=== PATIENT | female | born 1940 | race Two or more races ===

== ENCOUNTER → 2016-06-25 | Outpatient (CLI) | payer MEDICARE ==
[2016-06-25 15:09] LABS: Blood Urea Nitrogen 36 mg/dL (7-17); Non-African American GFR(MDRD) 56 (>60 ml/min/1.73 sqM)
--- NOTE | 2016-06-25 16:50 | CT ---
EXAMINATION TYPE: CT ChestAbdPelvis w con DATE OF EXAM: 06/25/2016 4:29 PM COMPARISON: CT abdomen pelvis 08 December 2015 HISTORY: follow up biliary cancer CT DLP: 510.3 mGycm Automated exposure control for dose reduction was used. CONTRAST: CT scan of the chest, abdomen and pelvis is performed with Oral Contrast and with IV Contrast, patien t injected with 70 mL of Visipaque 320. FINDINGS: LUNGS: The lungs are grossly clear, there is no concerning parenchymal mass or nodule identified. T here is no pleural effusion or pneumothorax seen. The tracheobronchial tree is patent. MEDIASTINUM: Large intrathoracic stomach and hiatal hernia again noted. No mediastinal, axillary, or hilar adenopathy. Patient is kyphotic. AORTA: No significant abnormality is seen. OTHER: No additional significant abnormality is seen. LIVER/GB: There is pneumobilia present. Biliary stent is present coursing into the small bowel and pr oper hepatic duct. Gallstones are present, gallbladder wall thickening is again seen. PANCREAS: Atrophic. SPLEEN: No significant abnormality is seen. ADRENALS: No significant abnormality is seen. KIDNEYS: Similar findings, there areas of bilateral cortical thinning, likely there is scarring prese nt, the hydronephrosis has resolved. REPRODUCTIVE ORGANS: No gross abnormality seen. BOWEL: Diverticular changes associated with the colon. FREE AIR: No Free Air visible. ASCITES: None seen. RETROPERITONEAL ADENOPATHY: No retroperitoneal adenopathy is seen. LYMPH NODES: No greater than 1 cm abdominal or pelvic lymph nodes are appreciated. URINARY BLADDER: Bladder wall thickening is again noted. Cystocele, rectocele changes are present. PELVIC ADENOPATHY: None visualized. OSSEOUS STRUCTURES: Scoliosis, degenerative disc changes are again seen. There is multilevel degener ative disc disease with facet arthropathy. IMPRESSION: Similar findings, interval change is of biliary stent, improvement in hydronephrosis, the re is cholelithiasis, correlate for cholecystitis, pneumobilia is likely postprocedural. Partial intr athoracic stomach. Diverticulosis and additional findings above.
== END | disposition home or self-care (01) ==
LOC: RADCTMAIN 14:16
PROVIDERS: ATTEND Internal Medicine Hematology & Oncology
DX: C24.9 Malignant neoplasm of biliary tract, unspecified (principal); N13.30 Unspecified hydronephrosis; K80.20 Calculus of gallbladder without cholecystitis without obstruction; K57.90 Diverticulosis of intestine, part unspecified, without perforation or abscess without bleeding
CPT/HCPCS: 82565; 84520; 71260; 74177; 36415; Q9967

== ENCOUNTER 2016-09-26 08:15 | Inpatient (IN) | payer MEDICARE ==
--- NOTE | 2016-09-26 08:31 | ED ---
General Adult HPI - General Chief complaint: Fall Stated complaint: fall Time Seen by Provider: 09/26/16 08:18 Source: EMS, RN notes reviewed, old records reviewed Mode of arrival: EMS Limitations: no limitations - History of Present Illness Initial comments: This is a 76-year-old female here for evaluation because patient today is presenting for evaluation of weakness. Patient has severe Parkinson's, does suffer from weakness, has had recent falls lately. History is obtained from patient's , patient's prior charts, patient is unable to give accurate history - Related Data Home Medications Medication Instructions Recorded Confirmed Aspirin EC [Ecotrin] 325 mg PO DAILY 12/07/15 09/26/16 Carbidopa/Levodopa 1 tab PO QID 12/07/15 09/26/16 [Carbidopa-Levodopa 25-100 Tab] Donepezil HCl [Donepezil HCl] 5 mg PO HS 12/07/15 09/26/16 Famotidine [Pepcid] 20 mg PO DAILY 12/07/15 09/26/16 Ferrous Sulfate [Feosol] 325 mg PO DAILY@1200 12/07/15 09/26/16 Ibuprofen [Motrin] 200 mg PO BID@1200,1700 09/26/16 09/26/16 Ibuprofen [Motrin] 400 mg PO HS 09/26/16 09/26/16 Mirtazapine [Remeron] 30 mg PO HS 09/26/16 09/26/16 Multivitamins, Thera [Multivitamin 1 tab PO DAILY@1200 09/26/16 09/26/16 (formulary)] Allergies Allergy/AdvReac Type Severity Reaction Status Date / Time latex Allergy Unknown Verified 09/26/16 08:49 ELASTIC Allergy Itching Uncoded 09/26/16 08:24 Review of Systems ROS Statement: Those systems with pertinent positive or pertinent negative responses have been documented in the HPI. ROS Other: All systems not noted in ROS Statement are negative. Past Medical History Past Medical History: Hypertension Additional Past Medical History / Comment(s): parkinson's, vitamin D deficiency History of Any Multi-Drug Resistant Organisms: C-DIFF Past Surgical History: No Surgical Hx Reported Past Anesthesia/Blood Transfusion Reactions: No Reported Reaction Past Psychological History: Unable to Obtain Smoking Status: Never smoker Past Alcohol Use History: None Reported Additional Past Alcohol Use History / Comment(s): Patient is a lifelong nonsmoker, no marijuana or drug use. No alcohol use. Patient lives at home with her . She is a walker for ambulation. She does not require oxygen or nebulizer. Past Drug Use History: None Reported - Past Family History Father Additional Family Medical History / Comment(s): Father at age 90 from old age and diabetes Mother Additional Family Medical History / Comment(s): Mother at age 90 from old age. Brother(s) Additional Family Medical History / Comment(s): Patient has one brother and one sister unknown medical history. Patient does not have any daughters. Patient has one son that is healthy. General Exam Limitations: no limitations General appearance: alert, in no apparent distress Head exam: Present: atraumatic, normocephalic, normal inspection Eye exam: Present: normal appearance, PERRL, EOMI. Absent: scleral icterus, conjunctival injection, periorbital swelling ENT exam: Present: normal exam, mucous membranes moist Neck exam: Present: normal inspection. Absent: tenderness, meningismus, lymphadenopathy Respiratory exam: Present: normal lung sounds bilaterally. Absent: respiratory distress, wheezes, rales, rhonchi, stridor Cardiovascular Exam: Present: regular rate, normal rhythm, normal heart sounds. Absent: systolic murmur, diastolic murmur, rubs, gallop, clicks GI/Abdominal exam: Present: soft, normal bowel sounds. Absent: distended, tenderness, guarding, rebound, rigid Extremities exam: Present: normal inspection, full ROM, normal capillary refill. Absent: tenderness, pedal edema, joint swelling, calf tenderness Back exam: Present: normal inspection Neurological exam: Present: alert, oriented X3, CN II-XII intact Psychiatric exam: Present: normal affect, normal mood Skin exam: Present: warm, dry, intact, normal color. Absent: rash Course Vital Signs 09/26/16 09/26/16 09/26/16 08:16 09:00 10:33 Temperature 97.0 F L 97.4 F L Pulse Rate 90 83 71 Respiratory 18 18 18 Rate Blood Pressure 146/91 129/79 141/71 O2 Sat by Pulse 100 100 100 Oximetry - Reevaluation(s) Reevaluation #1: 09/26/16 11:49 Patient still feeling weak EKG Findings - EKG Comments: EKG Findings:: EKG shows normal sinus rate of 91, SC 120, QRS 84, QTc 469 Medical Decision Making - Medical Decision Making 76 field year for evaluation of recent falls and increasing weakness decreased appetite. Patient coming in to hydrate on exam Hedger as well as acute renal failure, patient does also noted urinary tract infection, will benefit from IV antibiotics and resuscitation - Lab Data Result diagrams: 09/26/16 08:20 09/26/16 08:20 Lab Results 09/26/16 09/26/16 09/26/16 Range/Units 08:20 08:20 08:20 WBC 6.5 (3.8-10.6) k/uL RBC 3.54 L (3.80-5.40) m/uL Hgb 10.9 L (11.4-16.0) gm/dL Hct 33.5 L (34.0-46.0) % MCV 94.6 (80.0-100.0) fL MCH 30.7 (25.0-35.0) pg MCHC 32.5 (31.0-37.0) g/dL RDW 16.2 H (11.5-15.5) % Plt Count 237 (150-450) k/uL Neutrophils % 56 % Lymphocytes % 29 % Monocytes % 6 % Eosinophils % 5 % Basophils % 1 % Neutrophils # 3.7 (1.3-7.7) k/uL Lymphocytes # 1.9 (1.0-4.8) k/uL Monocytes # 0.4 (0-1.0) k/uL Eosinophils # 0.3 (0-0.7) k/uL Basophils # 0.0 (0-0.2) k/uL Hypochromasia Slight Anisocytosis Slight PT (9.0-12.0) sec INR (<1.1) APTT (22.0-30.0) sec Sodium 148 H (137-145) mmol/L Potassium 4.1 (3.5-5.1) mmol/L Chloride 121 H* (98-107) mmol/L Carbon Dioxide 16 L (22-30) mmol/L Anion Gap 11 mmol/L BUN 36 H (7-17) mg/dL Creatinine 1.51 H (0.52-1.04) mg/dL Est GFR (MDRD) Af Amer 40 (>60 ml/min/1.73 sqM) Est GFR (MDRD) Non-Af 33 (>60 ml/min/1.73 sqM) Glucose 94 (74-99) mg/dL Calcium 9.3 (8.4-10.2) mg/dL Phosphorus 3.3 (2.5-4.5) mg/dL Magnesium 2.2 (1.6-2.3) mg/dL Total Bilirubin 1.5 H (0.2-1.3) mg/dL AST 79 H (14-36) U/L ALT 35 (9-52) U/L Alkaline Phosphatase 1474 H (38-126) U/L Total Creatine Kinase 29 L (30-135) U/L CK-MB (CK-2) 1.3 (0.0-2.4) ng/mL CK-MB (CK-2) Rel Index 4.5 Troponin I <0.012 (0.000-0.034) ng/mL Total Protein 7.6 (6.3-8.2) g/dL Albumin 3.3 L (3.5-5.0) g/dL Urine Color Urine Appearance (Clear) Urine pH (5.0-8.0) Ur Specific Hayden (1.001-1.035) Urine Protein (Negative) Urine Glucose (UA) (Negative) Urine Ketones (Negative) Urine Blood (Negative) Urine Nitrite (Negative) Urine Bilirubin (Negative) Urine Urobilinogen (<2.0) mg/dL Ur Leukocyte Esterase (Negative) Urine WBC (0-5) /hpf Ur Squamous Epith Cells (0-4) /hpf Urine Bacteria (None) /hpf Urine Mucus (None) /hpf 09/26/16 09/26/16 Range/Units 08:20 10:30 WBC (3.8-10.6) k/uL RBC (3.80-5.40) m/uL Hgb (11.4-16.0) gm/dL Hct (34.0-46.0) % MCV (80.0-100.0) fL MCH (25.0-35.0) pg MCHC (31.0-37.0) g/dL RDW (11.5-15.5) % Plt Count (150-450) k/uL Neutrophils % % Lymphocytes % % Monocytes % % Eosinophils % % Basophils % % Neutrophils # (1.3-7.7) k/uL Lymphocytes # (1.0-4.8) k/uL Monocytes # (0-1.0) k/uL Eosinophils # (0-0.7) k/uL Basophils # (0-0.2) k/uL Hypochromasia Anisocytosis PT 11.7 (9.0-12.0) sec INR 1.2 (<1.1) APTT 23.2 (22.0-30.0) sec Sodium (137-145) mmol/L Potassium (3.5-5.1) mmol/L Chloride (98-107) mmol/L Carbon Dioxide (22-30) mmol/L Anion Gap mmol/L BUN (7-17) mg/dL Creatinine (0.52-1.04) mg/dL Est GFR (MDRD) Af Amer (>60 ml/min/1.73 sqM) Est GFR (MDRD) Non-Af (>60 ml/min/1.73 sqM) Glucose (74-99) mg/dL Calcium (8.4-10.2) mg/dL Phosphorus (2.5-4.5) mg/dL Magnesium (1.6-2.3) mg/dL Total Bilirubin (0.2-1.3) mg/dL AST (14-36) U/L ALT (9-52) U/L Alkaline Phosphatase (38-126) U/L Total Creatine Kinase (30-135) U/L CK-MB (CK-2) (0.0-2.4) ng/mL CK-MB (CK-2) Rel Index Troponin I (0.000-0.034) ng/mL Total Protein (6.3-8.2) g/dL Albumin (3.5-5.0) g/dL Urine Color Yellow Urine Appearance Turbid H (Clear) Urine pH 6.0 (5.0-8.0) Ur Specific Hayden 1.014 (1.001-1.035) Urine Protein 1+ H (Negative) Urine Glucose (UA) Negative (Negative) Urine Ketones Negative (Negative) Urine Blood Moderate H (Negative) Urine Nitrite Negative (Negative) Urine Bilirubin Negative (Negative) Urine Urobilinogen <2.0 (<2.0) mg/dL Ur Leukocyte Esterase Large H (Negative) Urine WBC >182 H (0-5) /hpf Ur Squamous Epith Cells 5 H (0-4) /hpf Urine Bacteria Many H (None) /hpf Urine Mucus Occasional H (None) /hpf - Radiology Data Radiology results: report reviewed, image reviewed Disposition Clinical Impression: Fall, Weakness, UTI (urinary tract infection), ARF (acute renal failure), Dehydration Disposition: ADMITTED IP TO THIS [facility] Condition: Good Referrals: Lia Ferreira MD [Primary Care Provider] - 1-2 days
[2016-09-26] MEDS ORDERED: SODIUM CHLORIDE 0.9% 1,000 ML IV STA ×2 (08:40→10:43)
[2016-09-26 09:04] LABS: Anisocytosis Slight; Basophils % (A) 1 %; CH 30.2; CHCM 32.3; Eosinophils # (A) 0.3 k/uL (0-0.7); Eosinophils % (A) 5 %; HCT 33.5 % (34.0-46.0); HDW 3.08; HGB 10.9 gm/dL (11.4-16.0); Hypochromasia Slight; Luc # (Auto) 0.19; Luc % (Auto) 3; Lymphocytes # (A) 1.9 k/uL (1.0-4.8); Lymphocytes % (A) 29 %; MCH 30.7 pg (25.0-35.0); MCHC 32.5 g/dL (31.0-37.0); MCV 94.6 fL (80.0-100.0); Mean Platelet Volume 8.3; Monocytes # (A) 0.4 k/uL (0-1.0); Monocytes % (A) 6 %; Neutrophils # (A) 3.7 k/uL (1.3-7.7); Neutrophils % (A) 56 %; RBC 3.54 m/uL (3.80-5.40); RDW 16.2 % (11.5-15.5); WBC 6.5 k/uL (3.8-10.6); WBC (Perox) 6.72
[2016-09-26 09:13] LABS: INR 1.2 (<1.1); Partial Thromboplastin Time 23.2 sec (22.0-30.0); Prothrombin Time 11.7 sec (9.0-12.0)
[2016-09-26 09:17] LABS: Calcium 9.3 mg/dL (8.4-10.2); Magnesium 2.2 mg/dL (1.6-2.3); Phosphorous 3.3 mg/dL (2.5-4.5); Potassium 4.1 mmol/L (3.5-5.1); Total Bilirubin 1.5 mg/dL (0.2-1.3); Total Protein 7.6 g/dL (6.3-8.2)
[2016-09-26 09:42] LABS: Creatine Kinase 29 U/L (30-135)
--- NOTE | 2016-09-26 09:42 | XR ---
EXAMINATION TYPE: XR chest 1V DATE OF EXAM: 09/26/2016 9:34 AM COMPARISON: Correlation CT 06/25/2016 HISTORY: 76-year-old female with pain after fall TECHNIQUE: Single frontal view of the chest is obtained. FINDINGS: Rightward patient rotation ultrasound normal cardiomediastinal contours. The patient's chin is also d own obscuring the thoracic inlet and upper most mid chest. Heart appears upper limits of normal in size. Pulmonary vasculature within normal limits. Mild inters titial prominence as a chronic appearance. No loly consolidation, appreciable pneumothorax, or signi ficant pleural effusion. There is a large hiatal hernia. IMPRESSION: Suboptimal patient positioning. No definite acute process. Large hiatal hernia.
[2016-09-26 09:53] LABS: Troponin I <0.012 ng/mL (0.000-0.034)
--- NOTE | 2016-09-26 09:56 | XR ---
EXAMINATION TYPE: XR pelvis AP view DATE OF EXAM: 09/26/2016 9:34 AM COMPARISON: NONE HISTORY: 76-year-old female with pain after fall FINDINGS: Degenerative changes lower lumbar spine. SI joints appear symmetric and intact as does the pubic symp hysis. There is osteopenia without displaced fracture. Mild axial joint space narrowing at both hips. A metallic biliary stent is partially visualized. IMPRESSION: Osteopenia without displaced fracture. If there is concern for an occult osseous injury or the patien t is nonweightbearing, MRI can provide more sensitive evaluation.
[2016-09-26 10:18] LABS: Creatine Kinase MB 1.3 ng/mL (0.0-2.4)
[2016-09-26 11:01] LABS: Appearance,Urine Turbid (Clear); Bacteria,Urine Many /hpf; Bilirubin,Urine Negative (Negative); Glucose,Urine (UA) Negative (Negative); Ketones,Urine Negative (Negative); Leukocyte Esterase,Urine Large (Negative); Mucus,Urine Occasional /hpf; Nitrite,Urine Negative (Negative); Particle Count 114896; Protein,Urine 1+ (Negative); Specific Gravity,Urine 1.014 (1.001-1.035); Squamous Epithelial Cell,Urine 5 /hpf (0-4); UA Billing (MACRO vs. MICRO) MICRO; Urobilinogen,Urine <2.0 mg/dL (<2.0); WBC,Urine >182 /hpf (0-5)
[2016-09-26] MEDS ORDERED: DEXTROSE 5%-0.45% NACL 1,000 ML IV ONE (11:41)
[2016-09-26] MEDS ORDERED: SODIUM CHLORIDE 0.9% 1,000 ML IV ONE (11:44)
[2016-09-26] MEDS: ASPIRIN 325 MG TAB PO SCH (13:09)
[2016-09-26] MEDS: CARBIDOPA-LEVODOPA 25-100 MG 1 EACH TAB PO SCH ×2 (13:09→17:47)
[2016-09-26] MEDS: FAMOTIDINE 20 MG TAB PO SCH (13:09)
--- NOTE | 2016-09-26 13:49 | P.HPIM ---
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 Shakira Waterman from hematology oncology, also history of Parkinson disease and osteoarthritis, patient has been doing fine at home with her and her son coming to check on them on a regular basis, patient was ambulating in the morning using a walker and all of a sudden her legs could not hold her body and she went down l without any injury patient ended up calling EMS and patient was brought into the emergency department at [facility] where she was found to have urinary tract infection as well as non-anion gap metabolic acidosis with hyperchloremia, patient was started on D5 half-normal saline at 100 mL an hour and she was admitted to the hospital because of urinary tract infection she was started on Rocephin 1 g IV piggyback every 24 hours, and urine and blood cultures were obtained. Review of Systems Constitutional: Reports anorexia, Reports chills, Reports fatigue, Reports fever , Reports malaise, Reports sweats, Reports weakness Eyes: bilateral blurred vision, bilateral bulging eye, denies decreased vision Ears: bilateral: decreased hearing Ears, nose, mouth and throat: Denies dysphagia, Denies neck lump, Denies sore throat, Denies vertigo Cardiovascular: Reports high blood pressure, Denies chest pain, Denies dyspnea on exertion, Denies edema, Denies irregular heart beat, Denies phlebitis, Denies rapid heart beat, Denies shortness of breath, Denies syncope Respiratory: Denies congestion, Denies cough, Denies cough with sputum, Denies home oxygen, Denies sleep apnea, Denies snoring, Denies wheezing Gastrointestinal: Denies abdominal pain, Denies bloating, Denies BRBPR, Denies constipation, Denies dyspepsia, Denies heartburn, Denies hematemesis, Denies melena, Denies nausea, Denies vomiting Genitourinary: Reports dysuria, Reports urge incontinence Musculoskeletal: Reports frequent falls, Reports gait dysfunction, Denies myalgias Musculoskeletal: absent: ankle pain, ankle stiffness, ankle swelling, elbow pain , elbow stiffness, elbow swelling, foot pain, foot stiffness, foot swelling, hand pain, hand stiffness, hand swelling, hip pain, hip stiffness, hip swelling , knee pain, knee stiffness, knee swelling, shoulder pain, shoulder stiffness, shoulder swelling, wrist pain, wrist stiffness, wrist swelling Integumentary: Denies pruritus, Denies rash Neurological: Reports gait dysfunction, Reports spasticity, Reports tremors, Denies head injury, Denies numbness, Denies syncope, Denies weakness Psychiatric: Reports anxiety Past Medical History Past Medical History: Cancer (Biliary tract cancer post common bile duct stent placement), Dementia (Vascular dementia.), GERD/Reflux, Hyperlipidemia, Hypertension, Neurologic Disorder, Osteoarthritis (OA) Additional Past Medical History / Comment(s): parkinson's, vitamin D deficiency , hypertension, hypokalemia, biliary tract cancer status post common bile duct stent placement, gait dysfunction, falls, vascular dementia. History of Any Multi-Drug Resistant Organisms: C-DIFF Past Surgical History: No Surgical Hx Reported Past Anesthesia/Blood Transfusion Reactions: No Reported Reaction Past Psychological History: Unable to Obtain Smoking Status: Never smoker Past Alcohol Use History: None Reported Additional Past Alcohol Use History / Comment(s): Patient is a lifelong nonsmoker, no marijuana or drug use. No alcohol use. Patient lives at home with her . She is a walker for ambulation. She does not require oxygen or nebulizer. Past Drug Use History: None Reported - Past Family History Father Additional Family Medical History / Comment(s): Father at age 90 from old age and diabetes Mother Additional Family Medical History / Comment(s): Mother at age 90 from old age. Brother(s) Additional Family Medical History / Comment(s): Patient has one brother and one sister unknown medical history. Patient does not have any daughters. Patient has one son that is healthy. Medications and Allergies Home Medications Medication Instructions Recorded Confirmed Type Aspirin EC [Ecotrin] 325 mg PO DAILY 12/07/15 09/26/16 History Carbidopa/Levodopa 1 tab PO QID 12/07/15 09/26/16 History [Carbidopa-Levodopa 25-100 Tab] Donepezil HCl [Donepezil HCl] 5 mg PO HS 12/07/15 09/26/16 History Famotidine [Pepcid] 20 mg PO DAILY 12/07/15 09/26/16 History Ferrous Sulfate [Feosol] 325 mg PO DAILY@1200 07/08/16 04/28/17 History Ibuprofen [Motrin] 200 mg PO BID@1200,1700 09/26/16 09/26/16 History Ibuprofen [Motrin] 400 mg PO HS 09/26/16 09/26/16 History Mirtazapine [Remeron] 30 mg PO HS 09/26/16 09/26/16 History Multivitamins, Thera [Multivitamin 1 tab PO DAILY@1200 09/26/16 09/26/16 History (formulary)] Allergies Allergy/AdvReac Type Severity Reaction Status Date / Time latex Allergy Unknown Verified 09/26/16 08:49 ELASTIC Allergy Itching Uncoded 09/26/16 08:24 Physical Exam - Constitutional General appearance: mild distress - EENT Eyes: anicteric sclerae, EOMI, PERRLA, no ptosis, no scleral icterus, normal appearance ENT: NA/AT, normal oropharynx, no thrush Ears: bilateral: normal - Neck Neck: no lymphadenopathy, normal ROM, no rigidity, no stridor, no thyromegaly Carotids: bilateral: upstroke delayed Thyroid: bilateral: normal size - Respiratory Respiratory: bilateral: diminished, negative: dullness, rales, rhonchi, wheezing , prolonged expiration - Cardiovascular Rhythm: regular Heart sounds: normal: S1, S2 Abnormal Heart Sounds: systolic murmur, no rub, no S3 Gallop, no S4 Gallop, no click - Gastrointestinal General gastrointestinal: normal bowel sounds, soft, no splenomegaly, no tenderness, no umbilical hernia, no ventral hernia - Integumentary Integumentary: normal, normal turgor - Neurologic Neurologic: CNII-XII intact - Musculoskeletal Musculoskeletal: generalized weakness - Psychiatric Psychiatric: A&O x's 3, appropriate affect, intact judgment & insight Results CBC & Chem 7: 09/26/16 08:20 09/26/16 08:20 Thrombosis Risk Factor Assmnt - DVT/VTE Prophylaxis DVT/VTE Prophylaxis: Pharmacologic Prophylaxis ordered, Mechanical Prophylaxis ordered Assessment and Plan Plan: Assessment and plan: 1. Acute kidney injury with hyperchloremic non-anion gap metabolic acidosis. Start D5 half-normal saline at 75 mL an hour, increase oral intake of fluid, monitor the patient CMP, magnesium, phosphorus, than x-ray 4 hours. 2. Urinary tract infection with sepsis. Urine culture, blood culture, start Rocephin 1 g IV piggyback every 24 hours. 3. Hypertension. Continue Motrin, start the patient on small dose of amlodipine 5 mg orally once every day, discontinue lisinopril. 4. Osteoarthritis. Continue current pain management. 5. 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 Patient did have a computed tomography scan of the abdomen and pelvis degenerative thousand 17 and that showed cholelithiasis with stable condition so far. She is to follow-up with hematology oncology as an outpatient. 6. Vascular dementia. Continue Aricept 5 mg orally once every day. 7. Parkinson disease. Continue patient on Sinemet 25/100 one tablet orally 3 times every day. 8. Medical debility. Physical therapy evaluation. 9. DVT prophylaxis. Continue Lovenox 40 mg subcutaneously every 24 hours . 10. GI prophylaxis. Continue patient on Pepcid 20 mg orally once every day. 11. Admitted to inpatient. Estimate a length of stay 2 midnights.
[2016-09-26 14:45] VITALS: BMI 17.2
[2016-09-26] MEDS: DONEPEZIL 5 MG TAB PO SCH (22:40)
[2016-09-26] MEDS: MIRTAZAPINE 15 MG TAB PO SCH (22:40)
[2016-09-27] MEDS: CARBIDOPA-LEVODOPA 25-100 MG 1 EACH TAB PO SCH ×5 (00:24→20:23)
[2016-09-27] MEDS ORDERED: FAMOTIDINE 20 MG TAB PO SCH (09:00)
[2016-09-27] MEDS ORDERED: ENOXAPARIN 40 MG/0.4 ML SYRINGE SQ SCH (09:00)
[2016-09-27 09:08] LABS: CH 29.9; CHCM 31.9; Calcium 8.7 mg/dL (8.4-10.2); HCT 28.4 % (34.0-46.0); Hypochromasia Slight; MCH 31.1 pg (25.0-35.0); MCHC 32.8 g/dL (31.0-37.0); MCV 94.9 fL (80.0-100.0); Mean Platelet Volume 7.8; Potassium 3.7 mmol/L (3.5-5.1); RBC 2.99 m/uL (3.80-5.40); RDW 15.8 % (11.5-15.5); Total Bilirubin 1.7 mg/dL (0.2-1.3); Total Protein 6.3 g/dL (6.3-8.2); WBC 6.9 k/uL (3.8-10.6)
[2016-09-27 09:14] LABS: HGB 9.3 gm/dL (11.4-16.0)
[2016-09-27] MEDS: ASPIRIN 325 MG TAB PO SCH (09:26)
[2016-09-27] MEDS: ENOXAPARIN 30 MG/0.3 ML SYRINGE SQ SCH (09:26)
[2016-09-27] MEDS: FAMOTIDINE 20 MG TAB PO SCH (09:26)
[2016-09-27] MEDS: FERROUS SULFATE 325 MG TAB PO SCH (12:06)
[2016-09-27] MEDS: MULTIVITAMINS, THERA 1 EACH TAB PO SCH (12:06)
--- NOTE | 2016-09-27 15:33 | P.PN ---
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 Shakira Waterman from hematology oncology, also history of Parkinson disease and osteoarthritis, patient has been doing fine at home with her and her son coming to check on them on a regular basis, patient was ambulating in the morning using a walker and all of a sudden her legs could not hold her body and she went down l without any injury patient ended up calling EMS and patient was brought into the emergency department at [facility] where she was found to have urinary tract infection as well as non-anion gap metabolic acidosis with hyperchloremia, patient was started on D5 half-normal saline at 100 mL an hour and she was admitted to the hospital because of urinary tract infection she was started on Rocephin 1 g IV piggyback every 24 hours, and urine and blood cultures were obtained. 09/27: Patient's doing well son is at bedside patient's been clean noted to have decreased hearing and son was wondering whether disimpacted or not, did not be some rectal prolapse which was reduced today by myself. Patient does not have any aspirate events no significant abdominal pain urine cultures are currently pending Objective - Vital Signs Vital signs: Vital Signs Temp 97.8 F 09/27/16 07:00 Pulse 80 09/27/16 09:00 Resp 22 09/27/16 09:00 BP 125/67 09/27/16 07:00 Pulse Ox 100 09/27/16 07:00 Intake & Output 09/26/16 09/27/16 09/27/16 18:59 06:59 18:59 Weight 45.359 kg Other: Voiding Method Diaper Diaper Diaper Incontinent Incontinent Incontinent # Voids 2 1 1 # Bowel Movements 1 1 - Constitutional General appearance: Present: cooperative, no acute distress - EENT Eyes: Present: anicteric sclerae, EOMI, PERRLA, dentition normal ENT: Present: hard of hearing, NA/AT - Neck Neck: Present: normal ROM Thyroid: bilateral: normal size - Respiratory Respiratory: bilateral: CTA, negative: diminished, dullness, rales - Cardiovascular Rhythm: regular Heart sounds: normal: S1, S2 - Gastrointestinal General gastrointestinal: Present: normal bowel sounds, soft - Genitourinary Female genitourinary: prolapse - Integumentary Integumentary: Present: normal - Psychiatric Psychiatric: Present: A&O x's 3, appropriate affect - Labs CBC & Chem 7: 09/27/16 08:22 09/27/16 08:22 Labs: Abnormal Lab Results - Last 24 Hours (Table) 09/27/16 09/27/16 Range/Units 08:22 08:22 RBC 2.99 L (3.80-5.40) m/uL Hgb 9.3 L D (11.4-16.0) gm/dL Hct 28.4 L (34.0-46.0) % RDW 15.8 H (11.5-15.5) % Sodium 146 H (137-145) mmol/L Chloride 123 H* (98-107) mmol/L Carbon Dioxide 16 L (22-30) mmol/L BUN 26 H (7-17) mg/dL Creatinine 1.18 H (0.52-1.04) mg/dL Glucose 100 H (74-99) mg/dL Total Bilirubin 1.7 H (0.2-1.3) mg/dL AST 98 H (14-36) U/L Alkaline Phosphatase 1426 H (38-126) U/L Albumin 2.6 L (3.5-5.0) g/dL Microbiology - Last 24 Hours (Table) 09/26/16 12:15 Blood Culture - Preliminary Blood No Growth after 24 hours Assessment and Plan Plan: 1. Acute kidney injury with hyperchloremic non-anion gap metabolic acidosis. Start D5 half-normal saline at 75 mL an hour, increase oral intake of fluid, monitor the patient CMP, magnesium, phosphorus, than x-ray 4 hours. 2. Urinary tract infection with sepsis. Urine culture, blood culture, start Rocephin 1 g IV piggyback every 24 hours. 3. Hypertension. Continue Motrin, start the patient on small dose of amlodipine 5 mg orally once every day, discontinue lisinopril. 4. Osteoarthritis. Continue current pain management. 5. 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 Patient did have a computed tomography scan of the abdomen and pelvis degenerative and that showed cholelithiasis with stable condition so far. She is to follow-up with hematology oncology as an outpatient. 6. Vascular dementia. Continue Aricept 5 mg orally once every day. 7. Parkinson disease. Continue patient on Sinemet 25/100 one tablet orally 3 times every day. 8. Medical debility. Physical therapy evaluation. 9. DVT prophylaxis. Continue Lovenox 40 mg subcutaneously every 24 hours . 10. GI prophylaxis. Continue patient on Pepcid 20 mg orally once every day. 11. Admitted to inpatient. Estimate a length of stay 2 midnights. 12. 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 Decreased hearing secondary to cerumen impaction, ear wash right side to be done to 09/27
[2016-09-27] MEDS: DEXTROSE 5%-0.45% NACL 1,000 ML IV SCH (17:15)
[2016-09-27] MEDS: DONEPEZIL 5 MG TAB PO SCH (20:23)
[2016-09-27] MEDS: MIRTAZAPINE 15 MG TAB PO SCH (20:23)
[2016-09-28] MEDS: CARBIDOPA-LEVODOPA 25-100 MG 1 EACH TAB PO SCH ×4 (08:25→22:03)
[2016-09-28] MEDS: ASPIRIN 325 MG TAB PO SCH (08:26)
[2016-09-28] MEDS: ENOXAPARIN 30 MG/0.3 ML SYRINGE SQ SCH (08:26)
[2016-09-28] MEDS: FAMOTIDINE 20 MG TAB PO SCH (08:26)
[2016-09-28 09:43] LABS: CH 30.2; CHCM 32.1; HCT 31.2 % (34.0-46.0); HGB 10.2 gm/dL (11.4-16.0); Hypochromasia Slight; MCH 30.9 pg (25.0-35.0); MCHC 32.6 g/dL (31.0-37.0); MCV 94.9 fL (80.0-100.0); Mean Platelet Volume 8.3; RBC 3.28 m/uL (3.80-5.40); RDW 15.9 % (11.5-15.5); WBC 6.2 k/uL (3.8-10.6)
[2016-09-28 10:19] LABS: Calcium 8.7 mg/dL (8.4-10.2); Potassium 3.7 mmol/L (3.5-5.1); Total Bilirubin 2.7 mg/dL (0.2-1.3); Total Protein 6.9 g/dL (6.3-8.2)
[2016-09-28] MEDS: MULTIVITAMINS, THERA 1 EACH TAB PO SCH (11:42)
[2016-09-28] MEDS: FERROUS SULFATE 325 MG TAB PO SCH (11:42)
[2016-09-28] MEDS: DEXTROSE 5%-0.45% NACL 1,000 ML IV SCH (11:49)
[2016-09-28] MEDS: MEROPENEM 1 GM in SODIUM CHLORIDE 0.9% 100 ML IVPB SCH ×2 (14:22→23:24)
--- NOTE | 2016-09-28 19:05 | P.PN ---
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 Shakira Waterman from hematology oncology, also history of Parkinson disease and osteoarthritis, patient has been doing fine at home with her and her son coming to check on them on a regular basis, patient was ambulating in the morning using a walker and all of a sudden her legs could not hold her body and she went down l without any injury patient ended up calling EMS and patient was brought into the emergency department at [facility] where she was found to have urinary tract infection as well as non-anion gap metabolic acidosis with hyperchloremia, patient was started on D5 half-normal saline at 100 mL an hour and she was admitted to the hospital because of urinary tract infection she was started on Rocephin 1 g IV piggyback every 24 hours, and urine and blood cultures were obtained. 09/27: Patient's doing well son is at bedside patient's been clean noted to have decreased hearing and son was wondering whether disimpacted or not, did not be some rectal prolapse which was reduced today by myself. Patient does not have any aspirate events no significant abdominal pain urine cultures are currently pending 09/28: ESBL noted on urine culture, physical therapy has recommended subacute rehabilitation, patient's reluctant on going to subacute rehab, he has an elderly gentleman and most likely would not be able to care for her either. Ears have been successfully irrigated. No new troubles this visit Objective - Vital Signs Vital signs: Vital Signs Temp 97.8 F 09/28/16 14:54 Pulse 76 09/28/16 16:51 Resp 20 09/28/16 16:51 BP 116/64 09/28/16 14:54 Pulse Ox 97 09/28/16 14:54 Intake & Output 09/28/16 09/28/16 09/29/16 06:59 18:59 06:59 Intake Total 120 320 Output Total 4 Balance 120 316 Weight 45.359 kg Intake: Oral 120 320 Output: Stool 4 Other: Voiding Method Diaper Diaper Incontinent Incontinent # Voids 1 2 # Bowel Movements 1 1 - Constitutional General appearance: Present: cooperative, no acute distress, thin - EENT Eyes: Present: anicteric sclerae, EOMI, PERRLA, dentition normal, normal appearance - Respiratory Respiratory: bilateral: CTA, negative: diminished - Cardiovascular Rhythm: regular Heart sounds: normal: S1, S2 Abnormal Heart Sounds: Present: diastolic murmur. Absent: systolic murmur, rub , S3 Gallop, S4 Gallop, click, other - Gastrointestinal General gastrointestinal: Present: normal bowel sounds, soft - Integumentary Integumentary: Present: decreased turgor, normal - Musculoskeletal Musculoskeletal: Present: generalized weakness, strength equal bilaterally - Psychiatric Psychiatric: Present: A&O x's 3, appropriate affect, intact judgment & insight - Labs CBC & Chem 7: 09/28/16 08:58 09/28/16 08:58 Labs: Abnormal Lab Results - Last 24 Hours (Table) 09/28/16 09/28/16 Range/Units 08:58 08:58 RBC 3.28 L (3.80-5.40) m/uL Hgb 10.2 L (11.4-16.0) gm/dL Hct 31.2 L (34.0-46.0) % RDW 15.9 H (11.5-15.5) % Chloride 120 H* (98-107) mmol/L Carbon Dioxide 13 L (22-30) mmol/L BUN 23 H (7-17) mg/dL Creatinine 1.16 H (0.52-1.04) mg/dL Glucose 169 H (74-99) mg/dL Total Bilirubin 2.7 H (0.2-1.3) mg/dL AST 158 H (14-36) U/L Alkaline Phosphatase 1747 H (38-126) U/L Albumin 2.8 L (3.5-5.0) g/dL Microbiology - Last 24 Hours (Table) 09/26/16 12:15 Blood Culture - Preliminary Blood No Growth after 48 hours Assessment and Plan Plan: 1. Acute kidney injury with hyperchloremic non-anion gap metabolic acidosis. Start D5 half-normal saline at 75 mL an hour, increase oral intake of fluid, monitor the patient CMP, magnesium, phosphorus, than x-ray 4 hours. 2. ESBL E. coli Urinary tract infection with sepsis. Urine culture, blood culture, start Rocephin 1 g IV piggyback every 24 hours. Change to Meropenem IV 3. Hypertension. Continue Motrin, start the patient on small dose of amlodipine 5 mg orally once every day, discontinue lisinopril. 4. Osteoarthritis. Continue current pain management. 5. 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 Patient did have a computed tomography scan of the abdomen and pelvis degenerative thousand 17 and that showed cholelithiasis with stable condition so far. She is to follow-up with hematology oncology as an outpatient. 6. Vascular dementia. Continue Aricept 5 mg orally once every day. 7. Parkinson disease. Continue patient on Sinemet 25/100 one tablet orally 3 times every day. 8. Medical debility. Physical therapy evaluation. 9. DVT prophylaxis. Continue Lovenox 40 mg subcutaneously every 24 hours . 10. GI prophylaxis. Continue patient on Pepcid 20 mg orally once every day. 11. Admitted to inpatient. Estimate a length of stay 2 midnights. 12. 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 Decreased hearing secondary to cerumen impaction, ear wash right side to be done to 09/27 14 debility with Discharge planning subacute rehabilitation is anticipated patient is not in agreement however
[2016-09-28] MEDS: MIRTAZAPINE 15 MG TAB PO SCH (22:03)
[2016-09-28] MEDS: DONEPEZIL 5 MG TAB PO SCH (22:03)
[2016-09-29] MEDS: DEXTROSE 5%-0.45% NACL 1,000 ML IV SCH ×2 (04:22→23:04)
[2016-09-29] MEDS: ASPIRIN 325 MG TAB PO SCH (09:28)
[2016-09-29] MEDS: CARBIDOPA-LEVODOPA 25-100 MG 1 EACH TAB PO SCH ×4 (09:28→21:36)
[2016-09-29] MEDS: ENOXAPARIN 30 MG/0.3 ML SYRINGE SQ SCH (09:29)
[2016-09-29] MEDS: FAMOTIDINE 20 MG TAB PO SCH (09:29)
[2016-09-29 11:22] LABS: CH 29.8; CHCM 30.9; HCT 29.2 % (34.0-46.0); HDW 2.88; Hypochromasia Moderate; MCH 30.1 pg (25.0-35.0); MCHC 30.9 g/dL (31.0-37.0); MCV 97.3 fL (80.0-100.0); Mean Platelet Volume 8.5; RDW 15.8 % (11.5-15.5); WBC 6.4 k/uL (3.8-10.6)
[2016-09-29] MEDS: FERROUS SULFATE 325 MG TAB PO SCH (11:46)
[2016-09-29] MEDS: MULTIVITAMINS, THERA 1 EACH TAB PO SCH (11:46)
[2016-09-29] MEDS: MEROPENEM 1 GM in SODIUM CHLORIDE 0.9% 100 ML IVPB SCH ×2 (11:46→23:03)
[2016-09-29 12:08] LABS: Potassium 3.6 mmol/L (3.5-5.1)
[2016-09-29 12:09] LABS: Calcium 8.2 mg/dL (8.4-10.2); Total Bilirubin 1.3 mg/dL (0.2-1.3)
--- NOTE | 2016-09-29 15:10 | P.PN ---
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 Shakira Waterman from hematology oncology, also history of Parkinson disease and osteoarthritis, patient has been doing fine at home with her and her son coming to check on them on a regular basis, patient was ambulating in the morning using a walker and all of a sudden her legs could not hold her body and she went down l without any injury patient ended up calling EMS and patient was brought into the emergency department at [facility] where she was found to have urinary tract infection as well as non-anion gap metabolic acidosis with hyperchloremia, patient was started on D5 half-normal saline at 100 mL an hour and she was admitted to the hospital because of urinary tract infection she was started on Rocephin 1 g IV piggyback every 24 hours, and urine and blood cultures were obtained. 09/27: Patient's doing well son is at bedside patient's been clean noted to have decreased hearing and son was wondering whether disimpacted or not, did not be some rectal prolapse which was reduced today by myself. Patient does not have any aspirate events no significant abdominal pain urine cultures are currently pending 09/28: ESBL noted on urine culture, physical therapy has recommended subacute rehabilitation, patient's reluctant on going to subacute rehab, he has an elderly gentleman and most likely would not be able to care for her either. Ears have been successfully irrigated. No new troubles this visit 09/29: Urine culture returned Klebsiella pneumoniae ESBL. Patient is currently on meropenem. Alkaline phosphatase is elevated due to biliary cancer. She denies any abdominal pain. She denies any pain after meals. Objective - Vital Signs Vital signs: Vital Signs Temp 99.5 F 09/29/16 07:00 Pulse 82 09/29/16 07:00 Resp 16 09/29/16 07:00 BP 117/67 09/29/16 07:00 Pulse Ox 98 09/29/16 07:00 Intake & Output 09/28/16 09/29/16 09/29/16 18:59 06:59 18:59 Intake Total 320 240 Output Total 4 Balance 316 240 Weight 45.359 kg Intake: Oral 320 240 Output: Stool 4 Other: Voiding Method Diaper Diaper Diaper Incontinent Incontinent Incontinent # Voids 2 2 1 # Bowel Movements 1 1 - Exam General appearance: Present: cooperative, no acute distress, thin - EENT Eyes: Present: anicteric sclerae, EOMI, PERRLA, dentition normal, normal appearance - Respiratory Respiratory: bilateral: CTA, negative: diminished - Cardiovascular Rhythm: regular Heart sounds: normal: S1, S2 Abnormal Heart Sounds: Present: diastolic murmur. Absent: systolic murmur, rub , S3 Gallop, S4 Gallop, click, other - Gastrointestinal General gastrointestinal: Present: normal bowel sounds, soft - Integumentary Integumentary: Present: decreased turgor, normal - Musculoskeletal Musculoskeletal: Present: generalized weakness, strength equal bilaterally - Psychiatric Psychiatric: Present: A&O x's 3, appropriate affect, intact judgment & insight - Labs CBC & Chem 7: 09/29/16 11:08 09/29/16 11:08 Labs: Abnormal Lab Results - Last 24 Hours (Table) 09/29/16 09/29/16 Range/Units 11:08 11:08 RBC 3.00 L (3.80-5.40) m/uL Hgb 9.0 L (11.4-16.0) gm/dL Hct 29.2 L (34.0-46.0) % MCHC 30.9 L (31.0-37.0) g/dL RDW 15.8 H (11.5-15.5) % Chloride 115 H (98-107) mmol/L Carbon Dioxide 18 L (22-30) mmol/L BUN 21 H (7-17) mg/dL Creatinine 1.17 H (0.52-1.04) mg/dL Glucose 191 H (74-99) mg/dL Calcium 8.2 L (8.4-10.2) mg/dL AST 77 H (14-36) U/L Alkaline Phosphatase 1328 H (38-126) U/L Total Protein 6.0 L (6.3-8.2) g/dL Albumin 2.4 L (3.5-5.0) g/dL Microbiology - Last 24 Hours (Table) 09/26/16 12:15 Blood Culture - Preliminary Blood No Growth after 72 hours Assessment and Plan Plan: 1. Acute kidney injury with hyperchloremic non-anion gap metabolic acidosis. Start D5 half-normal saline at 75 mL an hour, increase oral intake of fluid, monitor the patient CMP, magnesium, phosphorus, than x-ray 4 hours. 2. ESBL E. coli Urinary tract infection with sepsis. Urine culture, blood culture, start Rocephin 1 g IV piggyback every 24 hours. Change to Meropenem IV 3. Hypertension. Continue Motrin, start the patient on small dose of amlodipine 5 mg orally once every day, discontinue lisinopril. 4. Osteoarthritis. Continue current pain management. 5. 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 Patient did have a computed tomography scan of the abdomen and pelvis degenerative thousand 17 and that showed cholelithiasis with stable condition so far. She is to follow-up with hematology oncology as an outpatient. 6. Vascular dementia. Continue Aricept 5 mg orally once every day. 7. Parkinson disease. Continue patient on Sinemet 25/100 one tablet orally 3 times every day. 8. Medical debility. Physical therapy evaluation. 9. DVT prophylaxis. Continue Lovenox 40 mg subcutaneously every 24 hours . 10. GI prophylaxis. Continue patient on Pepcid 20 mg orally once every day. 11. Admitted to inpatient. Estimate a length of stay 2 midnights. 12. 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 Decreased hearing secondary to cerumen impaction, ear wash right side to be done to 09/27 Discharge plan: Skip on Thursday Impression and plan of care have been directed as dictated by the signing physician. Noelle Judge nurse practitioner acting as scribe for signing physician. Time with Patient: Greater than 30
[2016-09-29] MEDS: DONEPEZIL 5 MG TAB PO SCH (21:36)
[2016-09-29] MEDS: MIRTAZAPINE 15 MG TAB PO SCH (21:36)
[2016-09-30 01:05] VITALS: RESP 20
[2016-09-30 09:31] LABS: CH 29.9; CHCM 31.2; HCT 26.7 % (34.0-46.0); HDW 2.94; HGB 8.9 gm/dL (11.4-16.0); Hypochromasia Moderate; MCH 32.3 pg (25.0-35.0); MCHC 33.4 g/dL (31.0-37.0); MCV 96.8 fL (80.0-100.0); Mean Platelet Volume 8.4; RBC 2.75 m/uL (3.80-5.40); RDW 15.8 % (11.5-15.5); WBC 4.8 k/uL (3.8-10.6)
[2016-09-30 09:32] LABS: ALT 50 U/L (9-52); AST 57 U/L (14-36); Alkaline Phosphatase 1336 U/L (38-126); Anion Gap 10 mmol/L; Blood Urea Nitrogen 19 mg/dL (7-17); Calcium 8.3 mg/dL (8.4-10.2); Carbon Dioxide 15 mmol/L (22-30); Chloride 115 mmol/L (98-107); Glucose 153 mg/dL (74-99); Non-African American GFR(MDRD) 50 (>60 ml/min/1.73 sqM); Sodium 140 mmol/L (137-145); Total Bilirubin 1.1 mg/dL (0.2-1.3); Total Protein 6.6 g/dL (6.3-8.2)
[2016-09-30] MEDS: ASPIRIN 325 MG TAB PO SCH (09:57)
[2016-09-30] MEDS: ENOXAPARIN 30 MG/0.3 ML SYRINGE SQ SCH (09:57)
[2016-09-30] MEDS: CARBIDOPA-LEVODOPA 25-100 MG 1 EACH TAB PO SCH ×2 (09:57→12:47)
[2016-09-30] MEDS: FAMOTIDINE 20 MG TAB PO SCH (09:58)
[2016-09-30] MEDS: FERROUS SULFATE 325 MG TAB PO SCH (12:45)
[2016-09-30] MEDS: MEROPENEM 1 GM in SODIUM CHLORIDE 0.9% 100 ML IVPB SCH (12:46)
[2016-09-30] MEDS: MULTIVITAMINS, THERA 1 EACH TAB PO SCH (12:47)
--- NOTE | 2016-09-30 13:25 | P.DS ---
Providers Date of admission: 09/26/16 11:47 Expected date of discharge: 09/30/16 Attending physician: Lia Ferreira Primary care physician: Lia Ferreira [facility] Course: This is a 76-year-old female patient of Dr. 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 Shakira Waterman from hematology oncology, also history of Parkinson disease and osteoarthritis, patient has been doing fine at home with her and her son coming to check on them on a regular basis, patient was ambulating in the morning using a walker and all of a sudden her legs could not hold her body and she went down l without any injury patient ended up calling EMS and patient was brought into the emergency department at [facility] where she was found to have urinary tract infection as well as non-anion gap metabolic acidosis with hyperchloremia, patient was started on D5 half-normal saline at 100 mL an hour and she was admitted to the hospital because of urinary tract infection she was started on Rocephin 1 g IV piggyback every 24 hours, and urine and blood cultures were obtained. 09/27: Patient's doing well son is at bedside patient's been clean noted to have decreased hearing and son was wondering whether disimpacted or not, did not be some rectal prolapse which was reduced today by myself. Patient does not have any aspirate events no significant abdominal pain urine cultures are currently pending 09/28: ESBL noted on urine culture, physical therapy has recommended subacute rehabilitation, patient's reluctant on going to subacute rehab, he has an elderly gentleman and most likely would not be able to care for her either. Ears have been successfully irrigated. No new troubles this visit 09/29: Urine culture returned Klebsiella pneumoniae ESBL. Patient is currently on meropenem. Alkaline phosphatase is elevated due to biliary cancer. She denies any abdominal pain. She denies any pain after meals. 09/30: At the time of discharge her sodium is 142, chloride 1:15, CO2 18, BUN 21 and creatinine 1.17. Hemoglobin is 9. Alkaline phosphatase 1328 and AST 77. Patient will be discharged to [facility] today in stable condition. Discharge diagnoses: 1. Acute kidney injury with hyperchloremic non-anion gap metabolic acidosis. 2. ESBL E. coli Urinary tract infection with sepsis. 3. Hypertension. 4. Osteoarthritis. 5. 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 6. Vascular dementia. 7. Parkinson disease. 8. Medical debility. 9. 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 Decreased hearing secondary to cerumen impaction, ear wash right side done 09/27 Discharge plan: [facility] on Thursday under the care of Dr. Ferreira Impression and plan of care have been directed as dictated by the signing physician. Noelle Judge nurse practitioner acting as scribe for signing physician. Patient Condition at Discharge: Good Plan - Discharge Summary New Discharge Prescriptions: Doxycycline Hyclate 100 mg PO BID #18 tab Discharge Medication List Aspirin EC [Ecotrin] 325 mg PO DAILY 12/07/15 [History] Carbidopa/Levodopa [Carbidopa-Levodopa 25-100 Tab] 1 tab PO QID 12/07/15 [ History] Donepezil HCl 5 mg PO HS 12/07/15 [History] Famotidine [Pepcid] 20 mg PO DAILY 12/07/15 [History] Ferrous Sulfate [Feosol] 325 mg PO DAILY@1200 12/07/15 [History] Ibuprofen [Motrin] 200 mg PO BID@1200,1700 09/26/16 [History] Ibuprofen [Motrin] 400 mg PO HS 09/26/16 [History] Mirtazapine [Remeron] 30 mg PO HS 09/26/16 [History] Multivitamins, Thera [Multivitamin (formulary)] 1 tab PO DAILY@1200 09/26/16 [ History] Doxycycline Hyclate 100 mg PO BID #18 tab 09/30/16 [Rx] Follow up Appointment(s)/Referral(s): Lia Ferreira MD [Primary Care Provider] - 1 Week Discharge Disposition: TRANSFER TO SNF/F
[2016-09-30 16:01] VITALS: BP 87/58; PULSE 87; TEMP 97.1
[2016-10-01] MEDS ORDERED: ENOXAPARIN 40 MG/0.4 ML SYRINGE SQ SCH (09:00)
== END 2016-09-30 17:00 | DRG 872 ==
LOC: EC 08:15 → 4MS4W 11:47
PROVIDERS: ADMIT Internal Medicine; ATTEND Internal Medicine
DX: A41.9 Sepsis, unspecified organism (principal); N17.9 Acute kidney failure, unspecified; C24.9 Malignant neoplasm of biliary tract, unspecified; N39.0 Urinary tract infection, site not specified; E87.2 Acidosis; E87.8 Other disorders of electrolyte and fluid balance, not elsewhere classified; G20 Parkinson's disease; I11.9 Hypertensive heart disease without heart failure; B96.20 Unspecified Escherichia coli [E. coli] as the cause of diseases classified elsewhere; E86.0 Dehydration; K21.9 Gastro-esophageal reflux disease without esophagitis; E78.5 Hyperlipidemia, unspecified; F01.50 Vascular dementia, unspecified severity, without behavioral disturbance, psychotic disturbance, mood disturbance, and anxiety; H61.21 Impacted cerumen, right ear; K62.3 Rectal prolapse; K80.20 Calculus of gallbladder without cholecystitis without obstruction; M19.90 Unspecified osteoarthritis, unspecified site; N81.4 Uterovaginal prolapse, unspecified; E55.9 Vitamin D deficiency, unspecified; R26.9 Unspecified abnormalities of gait and mobility; R32 Unspecified urinary incontinence; Z91.81 History of falling; Z16.12 Extended spectrum beta lactamase (ESBL) resistance; Z79.899 Other long term (current) drug therapy; Z91.040 Latex allergy status; W19.XXXA Unspecified fall, initial encounter; Y92.9 Unspecified place or not applicable
CPT/HCPCS: 36415; 71010; 72170; 80053; 81001; 82550; 82553; 83735; 84100; 84484; 85025; 85027; 85610; 85730; 87040; 87077; 87086; 87186; 93005; 94760; 96360; 96361; 99285

== ENCOUNTER 2016-10-06 20:06 | Inpatient (IN) | payer MEDICARE ==
[2016-10-06] MEDS ORDERED: PANTOPRAZOLE 40 MG/10 ML VIAL IVP STA (20:20)
--- NOTE | 2016-10-06 20:24 | ED ---
GI Bleed HPI - General Chief complaint: GI Bleed Stated complaint: GI Bleed Time Seen by Provider: 10/06/16 20:14 Source: patient, EMS, RN notes reviewed, old records reviewed Mode of arrival: EMS Limitations: no limitations - History of Present Illness Initial comments: Is a 76-year-old female who is brought in from custodial with reports of bright red blood per rectum. Patient was recently hospitalized. The patient was as she found have a blood pressure of 102/52 later the patient after arrival and evaluation by EMS was noted have a blood pressure of 70/403 occasions. She started out with a small amount of blood in her brief this morning he had a large amount of blood this prior to admission. Patient denies any chest pain or abdominal pain patient was given a fluid challenge by EMS and the blood pressure did improve. No reports of fevers chills sweats or other symptoms. MD complaint: gross hematochezia - Related Data Home Medications Medication Instructions Recorded Confirmed Carbidopa/Levodopa 1 tab PO Q6H 12/07/15 10/06/16 [Carbidopa-Levodopa 25-100 Tab] Donepezil HCl 5 mg PO HS 12/07/15 10/06/16 Famotidine [Pepcid] 20 mg PO DAILY 12/07/15 10/06/16 Ferrous Sulfate [Feosol] 325 mg PO DAILY@1200 12/07/15 10/06/16 Multivitamins, Thera [Multivitamin 1 tab PO DAILY@1200 09/26/16 10/06/16 (formulary)] Mirtazapine [Remeron] 30 mg PO HS 10/06/16 10/06/16 Previous Rx's Medication Instructions Recorded Doxycycline Hyclate 100 mg PO BID #18 tab 09/30/16 Allergies Allergy/AdvReac Type Severity Reaction Status Date / Time latex Allergy Unknown Verified 10/06/16 20:33 ELASTIC Allergy Itching Uncoded 10/06/16 20:33 RUBBER AdvReac Unknown Uncoded 10/06/16 20:33 Review of Systems ROS Statement: Those systems with pertinent positive or pertinent negative responses have been documented in the HPI. ROS Other: All systems not noted in ROS Statement are negative. 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 History of Any Multi-Drug Resistant Organisms: ESBL Date of last positivie culture/infection: 09/26/2016 ESBL- Klebsiella MDRO Source:: Urine Past Surgical History: No Surgical Hx Reported Additional Past Surgical History / Comment(s): 11/2015 ERCP/MRCP unsuccessful- sent to [facility] where she was diagnosed with bile duct cancer and had stent placed. Past Anesthesia/Blood Transfusion Reactions: No Reported Reaction Past Psychological History: Unable to Obtain Additional Psychological History / Comment(s): Pt resides with her spouse. She uses a [employer]te[employer] walker. 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 They are only alone at night. Smoking Status: Never smoker Past Alcohol Use History: None Reported Additional Past Alcohol Use History / Comment(s): Patient is a lifelong nonsmoker, no marijuana or drug use. No alcohol use. Patient lives at home with her . She is a walker for ambulation. She does not require oxygen or nebulizer. Past Drug Use History: None Reported - Past Family History Father Family Medical History: No Reported History Additional Family Medical History / Comment(s): Father at age 90 from old age and diabetes Mother Family Medical History: No Reported History Additional Family Medical History / Comment(s): Mother at age 90 from old age. Brother(s) History Unknown: Yes Additional Family Medical History / Comment(s): Patient has one brother and one sister unknown medical history. Patient does not have any daughters. Patient has one son that is healthy. General Exam - General Exam Comments Initial Comments: This is a well-developed well-nourished awake alert oriented 3 female she does appear to be pale. Limitations: no limitations General appearance: alert, anxious Head exam: Present: atraumatic, normocephalic, normal inspection Eye exam: Present: normal appearance, PERRL, EOMI. Absent: scleral icterus, conjunctival injection, periorbital swelling ENT exam: Present: normal exam, mucous membranes moist Neck exam: Present: normal inspection. Absent: tenderness, meningismus, lymphadenopathy Respiratory exam: Present: normal lung sounds bilaterally, other (Patient does demonstrate some kyphosis.). Absent: respiratory distress, wheezes, rales, rhonchi, stridor Cardiovascular Exam: Present: regular rate, normal rhythm, normal heart sounds. Absent: systolic murmur, diastolic murmur, rubs, gallop, clicks GI/Abdominal exam: Present: soft, normal bowel sounds. Absent: distended, tenderness, guarding, rebound, rigid, bruit, pulsatile mass Rectal exam: Present: heme (+) stool, other (30 color stool) By manual exam: Present: other (Uterine prolapse is noted) Extremities exam: Present: normal inspection, full ROM, normal capillary refill. Absent: tenderness, pedal edema, joint swelling, calf tenderness Back exam: Present: normal inspection Neurological exam: Present: alert, oriented X3, CN II-XII intact Psychiatric exam: Present: normal affect, normal mood Skin exam: Present: warm, dry, intact, pallor. Absent: rash Course Vital Signs 10/06/16 10/06/16 10/06/16 20:06 20:16 20:31 Temperature 96.7 F L Pulse Rate 97 96 89 Respiratory 24 22 22 Rate Blood Pressure 100/57 96/55 86/52 O2 Sat by Pulse 90 L 100 100 Oximetry 10/06/16 10/06/16 10/06/16 20:35 20:46 21:00 Temperature Pulse Rate 89 102 H 92 Respiratory 24 18 18 Rate Blood Pressure 93/54 97/62 101/58 O2 Sat by Pulse 100 98 100 Oximetry 10/06/16 10/06/16 10/06/16 21:30 22:00 22:30 Temperature Pulse Rate 87 63 81 Respiratory 18 18 18 Rate Blood Pressure 93/51 87/51 86/55 O2 Sat by Pulse 100 100 99 Oximetry - Reevaluation(s) Reevaluation #1: 10/06/16 22:23 Reevaluation patient reveals that she is awake alert Reevaluation #2: 10/06/16 23:10 I did a long discussion the patient family regarding the findings patient will be admitted to the intensive care unit. I did discuss case with Dr. Hernandez also with Dr. Lockhart and Dr. Fernandez Reevaluation #3: 10/06/16 23:12 Patient had a hemoglobin level of approximately 8.3 at 12 noon today. Repeat in her lab was 6.2. Medical Decision Making - Lab Data Result diagrams: 10/06/16 20:07 10/06/16 20:07 Lab Results 10/06/16 10/06/16 10/06/16 Range/Units 20:07 20:07 20:07 WBC 8.0 (3.8-10.6) k/uL RBC 2.03 L (3.80-5.40) m/uL Hgb 6.2 L* D (11.4-16.0) gm/dL Hct 19.7 L* (34.0-46.0) % MCV 97.0 (80.0-100.0) fL MCH 30.2 (25.0-35.0) pg MCHC 31.2 (31.0-37.0) g/dL RDW 15.8 H (11.5-15.5) % Plt Count 276 (150-450) k/uL Neutrophils % 70 % Lymphocytes % 22 % Monocytes % 5 % Eosinophils % 0 % Basophils % 0 % Neutrophils # 5.7 (1.3-7.7) k/uL Lymphocytes # 1.8 (1.0-4.8) k/uL Monocytes # 0.4 (0-1.0) k/uL Eosinophils # 0.0 (0-0.7) k/uL Basophils # 0.0 (0-0.2) k/uL Hypochromasia Slight PT (9.0-12.0) sec INR (<1.1) APTT (22.0-30.0) sec Sodium 138 (137-145) mmol/L Potassium 5.2 H (3.5-5.1) mmol/L Chloride 114 H (98-107) mmol/L Carbon Dioxide 19 L (22-30) mmol/L Anion Gap 5 mmol/L BUN 28 H (7-17) mg/dL Creatinine 1.55 H (0.52-1.04) mg/dL Est GFR (MDRD) Af Amer 39 (>60 ml/min/1.73 sqM) Est GFR (MDRD) Non-Af 32 (>60 ml/min/1.73 sqM) Glucose 131 H (74-99) mg/dL POC Glucose (mg/dL) (75-99) mg/dL POC Glu [employer] ID Calcium 7.7 L (8.4-10.2) mg/dL Magnesium 1.7 (1.6-2.3) mg/dL Total Bilirubin 0.7 (0.2-1.3) mg/dL AST 54 H (14-36) U/L ALT 21 (9-52) U/L Alkaline Phosphatase 1004 H (38-126) U/L Total Creatine Kinase <20 L (30-135) U/L CK-MB (CK-2) 0.5 (0.0-2.4) ng/mL CK-MB (CK-2) Rel Index 0.0 Troponin I <0.012 (0.000-0.034) ng/mL Total Protein 5.2 L (6.3-8.2) g/dL Albumin 2.0 L (3.5-5.0) g/dL Stool Occult Blood (Negative) Blood Type Blood Type Confirm Blood Type Recheck Antibody Screen Crossmatch Spec Expiration Date 10/06/16 10/06/16 10/06/16 Range/Units 20:07 20:07 20:16 WBC (3.8-10.6) k/uL RBC (3.80-5.40) m/uL Hgb (11.4-16.0) gm/dL Hct (34.0-46.0) % MCV (80.0-100.0) fL MCH (25.0-35.0) pg MCHC (31.0-37.0) g/dL RDW (11.5-15.5) % Plt Count (150-450) k/uL Neutrophils % % Lymphocytes % % Monocytes % % Eosinophils % % Basophils % % Neutrophils # (1.3-7.7) k/uL Lymphocytes # (1.0-4.8) k/uL Monocytes # (0-1.0) k/uL Eosinophils # (0-0.7) k/uL Basophils # (0-0.2) k/uL Hypochromasia PT 13.4 H (9.0-12.0) sec INR 1.4 (<1.1) APTT 25.4 (22.0-30.0) sec Sodium (137-145) mmol/L Potassium (3.5-5.1) mmol/L Chloride (98-107) mmol/L Carbon Dioxide (22-30) mmol/L Anion Gap mmol/L BUN (7-17) mg/dL Creatinine (0.52-1.04) mg/dL Est GFR (MDRD) Af Amer (>60 ml/min/1.73 sqM) Est GFR (MDRD) Non-Af (>60 ml/min/1.73 sqM) Glucose (74-99) mg/dL POC Glucose (mg/dL) (75-99) mg/dL POC Glu [employer] ID Calcium (8.4-10.2) mg/dL Magnesium (1.6-2.3) mg/dL Total Bilirubin (0.2-1.3) mg/dL AST (14-36) U/L ALT (9-52) U/L Alkaline Phosphatase (38-126) U/L Total Creatine Kinase (30-135) U/L CK-MB (CK-2) (0.0-2.4) ng/mL CK-MB (CK-2) Rel Index Troponin I (0.000-0.034) ng/mL Total Protein (6.3-8.2) g/dL Albumin (3.5-5.0) g/dL Stool Occult Blood Positive H (Negative) Blood Type A Positive Blood Type Confirm Blood Type Recheck CABO Indicated Antibody Screen NEGATIVE Crossmatch See Detail Spec Expiration Date 10/09/2016230610/06/16 10/06/16 Range/Units 20:29 22:17 WBC (3.8-10.6) k/uL RBC (3.80-5.40) m/uL Hgb (11.4-16.0) gm/dL Hct (34.0-46.0) % MCV (80.0-100.0) fL MCH (25.0-35.0) pg MCHC (31.0-37.0) g/dL RDW (11.5-15.5) % Plt Count (150-450) k/uL Neutrophils % % Lymphocytes % % Monocytes % % Eosinophils % % Basophils % % Neutrophils # (1.3-7.7) k/uL Lymphocytes # (1.0-4.8) k/uL Monocytes # (0-1.0) k/uL Eosinophils # (0-0.7) k/uL Basophils # (0-0.2) k/uL Hypochromasia PT (9.0-12.0) sec INR (<1.1) APTT (22.0-30.0) sec Sodium (137-145) mmol/L Potassium (3.5-5.1) mmol/L Chloride (98-107) mmol/L Carbon Dioxide (22-30) mmol/L Anion Gap mmol/L BUN (7-17) mg/dL Creatinine (0.52-1.04) mg/dL Est GFR (MDRD) Af Amer (>60 ml/min/1.73 sqM) Est GFR (MDRD) Non-Af (>60 ml/min/1.73 sqM) Glucose (74-99) mg/dL POC Glucose (mg/dL) 135 H (75-99) mg/dL POC Glu [employer] ID Esther Rodriguez Calcium (8.4-10.2) mg/dL Magnesium (1.6-2.3) mg/dL Total Bilirubin (0.2-1.3) mg/dL AST (14-36) U/L ALT (9-52) U/L Alkaline Phosphatase (38-126) U/L Total Creatine Kinase (30-135) U/L CK-MB (CK-2) (0.0-2.4) ng/mL CK-MB (CK-2) Rel Index Troponin I (0.000-0.034) ng/mL Total Protein (6.3-8.2) g/dL Albumin (3.5-5.0) g/dL Stool Occult Blood (Negative) Blood Type Blood Type Confirm A Positive Blood Type Recheck Antibody Screen Crossmatch Spec Expiration Date - EKG Data -: EKG Interpreted by Ne EKG shows normal: sinus rhythm (EKG showed a sinus rhythm of 95 VT interval 180 QRS duration 68 QT/QTC of 3:30/424 left axis deviation low-voltage nonspecific ST-T wave configuration some artifact is present.) Critical Care Time Critical Care Time: Yes Critical Care Time: 39 minutes of critical care time which includes initial presentation monitoring the EMS run as well as discussed with paramedics history physical lab and x- rays. Reevaluation the patient on several occasions. Discussion with the patient family and several occasions regarding the findings. Discussion with multiple physicians admission orders and documentation the above. Disposition Clinical Impression: Hematochezia, GI bleed, Anemia, Hypotension Disposition: ADMITTED IP TO THIS HOSP Condition: Serious
[2016-10-06] MEDS ORDERED: SODIUM CHLORIDE 0.9% 500 ML IV ONE (20:33)
[2016-10-06 20:41] LABS: Glucose,Whole Blood 135 mg/dL (75-99)
[2016-10-06 20:47] LABS: Basophils % (A) 0 %; CHCM 31.2; Eosinophils % (A) 0 %; HDW 2.72; Hypochromasia Slight; Luc # (Auto) 0.19; Luc % (Auto) 2; Lymphocytes # (A) 1.8 k/uL (1.0-4.8); Lymphocytes % (A) 22 %; MCH 30.2 pg (25.0-35.0); MCHC 31.2 g/dL (31.0-37.0); Mean Platelet Volume 8.7; Monocytes # (A) 0.4 k/uL (0-1.0); Monocytes % (A) 5 %; Neutrophils # (A) 5.7 k/uL (1.3-7.7); Neutrophils % (A) 70 %; RBC 2.03 m/uL (3.80-5.40); RDW 15.8 % (11.5-15.5); WBC (Perox) 8.04
[2016-10-06 20:57] LABS: INR 1.4 (<1.1); Partial Thromboplastin Time 25.4 sec (22.0-30.0); Prothrombin Time 13.4 sec (9.0-12.0)
[2016-10-06 20:58] LABS: HCT 19.7 % (34.0-46.0)
[2016-10-06 20:59] LABS: HGB 6.2 gm/dL (11.4-16.0)
[2016-10-06 21:00] LABS: Calcium 7.7 mg/dL (8.4-10.2); Magnesium 1.7 mg/dL (1.6-2.3); Potassium 5.2 mmol/L (3.5-5.1); Total Bilirubin 0.7 mg/dL (0.2-1.3); Total Protein 5.2 g/dL (6.3-8.2)
--- NOTE | 2016-10-06 21:09 | XR ---
EXAMINATION TYPE: XR chest 1V portable DATE OF EXAM: 10/06/2016 8:51 PM COMPARISON: 09/18/2016 HISTORY: Hypotension TECHNIQUE: Single frontal view of the chest is obtained. FINDINGS: There is no heart failure nor confluent pneumonic infiltrate. There is a large hiatal patrice ia. Thoracic aorta appears normal. There are chest leads. There is no sign of pleural effusion. IMPRESSION: Large hiatal hernia. No acute lung disease. No change.
--- NOTE | 2016-10-06 21:11 | XR ---
EXAMINATION TYPE: XR abdomen 1V DATE OF EXAM: 10/06/2016 8:51 PM COMPARISON: 12/07/2015 HISTORY: Hypotension. Abdominal pain. TECHNIQUE: 2 views FINDINGS: There is no sign of intestinal obstruction or pneumoperitoneum. There is a biliary stent noted. There is a large hiatal hernia. Fecal pattern is normal. There is a lumbar levoscoliosis. There is slight blunting of left costophrenic angle. Conclusion Nonacute abdomen. Biliary stent is noted. No free air. There is probably a new small left pleural eff usion compared to old exam.
[2016-10-06 21:35] LABS: Creatine Kinase <20 U/L (30-135)
[2016-10-06 21:46] LABS: Creatine Kinase MB 0.5 ng/mL (0.0-2.4); Troponin I <0.012 ng/mL (0.000-0.034)
[2016-10-06] MEDS: SODIUM CHLORIDE 0.9% 1,000 ML IV SCH (23:00)
[2016-10-06] MEDS ORDERED: NALOXONE 0.4 MG/ML 1 ML VIAL IV PRN (23:13)
[2016-10-07 00:41] LABS: Glucose,Whole Blood 156 mg/dL (75-99)
[2016-10-07 06:11] LABS: Magnesium 1.6 mg/dL (1.6-2.3); Phosphorous 3.4 mg/dL (2.5-4.5); Potassium 4.8 mmol/L (3.5-5.1)
[2016-10-07 06:12] LABS: INR 1.4 (<1.1); Partial Thromboplastin Time 24.9 sec (22.0-30.0); Prothrombin Time 13.8 sec (9.0-12.0)
[2016-10-07] MEDS ORDERED: Magnesium Replacement Protocol 1 EACH MISC MISCELLANE PRN (06:23)
[2016-10-07 06:26] LABS: Basophils % (A) 1 %; CHCM 32.1; Eosinophils # (A) 0.1 k/uL (0-0.7); Eosinophils % (A) 1 %; HCT 27.2 % (34.0-46.0); HDW 3.45; Hypochromasia Slight; Luc # (Auto) 0.15; Luc % (Auto) 2; Lymphocytes # (A) 1.6 k/uL (1.0-4.8); Lymphocytes % (A) 25 %; MCH 31.5 pg (25.0-35.0); MCHC 32.3 g/dL (31.0-37.0); MCV 97.5 fL (80.0-100.0); Macrocytosis Slight; Mean Platelet Volume 8.4; Monocytes # (A) 0.5 k/uL (0-1.0); Monocytes % (A) 8 %; Neutrophils # (A) 4.1 k/uL (1.3-7.7); Neutrophils % (A) 63 %; Poikilocytosis Slight; RBC 2.79 m/uL (3.80-5.40); RDW 15.4 % (11.5-15.5); WBC 6.5 k/uL (3.8-10.6); WBC (Perox) 7.06
[2016-10-07 06:33] LABS: Appearance,Urine Turbid (Clear); Bacteria,Urine Few /hpf; Bilirubin,Urine Negative (Negative); Glucose,Urine (UA) Negative (Negative); Ketones,Urine Negative (Negative); Leukocyte Esterase,Urine Large (Negative); Mucus,Urine Rare /hpf; Nitrite,Urine Negative (Negative); Particle Count 133810; Protein,Urine 1+ (Negative); RBC,Urine 40 /hpf (0-5); Specific Gravity,Urine 1.014 (1.001-1.035); Squamous Epithelial Cell,Urine 2 /hpf (0-4); UA Billing (MACRO vs. MICRO) MICRO; Urobilinogen,Urine <2.0 mg/dL (<2.0); WBC,Urine >182 /hpf (0-5)
[2016-10-07 06:36] LABS: HGB 8.8 gm/dL (11.4-16.0)
[2016-10-07] MEDS: MAGNESIUM SULFATE-D5W PMX 1 GM in DEXTROSE/WATER 1 100ML.BAG IVPB SCH ×2 (06:56→08:44)
[2016-10-07] MEDS: SODIUM CHLORIDE 0.9% 1,000 ML IV SCH ×2 (06:57→17:39)
--- NOTE | 2016-10-07 08:01 | XR ---
EXAMINATION TYPE: XR chest 1V DATE OF EXAM: 10/07/2016 7:06 AM COMPARISON: 10/06/2016 HISTORY: 76-year-old female follow-up exam TECHNIQUE: Single frontal view of the chest is obtained. FINDINGS: The heart remains mildly enlarged. Mild interstitial prominence is similar. Large hiatal hernia redem onstrated. No clear consolidation or pleural effusion. IMPRESSION: Large hiatal hernia, mild cardiomegaly, and chronic parenchymal changes. No acute process seen.
[2016-10-07] MEDS: PANTOPRAZOLE 40 MG/10 ML VIAL IV SCH ×2 (08:44→22:12)
[2016-10-07] MEDS: DOXYCYCLINE 50 MG CAP PO SCH ×2 (10:02→21:18)
[2016-10-07] MEDS: CARBIDOPA-LEVODOPA 25-100 MG 1 EACH TAB PO SCH ×3 (10:02→21:18)
[2016-10-07] MEDS: FERROUS SULFATE 325 MG TAB PO SCH (10:02)
[2016-10-07] MEDS: MULTIVITAMINS, THERA 1 EACH TAB PO SCH (10:03)
--- NOTE | 2016-10-07 10:41 | P.CNPUL ---
History of Present Illness Consult date: 10/07/16 Requesting physician: Humberto Hernandez Reason for consult: other (Critical care management) Chief complaint: Gastrointestinal bleeding History of present illness: This is a very pleasant 76-year-old female patient with a known history of hypertension, osteoarthritis, biliary tract cancer post common bile duct stent placement, vascular dementia, Parkinson disease, rectal prolapse, chronic vaginal uterine prolapse. She also has a history of acute kidney injury with non-anion gap metabolic acidosis and a recent admission for sepsis secondary to ESBL E. coli urinary tract infection. She was just discharged on 09/30/2016. He presented here yesterday from an extended care facility following bright red blood per rectum. He did have a hemoglobin of 6.2 and was admitted here to the intensive care unit for the same. He is seen today in consultation. She is awake and alert in no acute distress. She did receive 2 units of packed red blood cell transfusion and her current hemoglobin is 8.8. Stool for occult blood was positive. Did have a bloody stool early this morning. She denies any shortness of breath, cough or congestion. She denies any abdominal discomfort. No chest pain or palpitations. No lightheadedness or dizziness. He has been hemodynamically stable. Not requiring any pressors at this time. 2.9 normal saline at 125 mL per hour. Urinalysis reveals probable infection. Culture is pending. Review of Systems Heart team point review of system was conducted. All negative other than as mentioned in HPI. 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 History of Any Multi-Drug Resistant Organisms: ESBL Date of last positivie culture/infection: 09/26/2016 ESBL- Klebsiella MDRO Source:: Urine Past Surgical History: Bladder Surgery Additional Past Surgical History / Comment(s): 11/2015 ERCP/MRCP unsuccessful- sent to [facility] where she was diagnosed with bile duct cancer and had stent placed. Past Anesthesia/Blood Transfusion Reactions: No Reported Reaction Past Psychological History: No Psychological Hx Reported Additional Psychological History / Comment(s): Pt resides with her spouse. She uses a [employer]te[employer] walker. 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 They are only alone at night. Smoking Status: Never smoker Past Alcohol Use History: None Reported Additional Past Alcohol Use History / Comment(s): Patient is a lifelong nonsmoker, no marijuana or drug use. No alcohol use. Patient lives at home with her . She is a walker for ambulation. She does not require oxygen or nebulizer. Past Drug Use History: None Reported - Past Family History Father Family Medical History: No Reported History Additional Family Medical History / Comment(s): Father at age 90 from old age and diabetes Mother Family Medical History: No Reported History Additional Family Medical History / Comment(s): Mother at age 90 from old age. Brother(s) History Unknown: Yes Additional Family Medical History / Comment(s): Patient has one brother and one sister unknown medical history. Patient does not have any daughters. Patient has one son that is healthy. Medications and Allergies Home Medications Medication Instructions Recorded Confirmed Type Carbidopa/Levodopa 1 tab PO Q6H 12/07/15 10/06/16 History [Carbidopa-Levodopa 25-100 Tab] Donepezil HCl 5 mg PO HS 12/07/15 10/06/16 History Famotidine [Pepcid] 20 mg PO DAILY 12/07/15 10/06/16 History Ferrous Sulfate [Feosol] 325 mg PO DAILY@1200 12/07/15 10/06/16 History Multivitamins, Thera [Multivitamin 1 tab PO DAILY@1200 09/26/16 10/06/16 History (formulary)] Mirtazapine [Remeron] 30 mg PO HS 10/06/16 10/06/16 History Allergies Allergy/AdvReac Type Severity Reaction Status Date / Time latex Allergy Unknown Verified 10/06/16 20:33 ELASTIC Allergy Itching Uncoded 10/06/16 20:33 RUBBER AdvReac Unknown Uncoded 10/06/16 20:33 Physical Exam Vitals: Vital Signs Temp Pulse Pulse Resp BP BP Pulse Ox 10/07/16 10:00 66 15 93/54 99 10/07/16 09:31 95 10/07/16 09:00 72 15 107/64 98 10/07/16 08:00 98.5 F 70 16 91/57 97 10/07/16 07:00 68 13 108/63 100 10/07/16 06:00 71 11 L 118/68 98 10/07/16 05:00 71 13 84/54 99 10/07/16 04:40 98.2 F 72 15 84/54 100 10/07/16 04:39 98.2 F 68 15 84/62 100 10/07/16 04:00 98.2 F 70 13 100/63 100 10/07/16 03:50 73 17 100/63 99 10/07/16 03:00 98.2 F 73 15 109/71 99 10/07/16 02:30 98.2 F 82 12 90/67 99 10/07/16 02:20 77 15 94/62 100 10/07/16 02:19 98.4 F 82 12 109/71 100 10/07/16 02:10 75 13 77/54 100 10/07/16 02:00 77 13 111/57 100 10/07/16 01:50 81 14 111/57 100 10/07/16 01:40 85 16 111/57 97 10/07/16 01:30 83 20 100/67 98 10/07/16 01:20 83 7 L 90/56 100 10/07/16 01:10 83 10 L 90/56 97 10/07/16 01:00 83 11 L 109/56 98 10/07/16 00:55 98.4 F 84 12 109/56 99 10/07/16 00:50 84 17 94/69 100 10/07/16 00:44 98.4 F 106 H 94/69 10/07/16 00:20 98.6 F 82 18 100/58 100 10/07/16 00:00 12 10/06/16 23:50 98.0 F 84 18 90/50 100 10/06/16 23:41 98.4 F 84 12 90/54 99 10/06/16 23:40 97.3 F L 84 18 92/56 100 Intake and Output 10/06/16 10/07/16 10/07/16 22:59 06:59 14:59 Intake Total 2115 700 Output Total 180 255 Balance 1935 445 Intake: IV 875 500 Sodium Chloride 0.9% 1, 875 500 000 ml @ 125 mls/hr IV . Q8H [facility] Rx#:[id number] Intake, IV Titration 200 Amount Magnesium Sulfate-D5w Pmx 200 1 gm In Dextrose/Water 1 100ml.bag @ 100 mls/hr IVPB Q1H [facility] Rx#: [id number] Blood Product 1240 Rc As-1 Unit 310 [id number] Rc As-1 Unit 310 [id number] Output: Urine 180 255 Other: Voiding Method Indwelling Catheter Indwelling Catheter # Voids 2 # Bowel Movements 0 Weight 72.1 kg GENERAL EXAM: Pale. Alert, comfortable in no apparent distress. HEAD: Normocephalic. EYES: Normal reaction of pupils, equal size. NOSE: Clear with pink turbinates. THROAT: No erythema or exudates. NECK: No masses, no JVD. CHEST: No chest wall deformity. LUNGS: Equal air entry with no crackles, wheeze, rhonchi or dullness. CVS: S1 and S2 normal with no audible murmurs, regular rhythm. ABDOMEN: No hepatosplenomegaly, normal bowel sounds, no guarding or rigidity. Extremities: There is no significant peripheral edema. No clubbing, no cyanosis. Peripheral pulses are intact. Results - Laboratory Findings CBC and BMP: 10/07/16 05:35 10/07/16 05:35 PT/INR, D-dimer PT 13.8 sec (9.0-12.0) H 10/07/16 05:35 INR 1.4 (<1.1) 10/07/16 05:35 Abnormal lab findings: Abnormal Labs 10/07/16 10/07/16 10/07/16 00:39 05:35 05:35 RBC 2.79 L Hgb 8.8 L D Hct 27.2 L PT 13.8 H Chloride Carbon Dioxide BUN Creatinine POC Glucose (mg/dL) 156 H Calcium Urine Appearance Urine Protein Urine Blood Ur Leukocyte Esterase Urine RBC Urine WBC Urine Bacteria Urine Mucus 10/07/16 10/07/16 05:35 05:40 RBC Hgb Hct PT Chloride 116 H Carbon Dioxide 17 L BUN 29 H Creatinine 1.50 H POC Glucose (mg/dL) Calcium 8.0 L Urine Appearance Turbid H Urine Protein 1+ H Urine Blood Moderate H Ur Leukocyte Esterase Large H Urine RBC 40 H Urine WBC >182 H Urine Bacteria Few H Urine Mucus Rare H - Diagnostic Findings Chest x-ray: image reviewed Assessment and Plan Plan: Impression: #1 Acute gastrointestinal bleeding of unclear etiology. Hemoglobin 6.2, status post 2 units of packed red blood cells, current hemoglobin 8.8. #2 Acute urinary tract infection, recent infection of Klebsiella pneumoniae ESBL sepsis discharge to [facility] 09/30/2016. #3 Hypertension. #4 Osteoarthritis. #5 Biliary tract cancer post common bile duct stent placement. AST 54, alk phos 1004. #6 Vascular dementia. #7 Parkinson's disease. #8 For rectal prolapse, recurrent. #9 Chronic vaginal uterine prolapse. #10 Acute renal failure, current creatinine 1.50. #10 Poor overall functional performance secondary to the above-mentioned multiple comorbidities, [facility] resident. Plan: The patient was seen and evaluated by Dr. Fernandez. Her chest x-ray and labs were reviewed. We will continue to monitor her here closely in the intensive care unit. Await repeat hemoglobin. Await GI consultation recommendations. A colonoscopy was mentioned to the patient and she is somewhat reluctant at this point. She is currently on antibiotics in the form of Vibramycin. She is on Protonix for GI prophylaxis. We will continue to follow make further recommendations based on her clinical status. The patient's case was reviewed and discussed with Dr. Fernandez. History, assessment and plan of care are dictated as directed by him. Time with Patient: Greater than 30
[2016-10-07 13:07] LABS: Basophils % (A) 0 %; CH 30.7; CHCM 31.7; Eosinophils # (A) 0.1 k/uL (0-0.7); Eosinophils % (A) 2 %; HCT 28.6 % (34.0-46.0); HDW 3.47; HGB 8.9 gm/dL (11.4-16.0); Hypochromasia Moderate; Luc # (Auto) 0.17; Luc % (Auto) 2; Lymphocytes # (A) 1.7 k/uL (1.0-4.8); Lymphocytes % (A) 22 %; MCH 30.4 pg (25.0-35.0); MCHC 31.1 g/dL (31.0-37.0); MCV 97.8 fL (80.0-100.0); Macrocytosis Slight; Mean Platelet Volume 8.8; Monocytes # (A) 0.5 k/uL (0-1.0); Monocytes % (A) 6 %; Neutrophils % (A) 67 %; Poikilocytosis Slight; RBC 2.93 m/uL (3.80-5.40); RDW 15.6 % (11.5-15.5); WBC 7.5 k/uL (3.8-10.6); WBC (Perox) 7.39
--- NOTE | 2016-10-07 14:29 | P.CONS ---
History of Present Illness - Reason for Consult Consult date: 10/07/16 GI bleed Requesting physician: Humberto Hernandez - History of Present Illness 76-year-old female patient Dr. Ferreira with a past medical history of diverticulosis per CT, bile duct carcinoma/biliary stent 2015 at [facility] status post treatment, hypertension and Parkinson's. Consultation requested for GI bleed. Recently hospitalized 10 days ago with UTI. Admitted with painless bright red blood per rectum. No history of colonoscopy. Hemoglobin 6.2 received 2 units of blood currently 8.9. Platelet 194. INR 1.4. Stool hemoccult positive. Bloody bowel movement this morning. Denies chest pain or shortness of breath. CT chest abdomen/pelvis reported diverticulosis in June 2016. Review of Systems Constitutional: Denies fever, chills, sweats, weight gain, or loss. HEENT: Negative for migraines, blurred vision or loss, earaches, drainage, tinnitus, oral mucosal lesions, dysphagia, or odynophagia. CARDIAC: Hypertension. Negative for chest pain, arrhythmias, or palpitation. RESPIRATORY: Negative for shortness of breath, hemoptysis, cough, or sputum production. GI: See HPI for pertinent findings. : Negative for hematuria, urgency, frequency, polyuria, or dysuria. GYNc: Denies possibility of . Negative vaginal discharge. MUSCULOSKELETAL: Negative for muscle aches, swelling, arthritis, and arthralgias. NEUROLOGIC: Parkinson's. Negative for stroke or TIA. ENDOCRINE: Negative for thyroid problems. SKIN: Negative for rash or itching. PSYCHIATRIC: Vascular dementia. Negative history for depression and anxiety All systems: negative (See HPI) Past Medical History Past Medical History: Cancer, Dementia, GERD/Reflux, Hyperlipidemia, Hypertension, Neurologic Disorder, Osteoarthritis (OA) Additional Past Medical History / Comment(s): parkinson's, vitamin D deficiency , hypokalemia, 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 History of Any Multi-Drug Resistant Organisms: ESBL Year Discovered:: 09/26/2016 ESBL- Klebsiella MDRO Source:: Urine Past Surgical History: Bladder Surgery Additional Past Surgical History / Comment(s): 11/2015 ERCP/MRCP unsuccessful- sent to [facility] where she was diagnosed with bile duct cancer and had stent placed. Past Anesthesia/Blood Transfusion Reactions: No Reported Reaction Past Psychological History: No Psychological Hx Reported Additional Psychological History / Comment(s): Pt resides with her spouse. She uses a [employer] walker. She has a family psychologist and her son who lives nearby and assists pt/spouse whenever caretakers are not present. They are only alone at night. Smoking Status: Never smoker Past Alcohol Use History: None Reported Additional Past Alcohol Use History / Comment(s): Patient is a lifelong nonsmoker, no marijuana or drug use. No alcohol use. Patient lives at home with her . She is a walker for ambulation. She does not require oxygen or nebulizer. Past Drug Use History: None Reported - Past Family History Father Family Medical History: No Reported History Additional Family Medical History / Comment(s): Father at age 90 from old age and diabetes Mother Family Medical History: No Reported History Additional Family Medical History / Comment(s): Mother at age 90 from old age. Brother(s) History Unknown: Yes Additional Family Medical History / Comment(s): Patient has one brother and one sister unknown medical history. Patient does not have any daughters. Patient has one son that is healthy. Medications and Allergies Home Medications Medication Instructions Recorded Confirmed Type Carbidopa/Levodopa 1 tab PO Q6H 12/07/15 10/06/16 History [Carbidopa-Levodopa 25-100 Tab] Donepezil HCl 5 mg PO HS 12/07/15 10/06/16 History Famotidine [Pepcid] 20 mg PO DAILY 12/07/15 10/06/16 History Ferrous Sulfate [Feosol] 325 mg PO DAILY@1200 12/07/15 10/06/16 History Multivitamins, Thera [Multivitamin 1 tab PO DAILY@1200 09/26/16 10/06/16 History (formulary)] Mirtazapine [Remeron] 30 mg PO HS 10/06/16 10/06/16 History Allergies Allergy/AdvReac Type Severity Reaction Status Date / Time latex Allergy Unknown Verified 10/06/16 20:33 ELASTIC Allergy Itching Uncoded 10/06/16 20:33 RUBBER AdvReac Unknown Uncoded 10/06/16 20:33 Physical Exam Vitals: Vital Signs Temp Pulse Pulse Resp BP BP Pulse Ox 10/07/16 10:00 66 15 93/54 99 10/07/16 09:31 95 10/07/16 09:00 72 15 107/64 98 10/07/16 08:00 98.5 F 70 16 91/57 97 10/07/16 07:00 68 13 108/63 100 10/07/16 06:00 71 11 L 118/68 98 10/07/16 05:00 71 13 84/54 99 10/07/16 04:40 98.2 F 72 15 84/54 100 10/07/16 04:39 98.2 F 68 15 84/62 100 10/07/16 04:00 98.2 F 70 13 100/63 100 10/07/16 03:50 73 17 100/63 99 10/07/16 03:00 98.2 F 73 15 109/71 99 10/07/16 02:30 98.2 F 82 12 90/67 99 10/07/16 02:20 77 15 94/62 100 10/07/16 02:19 98.4 F 82 12 109/71 100 10/07/16 02:10 75 13 77/54 100 10/07/16 02:00 77 13 111/57 100 10/07/16 01:50 81 14 111/57 100 10/07/16 01:40 85 16 111/57 97 10/07/16 01:30 83 20 100/67 98 10/07/16 01:20 83 7 L 90/56 100 10/07/16 01:10 83 10 L 90/56 97 10/07/16 01:00 83 11 L 109/56 98 10/07/16 00:55 98.4 F 84 12 109/56 99 10/07/16 00:50 84 17 94/69 100 10/07/16 00:44 98.4 F 106 H 94/69 10/07/16 00:20 98.6 F 82 18 100/58 100 10/07/16 00:00 12 10/06/16 23:50 98.0 F 84 18 90/50 100 10/06/16 23:41 98.4 F 84 12 90/54 99 10/06/16 23:40 97.3 F L 84 18 92/56 100 Intake and Output 10/06/16 10/07/16 10/07/16 22:59 06:59 14:59 Intake Total 2115 700 Output Total 180 255 Balance 1935 445 Intake: IV 875 500 Sodium Chloride 0.9% 1, 875 500 000 ml @ 125 mls/hr IV . Q8H LEELEE Rx#:[id number] Intake, IV Titration 200 Amount Magnesium Sulfate-D5w Pmx 200 1 gm In Dextrose/Water 1 100ml.bag @ 100 mls/hr IVPB Q1H LEELEE Rx#: [id number] Blood Product 1240 Rc As-1 Unit 310 [id number] Rc As-1 Unit 310 [id number] Output: Urine 180 255 Other: Voiding Method Indwelling Catheter Indwelling Catheter # Voids 2 # Bowel Movements 0 Weight 72.1 kg General appearance: The patient is alert, oriented, in no acute distress. Resting tremors. HET: Head is normocephalic and atraumatic. Pupils are equal and reactive. Oropharynx is clear without lesions. Neck: Supple without lymphadenopathy. Trachea midline. Heart: S1 S2. Regular rate and rhythm. Lungs: No crackles or wheezes are heard. Abdomen: Soft, nontender, nondistended with bowel sounds. No peritoneal signs. No palpable organomegaly or masses. Extremities: Normal skin color and turgor. No cyanosis, rash, ulceration, clubbing, or edema. Radial and pedal pulses are 2/4 bilaterally. Neurological: No focal deficits. Strength and sensation are grossly intact. Rectal: Not performed patient had large red bloody bowel movement in diaper upon rolling. Results CBC & Chem 7: 10/08/16 04:13 10/08/16 04:13 Labs: Abnormal Lab Results - Last 24 Hours (Table) 10/07/16 10/07/16 10/07/16 Range/Units 00:39 05:35 05:35 RBC 2.79 L (3.80-5.40) m/uL Hgb 8.8 L D (11.4-16.0) gm/dL Hct 27.2 L (34.0-46.0) % PT 13.8 H (9.0-12.0) sec Chloride (98-107) mmol/L Carbon Dioxide (22-30) mmol/L BUN (7-17) mg/dL Creatinine (0.52-1.04) mg/dL POC Glucose (mg/dL) 156 H (75-99) mg/dL Calcium (8.4-10.2) mg/dL Urine Appearance (Clear) Urine Protein (Negative) Urine Blood (Negative) Ur Leukocyte Esterase (Negative) Urine RBC (0-5) /hpf Urine WBC (0-5) /hpf Urine Bacteria (None) /hpf Urine Mucus (None) /hpf 10/07/16 10/07/16 Range/Units 05:35 05:40 RBC (3.80-5.40) m/uL Hgb (11.4-16.0) gm/dL Hct (34.0-46.0) % PT (9.0-12.0) sec Chloride 116 H (98-107) mmol/L Carbon Dioxide 17 L (22-30) mmol/L BUN 29 H (7-17) mg/dL Creatinine 1.50 H (0.52-1.04) mg/dL POC Glucose (mg/dL) (75-99) mg/dL Calcium 8.0 L (8.4-10.2) mg/dL Urine Appearance Turbid H (Clear) Urine Protein 1+ H (Negative) Urine Blood Moderate H (Negative) Ur Leukocyte Esterase Large H (Negative) Urine RBC 40 H (0-5) /hpf Urine WBC >182 H (0-5) /hpf Urine Bacteria Few H (None) /hpf Urine Mucus Rare H (None) /hpf Microbiology - Last 24 Hours (Table) 10/07/16 05:40 Urine Culture - Preliminary Urine,Catheterized Assessment and Plan (1) GI bleed Narrative/Plan: Rectal bleeding unclear suspect diverticular etiology unclear. Status: Acute (2) Bile duct cancer Status: Acute (3) Acute blood loss anemia Status: Acute Plan: 1. Colonoscopy recommended patient declines. Tagged RBC scan if bleeding continues. 2. Continue with monitoring CBC; transfuse as indicated. Nothing by mouth except for ice chips popsicles Jell-O sparingly. 3. Will follow with you. Thank you for this kind referral and the opportunity to participate in the care of your patient. This consultation was discussed with Dr. Lockhart. The impression and plan of care have been directed as dictated.
--- NOTE | 2016-10-07 16:53 | P.HPIM ---
History of Present Illness H&P Date: 10/07/16 Chief Complaint: GI bleed, acute blood loss anemia, cholangiocarcinoma, recent UTI 76-year-old female one of Dr. Ferreira's patient with multiple medical problem known to have history of hypertension history of osteoarthritis history of cholangiocarcinoma post stent placement of the common duct has been seen oncology on regular basis also known to have history of Parkinson disease. Patient was hospitalized at [facility] between 428 till 09/30/2016 for significant change mental status and encephalopathy found to have UTI with urosepsis was treated with IV antibiotic initially and culture was completed [facility] 10 days of doxycycline. As the aide was checked changing patient found to have some bright red blood in her brief, blood pressure was little bit low more rectal bleeding was found. Patient ended up being sent to the emergency department by EMS. Upon arrival to demurs department at [facility] found to have significantly low blood pressure. Found to have more rectal bleed with rectal exam and addition hemoglobin dropped significantly over 3 g and short period of time. Patient was started on blood transfusion will be admitted to the ICU will consult Dr. Lockhart for possible gastrointestinal scope in the next 24 hours or when patient is more stable. Review of Systems Constitutional: Reports chronic pain, Reports fatigue, Reports lethargy, Reports malaise, Reports weakness, Reports weight loss, Denies as per HPI, Denies anorexia, Denies chills, Denies chronic headaches, Denies daytime sleepiness, Denies fever, Denies night sweats, Denies poor appetite, Denies sweats, Denies weight gain Ears: bilateral: decreased hearing Ears, nose, mouth and throat: Reports ant. neck pain, Reports nasal discharge, Reports sinus pain, Reports sinus pressure, Denies as per HPI, Denies bleeding gums, Denies dental pain, Denies dysphagia, Denies epistaxis, Denies headache, Denies hoarseness, Denies mouth pain, Denies nasal congestion, Denies neck fullness/pressure, Denies neck lump, Denies nose pain, Denies odynophagia, Denies post-nasal drip, Denies swelling in mouth, Denies swelling in throat, Denies sore throat, Denies vertigo, Denies voice changes Cardiovascular: Reports edema, Reports high blood pressure, Reports lightheadedness, Reports palpitations, Reports paroxysmal nocturnal dyspnea, Denies as per HPI, Denies chest pain, Denies claudication, Denies decreased exercise tolerance, Denies dyspnea on exertion, Denies irregular heart beat, Denies leg edema, Denies orthopnea, Denies phlebitis, Denies rapid heart beat, Denies shortness of breath, Denies syncope Respiratory: Reports congestion, Reports dyspnea, Denies as per HPI, Denies cough, Denies cough with sputum, Denies excessive sputum, Denies hemoptysis, Denies home oxygen, Denies pain, Denies pain on inspiration, Denies pleurisy, Denies respiratory infections, Denies sleep apnea, Denies snoring, Denies wheezing Gastrointestinal: Reports abdominal pain, Reports bloating, Reports BRBPR, Reports diarrhea, Reports dyspepsia, Reports heartburn, Reports indigestion, Reports loss of appetite, Reports nausea, Denies as per HPI, Denies belching, Denies change in bowel habits, Denies coffee ground emesis, Denies constipation , Denies early satiety, Denies excessive gas, Denies hematemesis, Denies hematochezia, Denies jaundice, Denies lactose intolerance, Denies melena, Denies vomiting Genitourinary: Reports dysuria, Reports urge incontinence, Reports urinary frequency, Denies as per HPI, Denies abnormal vaginal bleeding, Denies decreased libido, Denies difficulty conceiving, Denies difficulty voiding, Denies dysmenorrhea, Denies dyspareunia, Denies flank pain, Denies genital sores , Denies hematuria, Denies hot flashes, Denies incomplete emptying, Denies kidney stones, Denies menorrhagia, Denies mixed incontinence, Denies nocturia, Denies pelvic pain, Denies post void dribbling, Denies , Denies prolapse symptoms, Denies stress incontinence, Denies urgency, Denies vaginal discharge, Denies vaginal dryness, Denies vaginal itching, Denies vaginal odor Musculoskeletal: Reports limitation of motion, Reports low back pain, Reports myalgias, Reports neck pain, Denies as per HPI, Denies arm numbness/tingling, Denies atrophy, Denies fractures, Denies frequent falls, Denies gait dysfunction , Denies hot joints, Denies leg numbness/tingling, Denies loss of height, Denies morning stiffness, Denies muscle cramps, Denies muscle weakness, Denies neck stiffness, Denies prior amputations, Denies redness of joints, Denies shooting arm pain, Denies shooting leg pain Integumentary: Reports pruritus, Reports rash, Denies as per HPI, Denies acne, Denies boils, Denies brittle nails, Denies change in hair/nails, Denies color changes, Denies darkening of skin, Denies depigmentation, Denies dryness, Denies foot/leg ulcers, Denies growths, Denies hirsutism, Denies lesions, Denies onychomycosis, Denies sores, Denies striae, Denies unusual bruising, Denies wounds Neurological: Reports ataxia, Reports confusion, Reports memory loss, Reports paresthesias, Reports weakness, Denies as per HPI, Denies aphasia, Denies balance difficulties, Denies burning pain, Denies change in mentation, Denies change in smell/taste, Denies change in speech, Denies convulsions, Denies double vision, Denies gait dysfunction, Denies head injury, Denies headaches, Denies hearing difficulties, Denies lack of coordination, Denies loss of vision , Denies migraines, Denies motor disturbance, Denies numbness, Denies paralysis , Denies seizures, Denies sensory deficit, Denies spasticity, Denies syncope, Denies tic, Denies tingling, Denies transient paralysis, Denies tremors, Denies vertigo, Denies visual changes Psychiatric: Reports anhedonia, Reports anxiety, Reports depression, Reports memory loss, Reports mood swings, Reports sadness/tearfulness, Denies as per HPI , Denies anxiety attacks, Denies change in appetite, Denies change in libido, Denies change in sleep habits, Denies confusion, Denies difficulty concentrating , Denies disorientation, Denies hallucinations, Denies hopelessness, Denies hypersomnia, Denies insomnia, Denies irritability, Denies paranoia, Denies sleep disturbances, Denies suicidal ideation Endocrine: Reports fatigue, Reports nocturia, Reports polyphagia, Denies as per HPI, Denies cold intolerance, Denies deepening of the voice, Denies excessive sweating, Denies excessive thirst, Denies flushing, Denies heat intolerance, Denies high blood sugars, Denies increase in ring/shoe/hat size, Denies low blood sugars, Denies palpitations, Denies polydipsia, Denies polyuria, Denies proptosis, Denies recent glucocorticoid use, Denies thyroid mass, Denies weight change Hematologic/Lymphatic: Reports easy bruising, Denies as per HPI, Denies easy bleeding, Denies lymphadenopathy, Denies lymphedema, Denies thrombophilia Allergic/Immunologic: Reports allergic rhinitis, Denies as per HPI, Denies anaphylaxis, Denies angioedema, Denies gluten intolerance, Denies persistent infections, Denies seasonal allergies, Denies urticaria, Denies wheezing Past Medical History Past Medical History: Cancer, Dementia, GERD/Reflux, Hyperlipidemia, Hypertension, Neurologic Disorder, Osteoarthritis (OA) Additional Past Medical History / Comment(s): parkinson's, vitamin D deficiency , hypokalemia, 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 History of Any Multi-Drug Resistant Organisms: ESBL Date of last positivie culture/infection: 09/26/2016 ESBL- Klebsiella MDRO Source:: Urine Past Surgical History: Bladder Surgery Additional Past Surgical History / Comment(s): 11/2015 ERCP/MRCP unsuccessful- sent to [facility] where she was diagnosed with bile duct cancer and had stent placed. Past Anesthesia/Blood Transfusion Reactions: No Reported Reaction Past Psychological History: No Psychological Hx Reported Additional Psychological History / Comment(s): Pt resides with her spouse. She uses a [employer] walker. 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 They are only alone at night. Smoking Status: Never smoker Past Alcohol Use History: None Reported Additional Past Alcohol Use History / Comment(s): Patient is a lifelong nonsmoker, no marijuana or drug use. No alcohol use. Patient lives at home with her . She is a walker for ambulation. She does not require oxygen or nebulizer. Past Drug Use History: None Reported - Past Family History Father Family Medical History: No Reported History Additional Family Medical History / Comment(s): Father at age 90 from old age and diabetes Mother Family Medical History: No Reported History Additional Family Medical History / Comment(s): Mother at age 90 from old age. Brother(s) History Unknown: Yes Additional Family Medical History / Comment(s): Patient has one brother and one sister unknown medical history. Patient does not have any daughters. Patient has one son that is healthy. Medications and Allergies Home Medications Medication Instructions Recorded Confirmed Type Carbidopa/Levodopa 1 tab PO Q6H 12/07/15 10/06/16 History [Carbidopa-Levodopa 25-100 Tab] Donepezil HCl 5 mg PO HS 12/07/15 10/06/16 History Famotidine [Pepcid] 20 mg PO DAILY 12/07/15 10/06/16 History Ferrous Sulfate [Feosol] 325 mg PO DAILY@1200 12/07/15 10/06/16 History Multivitamins, Thera [Multivitamin 1 tab PO DAILY@1200 09/26/16 10/06/16 History (formulary)] Mirtazapine [Remeron] 30 mg PO HS 10/06/16 10/06/16 History Allergies Allergy/AdvReac Type Severity Reaction Status Date / Time latex Allergy Unknown Verified 10/06/16 20:33 ELASTIC Allergy Itching Uncoded 10/06/16 20:33 RUBBER AdvReac Unknown Uncoded 10/06/16 20:33 Physical Exam Vitals: Vital Signs Temp Pulse Pulse Resp BP BP Pulse Ox 10/07/16 07:00 68 13 108/63 100 10/07/16 06:00 71 11 L 118/68 98 10/07/16 05:00 71 13 84/54 99 10/07/16 04:40 98.2 F 72 15 84/54 100 10/07/16 04:39 98.2 F 68 15 84/62 100 10/07/16 04:00 98.2 F 70 13 100/63 100 10/07/16 03:50 73 17 100/63 99 10/07/16 03:00 98.2 F 73 15 109/71 99 10/07/16 02:30 98.2 F 82 12 90/67 99 10/07/16 02:20 77 15 94/62 100 10/07/16 02:19 98.4 F 82 12 109/71 100 10/07/16 02:10 75 13 77/54 100 10/07/16 02:00 77 13 111/57 100 10/07/16 01:50 81 14 111/57 100 10/07/16 01:40 85 16 111/57 97 10/07/16 01:30 83 20 100/67 98 05/09/17 01:20 83 7 L 90/56 100 10/07/16 01:10 83 10 L 90/56 97 10/07/16 01:00 83 11 L 109/56 98 10/07/16 00:55 98.4 F 84 12 109/56 99 10/07/16 00:50 84 17 94/69 100 10/07/16 00:44 98.4 F 106 H 94/69 10/07/16 00:20 98.6 F 82 18 100/58 100 10/07/16 00:00 12 10/06/16 23:50 98.0 F 84 18 90/50 100 10/06/16 23:41 98.4 F 84 12 90/54 99 10/06/16 23:40 97.3 F L 84 18 92/56 100 Intake and Output 10/06/16 10/07/16 10/07/16 22:59 06:59 14:59 Intake Total 2115 225 Output Total 180 60 Balance 1935 165 Intake: IV 875 125 Sodium Chloride 0.9% 1, 875 125 000 ml @ 125 mls/hr IV . Q8H LEELEE Rx#:[id number] Intake, IV Titration 100 Amount Magnesium Sulfate-D5w Pmx 100 1 gm In Dextrose/Water 1 100ml.bag @ 100 mls/hr IVPB Q1H LEELEE Rx#: [id number] Blood Product 1240 Rc As-1 Unit 310 [id number] Rc As-1 Unit 310 [id number] Output: Urine 180 60 Other: Voiding Method Indwelling Catheter # Voids 2 # Bowel Movements 0 Weight 72.1 kg - Constitutional General appearance: no average body habitus, no cooperative, disheveled, no mild distress, no morbidly obese, no acute distress, no obese, no severe distress, no thin - EENT Eyes: no abnormal pupil, no anicteric sclerae, no disc margins sharp, no edentulous, no EOMI, no PERRLA, no fundus normal, no photophobia, no dentition normal, no poor dentition, no ptosis, no scleral icterus, normal appearance ENT: hard of hearing, no hearing grossly normal, no NA/AT, normal oropharynx, no other, no pharyngeal erythema, no thrush, no tonsillar exudates, no tonsillar swelling Ears: bilateral: normal - Neck Neck: no lymphadenopathy, normal ROM, no other, no rigidity, no stridor, no thyromegaly Carotids: bilateral: upstroke normal Thyroid: bilateral: normal size - Respiratory Respiratory: bilateral: diminished, dullness, rales - Cardiovascular Rhythm: regular Heart sounds: normal: S1, S2 Abnormal Heart Sounds: systolic murmur, S3 Gallop - Gastrointestinal General gastrointestinal: no absent bowel sounds, decreased bowel sounds, distended, no hepatomegaly, no hyperactive bowel sounds, normal bowel sounds, no organomegaly, no rigid, no scaphoid, soft, no splenomegaly, no tenderness, no umbilical hernia, no ventral hernia - Genitourinary Female genitourinary: prolapse - Integumentary Integumentary: no calor, no cellulitis, no cyanotic, no decreased turgor, no flushed, jaundiced, no normal, no normal turgor, pale, rash, no ulcer - Neurologic Neurologic: CNII-XII intact - Musculoskeletal Musculoskeletal: no gait normal, generalized weakness, no strength equal bilaterally, no right sided weakness, no left sided weakness - Psychiatric Psychiatric: A&O x's 3, no intact judgment & insight Results CBC & Chem 7: 10/07/16 05:35 10/07/16 05:35 Labs: Abnormal Lab Results - Last 24 Hours (Table) 10/07/16 10/07/16 10/07/16 Range/Units 00:39 05:35 05:35 RBC 2.79 L (3.80-5.40) m/uL Hgb 8.8 L D (11.4-16.0) gm/dL Hct 27.2 L (34.0-46.0) % PT 13.8 H (9.0-12.0) sec Chloride (98-107) mmol/L Carbon Dioxide (22-30) mmol/L BUN (7-17) mg/dL Creatinine (0.52-1.04) mg/dL POC Glucose (mg/dL) 156 H (75-99) mg/dL Calcium (8.4-10.2) mg/dL Urine Appearance (Clear) Urine Protein (Negative) Urine Blood (Negative) Ur Leukocyte Esterase (Negative) Urine RBC (0-5) /hpf Urine WBC (0-5) /hpf Urine Bacteria (None) /hpf Urine Mucus (None) /hpf 10/07/16 10/07/16 Range/Units 05:35 05:40 RBC (3.80-5.40) m/uL Hgb (11.4-16.0) gm/dL Hct (34.0-46.0) % PT (9.0-12.0) sec Chloride 116 H (98-107) mmol/L Carbon Dioxide 17 L (22-30) mmol/L BUN 29 H (7-17) mg/dL Creatinine 1.50 H (0.52-1.04) mg/dL POC Glucose (mg/dL) (75-99) mg/dL Calcium 8.0 L (8.4-10.2) mg/dL Urine Appearance Turbid H (Clear) Urine Protein 1+ H (Negative) Urine Blood Moderate H (Negative) Ur Leukocyte Esterase Large H (Negative) Urine RBC 40 H (0-5) /hpf Urine WBC >182 H (0-5) /hpf Urine Bacteria Few H (None) /hpf Urine Mucus Rare H (None) /hpf Thrombosis Risk Factor Assmnt - DVT/VTE Prophylaxis DVT/VTE Prophylaxis: Mechanical Prophylaxis ordered - Choose All That Apply Any of the Below Risk Factors Present?: Yes Each Factor Represents 1 point: Medical pt on bed rest, Obesity (BMI >25) Each Risk Factor Represents 3 Points: Age 75 years or older Other congenital or acquired thrombophilia - If yes, enter type in comment: No Thrombosis Risk Factor Assessment Total Risk Factor Score: 5 Thrombosis Risk Factor Assessment Level: High Risk Assessment and Plan Plan: 1 acute gastrointestinal bleed: With significant bright red blood per rectum this is most likely lower GI bleed with the possibility of upper GI bleed but significantly aggressive, especially with the history of cholangiocarcinoma and patient current status the auto of bleeding is extremely high. Patient will be kept on pantoprazole IV, will keep her nothing by mouth, consult GI for possible EGD in the next 24 hours and furthermore if need patient might require colonoscopy. 2 acute blood loss anemia: Secondary to gastrointestinal bleed, with current symptoms patient will have 2 units of blood transfusion, 2 more units will be type and cross and hold and prepare for transfusion of continue to bleed. 3 recent UTI mostly found to be E. coli as an ESBL: Patient was on doxycycline 100 mg twice a day we'll continue medication. 4 cholangiocarcinoma: Patient has been seen oncology on regular basis she had stent in the common duct. 5 dementia: Has been on mirtazapine and donepezil continue both medication. 6 Parkinson disease: Continue patient on carbidopa levodopa as before. 7 severe osteoarthritis: Patient has been using ibuprofen from the time she left the hospital last time which might not be a good choice at this point can be switched to meloxicam or Celebrex if needed but to stop anti-inflammatory agent completely. 8 rectal prolapse and recurrent chronic vaginal uterine prolapse: Patient is known to have it has been seen [facility] as an outpatient she is known to have pessary arrange as an outpatient. 9 medical debility: S1 patient is able to participate in physical therapy when she is more stable we will resume physical therapy and prepare for [facility]. 10 acute kidney injury: Most likely prerenal azotemia and hypotension from bleeding will correct underlying disease continue patient hydration repeat BUN/ creatinine daily. 11 GI prophylaxis: Patient will be on pantoprazole IV and continue oral Pepcid. 12 DVT prophylaxis: With her current bleed cannot anticoagulate at this point the patient will be on Venodyne boots and knee-high DOMENICO hose. CODE STATUS: Full code. Expectation from this admission: Patient be in the hospital for more than 2 med nights.
[2016-10-07 18:03] LABS: Basophils % (A) 0 %; CH 30.8; Eosinophils # (A) 0.1 k/uL (0-0.7); Eosinophils % (A) 2 %; HCT 24.9 % (34.0-46.0); HDW 3.55; HGB 7.9 gm/dL (11.4-16.0); Hypochromasia Slight; Luc # (Auto) 0.11; Luc % (Auto) 2; Lymphocytes # (A) 1.2 k/uL (1.0-4.8); Lymphocytes % (A) 20 %; MCH 30.9 pg (25.0-35.0); MCHC 31.7 g/dL (31.0-37.0); MCV 97.2 fL (80.0-100.0); Macrocytosis Slight; Mean Platelet Volume 8.3; Monocytes # (A) 0.4 k/uL (0-1.0); Monocytes % (A) 6 %; Neutrophils # (A) 4.5 k/uL (1.3-7.7); Neutrophils % (A) 71 %; Poikilocytosis Slight; RBC 2.56 m/uL (3.80-5.40); RDW 15.6 % (11.5-15.5); WBC 6.3 k/uL (3.8-10.6); WBC (Perox) 6.75
[2016-10-07] MEDS: DONEPEZIL 5 MG TAB PO SCH (21:17)
[2016-10-08] MEDS: MIRTAZAPINE 15 MG TAB PO SCH ×2 (00:04→20:38)
[2016-10-08 00:51] LABS: Basophils % (A) 0 %; CH 30.7; CHCM 31.5; Eosinophils # (A) 0.1 k/uL (0-0.7); Eosinophils % (A) 2 %; HCT 25.6 % (34.0-46.0); HDW 3.43; Hypochromasia Moderate; Luc # (Auto) 0.08; Luc % (Auto) 1; Lymphocytes % (A) 14 %; MCH 30.7 pg (25.0-35.0); MCHC 31.2 g/dL (31.0-37.0); MCV 98.4 fL (80.0-100.0); Macrocytosis Slight; Mean Platelet Volume 7.5; Monocytes # (A) 0.4 k/uL (0-1.0); Monocytes % (A) 6 %; Neutrophils # (A) 5.4 k/uL (1.3-7.7); Neutrophils % (A) 78 %; Poikilocytosis Slight; RDW 15.4 % (11.5-15.5); WBC (Perox) 7.07
[2016-10-08] MEDS: SODIUM CHLORIDE 0.9% 1,000 ML IV SCH ×2 (04:40→07:52)
[2016-10-08] MEDS: CARBIDOPA-LEVODOPA 25-100 MG 1 EACH TAB PO SCH ×4 (04:40→20:38)
[2016-10-08 05:04] LABS: Basophils % (A) 0 %; CH 30.4; CHCM 31.3; Eosinophils # (A) 0.1 k/uL (0-0.7); Eosinophils % (A) 1 %; HCT 24.9 % (34.0-46.0); HGB 7.9 gm/dL (11.4-16.0); Hypochromasia Moderate; Luc # (Auto) 0.11; Luc % (Auto) 2; Lymphocytes % (A) 14 %; MCHC 31.6 g/dL (31.0-37.0); MCV 98.2 fL (80.0-100.0); Macrocytosis Slight; Mean Platelet Volume 8.1; Monocytes # (A) 0.4 k/uL (0-1.0); Monocytes % (A) 5 %; Neutrophils # (A) 5.2 k/uL (1.3-7.7); Neutrophils % (A) 78 %; Poikilocytosis Slight; RBC 2.54 m/uL (3.80-5.40); RDW 15.4 % (11.5-15.5); WBC 6.7 k/uL (3.8-10.6); WBC (Perox) 6.55
[2016-10-08 05:10] LABS: INR 1.5 (<1.1); Partial Thromboplastin Time 25.7 sec (22.0-30.0); Prothrombin Time 14.4 sec (9.0-12.0)
[2016-10-08 05:13] LABS: Calcium 7.6 mg/dL (8.4-10.2); Phosphorous 3.3 mg/dL (2.5-4.5); Potassium 4.2 mmol/L (3.5-5.1)
--- NOTE | 2016-10-08 07:17 | XR ---
EXAMINATION TYPE: XR chest 1V DATE OF EXAM: 10/08/2016 6:59 AM COMPARISON: 10/07/2016 HISTORY: Follow-up TECHNIQUE: Single frontal view of the chest is obtained. FINDINGS: Left-sided consolidation and pleural effusion noted. Hiatal hernia suggested. No pneumotho rax. No overt failure. Heart remains enlarged. Arthropathy of the shoulders seen. IMPRESSION: 1 stable left lower lobe infiltrate and small effusion.
--- NOTE | 2016-10-08 08:35 | P.PN ---
Subjective Principal diagnosis: GI bleed 76-year-old female admitted with painless rectal bleeding. 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 1 unit of blood transfused. Presently resting in bed without abdominal pain. Afebrile. Objective - Vital Signs Vital signs: Vital Signs Temp 97.5 F L 10/08/16 00:00 Pulse 83 10/08/16 06:00 Resp 24 10/08/16 06:00 BP 108/70 10/08/16 06:00 Pulse Ox 99 10/08/16 06:00 Intake & Output 10/07/16 10/08/16 10/08/16 18:59 06:59 18:59 Intake Total 1800 2180 Output Total 670 500 Balance 1130 1680 Weight 71.9 kg Intake: IV 1500 1500 Sodium Chloride 0.9% 1, 1500 1500 000 ml @ 125 mls/hr IV . Q8H LEELEE Rx#:[id number] Intake, IV Titration 200 Amount Magnesium Sulfate-D5w Pmx 200 1 gm In Dextrose/Water 1 100ml.bag @ 100 mls/hr IVPB Q1H LEELEE Rx#: [id number] Oral 100 60 Blood Product 620 Rc As-1 Unit 310 [id number] Output: Urine 670 500 Other: Voiding Method Indwelling Catheter Indwelling Catheter # Bowel Movements 1 2 - Exam General appearance: The patient is alert, oriented, in no acute distress. HET: Head is normocephalic and atraumatic. Pupils are equal and reactive. Oropharynx is clear without lesions. Neck: Supple without lymphadenopathy. Trachea midline. Heart: S1 S2. Regular rate and rhythm. Lungs: No crackles or wheezes are heard. Abdomen: Soft, nontender, nondistended with bowel sounds. No peritoneal signs. No palpable organomegaly or masses. Extremities: Normal skin color and turgor. No cyanosis, rash, ulceration, clubbing, or edema. Radial and pedal pulses are 2/4 bilaterally. Neurological: No focal deficits. Strength and sensation are grossly intact. - Labs CBC & Chem 7: 10/08/16 04:13 10/08/16 04:13 Labs: Abnormal Lab Results - Last 24 Hours (Table) 10/07/16 10/07/16 10/08/16 Range/Units 12:06 17:55 00:40 RBC 2.93 L 2.56 L 2.60 L (3.80-5.40) m/uL Hgb 8.9 L 7.9 L 8.0 L (11.4-16.0) gm/dL Hct 28.6 L 24.9 L 25.6 L (34.0-46.0) % RDW 15.6 H 15.6 H (11.5-15.5) % Plt Count 143 L (150-450) k/uL PT (9.0-12.0) sec Chloride (98-107) mmol/L Carbon Dioxide (22-30) mmol/L BUN (7-17) mg/dL Creatinine (0.52-1.04) mg/dL Calcium (8.4-10.2) mg/dL 10/08/16 10/08/16 10/08/16 Range/Units 04:13 04:13 04:13 RBC 2.54 L (3.80-5.40) m/uL Hgb 7.9 L (11.4-16.0) gm/dL Hct 24.9 L (34.0-46.0) % RDW (11.5-15.5) % Plt Count (150-450) k/uL PT 14.4 H (9.0-12.0) sec Chloride 124 H* (98-107) mmol/L Carbon Dioxide 15 L (22-30) mmol/L BUN 25 H (7-17) mg/dL Creatinine 1.16 H (0.52-1.04) mg/dL Calcium 7.6 L (8.4-10.2) mg/dL Microbiology - Last 24 Hours (Table) 10/07/16 05:40 Urine Culture - Preliminary Urine,Catheterized Assessment and Plan (1) GI bleed Narrative/Plan: Rectal bleeding unclear suspect diverticular etiology unclear. Status: Acute (2) Bile duct cancer Status: Acute (3) Acute blood loss anemia Status: Acute Plan: 1. Colonoscopy recommended by Dr. Lockhart patient declined. 2. Tagged RBC scan. 3. Monitor CBC closely. Transfuse as needed. 4. We'll continue to follow. 5. Nothing by mouth except medications ice chips and popsicles Jell-O sparingly. Assessment and plan of care discussed with Dr. Lockhart.
[2016-10-08] MEDS: PANTOPRAZOLE 40 MG/10 ML VIAL IV SCH ×2 (08:37→20:38)
--- NOTE | 2016-10-08 11:03 | PN ---
This is a 76-year-old female who was admitted with a diagnosis of acute GI bleed of unclear etiology. The patient also was found to have a urinary tract infection with recent infection by Klebsiella which was apparently in an extended spectrum beta-lactamase producing Klebsiella. This was on a previous discharge on September 30. She also has a history of hypertension, osteoarthritis, biliary tract cancer, status post bile duct placement, vascular dementia, Parkinson's disease, rectal prolapse, vaginal uterine prolapse, acute renal failure and general medical debility. The patient was going for a tagged red blood cell study today. She has received 3 units of PRBCs since she has been here. She is getting an IV of 0.9 at 125 mL an hour. Not requiring any supplemental oxygen. Looks about the same. Current vital signs include temperature 97.9, heart rate 89, respiratory rate 20, blood pressure 118/70, mean 91, room air saturation 97%. Appears in no acute distress. HEENT examination is grossly unremarkable. Mucous membranes are moist. No oral lesions. NECK: Supple. Full range of motion. No adenopathy or thyromegaly. Cardiovascular examination reveals regular rhythm and rate. S1, S2 normal. No S3, S4 or murmur. Lungs reveal relatively clear breath sounds. No wheezes or rhonchi. ABDOMEN: Soft. Bowel sounds are heard. Extremities are intact. No cyanosis, clubbing or edema. Labs are reviewed. White count 6.7, hemoglobin 7.9, hematocrit 24.9, platelet count 165,000. PT, INR was 14.1 and 1.5 respectively. PTT is 25.7. Sodium and potassium normal. Chloride is 124, CO2 of 15. Anion gap is 4. BUN and creatinine 25 and 1.16. The microbiology is all negative. A chest x-ray done on the shows some infiltrate or atelectasis at the left lung base. Medications are reviewed. ASSESSMENT: 1. Acute gastrointestinal bleed of unclear etiology. Initial hemoglobin was 6.2. She has received 3 units of PRBCs. She went for a tagged red blood cell study today, which should be able to detect bleeding at about 0.1 mL per minute. 2. Recent acute urinary tract infection secondary to an extended-spectrum beta-lactamase producing Klebsiella pneumoniae. 3. Hypertension. 4. Osteoarthritis. 5. Biliary tract cancer, status post bile duct stent placement. 6. Vascular dementia. 7. Parkinson disease. 8. Rectal prolapse. 9. Chronic vaginal uterine prolapse. 10. History of renal failure. 11. Poor overall function with general medical debility and inanition. PLAN: The patient went for a tagged red blood cell study today. Additional recommendations and suggestions are forthcoming. The tagged RBC study is sensitive but not specific. It can detect bleeding at 0.1 mL per minute. Will continue to follow. Prognosis is generally good, though.
--- NOTE | 2016-10-08 11:34 | NM ---
EXAMINATION TYPE: NM GI bleeding DATE OF EXAM: 10/08/2016 11:23 AM HISTORY: GI bleeding COMPARISON: NONE Following administration of 3 ml PYP 27.5 mCi Tc 99m Sodium Pertechnete. Immediate images post inject ion. FINDINGS: Normal tracer activity is seen in the blood pool of the abdominal aorta, common iliac arteries, femor al arteries, liver, and spleen on all of the interval images. Later images show accumulation of trace r in the urinary bladder, which is consistent with excreted tracer. No abnormal tracer uptake is pres ent outside the blood pool that would be consistent with an active GI bleed. IMPRESSION: Negative examination. No evidence of active gastrointestinal bleeding during the initial 1 hr observa tion period.
[2016-10-08] MEDS: DOXYCYCLINE 50 MG CAP PO SCH ×2 (11:54→20:38)
[2016-10-08] MEDS: FERROUS SULFATE 325 MG TAB PO SCH (11:55)
[2016-10-08] MEDS: MULTIVITAMINS, THERA 1 EACH TAB PO SCH (11:55)
--- NOTE | 2016-10-08 12:23 | P.PN ---
Subjective 76-year-old female one of Dr. Ferreira's patient with multiple medical problem known to have history of hypertension history of osteoarthritis history of cholangiocarcinoma post stent placement of the common duct has been seen oncology on regular basis also known to have history of Parkinson disease. Patient was hospitalized at [facility] between 428 till 09/30/2016 for significant change mental status and encephalopathy found to have UTI with urosepsis was treated with IV antibiotic initially and culture was completed patient was sent to long term on total of 10 days of doxycycline. As the aide was checked changing patient found to have some bright red blood in her brief, blood pressure was little bit low more rectal bleeding was found. Patient ended up being sent to the emergency department by EMS. Upon arrival to demurs [facility] at [facility] found to have significantly low blood pressure. Found to have more rectal bleed with rectal exam and addition hemoglobin dropped significantly over 3 g and short period of time. Patient was started on blood transfusion will be admitted to the ICU will consult Dr. Lockhart for possible gastrointestinal scope in the next 24 hours or when patient is more stable. 10/08: Patient is followed by Dr. Fernandez for intensive care management. She is now status post 3 units packed RBCs. Repeat hemoglobin is 7.9. She has been seen by Dr. Dr. Reshma Lockhart with recommendations for colonoscopy which patient declined. She is undergoing a tagged RBC scan today. Repeat chest x-ray shows stable left lower lobe infiltrate and small effusion. Objective - Vital Signs Vital signs: Vital Signs Temp 97.9 F 10/08/16 08:00 Pulse 84 10/08/16 11:11 Resp 19 10/08/16 11:11 BP 115/71 10/08/16 11:11 Pulse Ox 93 L 10/08/16 11:11 Intake & Output 10/07/16 10/08/16 10/08/16 18:59 06:59 18:59 Intake Total 1800 2180 375 Output Total 670 500 55 Balance 1130 1680 320 Weight 71.9 kg 71.9 kg Intake: IV 1500 1500 375 Sodium Chloride 0.9% 1, 1500 1500 375 000 ml @ 125 mls/hr IV . Q8H LEELEE Rx#:[id number] Intake, IV Titration 200 Amount Magnesium Sulfate-D5w Pmx 200 1 gm In Dextrose/Water 1 100ml.bag @ 100 mls/hr IVPB Q1H LEELEE Rx#: [id number] Oral 100 60 Blood Product 620 Rc As-1 Unit 310 [id number] Output: Urine 670 500 55 Other: Voiding Method Indwelling Catheter Indwelling Catheter Indwelling Catheter # Bowel Movements 1 2 1 - Exam General appearance: no average body habitus, no cooperative, disheveled, no mild distress, no morbidly obese, no acute distress, no obese, no severe distress, no thin - EENT Eyes: no abnormal pupil, no anicteric sclerae, no disc margins sharp, no edentulous, no EOMI, no PERRLA, no fundus normal, no photophobia, no dentition normal, no poor dentition, no ptosis, no scleral icterus, normal appearance ENT: hard of hearing, no hearing grossly normal, no NA/AT, normal oropharynx, no other, no pharyngeal erythema, no thrush, no tonsillar exudates, no tonsillar swelling Ears: bilateral: normal - Neck Neck: no lymphadenopathy, normal ROM, no other, no rigidity, no stridor, no thyromegaly Carotids: bilateral: upstroke normal Thyroid: bilateral: normal size - Respiratory Respiratory: bilateral: diminished, dullness, rales - Cardiovascular Rhythm: regular Heart sounds: normal: S1, S2 Abnormal Heart Sounds: systolic murmur, S3 Gallop - Gastrointestinal General gastrointestinal: no absent bowel sounds, decreased bowel sounds, distended, no hepatomegaly, no hyperactive bowel sounds, normal bowel sounds, no organomegaly, no rigid, no scaphoid, soft, no splenomegaly, no tenderness, no umbilical hernia, no ventral hernia - Genitourinary Female genitourinary: prolapse - Integumentary Integumentary: no calor, no cellulitis, no cyanotic, no decreased turgor, no flushed, jaundiced, no normal, no normal turgor, pale, rash, no ulcer - Neurologic Neurologic: CNII-XII intact - Musculoskeletal Musculoskeletal: no gait normal, generalized weakness, no strength equal bilaterally, no right sided weakness, no left sided weakness - Psychiatric Psychiatric: A&O x's 3, no intact judgment & insight - Labs CBC & Chem 7: 10/08/16 04:13 10/08/16 04:13 Labs: Abnormal Lab Results - Last 24 Hours (Table) 10/07/16 10/07/16 10/08/16 Range/Units 12:06 17:55 00:40 RBC 2.93 L 2.56 L 2.60 L (3.80-5.40) m/uL Hgb 8.9 L 7.9 L 8.0 L (11.4-16.0) gm/dL Hct 28.6 L 24.9 L 25.6 L (34.0-46.0) % RDW 15.6 H 15.6 H (11.5-15.5) % Plt Count 143 L (150-450) k/uL PT (9.0-12.0) sec Chloride (98-107) mmol/L Carbon Dioxide (22-30) mmol/L BUN (7-17) mg/dL Creatinine (0.52-1.04) mg/dL Calcium (8.4-10.2) mg/dL 10/08/16 10/08/16 10/08/16 Range/Units 04:13 04:13 04:13 RBC 2.54 L (3.80-5.40) m/uL Hgb 7.9 L (11.4-16.0) gm/dL Hct 24.9 L (34.0-46.0) % RDW (11.5-15.5) % Plt Count (150-450) k/uL PT 14.4 H (9.0-12.0) sec Chloride 124 H* (98-107) mmol/L Carbon Dioxide 15 L (22-30) mmol/L BUN 25 H (7-17) mg/dL Creatinine 1.16 H (0.52-1.04) mg/dL Calcium 7.6 L (8.4-10.2) mg/dL Microbiology - Last 24 Hours (Table) 10/07/16 05:40 Urine Culture - Preliminary Urine,Catheterized Assessment and Plan Plan: 1 acute gastrointestinal bleed: With significant bright red blood per rectum this is most likely lower GI bleed with the possibility of upper GI bleed but significantly aggressive, especially with the history of cholangiocarcinoma. Continue pantoprazole IV, will keep her nothing by mouth, consult GI. Patient is undergoing tagged RBC study. 2 acute blood loss anemia: Secondary to gastrointestinal bleed, status post transfusion of 3 units of packed RBCs. Continue to monitor hemoglobin closely. 3 recent UTI mostly found to be E. coli as an ESBL: Patient was on doxycycline 100 mg twice a day we'll continue medication. Repeat urine culture is in process. 4 cholangiocarcinoma: Patient has been seen oncology on regular basis she had stent in the common duct. 5 dementia: Has been on mirtazapine and donepezil continue both medication. 6 Parkinson disease: Continue patient on carbidopa levodopa as before. 7 severe osteoarthritis: Patient has been using ibuprofen from the time she left the hospital last time which might not be a good choice at this point can be switched to meloxicam or Celebrex if needed but to stop anti-inflammatory agent completely. 8 rectal prolapse and recurrent chronic vaginal uterine prolapse: Patient is known to have it has been seen TRUCK DISPATCHER as an outpatient she is known to have pessary arrange as an outpatient. 9 medical debility: S1 patient is able to participate in physical therapy when she is more stable we will resume physical therapy and prepare for sending her back to long term rehab. 10 acute kidney injury: Most likely prerenal azotemia and hypotension from bleeding will correct underlying disease continue patient hydration repeat BUN/ creatinine daily. 11 GI prophylaxis: Patient will be on pantoprazole IV and continue oral Pepcid. 12 DVT prophylaxis: With her current bleed cannot anticoagulate at this point the patient will be on Venodyne boots and knee-high DOMENICO hose. CODE STATUS: Full code. Discharge plan: Return to [facility] under the care of Dr. Ferreira Impression and plan of care have been directed as dictated by the signing physician. Noelle Judge nurse practitioner acting as scribe for signing physician. Time with Patient: Greater than 30
[2016-10-08] MEDS ORDERED: DEXTROSE 5%-0.45% NACL 1,000 ML IV SCH (13:30)
[2016-10-08 13:41] LABS: Basophils % (A) 0 %; CH 31.4; CHCM 32.9; Eosinophils # (A) 0.1 k/uL (0-0.7); Eosinophils % (A) 1 %; HCT 25.9 % (34.0-46.0); HDW 3.68; HGB 8.4 gm/dL (11.4-16.0); Hypochromasia Slight; Luc # (Auto) 0.15; Luc % (Auto) 2; Lymphocytes # (A) 1.3 k/uL (1.0-4.8); Lymphocytes % (A) 14 %; MCH 31.4 pg (25.0-35.0); MCHC 32.6 g/dL (31.0-37.0); MCV 96.4 fL (80.0-100.0); Mean Platelet Volume 9.5; Monocytes # (A) 0.6 k/uL (0-1.0); Monocytes % (A) 7 %; Neutrophils # (A) 7.3 k/uL (1.3-7.7); Neutrophils % (A) 77 %; Poikilocytosis Slight; RBC 2.69 m/uL (3.80-5.40); RDW 15.7 % (11.5-15.5); WBC 9.5 k/uL (3.8-10.6); WBC (Perox) 9.57
[2016-10-08] MEDS: SODIUM CHLORIDE 0.45% 1,000 ML IV SCH ×7 (16:30→22:34)
[2016-10-08 19:36] LABS: Anisocytosis Slight; Basophils % (A) 1 %; CH 30.7; CHCM 30.3; Eosinophils # (A) 0.1 k/uL (0-0.7); Eosinophils % (A) 1 %; HCT 23.6 % (34.0-46.0); HDW 3.49; HGB 7.5 gm/dL (11.4-16.0); Hypochromasia Marked; Luc # (Auto) 0.14; Luc % (Auto) 2; Lymphocytes # (A) 1.4 k/uL (1.0-4.8); Lymphocytes % (A) 20 %; MCH 32.4 pg (25.0-35.0); MCHC 31.6 g/dL (31.0-37.0); Macrocytosis Slight; Mean Platelet Volume 8.2; Monocytes # (A) 0.5 k/uL (0-1.0); Monocytes % (A) 7 %; Neutrophils # (A) 4.9 k/uL (1.3-7.7); Neutrophils % (A) 70 %; Poikilocytosis Slight; RBC 2.31 m/uL (3.80-5.40); WBC 6.9 k/uL (3.8-10.6); WBC (Perox) 6.55
[2016-10-08 19:37] LABS: MCV 102.3 fL (80.0-100.0)
[2016-10-08 19:49] LABS: Calcium 7.6 mg/dL (8.4-10.2)
[2016-10-08] MEDS: DONEPEZIL 5 MG TAB PO SCH (20:38)
[2016-10-09 00:27] LABS: Basophils # (A) 0.1 k/uL (0-0.2); Basophils % (A) 1 %; CH 31.4; Eosinophils # (A) 0.2 k/uL (0-0.7); Eosinophils % (A) 3 %; HCT 23.7 % (34.0-46.0); HDW 3.48; HGB 7.7 gm/dL (11.4-16.0); Hypochromasia Slight; Luc # (Auto) 0.17; Luc % (Auto) 2; Lymphocytes # (A) 1.8 k/uL (1.0-4.8); Lymphocytes % (A) 23 %; MCHC 32.4 g/dL (31.0-37.0); MCV 98.8 fL (80.0-100.0); Macrocytosis Slight; Mean Platelet Volume 8.4; Monocytes # (A) 0.6 k/uL (0-1.0); Monocytes % (A) 8 %; Neutrophils % (A) 64 %; Poikilocytosis Slight; WBC 7.8 k/uL (3.8-10.6); WBC (Perox) 7.42
[2016-10-09] MEDS: CARBIDOPA-LEVODOPA 25-100 MG 1 EACH TAB PO SCH ×4 (04:36→19:58)
[2016-10-09 04:58] LABS: Basophils % (A) 0 %; CH 30.2; CHCM 30.8; Eosinophils # (A) 0.3 k/uL (0-0.7); Eosinophils % (A) 4 %; HCT 24.4 % (34.0-46.0); HDW 3.35; HGB 7.5 gm/dL (11.4-16.0); Hypochromasia Marked; Luc # (Auto) 0.12; Luc % (Auto) 2; Lymphocytes # (A) 1.5 k/uL (1.0-4.8); Lymphocytes % (A) 23 %; MCH 30.4 pg (25.0-35.0); MCHC 30.7 g/dL (31.0-37.0); MCV 99.1 fL (80.0-100.0); Macrocytosis Slight; Mean Platelet Volume 8.3; Monocytes # (A) 0.4 k/uL (0-1.0); Monocytes % (A) 6 %; Neutrophils # (A) 4.3 k/uL (1.3-7.7); Neutrophils % (A) 65 %; RBC 2.46 m/uL (3.80-5.40); RDW 15.8 % (11.5-15.5); WBC 6.7 k/uL (3.8-10.6); WBC (Perox) 6.84
[2016-10-09 05:07] LABS: INR 1.5 (<1.1); Magnesium 1.9 mg/dL (1.6-2.3); Partial Thromboplastin Time 24.5 sec (22.0-30.0); Phosphorous 3.3 mg/dL (2.5-4.5); Potassium 3.9 mmol/L (3.5-5.1); Prothrombin Time 14.2 sec (9.0-12.0)
--- NOTE | 2016-10-09 07:12 | XR ---
EXAMINATION TYPE: XR chest 1V DATE OF EXAM: 10/09/2016 6:47 AM COMPARISON: Prior chest x-ray 08 Oct 2016 HISTORY: Abnormal chest x-ray TECHNIQUE: Single frontal view of the chest is obtained. FINDINGS: There is cardiomegaly. Basilar increased density persists in the retrocardiac location. Pa tient is rotated. No pneumothorax. There are overlying cardiac leads. IMPRESSION: Stable findings. Cardiomegaly. Left lower lobe atelectasis, correlate to exclude pneumon ia, follow-up to resolution, there is associated hiatal hernia
[2016-10-09] MEDS: PANTOPRAZOLE 40 MG/10 ML VIAL IV SCH ×2 (08:12→21:38)
[2016-10-09] MEDS: SODIUM CHLORIDE 0.45% 1,000 ML IV SCH ×2 (08:13→21:39)
[2016-10-09] MEDS: DOXYCYCLINE 50 MG CAP PO SCH ×2 (08:13→19:57)
--- NOTE | 2016-10-09 09:42 | P.PN ---
Subjective Principal diagnosis: GI bleed Feels well; hungry. Last bloody BM last night around 7pm. Denies abdominal pain. Tagged RBC negative. Declines endoscopy. Objective - Vital Signs Vital signs: Vital Signs Temp 97.6 F 10/09/16 08:00 Pulse 81 10/09/16 08:00 Resp 20 10/09/16 08:00 BP 105/57 10/09/16 08:00 Pulse Ox 99 10/09/16 07:00 Intake & Output 10/08/16 10/09/16 10/09/16 18:59 06:59 18:59 Intake Total 2373 1625 125 Output Total 290 505 20 Balance 2083 1120 105 Weight 71.9 kg 75.3 kg 75.3 kg Intake: IV 750 Sodium Chloride 0.9% 1, 750 000 ml @ 125 mls/hr IV . Q8H LEELEE Rx#:[id number] Intake, IV Titration 1623 1625 125 Amount Dextrose 5%-0.45% NaCl 1, 498 000 ml @ 125 mls/hr IV . Q8H LEELEE Rx#:[id number] Sodium Chloride 0.45% 1, 125 1625 125 000 ml @ 125 mls/hr IV . Q8H LEELEE Rx#:[id number] Sodium Chloride 0.45% 1, 1000 000 ml @ 999 mls/hr IV . Q1H1M LEELEE Rx#:[id number] Output: Urine 290 505 20 Other: Voiding Method Indwelling Catheter Indwelling Catheter Indwelling Catheter # Bowel Movements 1 1 - Exam General appearance: The patient is alert, oriented, in no acute distress. HET: Head is normocephalic and atraumatic. Pupils are equal and reactive. Oropharynx is clear without lesions. Neck: Supple without lymphadenopathy. Trachea midline. Heart: S1 S2. Regular rate and rhythm. Lungs: No crackles or wheezes are heard. Abdomen: Soft, nontender, nondistended with bowel sounds. No peritoneal signs. No palpable organomegaly or masses. Extremities: Normal skin color and turgor. No cyanosis, rash, ulceration, clubbing, or edema. Radial and pedal pulses are 2/4 bilaterally. Neurological: No focal deficits. Strength and sensation are grossly intact. - Labs CBC & Chem 7: 10/09/16 04:44 10/09/16 04:44 Labs: Abnormal Lab Results - Last 24 Hours (Table) 10/08/16 10/08/16 10/08/16 Range/Units 12:29 19:25 19:25 RBC 2.69 L 2.31 L (3.80-5.40) m/uL Hgb 8.4 L 7.5 L (11.4-16.0) gm/dL Hct 25.9 L 23.6 L (34.0-46.0) % MCV 102.3 H D (80.0-100.0) fL MCHC (31.0-37.0) g/dL RDW 15.7 H 16.0 H (11.5-15.5) % Plt Count 147 L (150-450) k/uL PT (9.0-12.0) sec Chloride 120 H* (98-107) mmol/L Carbon Dioxide 14 L (22-30) mmol/L BUN 24 H (7-17) mg/dL Creatinine 1.12 H (0.52-1.04) mg/dL Glucose 107 H (74-99) mg/dL Calcium 7.6 L (8.4-10.2) mg/dL 10/09/16 10/09/16 10/09/16 Range/Units 00:06 04:44 04:44 RBC 2.40 L 2.46 L (3.80-5.40) m/uL Hgb 7.7 L 7.5 L (11.4-16.0) gm/dL Hct 23.7 L 24.4 L (34.0-46.0) % MCV (80.0-100.0) fL MCHC 30.7 L (31.0-37.0) g/dL RDW 16.0 H 15.8 H (11.5-15.5) % Plt Count (150-450) k/uL PT 14.2 H (9.0-12.0) sec Chloride (98-107) mmol/L Carbon Dioxide (22-30) mmol/L BUN (7-17) mg/dL Creatinine (0.52-1.04) mg/dL Glucose (74-99) mg/dL Calcium (8.4-10.2) mg/dL 10/09/16 Range/Units 04:44 RBC (3.80-5.40) m/uL Hgb (11.4-16.0) gm/dL Hct (34.0-46.0) % MCV (80.0-100.0) fL MCHC (31.0-37.0) g/dL RDW (11.5-15.5) % Plt Count (150-450) k/uL PT (9.0-12.0) sec Chloride 120 H* (98-107) mmol/L Carbon Dioxide 13 L (22-30) mmol/L BUN 24 H (7-17) mg/dL Creatinine 1.10 H (0.52-1.04) mg/dL Glucose (74-99) mg/dL Calcium 8.0 L (8.4-10.2) mg/dL Microbiology - Last 24 Hours (Table) 10/07/16 05:40 Urine Culture - Preliminary Urine,Catheterized Gram Neg Bacilli Assessment and Plan (1) GI bleed Narrative/Plan: Rectal bleeding unclear suspect diverticular etiology unclear. Status: Acute (2) Bile duct cancer Status: Acute (3) Acute blood loss anemia Status: Acute Plan: 1. Colonoscopy recommended by Dr. Lockhart patient declined. 2. Full liquid diet with Enlive TID/meals. Transfer to medical floor. 3. Monitor CBC closely. Transfuse as needed. Assessment and plan of care discussed with Dr. Lockhart.
[2016-10-09] MEDS: MULTIVITAMINS, THERA 1 EACH TAB PO SCH (12:14)
[2016-10-09] MEDS: FERROUS SULFATE 325 MG TAB PO SCH (12:14)
--- NOTE | 2016-10-09 12:28 | P.PN ---
Subjective 76-year-old female one of Dr. Ferreira's patient with multiple medical problem known to have history of hypertension history of osteoarthritis history of cholangiocarcinoma post stent placement of the common duct has been seen oncology on regular basis also known to have history of Parkinson disease. Patient was hospitalized at [facility] between 428 till 09/30/2016 for significant change mental status and encephalopathy found to have UTI with urosepsis was treated with IV antibiotic initially and culture was completed patient was sent to [facility] on total of 10 days of doxycycline. As the aide was checked changing patient found to have some bright red blood in her brief, blood pressure was little bit low more rectal bleeding was found. Patient ended up being sent to the emergency department by EMS. Upon arrival to demurs department at [facility] found to have significantly low blood pressure. Found to have more rectal bleed with rectal exam and addition hemoglobin dropped significantly over 3 g and short period of time. Patient was started on blood transfusion will be admitted to the ICU will consult Dr. Lockhart for possible gastrointestinal scope in the next 24 hours or when patient is more stable. 10/08: Patient is followed by Dr. Fernandez for intensive care management. She is now status post 3 units packed RBCs. Repeat hemoglobin is 7.9. She has been seen by Dr. Dr. Reshma Lockhart with recommendations for colonoscopy which patient declined. She is undergoing a tagged RBC scan today. Repeat chest x-ray shows stable left lower lobe infiltrate and small effusion. 10/09: Patient underwent a tagged RBC scan and found there are no evidence of acute gastrointestinal bleeding during the initial one hour observation. Exam was negative. Her hemoglobin remaines stable at 7.7. She was advanced to a full liquid diet and is tolerating well. She is still declining a colonoscopy. Will continue to watch CBC closely and transfer to a medical floor today. Objective - Vital Signs Vital signs: Vital Signs Temp 97.6 F 10/09/16 08:00 Pulse 79 10/09/16 09:00 Resp 23 10/09/16 09:00 BP 112/74 10/09/16 09:00 Pulse Ox 99 10/09/16 09:00 Intake & Output 10/08/16 10/09/16 10/09/16 18:59 06:59 18:59 Intake Total 2373 1625 125 Output Total 290 505 20 Balance 2083 1120 105 Weight 71.9 kg 75.3 kg 75.3 kg Intake: IV 750 Sodium Chloride 0.9% 1, 750 000 ml @ 125 mls/hr IV . Q8H LEELEE Rx#:[id number] Intake, IV Titration 1623 1625 125 Amount Dextrose 5%-0.45% NaCl 1, 498 000 ml @ 125 mls/hr IV . Q8H LEELEE Rx#:[id number] Sodium Chloride 0.45% 1, 125 1625 125 000 ml @ 125 mls/hr IV . Q8H LEELEE Rx#:[id number] Sodium Chloride 0.45% 1, 1000 000 ml @ 999 mls/hr IV . Q1H1M LEELEE Rx#:[id number] Output: Urine 290 505 20 Other: Voiding Method Indwelling Catheter Indwelling Catheter Indwelling Catheter # Bowel Movements 1 1 - Exam - Exam General appearance: no average body habitus, no cooperative, disheveled, no mild distress, no morbidly obese, no acute distress, no obese, no severe distress, no thin - EENT Eyes: no abnormal pupil, no anicteric sclerae, no disc margins sharp, no edentulous, no EOMI, no PERRLA, no fundus normal, no photophobia, no dentition normal, no poor dentition, no ptosis, no scleral icterus, normal appearance ENT: hard of hearing, no hearing grossly normal, no NA/AT, normal oropharynx, no other, no pharyngeal erythema, no thrush, no tonsillar exudates, no tonsillar swelling Ears: bilateral: normal - Neck Neck: no lymphadenopathy, normal ROM, no other, no rigidity, no stridor, no thyromegaly Carotids: bilateral: upstroke normal Thyroid: bilateral: normal size - Respiratory Respiratory: bilateral: diminished, dullness, rales - Cardiovascular Rhythm: regular Heart sounds: normal: S1, S2 Abnormal Heart Sounds: systolic murmur, S3 Gallop - Gastrointestinal General gastrointestinal: no absent bowel sounds, decreased bowel sounds, distended, no hepatomegaly, no hyperactive bowel sounds, normal bowel sounds, no organomegaly, no rigid, no scaphoid, soft, no splenomegaly, no tenderness, no umbilical hernia, no ventral hernia - Genitourinary Female genitourinary: prolapse - Integumentary Integumentary: no calor, no cellulitis, no cyanotic, no decreased turgor, no flushed, jaundiced, no normal, no normal turgor, pale, rash, no ulcer - Neurologic Neurologic: CNII-XII intact - Musculoskeletal Musculoskeletal: no gait normal, generalized weakness, no strength equal bilaterally, no right sided weakness, no left sided weakness - Psychiatric Psychiatric: A&O x's 3, no intact judgment & insight - Labs CBC & Chem 7: 10/09/16 04:44 10/09/16 04:44 Labs: Abnormal Lab Results - Last 24 Hours (Table) 10/08/16 10/08/16 10/08/16 Range/Units 12:29 19:25 19:25 RBC 2.69 L 2.31 L (3.80-5.40) m/uL Hgb 8.4 L 7.5 L (11.4-16.0) gm/dL Hct 25.9 L 23.6 L (34.0-46.0) % MCV 102.3 H D (80.0-100.0) fL MCHC (31.0-37.0) g/dL RDW 15.7 H 16.0 H (11.5-15.5) % Plt Count 147 L (150-450) k/uL PT (9.0-12.0) sec Chloride 120 H* (98-107) mmol/L Carbon Dioxide 14 L (22-30) mmol/L BUN 24 H (7-17) mg/dL Creatinine 1.12 H (0.52-1.04) mg/dL Glucose 107 H (74-99) mg/dL Calcium 7.6 L (8.4-10.2) mg/dL 10/09/16 10/09/16 10/09/16 Range/Units 00:06 04:44 04:44 RBC 2.40 L 2.46 L (3.80-5.40) m/uL Hgb 7.7 L 7.5 L (11.4-16.0) gm/dL Hct 23.7 L 24.4 L (34.0-46.0) % MCV (80.0-100.0) fL MCHC 30.7 L (31.0-37.0) g/dL RDW 16.0 H 15.8 H (11.5-15.5) % Plt Count (150-450) k/uL PT 14.2 H (9.0-12.0) sec Chloride (98-107) mmol/L Carbon Dioxide (22-30) mmol/L BUN (7-17) mg/dL Creatinine (0.52-1.04) mg/dL Glucose (74-99) mg/dL Calcium (8.4-10.2) mg/dL 10/09/16 Range/Units 04:44 RBC (3.80-5.40) m/uL Hgb (11.4-16.0) gm/dL Hct (34.0-46.0) % MCV (80.0-100.0) fL MCHC (31.0-37.0) g/dL RDW (11.5-15.5) % Plt Count (150-450) k/uL PT (9.0-12.0) sec Chloride 120 H* (98-107) mmol/L Carbon Dioxide 13 L (22-30) mmol/L BUN 24 H (7-17) mg/dL Creatinine 1.10 H (0.52-1.04) mg/dL Glucose (74-99) mg/dL Calcium 8.0 L (8.4-10.2) mg/dL Microbiology - Last 24 Hours (Table) 10/07/16 05:40 Urine Culture - Final Urine,Catheterized Klebsiella pneumoniae Assessment and Plan Plan: Plan: 1 acute gastrointestinal bleed: With significant bright red blood per rectum this is most likely lower GI bleed with the possibility of upper GI bleed but significantly aggressive, especially with the history of cholangiocarcinoma. Continue pantoprazole IV, advance to full liquid diet, consult GI, continue to monitor CBC. 2 acute blood loss anemia: Secondary to gastrointestinal bleed, status post transfusion of 3 units of packed RBCs. Continue to monitor hemoglobin closely. 3 recent UTI mostly found to be E. coli as an ESBL: Patient was on doxycycline 100 mg twice a day we'll continue medication. Repeat urine culture is in process. 4 cholangiocarcinoma: Patient has been seen oncology on regular basis she had stent in the common duct. 5 dementia: Has been on mirtazapine and donepezil continue both medication. 6 Parkinson disease: Continue patient on carbidopa levodopa as before. 7 severe osteoarthritis: Patient has been using ibuprofen from the time she left the hospital last time which might not be a good choice at this point can be switched to meloxicam or Celebrex if needed but to stop anti-inflammatory agent completely. 8 rectal prolapse and recurrent chronic vaginal uterine prolapse: Patient is known to have it has been seen CLINICAL PHARMACOLOGIST as an outpatient she is known to have pessary arrange as an outpatient. 9 medical debility: S1 patient is able to participate in physical therapy when she is more stable we will resume physical therapy and prepare for sending her back to [facility] rehab. 10 acute kidney injury: Most likely prerenal azotemia and hypotension from bleeding will correct underlying disease continue patient hydration repeat BUN/ creatinine daily. 11 GI prophylaxis: Patient will be on pantoprazole IV and continue oral Pepcid. 12 DVT prophylaxis: With her current bleed cannot anticoagulate at this point the patient will be on Venodyne boots and knee-high DOMENICO hose. CODE STATUS: Full code. Discharge plan: Return to [facility] under the care of Dr. Ferreira The above impression and plan of care have been discussed and directed by signing physician. Kristen Ramon nurse practitioner acting as scribe for signing physician.
--- NOTE | 2016-10-09 12:39 | P.PN ---
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 She also has a history of acute kidney injury with non-anion gap metabolic acidosis and a recent admission for sepsis secondary to ESBL E. coli urinary tract infection. She was just discharged on 09/30/2016. He presented here yesterday from an extended care facility following bright red blood per rectum. He did have a hemoglobin of 6.2 and was admitted here to the intensive care unit for the same. He is seen today in consultation. She is awake and alert in no acute distress. She did receive 2 units of packed red blood cell transfusion and her current hemoglobin is 8.8. Stool for occult blood was positive. Did have a bloody stool early this morning. She denies any shortness of breath, cough or congestion. She denies any abdominal discomfort. No chest pain or palpitations. No lightheadedness or dizziness. He has been hemodynamically stable. Not requiring any pressors at this time. 2.9 normal saline at 125 mL per hour. Urinalysis reveals probable infection. Culture is pending. The patient was seen again today 10/09/2016 in follow-up in the intensive care unit. She is awake and alert in no acute distress. She is status post 3 units of packed red blood cells altogether. Her current hemoglobin is 7.5. Her tagged RBC test was negative. The patient has declined a colonoscopy. She is being treated medically. She is maintaining good O2 saturations in the high 90s to 100% on room air. She's been hemodynamically stable. Urine cultures positive for Klebsiella pneumoniae. Currently on Vibramycin. Objective - Vital Signs Vital signs: Vital Signs Temp 97.6 F 10/09/16 12:00 Pulse 88 10/09/16 12:00 Resp 19 10/09/16 12:00 BP 125/75 10/09/16 12:00 Pulse Ox 99 10/09/16 11:00 Intake & Output 10/08/16 10/09/16 10/09/16 18:59 06:59 18:59 Intake Total 2373 1625 725 Output Total 290 505 122 Balance 2083 1120 603 Weight 71.9 kg 75.3 kg 75.3 kg Intake: IV 750 Sodium Chloride 0.9% 1, 750 000 ml @ 125 mls/hr IV . Q8H [facility] Rx#:[id number] Intake, IV Titration 1623 1625 625 Amount Dextrose 5%-0.45% NaCl 1, 498 000 ml @ 125 mls/hr IV . [facility] Rx#:[id number] Sodium Chloride 0.45% 1, 125 1625 625 000 ml @ 125 mls/hr IV . [facility] Rx#:[id number] Sodium Chloride 0.45% 1, 1000 000 ml @ 999 mls/hr IV . Q1H1M [facility] Rx#:[id number] Oral 100 Output: Urine 290 505 122 Other: Voiding Method Indwelling Catheter Indwelling Catheter Indwelling Catheter # Bowel Movements 1 1 - Exam GENERAL EXAM: Pale. Alert, comfortable in no apparent distress. HEAD: Normocephalic. EYES: Normal reaction of pupils, equal size. NOSE: Clear with pink turbinates. THROAT: No erythema or exudates. NECK: No masses, no JVD. CHEST: No chest wall deformity. LUNGS: Equal air entry with no crackles, wheeze, rhonchi or dullness. CVS: S1 and S2 normal with no audible murmurs, regular rhythm. ABDOMEN: No hepatosplenomegaly, normal bowel sounds, no guarding or rigidity. Extremities: There is no significant peripheral edema. No clubbing, no cyanosis. Peripheral pulses are intact. - Labs CBC & Chem 7: 10/09/16 04:44 10/09/16 04:44 Labs: Abnormal Lab Results - Last 24 Hours (Table) 10/08/16 10/08/16 10/08/16 Range/Units 12:29 19:25 19:25 RBC 2.69 L 2.31 L (3.80-5.40) m/uL Hgb 8.4 L 7.5 L (11.4-16.0) gm/dL Hct 25.9 L 23.6 L (34.0-46.0) % MCV 102.3 H D (80.0-100.0) fL MCHC (31.0-37.0) g/dL RDW 15.7 H 16.0 H (11.5-15.5) % Plt Count 147 L (150-450) k/uL PT (9.0-12.0) sec Chloride 120 H* (98-107) mmol/L Carbon Dioxide 14 L (22-30) mmol/L BUN 24 H (7-17) mg/dL Creatinine 1.12 H (0.52-1.04) mg/dL Glucose 107 H (74-99) mg/dL Calcium 7.6 L (8.4-10.2) mg/dL 10/09/16 10/09/16 10/09/16 Range/Units 00:06 04:44 04:44 RBC 2.40 L 2.46 L (3.80-5.40) m/uL Hgb 7.7 L 7.5 L (11.4-16.0) gm/dL Hct 23.7 L 24.4 L (34.0-46.0) % MCV (80.0-100.0) fL MCHC 30.7 L (31.0-37.0) g/dL RDW 16.0 H 15.8 H (11.5-15.5) % Plt Count (150-450) k/uL PT 14.2 H (9.0-12.0) sec Chloride (98-107) mmol/L Carbon Dioxide (22-30) mmol/L BUN (7-17) mg/dL Creatinine (0.52-1.04) mg/dL Glucose (74-99) mg/dL Calcium (8.4-10.2) mg/dL 10/09/16 Range/Units 04:44 RBC (3.80-5.40) m/uL Hgb (11.4-16.0) gm/dL Hct (34.0-46.0) % MCV (80.0-100.0) fL MCHC (31.0-37.0) g/dL RDW (11.5-15.5) % Plt Count (150-450) k/uL PT (9.0-12.0) sec Chloride 120 H* (98-107) mmol/L Carbon Dioxide 13 L (22-30) mmol/L BUN 24 H (7-17) mg/dL Creatinine 1.10 H (0.52-1.04) mg/dL Glucose (74-99) mg/dL Calcium 8.0 L (8.4-10.2) mg/dL Microbiology - Last 24 Hours (Table) 10/07/16 05:40 Urine Culture - Final Urine,Catheterized Klebsiella pneumoniae Assessment and Plan Plan: Impression: #1 Acute gastrointestinal bleeding of unclear etiology. Hemoglobin 6.2, status post 4 units of packed red blood cells, current hemoglobin 7.5. #2 Acute urinary tract infection, recent infection of Klebsiella pneumoniae ESBL sepsis discharge to [facility] 09/30/2016. #3 Hypertension. #4 Osteoarthritis. #5 Biliary tract cancer post common bile duct stent placement. AST 54, alk phos 1004. #6 Vascular dementia. #7 Parkinson's disease. #8 For rectal prolapse, recurrent. #9 Chronic vaginal uterine prolapse. #10 Acute renal failure, current creatinine 1.50. #10 Poor overall functional performance secondary to the above-mentioned multiple comorbidities, residential resident. Plan: The patient was seen and evaluated by Dr. Fernandez. She is stable from the critical care standpoint and could be transferred out of the ICU today. A colonoscopy was mentioned to the patient and she is somewhat reluctant at this point. She is currently on antibiotics in the form of Vibramycin. She is on Protonix for GI prophylaxis. We will continue to follow and make further recommendations based on her clinical status. The patient's case was reviewed and discussed with Dr. Fernandez. Interim history, assessment and plan of care are dictated as directed by him.
[2016-10-09] MEDS ORDERED: ONDANSETRON 4 MG/2 ML VIAL IVP STA (14:28)
[2016-10-09] MEDS: MIRTAZAPINE 15 MG TAB PO SCH (19:58)
[2016-10-09] MEDS: DONEPEZIL 5 MG TAB PO SCH (19:58)
[2016-10-10] MEDS: SODIUM CHLORIDE 0.45% 1,000 ML IV SCH ×2 (00:51→08:42)
[2016-10-10] MEDS: CARBIDOPA-LEVODOPA 25-100 MG 1 EACH TAB PO SCH ×4 (04:00→20:17)
[2016-10-10] MEDS: DOXYCYCLINE 50 MG CAP PO SCH (08:41)
[2016-10-10] MEDS: PANTOPRAZOLE 40 MG/10 ML VIAL IV SCH ×2 (08:41→20:17)
[2016-10-10 10:17] LABS: Anisocytosis Slight; Basophils % (A) 1 %; CH 30.9; CHCM 31.6; Eosinophils # (A) 0.3 k/uL (0-0.7); Eosinophils % (A) 5 %; HCT 22.9 % (34.0-46.0); HDW 3.29; HGB 7.3 gm/dL (11.4-16.0); Hypochromasia Slight; Luc # (Auto) 0.09; Luc % (Auto) 2; Lymphocytes # (A) 0.9 k/uL (1.0-4.8); Lymphocytes % (A) 18 %; MCH 31.3 pg (25.0-35.0); MCHC 31.7 g/dL (31.0-37.0); MCV 98.7 fL (80.0-100.0); Macrocytosis Slight; Mean Platelet Volume 8.5; Monocytes # (A) 0.4 k/uL (0-1.0); Monocytes % (A) 8 %; Neutrophils # (A) 3.3 k/uL (1.3-7.7); Neutrophils % (A) 67 %; RBC 2.32 m/uL (3.80-5.40); RDW 16.3 % (11.5-15.5); WBC 4.9 k/uL (3.8-10.6); WBC (Perox) 5.04
[2016-10-10 10:25] LABS: Magnesium 1.8 mg/dL (1.6-2.3); Phosphorous 3.3 mg/dL (2.5-4.5); Potassium 3.7 mmol/L (3.5-5.1); Total Bilirubin 0.8 mg/dL (0.2-1.3); Total Protein 5.2 g/dL (6.3-8.2)
[2016-10-10] MEDS: MULTIVITAMINS, THERA 1 EACH TAB PO SCH (11:10)
[2016-10-10] MEDS: FERROUS SULFATE 325 MG TAB PO SCH (11:10)
--- NOTE | 2016-10-10 11:46 | P.PN ---
Subjective Principal diagnosis: GI bleed Feels well; hungry. Last bloody BM 2 days ago. Denies abdominal pain. Tagged RBC negative. Agreeable for colonoscopy tomorrow. Hemoglobin 7.3. Objective - Vital Signs Vital signs: Vital Signs Temp 97 F L 10/10/16 07:00 Pulse 73 10/10/16 07:00 Resp 18 10/10/16 07:00 BP 99/58 10/10/16 07:00 Pulse Ox 97 10/10/16 07:00 Intake & Output 10/09/16 10/10/16 10/10/16 18:59 06:59 18:59 Intake Total 1100 Output Total 122 Balance 978 Weight 75.3 kg 55.5 kg Intake: Intake, IV Titration 1000 Amount Sodium Chloride 0.45% 1, 1000 000 ml @ 125 mls/hr IV . Q8H [facility] Rx#:[id number] Oral 100 Output: Urine 122 Other: Voiding Method Diaper Incontinent Bedpan Incontinent # Voids 1 1 - Exam General appearance: The patient is alert, oriented, in no acute distress. HET: Head is normocephalic and atraumatic. Pupils are equal and reactive. Oropharynx is clear without lesions. Neck: Supple without lymphadenopathy. Trachea midline. Heart: S1 S2. Regular rate and rhythm. Lungs: No crackles or wheezes are heard. Abdomen: Soft, nontender, nondistended with bowel sounds. No peritoneal signs. No palpable organomegaly or masses. Extremities: Normal skin color and turgor. No cyanosis, rash, ulceration, clubbing, or edema. Radial and pedal pulses are 2/4 bilaterally. Neurological: No focal deficits. Strength and sensation are grossly intact. - Labs CBC & Chem 7: 10/10/16 09:00 10/10/16 09:00 Labs: Abnormal Lab Results - Last 24 Hours (Table) 10/10/16 10/10/16 Range/Units 09:00 09:00 RBC 2.32 L (3.80-5.40) m/uL Hgb 7.3 L (11.4-16.0) gm/dL Hct 22.9 L (34.0-46.0) % RDW 16.3 H (11.5-15.5) % Lymphocytes # 0.9 L (1.0-4.8) k/uL Chloride 118 H (98-107) mmol/L Carbon Dioxide 13 L (22-30) mmol/L BUN 23 H (7-17) mg/dL Creatinine 1.14 H (0.52-1.04) mg/dL Glucose 118 H (74-99) mg/dL Calcium 8.0 L (8.4-10.2) mg/dL Alkaline Phosphatase 764 H (38-126) U/L Total Protein 5.2 L (6.3-8.2) g/dL Albumin 2.0 L (3.5-5.0) g/dL Microbiology - Last 24 Hours (Table) 10/07/16 05:40 Urine Culture - Final Urine,Catheterized Klebsiella pneumoniae Assessment and Plan (1) GI bleed Narrative/Plan: Rectal bleeding unclear suspect diverticular etiology unclear. Status: Acute (2) Bile duct cancer Status: Acute (3) Acute blood loss anemia Status: Acute Plan: 1. Colonoscopy tomorrow. The photovoltaic panel installer has discussed the risks, benefits and alternative therapies for the above-mentioned procedure and for both sedation/analgesia as well as necessary blood product administration, if indicated, as they pertain to this patient. The patient has indicated understanding and acceptance of the risks and procedures discussed. Assessment and plan of care discussed with Dr. Lockhart
[2016-10-10] MEDS ORDERED: PEG 3350-NA SULF,BICARB,CL/KCL 4,000 ML BOTTLE PO ONE (13:00)
[2016-10-10] MEDS ORDERED: PIPERACILLIN-TAZOBACTAM 3.375 GM in DEXTROSE/WATER 1 50ML.BAG IVPB SCH (14:00)
[2016-10-10] MEDS ORDERED: SODIUM CHLORIDE 0.45% 1,000 ML IV ONE (14:22)
--- NOTE | 2016-10-10 14:30 | P.PN ---
Subjective 76-year-old female one of Dr. Ferreira's patient with multiple medical problem known to have history of hypertension history of osteoarthritis history of cholangiocarcinoma post stent placement of the common duct has been seen oncology on regular basis also known to have history of Parkinson disease. Patient was hospitalized at [facility] between 428 till 09/30/2016 for significant change mental status and encephalopathy found to have UTI with urosepsis was treated with IV antibiotic initially and culture was completed patient was sent to retirement on total of 10 days of doxycycline. As the aide was checked changing patient found to have some bright red blood in her brief, blood pressure was little bit low more rectal bleeding was found. Patient ended up being sent to the emergency department by EMS. Upon arrival to demurs department at [facility] found to have significantly low blood pressure. Found to have more rectal bleed with rectal exam and addition hemoglobin dropped significantly over 3 g and short period of time. Patient was started on blood transfusion will be admitted to the ICU will consult Dr. Lockhart for possible gastrointestinal scope in the next 24 hours or when patient is more stable. 10/08: Patient is followed by Dr. Fernandez for intensive care management. She is now status post 3 units packed RBCs. Repeat hemoglobin is 7.9. She has been seen by Dr. Dr. Reshma Lockhart with recommendations for colonoscopy which patient declined. She is undergoing a tagged RBC scan today. Repeat chest x-ray shows stable left lower lobe infiltrate and small effusion. 10/09: Patient underwent a tagged RBC scan and found there are no evidence of acute gastrointestinal bleeding during the initial one hour observation. Exam was negative. Her hemoglobin remaines stable at 7.7. She was advanced to a full liquid diet and is tolerating well. She is still declining a colonoscopy. Will continue to watch CBC closely and transfer to a medical floor today. 10/10: Patient is now decided that she will go forward with colonoscopy. GI has been notified and patient is scheduled for tomorrow morning with Dr. Isra Lockhart. Hemoglobin is 7.3. Urine culture is back with ESBL Klebsiella and antibiotics of doxycycline discontinued and started on Zosyn. Consult with Dr. Parry added. Patient is requesting anxiety medication and low dose Xanax added. Objective - Vital Signs Vital signs: Vital Signs Temp 97 F L 10/10/16 07:00 Pulse 73 10/10/16 07:00 Resp 18 10/10/16 07:00 BP 99/58 10/10/16 07:00 Pulse Ox 97 10/10/16 07:00 Intake & Output 10/09/16 10/10/16 10/10/16 18:59 06:59 18:59 Intake Total 1100 Output Total 122 Balance 978 Weight 75.3 kg 55.5 kg Intake: Intake, IV Titration 1000 Amount Sodium Chloride 0.45% 1, 1000 000 ml @ 125 mls/hr IV . [facility] Rx#:[id number] Oral 100 Output: Urine 122 Other: Voiding Method Diaper Incontinent Bedpan Incontinent # Voids 1 1 - Exam General appearance: no average body habitus, no cooperative, disheveled, no mild distress, no morbidly obese, no acute distress, no obese, no severe distress, no thin - EENT Eyes: no abnormal pupil, no anicteric sclerae, no disc margins sharp, no edentulous, no EOMI, no PERRLA, no fundus normal, no photophobia, no dentition normal, no poor dentition, no ptosis, no scleral icterus, normal appearance ENT: hard of hearing, no hearing grossly normal, no NA/AT, normal oropharynx, no other, no pharyngeal erythema, no thrush, no tonsillar exudates, no tonsillar swelling Ears: bilateral: normal - Neck Neck: no lymphadenopathy, normal ROM, no other, no rigidity, no stridor, no thyromegaly Carotids: bilateral: upstroke normal Thyroid: bilateral: normal size - Respiratory Respiratory: bilateral: diminished, dullness, rales - Cardiovascular Rhythm: regular Heart sounds: normal: S1, S2 Abnormal Heart Sounds: systolic murmur, S3 Gallop - Gastrointestinal General gastrointestinal: no absent bowel sounds, decreased bowel sounds, distended, no hepatomegaly, no hyperactive bowel sounds, normal bowel sounds, no organomegaly, no rigid, no scaphoid, soft, no splenomegaly, no tenderness, no umbilical hernia, no ventral hernia - Genitourinary Female genitourinary: prolapse - Integumentary Integumentary: no calor, no cellulitis, no cyanotic, no decreased turgor, no flushed, jaundiced, no normal, no normal turgor, pale, rash, no ulcer - Neurologic Neurologic: CNII-XII intact - Musculoskeletal Musculoskeletal: no gait normal, generalized weakness, no strength equal bilaterally, no right sided weakness, no left sided weakness - Psychiatric Psychiatric: A&O x's 3, no intact judgment & insight - Labs CBC & Chem 7: 10/10/16 09:00 10/10/16 09:00 Labs: Abnormal Lab Results - Last 24 Hours (Table) 10/10/16 10/10/16 Range/Units 09:00 09:00 RBC 2.32 L (3.80-5.40) m/uL Hgb 7.3 L (11.4-16.0) gm/dL Hct 22.9 L (34.0-46.0) % RDW 16.3 H (11.5-15.5) % Lymphocytes # 0.9 L (1.0-4.8) k/uL Chloride 118 H (98-107) mmol/L Carbon Dioxide 13 L (22-30) mmol/L BUN 23 H (7-17) mg/dL Creatinine 1.14 H (0.52-1.04) mg/dL Glucose 118 H (74-99) mg/dL Calcium 8.0 L (8.4-10.2) mg/dL Alkaline Phosphatase 764 H (38-126) U/L Total Protein 5.2 L (6.3-8.2) g/dL Albumin 2.0 L (3.5-5.0) g/dL Microbiology - Last 24 Hours (Table) 10/07/16 05:40 Urine Culture - Final Urine,Catheterized Klebsiella pneumoniae Assessment and Plan Plan: 1 acute gastrointestinal bleed: With significant bright red blood per rectum this is most likely lower GI bleed. Colonoscopy scheduled for tomorrow. 2 acute blood loss anemia: Secondary to gastrointestinal bleed, status post transfusion of 3 units of packed RBCs. Continue to monitor hemoglobin closely. 3 recent UTI mostly found to be E. coli as an ESBL: Repeat urine culture is ESBL Klebsiella pneumoniae. Antibiotics changed to Zosyn. Consult with Dr. Parry. 4 cholangiocarcinoma: Patient has been seen oncology on regular basis she had stent in the common duct. 5 dementia: Has been on mirtazapine and donepezil continue both medication. 6 Parkinson disease: Continue patient on carbidopa levodopa as before. 7 severe osteoarthritis: Patient has been using ibuprofen from the time she left the hospital last time which might not be a good choice at this point can be switched to meloxicam or Celebrex if needed but to stop anti-inflammatory agent completely. 8 rectal prolapse and recurrent chronic vaginal uterine prolapse: Patient is known to have it has been seen [facility] as an outpatient she is known to have pessary arrange as an outpatient. 9 medical debility: S1 patient is able to participate in physical therapy when she is more stable we will resume physical therapy and prepare for sending her back to [facility]. 10 acute kidney injury: Most likely prerenal azotemia and hypotension from bleeding will correct underlying disease continue patient hydration repeat BUN/ creatinine daily. 11 GI prophylaxis: Patient will be on pantoprazole IV and continue oral Pepcid. 12 DVT prophylaxis: With her current bleed cannot anticoagulate at this point the patient will be on Venodyne boots and knee-high DOMENICO hose. CODE STATUS: Full code. Discharge plan: Return to [facility] under the care of Dr. Ferreira Impression and plan of care have been directed as dictated by the signing physician. Noelle Judge nurse practitioner acting as scribe for signing physician.
[2016-10-10] MEDS: ALPRAZolam 0.25 MG TAB PO PRN (15:15)
[2016-10-10] MEDS: ERTAPENEM 1 GM in SODIUM CHLORIDE 0.9% 50 ML IVPB SCH (19:00)
[2016-10-10] MEDS: DONEPEZIL 5 MG TAB PO SCH (20:17)
[2016-10-10] MEDS: MIRTAZAPINE 15 MG TAB PO SCH (20:17)
--- NOTE | 2016-10-10 20:36 | P.CONS ---
History of Present Illness - Reason for Consult Consult date: 10/10/16 - Chief Complaint GI bleed - History of Present Illness 76-year-old female with multiple medical troubles that includes osteoarthritis, hypertension, cholangiocarcinoma status post placement of the stent in the common dialed out. She is a known history also of Parkinson's disease. She was hospitalized earlier this month where she was found evidence of a urinary tract infection. After treatment of this she had improvement of her status. She was treated with doxycycline at the [facility] care facility. Was noticed that she started to have difficulties with feeling poorly. Bright red blood was found per rectum and her briefs. She had evidence of a drop of her hemoglobin and constantly was transferred to hospital in intensive care unit. The patient will have a colonoscopy tomorrow for further evaluation. Patient however is not been found evidence of the urinary tract infection with Klebsiella pneumoniae which is an ESBL in the infectious diseases consultation was requested. Review of Systems Frail 76-year-old woman who does not seem to be in acute distress HEENT:Denies headache or acute visual change. Denies sinus or mouth discomforts. Denies neck stiffness or pain. Denies significant oral cavity pain. Denies difficulty on swallowing. Lungs: Denies significant shortness of breath, cough, sputum production, or hemoptysis. Cardiovascular: Denies significant shortness of breath, chest pain, chest wall pain, orthopnea, dyspnea on exertion, syncope Gastrointestinal: Acute gastrointestinal bleeding with bright red blood per rectum, no hematemesis or melena though. Musculoskeletal: denies significant myalgias or arthralgias. No new joint swelling. Denies new back pain. Skin: Denies new rash or lesions. No new ulcers or wounds are related.. Neuro: Denies headache or visual change. Denies any new onset weakness or difficulty with ambulation. Denies falls or seizures. Psychiatric:Denies anxiety or depression. Endocrine: Significant fatigue and ongoing weight loss Past Medical History Past Medical History: Cancer, Dementia, GERD/Reflux, Hyperlipidemia, Hypertension, Neurologic Disorder, Osteoarthritis (OA) Additional Past Medical History / Comment(s): parkinson's, vitamin D deficiency , hypokalemia, 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 History of Any Multi-Drug Resistant Organisms: ESBL Year Discovered:: 10/07/16 ESBL MDRO Source:: Urine Past Surgical History: Bladder Surgery Additional Past Surgical History / Comment(s): 11/2015 ERCP/MRCP unsuccessful- sent to [facility] where she was diagnosed with bile duct cancer and had stent placed. Past Anesthesia/Blood Transfusion Reactions: No Reported Reaction Past Psychological History: No Psychological Hx Reported Additional Psychological History / Comment(s): Pt resides with her spouse. She uses a [employer] walker. She has a career consultant and her son who lives nearby and assists pt/spouse whenever caretakers are not present. They are only alone at night. Smoking Status: Never smoker Past Alcohol Use History: None Reported Additional Past Alcohol Use History / Comment(s): Patient is a lifelong nonsmoker, no marijuana or drug use. No alcohol use. Patient lives at home with her . She is a walker for ambulation. She does not require oxygen or nebulizer. Past Drug Use History: None Reported - Past Family History Father Family Medical History: No Reported History Additional Family Medical History / Comment(s): Father at age 90 from old age and diabetes Mother Family Medical History: No Reported History Additional Family Medical History / Comment(s): Mother at age 90 from old age. Brother(s) History Unknown: Yes Additional Family Medical History / Comment(s): Patient has one brother and one sister unknown medical history. Patient does not have any daughters. Patient has one son that is healthy. Medications and Allergies Home Medications and Allergies Comment(s): Laboratory Results WBC 4.9 k/uL (3.8-10.6) 10/10/16 09:00 RBC 2.32 m/uL (3.80-5.40) L 10/10/16 09:00 Hgb 7.3 gm/dL (11.4-16.0) L 10/10/16 09:00 Hct 22.9 % (34.0-46.0) L 10/10/16 09:00 MCV 98.7 fL (80.0-100.0) 10/10/16 09:00 MCH 31.3 pg (25.0-35.0) 10/10/16 09:00 MCHC 31.7 g/dL (31.0-37.0) 10/10/16 09:00 RDW 16.3 % (11.5-15.5) H 10/10/16 09:00 Plt Count 184 k/uL (150-450) 10/10/16 09:00 Neutrophils % 67 % 10/10/16 09:00 Lymphocytes % 18 % 10/10/16 09:00 Monocytes % 8 % 10/10/16 09:00 Eosinophils % 5 % 10/10/16 09:00 Basophils % 1 % 10/10/16 09:00 Neutrophils # 3.3 k/uL (1.3-7.7) 10/10/16 09:00 Lymphocytes # 0.9 k/uL (1.0-4.8) L 10/10/16 09:00 Monocytes # 0.4 k/uL (0-1.0) 10/10/16 09:00 Eosinophils # 0.3 k/uL (0-0.7) 10/10/16 09:00 Basophils # 0.0 k/uL (0-0.2) 10/10/16 09:00 Hypochromasia Slight 10/10/16 09:00 Poikilocytosis Slight 10/09/16 00:06 Anisocytosis Slight 10/10/16 09:00 Macrocytosis Slight 10/10/16 09:00 PT 14.2 sec (9.0-12.0) H 10/09/16 04:44 INR 1.5 (<1.1) 10/09/16 04:44 APTT 24.5 sec (22.0-30.0) 10/09/16 04:44 Sodium 137 mmol/L (137-145) 10/10/16 09:00 Potassium 3.7 mmol/L (3.5-5.1) 10/10/16 09:00 Chloride 118 mmol/L (98-107) H 10/10/16 09:00 Carbon Dioxide 13 mmol/L (22-30) L 10/10/16 09:00 Anion Gap 6 mmol/L 10/10/16 09:00 BUN 23 mg/dL (7-17) H 10/10/16 09:00 Creatinine 1.14 mg/dL (0.52-1.04) H 10/10/16 09:00 Est GFR (MDRD) Af Amer 56 (>60 ml/min/1.73 sqM) 10/10/16 09:00 Est GFR (MDRD) Non-Af 46 (>60 ml/min/1.73 sqM) 10/10/16 09:00 Glucose 118 mg/dL (74-99) H 10/10/16 09:00 POC Glucose (mg/dL) 156 mg/dL (75-99) H 10/07/16 00:39 POC Glu Financial Project Manager ID Yumiko Connell 10/07/16 00:39 Calcium 8.0 mg/dL (8.4-10.2) L 10/10/16 09:00 Phosphorus 3.3 mg/dL (2.5-4.5) 10/10/16 09:00 Magnesium 1.8 mg/dL (1.6-2.3) 10/10/16 09:00 Total Bilirubin 0.8 mg/dL (0.2-1.3) 10/10/16 09:00 AST 36 U/L (14-36) 10/10/16 09:00 ALT 16 U/L (9-52) 10/10/16 09:00 Alkaline Phosphatase 764 U/L (38-126) H 10/10/16 09:00 Total Creatine Kinase <20 U/L (30-135) L 10/06/16 20:07 CK-MB (CK-2) 0.5 ng/mL (0.0-2.4) 10/06/16 20:07 CK-MB (CK-2) Rel Index 0.0 10/06/16 20:07 Troponin I <0.012 ng/mL (0.000-0.034) 10/06/16 20:07 Total Protein 5.2 g/dL (6.3-8.2) L 10/10/16 09:00 Albumin 2.0 g/dL (3.5-5.0) L 10/10/16 09:00 Urine Color Yellow 10/07/16 05:40 Urine Appearance Turbid (Clear) H 10/07/16 05:40 Urine pH 6.0 (5.0-8.0) 10/07/16 05:40 Ur Specific [place] 1.014 (1.001-1.035) 10/07/16 05:40 Urine Protein 1+ (Negative) H 10/07/16 05:40 Urine Glucose (UA) Negative (Negative) 10/07/16 05:40 Urine Ketones Negative (Negative) 10/07/16 05:40 Urine Blood Moderate (Negative) H 10/07/16 05:40 Urine Nitrite Negative (Negative) 10/07/16 05:40 Urine Bilirubin Negative (Negative) 10/07/16 05:40 Urine Urobilinogen <2.0 mg/dL (<2.0) 10/07/16 05:40 Ur Leukocyte Esterase Large (Negative) H 10/07/16 05:40 Urine RBC 40 /hpf (0-5) H 10/07/16 05:40 Urine WBC >182 /hpf (0-5) H 10/07/16 05:40 Ur Squamous Epith Cells 2 /hpf (0-4) 10/07/16 05:40 Urine Bacteria Few /hpf (None) H 10/07/16 05:40 Urine Mucus Rare /hpf (None) H 10/07/16 05:40 Stool Occult Blood Positive (Negative) H 10/06/16 20:16 C. difficile (EIA) Intrp Negative (Negative) 10/07/16 11:15 Blood Type A Positive 10/06/16 20:07 Blood Type Confirm A Positive 10/06/16 22:17 Blood Type Recheck CABO Indicated 10/06/16 20:07 Antibody Screen NEGATIVE 10/06/16 20:07 Crossmatch See Detail 10/06/16 20:07 Spec Expiration Date 10/09/2016230610/06/16 20:07 Home Medications Medication Instructions Recorded Confirmed Type Carbidopa/Levodopa 1 tab PO Q6H 12/07/15 10/06/16 History [Carbidopa-Levodopa 25-100 Tab] Donepezil HCl 5 mg PO HS 12/07/15 10/06/16 History Famotidine [Pepcid] 20 mg PO DAILY 12/07/15 10/06/16 History Ferrous Sulfate [Feosol] 325 mg PO DAILY@1200 12/07/15 10/06/16 History Multivitamins, Thera [Multivitamin 1 tab PO DAILY@1200 09/26/16 10/06/16 History (formulary)] Mirtazapine [Remeron] 30 mg PO HS 10/06/16 10/06/16 History Allergies Allergy/AdvReac Type Severity Reaction Status Date / Time latex Allergy Unknown Verified 10/06/16 20:33 ELASTIC Allergy Itching Uncoded 10/06/16 20:33 RUBBER AdvReac Unknown Uncoded 10/06/16 20:33 Physical Exam Vitals: Vital Signs Temp Pulse Resp BP BP Pulse Ox 10/10/16 15:00 97.1 F L 82 22 104/70 97 10/10/16 07:00 97 F L 73 18 99/58 97 10/09/16 23:00 96.8 F L 80 18 113/73 96 Intake and Output 10/10/16 10/10/16 10/10/16 06:59 14:59 22:59 Other: Voiding Method Bedpan Bedpan Incontinent Incontinent # Voids 1 3 # Bowel Movements 3 Weight 55.5 kg Gorin 76-year-old woman who is in no loly distress. She is currently afebrile and is not hypotensive. HEENT: Anicteric conjunctiva are pink and moist nasal mucosa grossly intact without significant lesions, there is no thrush. Denture. Neck: The neck is supple without significant lymphadenopathy or thyromegaly. Lungs: Symmetrical air entry is noted. Few basilar crackles. No loly bronchial sounds are heard Heart: Irregular audible S1-S2, no S3 no S4. There is no significant murmur click or rub, PMI was nondisplaced. Abdomen: The abdomen is slightly tympanic. There is no evidence of any tenderness at this time. bowel sounds are heard. No palpable hepatosplenomegaly or mass. There is only minimal discomfort in the left lower quadrant no guarding or rebound. Extremities: The upper extremities have excellent pulses they are symmetric, no significant petechiae or telangiectasia. No splinter hemorrhages were noted. Lower extremities evidence of some chronic stasis edema and chronic skin change to the left leg initially spent for many years and does not know what from. Neuro: Awake alert oriented to person place and time. There are no acute new gross focal sensory motor deficits. Results CBC & Chem 7: 10/10/16 09:00 10/10/16 09:00 Labs: Abnormal Lab Results - Last 24 Hours (Table) 10/10/16 10/10/16 Range/Units 09:00 09:00 RBC 2.32 L (3.80-5.40) m/uL Hgb 7.3 L (11.4-16.0) gm/dL Hct 22.9 L (34.0-46.0) % RDW 16.3 H (11.5-15.5) % Lymphocytes # 0.9 L (1.0-4.8) k/uL Chloride 118 H (98-107) mmol/L Carbon Dioxide 13 L (22-30) mmol/L BUN 23 H (7-17) mg/dL Creatinine 1.14 H (0.52-1.04) mg/dL Glucose 118 H (74-99) mg/dL Calcium 8.0 L (8.4-10.2) mg/dL Alkaline Phosphatase 764 H (38-126) U/L Total Protein 5.2 L (6.3-8.2) g/dL Albumin 2.0 L (3.5-5.0) g/dL Laboratory Results WBC 4.9 k/uL (3.8-10.6) 10/10/16 09:00 RBC 2.32 m/uL (3.80-5.40) L 10/10/16 09:00 Hgb 7.3 gm/dL (11.4-16.0) L 10/10/16 09:00 Hct 22.9 % (34.0-46.0) L 10/10/16 09:00 MCV 98.7 fL (80.0-100.0) 10/10/16 09:00 MCH 31.3 pg (25.0-35.0) 10/10/16 09:00 MCHC 31.7 g/dL (31.0-37.0) 10/10/16 09:00 RDW 16.3 % (11.5-15.5) H 10/10/16 09:00 Plt Count 184 k/uL (150-450) 10/10/16 09:00 Neutrophils % 67 % 10/10/16 09:00 Lymphocytes % 18 % 10/10/16 09:00 Monocytes % 8 % 10/10/16 09:00 Eosinophils % 5 % 10/10/16 09:00 Basophils % 1 % 10/10/16 09:00 Neutrophils # 3.3 k/uL (1.3-7.7) 10/10/16 09:00 Lymphocytes # 0.9 k/uL (1.0-4.8) L 10/10/16 09:00 Monocytes # 0.4 k/uL (0-1.0) 10/10/16 09:00 Eosinophils # 0.3 k/uL (0-0.7) 10/10/16 09:00 Basophils # 0.0 k/uL (0-0.2) 10/10/16 09:00 Hypochromasia Slight 10/10/16 09:00 Poikilocytosis Slight 10/09/16 00:06 Anisocytosis Slight 10/10/16 09:00 Macrocytosis Slight 10/10/16 09:00 PT 14.2 sec (9.0-12.0) H 10/09/16 04:44 INR 1.5 (<1.1) 10/09/16 04:44 APTT 24.5 sec (22.0-30.0) 10/09/16 04:44 Sodium 137 mmol/L (137-145) 10/10/16 09:00 Potassium 3.7 mmol/L (3.5-5.1) 10/10/16 09:00 Chloride 118 mmol/L (98-107) H 10/10/16 09:00 Carbon Dioxide 13 mmol/L (22-30) L 10/10/16 09:00 Anion Gap 6 mmol/L 10/10/16 09:00 BUN 23 mg/dL (7-17) H 10/10/16 09:00 Creatinine 1.14 mg/dL (0.52-1.04) H 10/10/16 09:00 Est GFR (MDRD) Af Amer 56 (>60 ml/min/1.73 sqM) 10/10/16 09:00 Est GFR (MDRD) Non-Af 46 (>60 ml/min/1.73 sqM) 10/10/16 09:00 Glucose 118 mg/dL (74-99) H 10/10/16 09:00 POC Glucose (mg/dL) 156 mg/dL (75-99) H 10/07/16 00:39 POC Glu Financial Project Manager ID KoMitaYumiko 10/07/16 00:39 Calcium 8.0 mg/dL (8.4-10.2) L 10/10/16 09:00 Phosphorus 3.3 mg/dL (2.5-4.5) 10/10/16 09:00 Magnesium 1.8 mg/dL (1.6-2.3) 10/10/16 09:00 Total Bilirubin 0.8 mg/dL (0.2-1.3) 10/10/16 09:00 AST 36 U/L (14-36) 10/10/16 09:00 ALT 16 U/L (9-52) 10/10/16 09:00 Alkaline Phosphatase 764 U/L (38-126) H 10/10/16 09:00 Total Creatine Kinase <20 U/L (30-135) L 10/06/16 20:07 CK-MB (CK-2) 0.5 ng/mL (0.0-2.4) 10/06/16 20:07 CK-MB (CK-2) Rel Index 0.0 10/06/16 20:07 Troponin I <0.012 ng/mL (0.000-0.034) 10/06/16 20:07 Total Protein 5.2 g/dL (6.3-8.2) L 10/10/16 09:00 Albumin 2.0 g/dL (3.5-5.0) L 10/10/16 09:00 Urine Color Yellow 10/07/16 05:40 Urine Appearance Turbid (Clear) H 10/07/16 05:40 Urine pH 6.0 (5.0-8.0) 10/07/16 05:40 Ur Specific [place] 1.014 (1.001-1.035) 10/07/16 05:40 Urine Protein 1+ (Negative) H 10/07/16 05:40 Urine Glucose (UA) Negative (Negative) 10/07/16 05:40 Urine Ketones Negative (Negative) 10/07/16 05:40 Urine Blood Moderate (Negative) H 10/07/16 05:40 Urine Nitrite Negative (Negative) 10/07/16 05:40 Urine Bilirubin Negative (Negative) 10/07/16 05:40 Urine Urobilinogen <2.0 mg/dL (<2.0) 10/07/16 05:40 Ur Leukocyte Esterase Large (Negative) H 10/07/16 05:40 Urine RBC 40 /hpf (0-5) H 10/07/16 05:40 Urine WBC >182 /hpf (0-5) H 10/07/16 05:40 Ur Squamous Epith Cells 2 /hpf (0-4) 10/07/16 05:40 Urine Bacteria Few /hpf (None) H 10/07/16 05:40 Urine Mucus Rare /hpf (None) H 10/07/16 05:40 Stool Occult Blood Positive (Negative) H 10/06/16 20:16 C. difficile (EIA) Intrp Negative (Negative) 10/07/16 11:15 Blood Type A Positive 10/06/16 20:07 Blood Type Confirm A Positive 10/06/16 22:17 Blood Type Recheck CABO Indicated 10/06/16 20:07 Antibody Screen NEGATIVE 10/06/16 20:07 Crossmatch See Detail 10/06/16 20:07 Spec Expiration Date 10/09/2016 - 2307 10/06/16 20:07 Microbiology 10/07/16 05:40 Urine,Catheterized Urine Culture - Final Klebsiella pneumoniae Assessment and Plan (1) Infection due to ESBL-producing Klebsiella pneumoniae Narrative/Plan: 76-year-old female presents to Hospital severe weakness no evidence of an acute gastrointestinal bleed with bright red blood per rectum. We'll undergo colonoscopy tomorrow through gastroenterology. She had a distinct anemia at admission and has done well now status post 3 units of packed red cells. She is a known history of the prior cholangiocarcinoma in his bends quite stable. Of note she has evidence of urinary tract infection she has some mild symptoms in the urine culture is markedly abnormal with the Klebsiella ESBL. We'll alter antibiotic therapy to carbapenem which is the drug of choice for the Klebsiella infection in that occasionally the Zosyn susceptibility can be a bit unpredictable. We'll plan a 7 day course of therapy. Continue ongoing supportive care. The GI workup is in process and may further help determine the next course of therapy. Especially given her history of prior cholangiocarcinoma. Status: Acute (2) Acute blood loss anemia Status: Acute (3) Weakness Status: Acute
[2016-10-11] MEDS: CARBIDOPA-LEVODOPA 25-100 MG 1 EACH TAB PO SCH ×4 (03:34→20:24)
[2016-10-11] MEDS: PANTOPRAZOLE 40 MG/10 ML VIAL IV SCH (09:02)
[2016-10-11 09:46] LABS: Anisocytosis Slight; Basophils % (A) 0 %; CH 30.4; CHCM 30.6; Eosinophils # (A) 0.2 k/uL (0-0.7); Eosinophils % (A) 5 %; HCT 25.6 % (34.0-46.0); HDW 3.11; HGB 7.8 gm/dL (11.4-16.0); Hypochromasia Moderate; Luc # (Auto) 0.12; Luc % (Auto) 3; Lymphocytes # (A) 1.1 k/uL (1.0-4.8); Lymphocytes % (A) 22 %; MCH 30.6 pg (25.0-35.0); MCHC 30.4 g/dL (31.0-37.0); MCV 100.5 fL (80.0-100.0); Macrocytosis Slight; Mean Platelet Volume 8.4; Monocytes # (A) 0.3 k/uL (0-1.0); Monocytes % (A) 6 %; Neutrophils % (A) 64 %; RBC 2.55 m/uL (3.80-5.40); RDW 16.7 % (11.5-15.5); WBC 4.7 k/uL (3.8-10.6); WBC (Perox) 4.85
[2016-10-11 10:03] LABS: Calcium 8.4 mg/dL (8.4-10.2); Magnesium 1.8 mg/dL (1.6-2.3); Phosphorous 3.4 mg/dL (2.5-4.5); Potassium 3.8 mmol/L (3.5-5.1)
[2016-10-11] MEDS ORDERED: PHENYLEPHRINE-0.9% NACL SYG 1 MG/10 ML SYRINGE ONE (10:08)
[2016-10-11] MEDS ORDERED: IV FLUID CONTINUATION 1,000 ML IV ONE (10:08)
[2016-10-11] MEDS ORDERED: PROPOFOL 10 MG/ML 20 ML VIAL IV ONE (10:08)
--- NOTE | 2016-10-11 10:35 | P.PCN ---
Date of Procedure: 10/11/16 Procedure(s) Performed: BRIEF HISTORY: Patient is a 76-year-old pleasant s white female, scheduled for an elective colonoscopy as a part of evaluation of acute lower GI bleed for which she was admitted to the hospital 4 days ago. She was in intensive care unit and received total of 3 units of blood transition. Initially had a tagged RBC scan that was negative. The patient initially refused a colonoscopy. PROCEDURE PERFORMED: Colonoscopy. PREOPERATIVE DIAGNOSIS: acute upper GI bleed IV sedation per Anesthesia. PROCEDURE: After informed consent was obtained, the patient, was brought into the endoscopy unit. IV sedation was administered by Anesthesia under continuous monitoring. Digital rectal examination was normal. Initially the Olympus CF- 160 flexible video colonoscope was then inserted in the rectum, gradually advanced into the cecum without any difficulty. Careful examination was performed as the scope was gradually being withdrawn. Ileocecal valve and the appendiceal orifice were visualized and appeared normal. Prep was excellent. Mucosa of the cecum, ascending colon, transverse colon, descending colon, sigmoid colon, and rectum appeared normal. moderate left sided diverticulosis seen. Retroflexion was performed in the rectum and no lesions were seen. The patient tolerated the procedure well. IMPRESSION: Normal-appearing colon from rectum to cecum with no evidence of colorectal neoplasia Moderate left sided diverticulosis . RECOMMENDATIONS: Findings of this examination were discussed with the patient. Recent episode of fall her chemotherapy bleeding most likely diverticular in nature which spontaneously resolved. She'll be started on a soft diet.
[2016-10-11] MEDS: MULTIVITAMINS, THERA 1 EACH TAB PO SCH (12:11)
[2016-10-11] MEDS: FERROUS SULFATE 325 MG TAB PO SCH (12:11)
[2016-10-11] MEDS: DEXTROSE 5%-0.45% NACL 1,000 ML IV SCH (12:14)
[2016-10-11] MEDS: PANTOPRAZOLE 40 MG TABLET PO SCH (15:47)
[2016-10-11] MEDS: ERTAPENEM 1 GM in SODIUM CHLORIDE 0.9% 50 ML IVPB SCH (15:47)
[2016-10-11] MEDS: MIRTAZAPINE 15 MG TAB PO SCH (20:24)
[2016-10-11] MEDS: DONEPEZIL 5 MG TAB PO SCH (20:24)
[2016-10-11] MEDS: ALPRAZolam 0.25 MG TAB PO PRN (20:30)
[2016-10-12] MEDS: CARBIDOPA-LEVODOPA 25-100 MG 1 EACH TAB PO SCH ×4 (04:24→20:16)
[2016-10-12] MEDS: DEXTROSE 5%-0.45% NACL 1,000 ML IV SCH (06:01)
[2016-10-12] MEDS: PANTOPRAZOLE 40 MG TABLET PO SCH ×2 (09:01→17:58)
[2016-10-12] MEDS ORDERED: FUROSEMIDE 10 MG/ML 4 ML VIAL IV STA (10:07)
[2016-10-12] MEDS ORDERED: IPRATROPIUM-ALBUTEROL 3 ML NEB INHALATION PRN (10:07)
--- NOTE | 2016-10-12 10:08 | XR ---
EXAMINATION TYPE: XR chest 1V DATE OF EXAM: 10/12/2016 10:00 AM COMPARISON: 10/09/2016 HISTORY: Shortness of breath TECHNIQUE: Single frontal view of the chest is obtained. FINDINGS: Left-sided infiltrate and pleural effusion is slightly progressed. Right lung demonstrates no definite acute abnormality. Heart size is stable. Arthropathy of the shoulders. IMPRESSION: 1. Slight progression of pleural effusion area of consolidation involving the left lung. Retrocardiac lucency may been the basis of elevated diaphragm with hiatal hernia. Nonopacified airspace disease a lso consideration. No definite pneumothorax. Correlate with CT chest as warranted if there is concern for cavitary change.
[2016-10-12] MEDS: IPRATROPIUM-ALBUTEROL 3 ML NEB INHALATION SCH ×3 (11:20→20:28)
[2016-10-12 11:37] LABS: Anisocytosis Slight; Basophils % (A) 0 %; CH 31.2; CHCM 31.9; Eosinophils # (A) 0.2 k/uL (0-0.7); Eosinophils % (A) 3 %; HCT 25.8 % (34.0-46.0); HGB 8.2 gm/dL (11.4-16.0); Hypochromasia Slight; Luc # (Auto) 0.12; Luc % (Auto) 2; Lymphocytes # (A) 1.1 k/uL (1.0-4.8); Lymphocytes % (A) 17 %; MCH 31.3 pg (25.0-35.0); MCHC 31.6 g/dL (31.0-37.0); MCV 99.1 fL (80.0-100.0); Macrocytosis Slight; Mean Platelet Volume 9.9; Monocytes # (A) 0.5 k/uL (0-1.0); Monocytes % (A) 9 %; Neutrophils # (A) 4.4 k/uL (1.3-7.7); Neutrophils % (A) 69 %; RDW 17.3 % (11.5-15.5); WBC 6.3 k/uL (3.8-10.6); WBC (Perox) 5.99
[2016-10-12 11:54] LABS: Calcium 8.1 mg/dL (8.4-10.2); Magnesium 1.8 mg/dL (1.6-2.3); Phosphorous 3.7 mg/dL (2.5-4.5); Potassium 4.1 mmol/L (3.5-5.1)
[2016-10-12] MEDS: FERROUS SULFATE 325 MG TAB PO SCH (12:50)
[2016-10-12] MEDS: MULTIVITAMINS, THERA 1 EACH TAB PO SCH (12:50)
--- NOTE | 2016-10-12 13:53 | P.PN ---
Subjective 76-year-old female one of my patient with multiple medical problem known to have history of hypertension history of osteoarthritis history of cholangiocarcinoma post stent placement of the common duct has been seen oncology on regular basis also known to have history of Parkinson disease. Patient was hospitalized at [facility] between 428 till 09/30/2016 for significant change mental status and encephalopathy found to have UTI with urosepsis was treated with IV antibiotic initially and culture was completed patient was [facility] to [facility] on total of 10 days of doxycycline. As the aide was checked changing patient found to have some bright red blood in her brief, blood pressure was little bit low more rectal bleeding was found. Patient ended up being sent to the emergency department by EMS. Upon arrival to demurs department at [facility] found to have significantly low blood pressure. Found to have more rectal bleed with rectal exam and addition hemoglobin dropped significantly over 3 g and short period of time. Patient was started on blood transfusion will be admitted to the ICU will consult Dr. Lockhart for possible gastrointestinal scope in the next 24 hours or when patient is more stable. 10/08: Patient is followed by Dr. Fernandez for intensive care management. She is now status post 3 units packed RBCs. Repeat hemoglobin is 7.9. She has been seen by Dr. Dr. Reshma Lockhart with recommendations for colonoscopy which patient declined. She is undergoing a tagged RBC scan today. Repeat chest x-ray shows stable left lower lobe infiltrate and small effusion. 10/09: Patient underwent a tagged RBC scan and found there are no evidence of acute gastrointestinal bleeding during the initial one hour observation. Exam was negative. Her hemoglobin remaines stable at 7.7. She was advanced to a full liquid diet and is tolerating well. She is still declining a colonoscopy. Will continue to watch CBC closely and transfer to a medical floor today. 10/10: Patient is now decided that she will go forward with colonoscopy. GI has been notified and patient is scheduled for tomorrow morning with Dr. Isra Lockhart. Hemoglobin is 7.3. Urine culture is back with ESBL Klebsiella and antibiotics of doxycycline discontinued and started on Zosyn. Consult with Dr. Parry added. Patient is requesting anxiety medication and low dose Xanax added. 10/11: Patient appears to be quite shaky and weak today, and she is going to go for a colonoscopy for evaluation of lower GI bleed. Objective - Vital Signs Vital signs: Vital Signs Temp 96.3 F L 10/11/16 07:00 Pulse 76 10/11/16 07:00 Resp 20 10/11/16 07:00 BP 110/67 10/11/16 07:00 Pulse Ox 93 L 10/10/16 23:00 Intake & Output 10/10/16 10/11/16 10/11/16 18:59 06:59 18:59 Intake Total 250 Balance 250 Weight 56.5 kg Intake: Oral 250 Other: Voiding Method Bedpan Incontinent # Voids 3 2 # Bowel Movements 3 2 - Exam - Exam General appearance: no average body habitus, no cooperative, disheveled, no mild distress, no morbidly obese, no acute distress, no obese, no severe distress, no thin - EENT Eyes: no abnormal pupil, no anicteric sclerae, no disc margins sharp, no edentulous, no EOMI, no PERRLA, no fundus normal, no photophobia, no dentition normal, no poor dentition, no ptosis, no scleral icterus, normal appearance ENT: hard of hearing, no hearing grossly normal, no NA/AT, normal oropharynx, no other, no pharyngeal erythema, no thrush, no tonsillar exudates, no tonsillar swelling Ears: bilateral: normal - Neck Neck: no lymphadenopathy, normal ROM, no other, no rigidity, no stridor, no thyromegaly Carotids: bilateral: upstroke normal Thyroid: bilateral: normal size - Respiratory Respiratory: bilateral: diminished, dullness, rales - Cardiovascular Rhythm: regular Heart sounds: normal: S1, S2 Abnormal Heart Sounds: systolic murmur, S3 Gallop - Gastrointestinal General gastrointestinal: no absent bowel sounds, decreased bowel sounds, distended, no hepatomegaly, no hyperactive bowel sounds, normal bowel sounds, no organomegaly, no rigid, no scaphoid, soft, no splenomegaly, no tenderness, no umbilical hernia, no ventral hernia - Genitourinary Female genitourinary: prolapse - Integumentary Integumentary: no calor, no cellulitis, no cyanotic, no decreased turgor, no flushed, jaundiced, no normal, no normal turgor, pale, rash, no ulcer - Neurologic Neurologic: CNII-XII intact - Musculoskeletal Musculoskeletal: no gait normal, generalized weakness, no strength equal bilaterally, no right sided weakness, no left sided weakness - Psychiatric Psychiatric: A&O x's 3, no intact judgment & insight - Labs CBC & Chem 7: 10/12/16 10:35 10/12/16 10:35 Labs: Abnormal Lab Results - Last 24 Hours (Table) 10/10/16 10/10/16 Range/Units 09:00 09:00 RBC 2.32 L (3.80-5.40) m/uL Hgb 7.3 L (11.4-16.0) gm/dL Hct 22.9 L (34.0-46.0) % RDW 16.3 H (11.5-15.5) % Lymphocytes # 0.9 L (1.0-4.8) k/uL Chloride 118 H (98-107) mmol/L Carbon Dioxide 13 L (22-30) mmol/L BUN 23 H (7-17) mg/dL Creatinine 1.14 H (0.52-1.04) mg/dL Glucose 118 H (74-99) mg/dL Calcium 8.0 L (8.4-10.2) mg/dL Alkaline Phosphatase 764 H (38-126) U/L Total Protein 5.2 L (6.3-8.2) g/dL Albumin 2.0 L (3.5-5.0) g/dL Assessment and Plan Plan: Assessment and Plan Plan: 1 acute gastrointestinal bleed: With significant bright red blood per rectum this is most likely lower GI bleed from diverticulosis, colonoscopy will be done in next few hours. 2 acute blood loss anemia: Secondary to gastrointestinal bleed, status post transfusion of 3 units of packed RBCs. Continue to monitor hemoglobin closely. 3 recent UTI mostly found to be E. coli as an ESBL: Repeat urine culture is ESBL Klebsiella pneumoniae. Antibiotics changed to Zosyn. Consult with Dr. Parry. 4 cholangiocarcinoma: Patient has been seen oncology on regular basis she had stent in the common duct. 5 dementia: Has been on mirtazapine and donepezil continue both medication. 6 Parkinson disease: Continue patient on carbidopa levodopa as before. 7 severe osteoarthritis: Patient has been using ibuprofen from the time she left the hospital last time which might not be a good choice at this point can be switched to meloxicam or Celebrex if needed but to stop anti-inflammatory agent completely. 8 rectal prolapse and recurrent chronic vaginal uterine prolapse: Patient is known to have it has been seen [employer] as an outpatient she is known to have pessary arrange as an outpatient. 9 medical debility: S1 patient is able to participate in physical therapy when she is more stable we will resume physical therapy and prepare for sending [facility] to [facility]. 10 acute kidney injury: Most likely prerenal azotemia and hypotension from bleeding will correct underlying disease continue patient hydration repeat BUN/ creatinine daily. 11 GI prophylaxis: Patient will be on pantoprazole IV and continue oral Pepcid. 12 DVT prophylaxis: With her current bleed cannot anticoagulate at this point the patient will be on Venodyne boots and knee-high DOMENICO hose. CODE STATUS: Full code.
--- NOTE | 2016-10-12 13:56 | P.PN ---
Subjective 76-year-old female one of my patient with multiple medical problem known to have history of hypertension history of osteoarthritis history of cholangiocarcinoma post stent placement of the common duct has been seen oncology on regular basis also known to have history of Parkinson disease. Patient was hospitalized at [facility] between 428 till 09/30/2016 for significant change mental status and encephalopathy found to have UTI with urosepsis was treated with IV antibiotic initially and culture was completed [facility] 10 days of doxycycline. As the aide was checked changing patient found to have some bright red blood in her brief, blood pressure was little bit low more rectal bleeding was found. Patient ended up being sent to the emergency department by EMS. Upon arrival to demurs department at [facility] found to have significantly low blood pressure. Found to have more rectal bleed with rectal exam and addition hemoglobin dropped significantly over 3 g and short period of time. Patient was started on blood transfusion will be admitted to the ICU will consult Dr. Lockhart for possible gastrointestinal scope in the next 24 hours or when patient is more stable. 10/08: Patient is followed by Dr. Fernandez for intensive care management. She is now status post 3 units packed RBCs. Repeat hemoglobin is 7.9. She has been seen by Dr. Dr. Reshma Lockhart with recommendations for colonoscopy which patient declined. She is undergoing a tagged RBC scan today. Repeat chest x-ray shows stable left lower lobe infiltrate and small effusion. 10/09: Patient underwent a tagged RBC scan and found there are no evidence of acute gastrointestinal bleeding during the initial one hour observation. Exam was negative. Her hemoglobin remaines stable at 7.7. She was advanced to a full liquid diet and is tolerating well. She is still declining a colonoscopy. Will continue to watch CBC closely and transfer to a medical floor today. 10/10: Patient is now decided that she will go forward with colonoscopy. GI has been notified and patient is scheduled for tomorrow morning with Dr. Isra Lockhart. Hemoglobin is 7.3. Urine culture is back with ESBL Klebsiella and antibiotics of doxycycline discontinued and started on Zosyn. Consult with Dr. Parry added. Patient is requesting anxiety medication and low dose Xanax added. 10/11: Patient appears to be quite shaky and weak today, and she is going to go for a colonoscopy for evaluation of lower GI bleed. 10/12: Patient appears more short of breath today, she denies any chest pain, she appears to be quite short of breath, she does appear to have significant swelling in both lower x-ray images specially the right lower extremity more than the left lower extremity, underwent colonoscopy yesterday showed left- sided diverticulosis. Objective - Vital Signs Vital signs: Vital Signs Temp 97 F L 10/12/16 07:00 Pulse 72 10/12/16 07:00 Resp 18 10/12/16 07:00 BP 84/55 10/12/16 07:00 Pulse Ox 100 10/12/16 07:00 Intake & Output 10/11/16 10/12/16 10/12/16 18:59 06:59 18:59 Intake Total 100 Output Total 35 Balance 65 Weight 56.5 kg 70.5 kg Intake: IV 100 Output: Urine 35 Other: Voiding Method Bedpan Incontinent # Voids 3 1 # Bowel Movements 2 1 - Exam - Exam General appearance: no average body habitus, no cooperative, disheveled, no mild distress, no morbidly obese, no acute distress, no obese, no severe distress, no thin - EENT Eyes: no abnormal pupil, no anicteric sclerae, no disc margins sharp, no edentulous, no EOMI, no PERRLA, no fundus normal, no photophobia, no dentition normal, no poor dentition, no ptosis, no scleral icterus, normal appearance ENT: hard of hearing, no hearing grossly normal, no NA/AT, normal oropharynx, no other, no pharyngeal erythema, no thrush, no tonsillar exudates, no tonsillar swelling Ears: bilateral: normal - Neck Neck: no lymphadenopathy, normal ROM, no other, no rigidity, no stridor, no thyromegaly Carotids: bilateral: upstroke normal Thyroid: bilateral: normal size - Respiratory Respiratory: bilateral: diminished, dullness, rales - Cardiovascular Rhythm: regular Heart sounds: normal: S1, S2 Abnormal Heart Sounds: systolic murmur, S3 Gallop - Gastrointestinal General gastrointestinal: no absent bowel sounds, decreased bowel sounds, distended, no hepatomegaly, no hyperactive bowel sounds, normal bowel sounds, no organomegaly, no rigid, no scaphoid, soft, no splenomegaly, no tenderness, no umbilical hernia, no ventral hernia - Genitourinary Female genitourinary: prolapse - Integumentary Integumentary: no calor, no cellulitis, no cyanotic, no decreased turgor, no flushed, jaundiced, no normal, no normal turgor, pale, rash, no ulcer - Neurologic Neurologic: CNII-XII intact - Musculoskeletal Musculoskeletal: no gait normal, generalized weakness, no strength equal bilaterally, no right sided weakness, no left sided weakness - Psychiatric Psychiatric: A&O x's 3, no intact judgment & insight - Labs CBC & Chem 7: 10/12/16 10:35 10/12/16 10:35 Labs: Abnormal Lab Results - Last 24 Hours (Table) 10/11/16 10/11/16 Range/Units 09:04 09:04 RBC 2.55 L (3.80-5.40) m/uL Hgb 7.8 L (11.4-16.0) gm/dL Hct 25.6 L (34.0-46.0) % MCV 100.5 H (80.0-100.0) fL MCHC 30.4 L (31.0-37.0) g/dL RDW 16.7 H (11.5-15.5) % Chloride 116 H (98-107) mmol/L Carbon Dioxide 14 L (22-30) mmol/L BUN 20 H (7-17) mg/dL Creatinine 1.20 H (0.52-1.04) mg/dL Glucose 73 L (74-99) mg/dL Assessment and Plan Plan: Assessment and Plan Plan: 1 acute gastrointestinal bleed: With significant bright red blood per rectum this is most likely lower GI bleed from diverticulosis, colonoscopy was done yesterday and that showed left-sided diverticulosis as the source of the bleeding. 2 acute blood loss anemia: Secondary to gastrointestinal bleed, status post transfusion of 3 units of packed RBCs. Continue to monitor hemoglobin closely. 3 recent UTI mostly found to be E. coli as an ESBL: Repeat urine culture is ESBL Klebsiella pneumoniae. Antibiotics changed to Zosyn. Consult with Dr. Parry. 4 cholangiocarcinoma: Patient has been seen oncology on regular basis she had stent in the common duct. 5 dementia: Has been on mirtazapine and donepezil continue both medication. 6 Parkinson disease: Continue patient on carbidopa levodopa as before. 7 severe osteoarthritis: Patient has been using ibuprofen from the time she left the hospital last time which might not be a good choice at this point can be switched to meloxicam or Celebrex if needed but to stop anti-inflammatory agent completely. 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 9 medical debility: patient is able to participate in physical therapy when she is more stable we will resume physical therapy and prepare [facility]. 10 acute kidney injury: Most likely prerenal azotemia and hypotension from bleeding . Has resolved. 11. Hyperchloremic non-anion gap metabolic acidosis with fluid overload. Discontinue IV fluid, start the patient on Lasix 40 mg IV push 1 now then 20 mg IV push daily, monitor the patient BMP magnesium the next 24 hours. Check chest x-ray. 12 GI prophylaxis: Patient will be on pantoprazole IV and continue oral Pepcid. 13 DVT prophylaxis: With her current bleed cannot anticoagulate at this point the patient will be on Venodyne boots and knee-high DOMENICO hose. 14.CODE STATUS: Full code.
[2016-10-12] MEDS: ERTAPENEM 1 GM in SODIUM CHLORIDE 0.9% 50 ML IVPB SCH (17:57)
[2016-10-12] MEDS: MIRTAZAPINE 15 MG TAB PO SCH (20:16)
[2016-10-12] MEDS: DONEPEZIL 5 MG TAB PO SCH (20:16)
--- NOTE | 2016-10-12 21:33 | PN ---
DATE OF SERVICE: 10/12/2016 The patient is a 76-year-old pleasant lady admitted to the hospital with acute lower gastrointestinal bleed. She underwent a colonoscopy yesterday and it showed left-sided diverticulosis, but no active bleeding. Since the procedure she is doing well. She denies any further episodes of bleeding, in fact did not have any bowel movements. On physical examination, appears comfortable, no apparent distress. Vitals as are stable. Blood pressure is 101/57, pulse is 72, and afebrile. HEENT examination unremarkable. Conjunctivae pink. Sclerae anicteric. Oral cavity, no lesions. NECK: No JVD or lymph node enlargement. Chest was clear to auscultation. HEART: Regular rate and rhythm. ABDOMEN: Soft. Bowel sounds are positive. No organomegaly. EXTREMITIES: No pedal edema. SKIN: No rashes. NEURO: He is alert and oriented x3. No focal deficits. LABS: Hemoglobin 8.2. IMPRESSION: Acute lower gastrointestinal bleed, possibly diverticular in nature, status post colonoscopy yesterday that showed left-sided diverticulosis but no active bleeding. Last hemoglobin 8.2. RECOMMENDATIONS: Advance diet as tolerated. We will sign off at this time. Please call us if needed. Thank you for this consultation.
[2016-10-13] MEDS: CARBIDOPA-LEVODOPA 25-100 MG 1 EACH TAB PO SCH ×4 (02:24→20:26)
[2016-10-13] MEDS: IPRATROPIUM-ALBUTEROL 3 ML NEB INHALATION SCH ×4 (08:58→19:11)
[2016-10-13] MEDS: PANTOPRAZOLE 40 MG TABLET PO SCH ×2 (09:32→16:34)
[2016-10-13] MEDS: FUROSEMIDE 10 MG/ML 2 ML VIAL IV SCH (09:33)
[2016-10-13 09:51] LABS: Anisocytosis Slight; Basophils % (A) 0 %; CH 31.2; CHCM 31.8; Eosinophils # (A) 0.2 k/uL (0-0.7); Eosinophils % (A) 4 %; HDW 3.35; Hypochromasia Slight; Luc # (Auto) 0.07; Luc % (Auto) 2; Lymphocytes # (A) 0.9 k/uL (1.0-4.8); Lymphocytes % (A) 20 %; MCH 31.7 pg (25.0-35.0); MCV 99.3 fL (80.0-100.0); Macrocytosis Slight; Mean Platelet Volume 8.1; Monocytes # (A) 0.3 k/uL (0-1.0); Monocytes % (A) 8 %; Neutrophils # (A) 2.8 k/uL (1.3-7.7); Neutrophils % (A) 67 %; RBC 2.22 m/uL (3.80-5.40); RDW 17.3 % (11.5-15.5); WBC 4.2 k/uL (3.8-10.6); WBC (Perox) 4.02
[2016-10-13 10:12] LABS: Magnesium 1.8 mg/dL (1.6-2.3); Potassium 3.3 mmol/L (3.5-5.1); Total Bilirubin 2.4 mg/dL (0.2-1.3); Total Protein 5.1 g/dL (6.3-8.2)
[2016-10-13] MEDS ORDERED: POTASSIUM CHLORIDE ER 20 MEQ TAB.ER PO STA (10:43)
[2016-10-13] MEDS ORDERED: FUROSEMIDE 10 MG/ML 2 ML VIAL IV ONE (10:44)
[2016-10-13] MEDS: MULTIVITAMINS, THERA 1 EACH TAB PO SCH (11:30)
[2016-10-13] MEDS: FERROUS SULFATE 325 MG TAB PO SCH (11:30)
--- NOTE | 2016-10-13 11:52 | XR ---
EXAMINATION TYPE: XR chest 1V portable DATE OF EXAM: 10/13/2016 11:06 AM Comparison: 10/12/2016 Clinical History: 76-year-old female aspiration Findings: Redemonstrated large hiatal hernia with prominent patchy left basilar opacity and suspected small lef t pleural effusion. Some of the opacity shows slight improvement. Right lung and pleural space are re latively clear. Left heart margin obscured by adjacent pleural parenchymal disease. Impression: Large hiatal hernia and continued small left pleural effusion with adjacent atelectasis and/or consol idation. Changes are similar to possibly minimally improved.
--- NOTE | 2016-10-13 12:22 | P.PN ---
Subjective 76-year-old female one of my patient with multiple medical problem known to have history of hypertension history of osteoarthritis history of cholangiocarcinoma post stent placement of the common duct has been seen oncology on regular basis also known to have history of Parkinson disease. Patient was hospitalized at [facility] between 428 till 09/30/2016 for significant change mental status and encephalopathy found to have UTI with urosepsis was treated with IV antibiotic initially and culture was completed patient was sent to [facility] on total of 10 days of doxycycline. As the aide was checked changing patient found to have some bright red blood in her brief, blood pressure was little bit low more rectal bleeding was found. Patient ended up being sent to the emergency department by EMS. Upon arrival to demurs department at [facility] found to have significantly low blood pressure. Found to have more rectal bleed with rectal exam and addition hemoglobin dropped significantly over 3 g and short period of time. Patient was started on blood transfusion will be admitted to the ICU will consult Dr. Lockhart for possible gastrointestinal scope in the next 24 hours or when patient is more stable. 10/08: Patient is followed by Dr. Fernandez for intensive care management. She is now status post 3 units packed RBCs. Repeat hemoglobin is 7.9. She has been seen by Dr. Dr. Reshma Lockhart with recommendations for colonoscopy which patient declined. She is undergoing a tagged RBC scan today. Repeat chest x-ray shows stable left lower lobe infiltrate and small effusion. 10/09: Patient underwent a tagged RBC scan and found there are no evidence of acute gastrointestinal bleeding during the initial one hour observation. Exam was negative. Her hemoglobin remaines stable at 7.7. She was advanced to a full liquid diet and is tolerating well. She is still declining a colonoscopy. Will continue to watch CBC closely and transfer to a medical floor today. 10/10: Patient is now decided that she will go forward with colonoscopy. GI has been notified and patient is scheduled for tomorrow morning with Dr. Isra Lockhart. Hemoglobin is 7.3. Urine culture is back with ESBL Klebsiella and antibiotics of doxycycline discontinued and started on Zosyn. Consult with Dr. Parry added. Patient is requesting anxiety medication and low dose Xanax added. 10/11: Patient appears to be quite shaky and weak today, and she is going to go for a colonoscopy for evaluation of lower GI bleed. 10/12: Patient appears more short of breath today, she denies any chest pain, she appears to be quite short of breath, she does appear to have significant swelling in both lower x-ray images specially the right lower extremity more than the left lower extremity, underwent colonoscopy yesterday showed left- sided diverticulosis. 10/13: Hemoglobin is 7.0 and one unit of packed RBCs to be transfused today followed by Lasix 20 mg. Patient has increased edema to the bilateral lower extremities despite Lasix and tyson wrap will be applied bilaterally. She is having wheezing today with improvement after nebulizer treatment. Pulmicort also added. Potassium replaced. Objective - Vital Signs Vital signs: Vital Signs Temp 96.9 F L 10/13/16 07:00 Pulse 80 10/13/16 10:53 Resp 16 10/13/16 07:00 BP 106/70 10/13/16 07:00 Pulse Ox 95 10/13/16 07:00 Intake & Output 10/12/16 10/13/16 10/13/16 18:59 06:59 18:59 Intake Total 550 Balance 550 Weight 62 kg Intake: Oral 550 Other: Voiding Method Bedpan Bedpan Bedpan Incontinent Incontinent Incontinent # Voids 4 2 # Bowel Movements 3 1 - Exam General appearance: no average body habitus, no cooperative, disheveled, no mild distress, no morbidly obese, no acute distress, no obese, no severe distress, no thin - EENT Eyes: no abnormal pupil, no anicteric sclerae, no disc margins sharp, no edentulous, no EOMI, no PERRLA, no fundus normal, no photophobia, no dentition normal, no poor dentition, no ptosis, no scleral icterus, normal appearance ENT: hard of hearing, no hearing grossly normal, no NA/AT, normal oropharynx, no other, no pharyngeal erythema, no thrush, no tonsillar exudates, no tonsillar swelling Ears: bilateral: normal - Neck Neck: no lymphadenopathy, normal ROM, no other, no rigidity, no stridor, no thyromegaly Carotids: bilateral: upstroke normal Thyroid: bilateral: normal size - Respiratory Respiratory: bilateral: diminished, dullness, rales - Cardiovascular Rhythm: regular Heart sounds: normal: S1, S2 Abnormal Heart Sounds: systolic murmur, S3 Gallop - Gastrointestinal General gastrointestinal: no absent bowel sounds, decreased bowel sounds, distended, no hepatomegaly, no hyperactive bowel sounds, normal bowel sounds, no organomegaly, no rigid, no scaphoid, soft, no splenomegaly, no tenderness, no umbilical hernia, no ventral hernia - Genitourinary Female genitourinary: prolapse - Integumentary Integumentary: no calor, no cellulitis, no cyanotic, no decreased turgor, no flushed, jaundiced, no normal, no normal turgor, pale, rash, no ulcer - Neurologic Neurologic: CNII-XII intact - Musculoskeletal Musculoskeletal: no gait normal, generalized weakness, no strength equal bilaterally, no right sided weakness, no left sided weakness - Psychiatric Psychiatric: A&O x's 3, no intact judgment & insight - Labs CBC & Chem 7: 10/13/16 09:05 10/13/16 09:05 Labs: Abnormal Lab Results - Last 24 Hours (Table) 10/12/16 10/13/16 10/13/16 Range/Units 10:35 09:05 09:05 RBC 2.60 L 2.22 L (3.80-5.40) m/uL Hgb 8.2 L 7.0 L* (11.4-16.0) gm/dL Hct 25.8 L 22.0 L (34.0-46.0) % RDW 17.3 H 17.3 H (11.5-15.5) % Plt Count 106 L (150-450) k/uL Lymphocytes # 0.9 L (1.0-4.8) k/uL Potassium 3.3 L (3.5-5.1) mmol/L Chloride 115 H (98-107) mmol/L Carbon Dioxide 18 L (22-30) mmol/L Creatinine 1.27 H (0.52-1.04) mg/dL Calcium 8.0 L (8.4-10.2) mg/dL Total Bilirubin 2.4 H (0.2-1.3) mg/dL AST 86 H (14-36) U/L Alkaline Phosphatase 1002 H (38-126) U/L Total Protein 5.1 L (6.3-8.2) g/dL Albumin 1.9 L (3.5-5.0) g/dL Assessment and Plan Plan: 1 acute gastrointestinal bleed: With significant bright red blood per rectum this is most likely lower GI bleed from diverticulosis, colonoscopy was done yesterday and that showed left-sided diverticulosis as the source of the bleeding. 2 acute blood loss anemia: Secondary to gastrointestinal bleed, status post transfusion of 3 units of packed RBCs. Continue to monitor hemoglobin closely. 3 recent UTI mostly found to be E. coli as an ESBL: Repeat urine culture is ESBL Klebsiella pneumoniae. Antibiotics changed to Zosyn. Consult with Dr. Parry. 4 cholangiocarcinoma: Patient has been seen oncology on regular basis she had stent in the common duct. 5 dementia: Has been on mirtazapine and donepezil continue both medication. 6 Parkinson disease: Continue patient on carbidopa levodopa as before. 7 severe osteoarthritis: Patient has been using ibuprofen from the time she left the hospital last time which might not be a good choice at this point can be switched to meloxicam or Celebrex if needed but to stop anti-inflammatory agent completely. 8 rectal prolapse and recurrent chronic vaginal uterine prolapse: Patient is known to have it has been seen [facility] [employer] as an outpatient she is known to have pessary arrange as an outpatient. 9 medical debility: patient is able to participate in physical therapy when she is more stable we will resume physical therapy and prepare for sending [facility]. 10 acute kidney injury: Most likely prerenal azotemia and hypotension from bleeding . Has resolved. 11. Hyperchloremic non-anion gap metabolic acidosis with fluid overload. Discontinue IV fluid, start the patient on Lasix 40 mg IV push 1 now then 20 mg IV push daily, monitor the patient BMP magnesium the next 24 hours. Check chest x-ray. 12 GI prophylaxis: Patient will be on pantoprazole IV and continue oral Pepcid. 13 DVT prophylaxis: With her current bleed cannot anticoagulate at this point the patient will be on Venodyne boots and knee-high DOMENICO hose. 14.CODE STATUS: Full code. Discharge plan: Return to [facility] under the care of Dr. Ferreira Impression and plan of care have been directed as dictated by the signing physician. Noelle Judge nurse practitioner acting as scribe for signing physician.
[2016-10-13] MEDS: ERTAPENEM 1 GM in SODIUM CHLORIDE 0.9% 50 ML IVPB SCH (17:24)
[2016-10-13] MEDS: BUDESONIDE 0.5 MG/2 ML NEBU INHALATION SCH (19:08)
[2016-10-13] MEDS: MIRTAZAPINE 15 MG TAB PO SCH (20:26)
[2016-10-13] MEDS: DONEPEZIL 5 MG TAB PO SCH (20:26)
[2016-10-13] MEDS: ALPRAZolam 0.25 MG TAB PO PRN (20:28)
[2016-10-14] MEDS: CARBIDOPA-LEVODOPA 25-100 MG 1 EACH TAB PO SCH ×4 (02:12→21:42)
[2016-10-14] MEDS: BUDESONIDE 0.5 MG/2 ML NEBU INHALATION SCH ×2 (07:39→20:16)
[2016-10-14] MEDS: IPRATROPIUM-ALBUTEROL 3 ML NEB INHALATION SCH ×4 (07:39→20:16)
[2016-10-14] MEDS: PANTOPRAZOLE 40 MG TABLET PO SCH ×2 (08:07→17:31)
[2016-10-14] MEDS: FUROSEMIDE 10 MG/ML 2 ML VIAL IV SCH (08:08)
[2016-10-14 10:32] LABS: Anisocytosis Slight; CH 30.8; CHCM 31.9; HCT 27.4 % (34.0-46.0); HDW 3.59; Hypochromasia Slight; MCHC 31.7 g/dL (31.0-37.0); Macrocytosis Slight; Poikilocytosis Slight; RDW 17.4 % (11.5-15.5); WBC 5.7 k/uL (3.8-10.6)
[2016-10-14 10:33] LABS: HGB 8.7 gm/dL (11.4-16.0)
[2016-10-14 10:54] LABS: Potassium 3.2 mmol/L (3.5-5.1); Total Bilirubin 1.7 mg/dL (0.2-1.3); Total Protein 5.6 g/dL (6.3-8.2)
[2016-10-14] MEDS: MULTIVITAMINS, THERA 1 EACH TAB PO SCH (12:09)
[2016-10-14] MEDS: FERROUS SULFATE 325 MG TAB PO SCH (12:09)
[2016-10-14] MEDS: POTASSIUM CHLORIDE ER 20 MEQ TAB.ER PO SCH ×2 (12:10→13:53)
--- NOTE | 2016-10-14 14:47 | P.PN ---
Subjective 76-year-old female one of my patient with multiple medical problem known to have history of hypertension history of osteoarthritis history of cholangiocarcinoma post stent placement of the common duct has been seen oncology on regular basis also known to have history of Parkinson disease. Patient was hospitalized at [facility] between 428 till 09/30/2016 for significant change mental status and encephalopathy found to have UTI with urosepsis was treated with IV antibiotic initially and culture was completed patient was sent to shelter on total of 10 days of doxycycline. As the aide was checked changing patient found to have some bright red blood in her brief, blood pressure was little bit low more rectal bleeding was found. Patient ended up being sent to the emergency department by EMS. Upon arrival to demurs department at [facility] found to have significantly low blood pressure. Found to have more rectal bleed with rectal exam and addition hemoglobin dropped significantly over 3 g and short period of time. Patient was started on blood transfusion will be admitted to the ICU will consult Dr. Lockhart for possible gastrointestinal scope in the next 24 hours or when patient is more stable. 10/08: Patient is followed by Dr. Fernandez for intensive care management. She is now status post 3 units packed RBCs. Repeat hemoglobin is 7.9. She has been seen by Dr. Dr. Reshma Lockhart with recommendations for colonoscopy which patient declined. She is undergoing a tagged RBC scan today. Repeat chest x-ray shows stable left lower lobe infiltrate and small effusion. 10/09: Patient underwent a tagged RBC scan and found there are no evidence of acute gastrointestinal bleeding during the initial one hour observation. Exam was negative. Her hemoglobin remaines stable at 7.7. She was advanced to a full liquid diet and is tolerating well. She is still declining a colonoscopy. Will continue to watch CBC closely and transfer to a medical floor today. 10/10: Patient is now decided that she will go forward with colonoscopy. GI has been notified and patient is scheduled for tomorrow morning with Dr. Isra Lockhart. Hemoglobin is 7.3. Urine culture is back with ESBL Klebsiella and antibiotics of doxycycline discontinued and started on Zosyn. Consult with Dr. Parry added. Patient is requesting anxiety medication and low dose Xanax added. 10/11: Patient appears to be quite shaky and weak today, and she is going to go for a colonoscopy for evaluation of lower GI bleed. 10/12: Patient appears more short of breath today, she denies any chest pain, she appears to be quite short of breath, she does appear to have significant swelling in both lower x-ray images specially the right lower extremity more than the left lower extremity, underwent colonoscopy yesterday showed left- sided diverticulosis. 10/13: Hemoglobin is 7.0 and one unit of packed RBCs to be transfused today followed by Lasix 20 mg. Patient has increased edema to the bilateral lower extremities despite Lasix and tyson wrap will be applied bilaterally. She is having wheezing today with improvement after nebulizer treatment. Pulmicort also added. Potassium replaced. 10/14: Speech therapy consult added for possible aspiration. Chest x-ray shows large hiatal hernia, small left pleural effusion with adjacent atelectasis and/ or consolidation. Changes are minimally improved. Potassium will be replaced. Incentive spirometry added. Patient is on ertapenem with plan for [address] Parry which will be completed on . Objective - Vital Signs Vital signs: Vital Signs Temp 96.8 F L 10/14/16 07:00 Pulse 92 10/14/16 11:41 Resp 16 10/14/16 07:00 BP 118/72 10/14/16 07:00 Pulse Ox 99 10/14/16 07:00 Intake & Output 10/13/16 10/14/16 10/14/16 18:59 06:59 18:59 Intake Total 510 Balance 510 Weight 62 kg 66.5 kg Intake: Oral 200 Blood Product 310 Rc As-1 Unit 310 [id number] Other: Voiding Method Bedpan Bedpan Bedpan Incontinent Incontinent Incontinent # Voids 4 3 # Bowel Movements 2 - Exam General appearance: no average body habitus, no cooperative, disheveled, no mild distress, no morbidly obese, no acute distress, no obese, no severe distress, no thin - EENT Eyes: no abnormal pupil, no anicteric sclerae, no disc margins sharp, no edentulous, no EOMI, no PERRLA, no fundus normal, no photophobia, no dentition normal, no poor dentition, no ptosis, no scleral icterus, normal appearance ENT: hard of hearing, no hearing grossly normal, no NA/AT, normal oropharynx, no other, no pharyngeal erythema, no thrush, no tonsillar exudates, no tonsillar swelling Ears: bilateral: normal - Neck Neck: no lymphadenopathy, normal ROM, no other, no rigidity, no stridor, no thyromegaly Carotids: bilateral: upstroke normal Thyroid: bilateral: normal size - Respiratory Respiratory: bilateral: diminished, dullness, rales - Cardiovascular Rhythm: regular Heart sounds: normal: S1, S2 Abnormal Heart Sounds: systolic murmur, S3 Gallop - Gastrointestinal General gastrointestinal: no absent bowel sounds, decreased bowel sounds, distended, no hepatomegaly, no hyperactive bowel sounds, normal bowel sounds, no organomegaly, no rigid, no scaphoid, soft, no splenomegaly, no tenderness, no umbilical hernia, no ventral hernia - Genitourinary Female genitourinary: prolapse - Integumentary Integumentary: no calor, no cellulitis, no cyanotic, no decreased turgor, no flushed, jaundiced, no normal, no normal turgor, pale, rash, no ulcer - Neurologic Neurologic: CNII-XII intact - Musculoskeletal Musculoskeletal: no gait normal, generalized weakness, no strength equal bilaterally, no right sided weakness, no left sided weakness - Psychiatric Psychiatric: A&O x's 3, no intact judgment & insight - Labs CBC & Chem 7: 10/14/16 09:20 10/14/16 09:20 Labs: Abnormal Lab Results - Last 24 Hours (Table) 10/13/16 10/14/16 10/14/16 Range/Units 11:38 09:20 09:20 RBC 2.80 L (3.80-5.40) m/uL Hgb 8.7 L D (11.4-16.0) gm/dL Hct 27.4 L (34.0-46.0) % RDW 17.4 H (11.5-15.5) % Potassium 3.2 L (3.5-5.1) mmol/L Chloride 112 H (98-107) mmol/L Carbon Dioxide 17 L (22-30) mmol/L Creatinine 1.27 H (0.52-1.04) mg/dL Glucose 119 H (74-99) mg/dL Calcium 8.0 L (8.4-10.2) mg/dL Total Bilirubin 1.7 H (0.2-1.3) mg/dL AST 58 H (14-36) U/L Alkaline Phosphatase 1030 H (38-126) U/L Total Protein 5.6 L (6.3-8.2) g/dL Albumin 2.2 L (3.5-5.0) g/dL Crossmatch See Detail Assessment and Plan Plan: 1 acute gastrointestinal bleed: With significant bright red blood per rectum this is most likely lower GI bleed from diverticulosis, colonoscopy was done yesterday and that showed left-sided diverticulosis as the source of the bleeding. 2 acute blood loss anemia: Secondary to gastrointestinal bleed, status post transfusion of 3 units of packed RBCs. Continue to monitor hemoglobin closely. 3 recent UTI mostly found to be E. coli as an ESBL: Repeat urine culture is ESBL Klebsiella pneumoniae. Antibiotics changed to Zosyn. Consult with Dr. Parry. 4 cholangiocarcinoma: Patient has been seen oncology on regular basis she had stent in the common duct. 5 dementia: Has been on mirtazapine and donepezil continue both medication. 6 Parkinson disease: Continue patient on carbidopa levodopa as before. 7 severe osteoarthritis: Patient has been using ibuprofen from the time she left the hospital last time which might not be a good choice at this point can be switched to meloxicam or Celebrex if needed but to stop anti-inflammatory agent completely. 8 rectal prolapse and recurrent chronic vaginal uterine prolapse: Patient is known to have it has been seen [employer] as an outpatient she is known to have pessary arrange as an outpatient. 9 medical debility: patient is able to participate in physical therapy when she is more stable we will resume physical therapy and prepare for sending her back to shelter rehab. 10 acute kidney injury: Most likely prerenal azotemia and hypotension from bleeding . Has resolved. 11. Hyperchloremic non-anion gap metabolic acidosis with fluid overload. Discontinue IV fluid, start the patient on Lasix 40 mg IV push 1 now then 20 mg IV push daily, monitor the patient BMP magnesium the next 24 hours. Check chest x-ray. 12 GI prophylaxis: Patient will be on pantoprazole IV and continue oral Pepcid. 13 DVT prophylaxis: With her current bleed cannot anticoagulate at this point the patient will be on Venodyne boots and knee-high DOMENICO hose. 14.CODE STATUS: Full code. Discharge plan: Return to [facility] under the care of Dr. Ferreira Impression and plan of care have been directed as dictated by the signing physician. Noelle Judge nurse practitioner acting as scribe for signing physician.
[2016-10-14] MEDS: ERTAPENEM 1 GM in SODIUM CHLORIDE 0.9% 50 ML IVPB SCH (17:31)
[2016-10-14] MEDS: MIRTAZAPINE 15 MG TAB PO SCH (21:42)
[2016-10-14] MEDS: DONEPEZIL 5 MG TAB PO SCH (21:42)
[2016-10-14] MEDS: ALPRAZolam 0.25 MG TAB PO PRN (21:45)
--- NOTE | 2016-10-14 23:33 | P.PN ---
Subjective Principal diagnosis: GI bleed 76-year-old female with multiple medical troubles that includes osteoarthritis, hypertension, cholangiocarcinoma status post placement of the stent in the common dialed out. She is a known history also of Parkinson's disease. She was hospitalized earlier this month where she was found evidence of a urinary tract infection. After treatment of this she had improvement of her status. She was treated with doxycycline at the [facility] care facility. Was noticed that she started to have difficulties with feeling poorly. Bright red blood was found per rectum and her briefs. She had evidence of a drop of her hemoglobin and constantly was transferred to hospital in intensive care unit. The patient will have a colonoscopy tomorrow for further evaluation. Patient however is not been found evidence of the urinary tract infection with Klebsiella pneumoniae which is an ESBL Patient improved. On the medical floor. Colonoscopy confirmed the bleeding from the left-sided diverticulosis. No further transfusions. Tolerating the Invanz well for the ESBL E. coli. Objective - Vital Signs Vital signs: Vital Signs Temp 97.0 F L 10/14/16 23:00 Pulse 93 10/14/16 23:00 Resp 16 10/14/16 23:00 BP 108/69 10/14/16 23:00 Pulse Ox 96 10/14/16 23:00 Intake & Output 10/14/16 10/14/16 10/15/16 06:59 18:59 06:59 Intake Total 600 Output Total 2 Balance -2 600 Weight 66.5 kg Intake: Oral 600 Output: Urine 2 Other: Voiding Method Bedpan Bedpan Incontinent Incontinent # Voids 3 2 2 # Bowel Movements 2 1 - Exam 76-year-old woman who is in no loly distress. She is currently afebrile and is not hypotensive. HEENT: Anicteric conjunctiva are pink and moist nasal mucosa grossly intact without significant lesions, there is no thrush. Denture. Neck: The neck is supple without significant lymphadenopathy or thyromegaly. Lungs: Symmetrical air entry is noted. Few basilar crackles. No loly bronchial sounds are heard Heart: Irregular audible S1-S2, no S3 no S4. There is no significant murmur click or rub, PMI was nondisplaced. Abdomen: The abdomen is slightly tympanic. There is no evidence of any tenderness at this time. bowel sounds are heard. No palpable hepatosplenomegaly or mass. There is only minimal discomfort in the left lower quadrant no guarding or rebound. Extremities: The upper extremities have excellent pulses they are symmetric, no significant petechiae or telangiectasia. No splinter hemorrhages were noted. Lower extremities evidence of some chronic stasis edema and chronic skin change to the left leg initially spent for many years and does not know what from. Neuro: Awake alert oriented to person place and time. There are no acute new gross focal sensory motor deficits. - Labs CBC & Chem 7: 10/14/16 09:20 10/14/16 09:20 Labs: Abnormal Lab Results - Last 24 Hours (Table) 10/14/16 10/14/16 Range/Units 09:20 09:20 RBC 2.80 L (3.80-5.40) m/uL Hgb 8.7 L D (11.4-16.0) gm/dL Hct 27.4 L (34.0-46.0) % RDW 17.4 H (11.5-15.5) % Potassium 3.2 L (3.5-5.1) mmol/L Chloride 112 H (98-107) mmol/L Carbon Dioxide 17 L (22-30) mmol/L Creatinine 1.27 H (0.52-1.04) mg/dL Glucose 119 H (74-99) mg/dL Calcium 8.0 L (8.4-10.2) mg/dL Total Bilirubin 1.7 H (0.2-1.3) mg/dL AST 58 H (14-36) U/L Alkaline Phosphatase 1030 H (38-126) U/L Total Protein 5.6 L (6.3-8.2) g/dL Albumin 2.2 L (3.5-5.0) g/dL Laboratory Results WBC 5.7 k/uL (3.8-10.6) 10/14/16 09:20 RBC 2.80 m/uL (3.80-5.40) L 10/14/16 09:20 Hgb 8.7 gm/dL (11.4-16.0) L D 10/14/16 09:20 Hct 27.4 % (34.0-46.0) L 10/14/16 09:20 MCV 98.0 fL (80.0-100.0) 10/14/16 09:20 MCH 31.0 pg (25.0-35.0) 10/14/16 09:20 MCHC 31.7 g/dL (31.0-37.0) 10/14/16 09:20 RDW 17.4 % (11.5-15.5) H 10/14/16 09:20 Plt Count 163 k/uL (150-450) 10/14/16 09:20 Neutrophils % 67 % 10/13/16 09:05 Lymphocytes % 20 % 10/13/16 09:05 Monocytes % 8 % 10/13/16 09:05 Eosinophils % 4 % 10/13/16 09:05 Basophils % 0 % 10/13/16 09:05 Neutrophils # 2.8 k/uL (1.3-7.7) 10/13/16 09:05 Lymphocytes # 0.9 k/uL (1.0-4.8) L 10/13/16 09:05 Monocytes # 0.3 k/uL (0-1.0) 10/13/16 09:05 Eosinophils # 0.2 k/uL (0-0.7) 10/13/16 09:05 Basophils # 0.0 k/uL (0-0.2) 10/13/16 09:05 Hypochromasia Slight 10/14/16 09:20 Poikilocytosis Slight 10/14/16 09:20 Poikilocytosis (manual Present 10/12/16 10:35 Anisocytosis Slight 10/14/16 09:20 Macrocytosis Slight 10/14/16 09:20 PT 14.2 sec (9.0-12.0) H 10/09/16 04:44 INR 1.5 (<1.1) 10/09/16 04:44 APTT 24.5 sec (22.0-30.0) 10/09/16 04:44 Sodium 139 mmol/L (137-145) 10/14/16 09:20 Potassium 3.2 mmol/L (3.5-5.1) L 10/14/16 09:20 Chloride 112 mmol/L (98-107) H 10/14/16 09:20 Carbon Dioxide 17 mmol/L (22-30) L 10/14/16 09:20 Anion Gap 10 mmol/L 10/14/16 09:20 BUN 17 mg/dL (7-17) 10/14/16 09:20 Creatinine 1.27 mg/dL (0.52-1.04) H 10/14/16 09:20 Est GFR (MDRD) Af Amer 49 (>60 ml/min/1.73 sqM) 10/14/16 09:20 Est GFR (MDRD) Non-Af 41 (>60 ml/min/1.73 sqM) 10/14/16 09:20 Glucose 119 mg/dL (74-99) H 10/14/16 09:20 POC Glucose (mg/dL) 156 mg/dL (75-99) H 10/07/16 00:39 POC Glu Manager [employer]ostat[employer] ID Yumiko Connell 10/07/16 00:39 Calcium 8.0 mg/dL (8.4-10.2) L 10/14/16 09:20 Phosphorus 3.7 mg/dL (2.5-4.5) 10/12/16 10:35 Magnesium 1.8 mg/dL (1.6-2.3) 10/13/16 09:05 Total Bilirubin 1.7 mg/dL (0.2-1.3) H 10/14/16 09:20 AST 58 U/L (14-36) H 10/14/16 09:20 ALT 30 U/L (9-52) 10/14/16 09:20 Alkaline Phosphatase 1030 U/L (38-126) H 10/14/16 09:20 Total Creatine Kinase <20 U/L (30-135) L 10/06/16 20:07 CK-MB (CK-2) 0.5 ng/mL (0.0-2.4) 10/06/16 20:07 CK-MB (CK-2) Rel Index 0.0 10/06/16 20:07 Troponin I <0.012 ng/mL (0.000-0.034) 10/06/16 20:07 Total Protein 5.6 g/dL (6.3-8.2) L 10/14/16 09:20 Albumin 2.2 g/dL (3.5-5.0) L 10/14/16 09:20 Urine Color Yellow 10/07/16 05:40 Urine Appearance Turbid (Clear) H 10/07/16 05:40 Urine pH 6.0 (5.0-8.0) 10/07/16 05:40 Ur Specific [place] 1.014 (1.001-1.035) 10/07/16 05:40 Urine Protein 1+ (Negative) H 10/07/16 05:40 Urine Glucose (UA) Negative (Negative) 10/07/16 05:40 Urine Ketones Negative (Negative) 10/07/16 05:40 Urine Blood Moderate (Negative) H 10/07/16 05:40 Urine Nitrite Negative (Negative) 10/07/16 05:40 Urine Bilirubin Negative (Negative) 10/07/16 05:40 Urine Urobilinogen <2.0 mg/dL (<2.0) 10/07/16 05:40 Ur Leukocyte Esterase Large (Negative) H 10/07/16 05:40 Urine RBC 40 /hpf (0-5) H 10/07/16 05:40 Urine WBC >182 /hpf (0-5) H 10/07/16 05:40 Ur Squamous Epith Cells 2 /hpf (0-4) 10/07/16 05:40 Urine Bacteria Few /hpf (None) H 10/07/16 05:40 Urine Mucus Rare /hpf (None) H 10/07/16 05:40 Stool Occult Blood Positive (Negative) H 10/06/16 20:16 C. difficile (EIA) Intrp Negative (Negative) 10/07/16 11:15 Blood Type A Positive 10/13/16 11:38 Blood Type Confirm A Positive 10/06/16 22:17 Blood Type Recheck No 10/13/16 11:38 Antibody Screen NEGATIVE 10/13/16 11:38 Crossmatch See Detail 10/13/16 11:38 Spec Expiration Date 10/16/2016 4403 10/13/16 11:38 Microbiology 10/07/16 05:40 Urine,Catheterized Urine Culture - Final Klebsiella pneumoniae Assessment and Plan (1) Infection due to ESBL-producing Klebsiella pneumoniae Narrative/Plan: 76-year-old female presents to Hospital severe weakness no evidence of an acute gastrointestinal bleed with bright red blood per rectum. We'll undergo colonoscopy tomorrow through gastroenterology. She had a distinct anemia at admission and has done well now status post 3 units of packed red cells. She is a known history of the prior cholangiocarcinoma in his bends quite stable. Of note she has evidence of urinary tract infection she has some mild symptoms in the urine culture is markedly abnormal with the Klebsiella ESBL. We'll alter antibiotic therapy to carbapenem which is the drug of choice for the Klebsiella infection in that occasionally the Zosyn susceptibility can be a bit unpredictable. We'll plan a 7 day course of therapy. Continue ongoing supportive care. . The GI workup is in process and reveals the bleeding from the left-sided diverticulitis. Is being monitored closely. Status: Acute (2) Acute blood loss anemia Status: Acute (3) Weakness Status: Acute
[2016-10-15] MEDS: IPRATROPIUM-ALBUTEROL 3 ML NEB INHALATION SCH ×4 (07:04→19:00)
[2016-10-15] MEDS: BUDESONIDE 0.5 MG/2 ML NEBU INHALATION SCH ×3 (07:04→19:00)
[2016-10-15] MEDS: FUROSEMIDE 10 MG/ML 2 ML VIAL IV SCH (07:45)
[2016-10-15] MEDS: CARBIDOPA-LEVODOPA 25-100 MG 1 EACH TAB PO SCH ×3 (09:55→20:28)
[2016-10-15] MEDS: PANTOPRAZOLE 40 MG TABLET PO SCH ×2 (09:55→17:53)
[2016-10-15 12:23] LABS: Calcium 8.3 mg/dL (8.4-10.2); Potassium 4.2 mmol/L (3.5-5.1)
[2016-10-15 12:52] LABS: Anisocytosis Slight; CH 30.8; CHCM 31.7; HCT 27.6 % (34.0-46.0); HDW 3.31; HGB 8.9 gm/dL (11.4-16.0); Hypochromasia Slight; MCH 31.6 pg (25.0-35.0); MCHC 32.2 g/dL (31.0-37.0); MCV 98.2 fL (80.0-100.0); Macrocytosis Slight; Mean Platelet Volume 9.1; RBC 2.82 m/uL (3.80-5.40); WBC 5.8 k/uL (3.8-10.6)
[2016-10-15] MEDS: FERROUS SULFATE 325 MG TAB PO SCH (13:22)
[2016-10-15] MEDS: MULTIVITAMINS, THERA 1 EACH TAB PO SCH (13:23)
--- NOTE | 2016-10-15 15:42 | P.PN ---
Subjective 76-year-old female one of my patient with multiple medical problem known to have history of hypertension history of osteoarthritis history of cholangiocarcinoma post stent placement of the common duct has been seen oncology on regular basis also known to have history of Parkinson disease. Patient was hospitalized at [facility] between 428 till 09/30/2016 for significant change mental status and encephalopathy found to have UTI with urosepsis was treated with IV antibiotic initially and culture was completed patient was sent to retirement on total of 10 days of doxycycline. As the aide was checked changing patient found to have some bright red blood in her brief, blood pressure was little bit low more rectal bleeding was found. Patient ended up being sent to the emergency department by EMS. Upon arrival to demurs department at [facility] found to have significantly low blood pressure. Found to have more rectal bleed with rectal exam and addition hemoglobin dropped significantly over 3 g and short period of time. Patient was started on blood transfusion will be admitted to the ICU will consult Dr. Lockhart for possible gastrointestinal scope in the next 24 hours or when patient is more stable. 10/08: Patient is followed by Dr. Fernandez for intensive care management. She is now status post 3 units packed RBCs. Repeat hemoglobin is 7.9. She has been seen by Dr. Dr. Reshma Lockhart with recommendations for colonoscopy which patient declined. She is undergoing a tagged RBC scan today. Repeat chest x-ray shows stable left lower lobe infiltrate and small effusion. 10/09: Patient underwent a tagged RBC scan and found there are no evidence of acute gastrointestinal bleeding during the initial one hour observation. Exam was negative. Her hemoglobin remaines stable at 7.7. She was advanced to a full liquid diet and is tolerating well. She is still declining a colonoscopy. Will continue to watch CBC closely and transfer to a medical floor today. 10/10: Patient is now decided that she will go forward with colonoscopy. GI has been notified and patient is scheduled for tomorrow morning with Dr. Isra Lockhart. Hemoglobin is 7.3. Urine culture is back with ESBL Klebsiella and antibiotics of doxycycline discontinued and started on Zosyn. Consult with Dr. Parry added. Patient is requesting anxiety medication and low dose Xanax added. 10/11: Patient appears to be quite shaky and weak today, and she is going to go for a colonoscopy for evaluation of lower GI bleed. 10/12: Patient appears more short of breath today, she denies any chest pain, she appears to be quite short of breath, she does appear to have significant swelling in both lower x-ray images specially the right lower extremity more than the left lower extremity, underwent colonoscopy yesterday showed left- sided diverticulosis. 10/13: Hemoglobin is 7.0 and one unit of packed RBCs to be transfused today followed by Lasix 20 mg. Patient has increased edema to the bilateral lower extremities despite Lasix and tyson wrap will be applied bilaterally. She is having wheezing today with improvement after nebulizer treatment. Pulmicort also added. Potassium replaced. 10/14: Speech therapy consult added for possible aspiration. Chest x-ray shows large hiatal hernia, small left pleural effusion with adjacent atelectasis and/ or consolidation. Changes are minimally improved. Potassium will be replaced. Incentive spirometry added. Patient is on ertapenem with plan for [address] Parry which will be completed on . 10/15: Hemoglobin is stable today at 8.9. She states her breathing status and overall she feels better today from yesterday. Anticipate possible discharge back to [facility] by tomorrow. Objective - Vital Signs Vital signs: Vital Signs Temp 97 F L 10/15/16 07:00 Pulse 92 10/15/16 08:36 Resp 16 10/15/16 07:00 BP 122/74 10/15/16 07:00 Pulse Ox 95 10/15/16 07:00 Intake & Output 10/14/16 10/15/16 10/15/16 18:59 06:59 18:59 Intake Total 600 Balance 600 Weight 66 kg Intake: Oral 600 Other: Voiding Method Bedpan Incontinent # Voids 2 3 # Bowel Movements 1 - Exam General appearance: no average body habitus, no cooperative, disheveled, no mild distress, no morbidly obese, no acute distress, no obese, no severe distress, no thin - EENT Eyes: no abnormal pupil, no anicteric sclerae, no disc margins sharp, no edentulous, no EOMI, no PERRLA, no fundus normal, no photophobia, no dentition normal, no poor dentition, no ptosis, no scleral icterus, normal appearance ENT: hard of hearing, no hearing grossly normal, no NA/AT, normal oropharynx, no other, no pharyngeal erythema, no thrush, no tonsillar exudates, no tonsillar swelling Ears: bilateral: normal - Neck Neck: no lymphadenopathy, normal ROM, no other, no rigidity, no stridor, no thyromegaly Carotids: bilateral: upstroke normal Thyroid: bilateral: normal size - Respiratory Respiratory: bilateral: diminished, dullness, rales - Cardiovascular Rhythm: regular Heart sounds: normal: S1, S2 Abnormal Heart Sounds: systolic murmur, S3 Gallop - Gastrointestinal General gastrointestinal: no absent bowel sounds, decreased bowel sounds, distended, no hepatomegaly, no hyperactive bowel sounds, normal bowel sounds, no organomegaly, no rigid, no scaphoid, soft, no splenomegaly, no tenderness, no umbilical hernia, no ventral hernia - Genitourinary Female genitourinary: prolapse - Integumentary Integumentary: no calor, no cellulitis, no cyanotic, no decreased turgor, no flushed, jaundiced, no normal, no normal turgor, pale, rash, no ulcer - Neurologic Neurologic: CNII-XII intact - Musculoskeletal Musculoskeletal: no gait normal, generalized weakness, no strength equal bilaterally, no right sided weakness, no left sided weakness - Psychiatric Psychiatric: A&O x's 3, no intact judgment & insight - Labs CBC & Chem 7: 10/15/16 11:42 10/15/16 11:42 Assessment and Plan Plan: 1 acute gastrointestinal bleed: With significant bright red blood per rectum this is most likely lower GI bleed from diverticulosis, colonoscopy was done yesterday and that showed left-sided diverticulosis as the source of the bleeding. 2 acute blood loss anemia: Secondary to gastrointestinal bleed, status post transfusion of 3 units of packed RBCs. Continue to monitor hemoglobin closely. 3 recent UTI mostly found to be E. coli as an ESBL: Repeat urine culture is ESBL Klebsiella pneumoniae. Antibiotics changed to ertapenem and course will be completed on . Consult with Dr. Parry appreciated. 4 cholangiocarcinoma: Patient has been seen oncology on regular basis she had stent in the common duct. 5 dementia: Has been on mirtazapine and donepezil continue both medication. 6 Parkinson disease: Continue patient on carbidopa levodopa as before. 7 severe osteoarthritis: Patient has been using ibuprofen from the time she left the hospital last time which might not be a good choice at this point can be switched to meloxicam or Celebrex if needed but to stop anti-inflammatory agent completely. 8 rectal prolapse and recurrent chronic vaginal uterine prolapse: Patient is known to have it has been seen [facility] as an outpatient she is known to have pessary arrange as an outpatient. 9 medical debility: patient is able to participate in physical therapy when she is more stable we will resume physical therapy and prepare for sending her back to [facility]. 10 acute kidney injury: Most likely prerenal azotemia and hypotension from bleeding . Has resolved. 11. Hyperchloremic non-anion gap metabolic acidosis with fluid overload. Discontinue IV fluid, start the patient on Lasix 40 mg IV push 1 now then 20 mg IV push daily, monitor the patient BMP magnesium the next 24 hours. Check chest x-ray. 12 GI prophylaxis: Patient will be on pantoprazole IV and continue oral Pepcid. 13 DVT prophylaxis: With her current bleed cannot anticoagulate at this point the patient will be on Venodyne boots and knee-high DOMENICO hose. 14.CODE STATUS: Full code. Discharge plan: Return to [facility] under the care of Dr. Ferreira Impression and plan of care have been directed as dictated by the signing physician. Noelle Judge nurse practitioner acting as scribe for signing physician.
[2016-10-15] MEDS: ERTAPENEM 1 GM in SODIUM CHLORIDE 0.9% 50 ML IVPB SCH (18:54)
[2016-10-15] MEDS: DONEPEZIL 5 MG TAB PO SCH (20:28)
[2016-10-15] MEDS: MIRTAZAPINE 15 MG TAB PO SCH (20:28)
--- NOTE | 2016-10-15 23:43 | P.PN ---
Subjective Principal diagnosis: GI bleed 76-year-old female with multiple medical troubles that includes osteoarthritis, hypertension, cholangiocarcinoma status post placement of the stent in the common dialed out. She is a known history also of Parkinson's disease. She was hospitalized earlier this month where she was found evidence of a urinary tract infection. After treatment of this she had improvement of her status. She was treated with doxycycline at the [facility] care facility. Was noticed that she started to have difficulties with feeling poorly. Bright red blood was found per rectum and her briefs. She had evidence of a drop of her hemoglobin and constantly was transferred to hospital in intensive care unit. The patient will have a colonoscopy tomorrow for further evaluation. Patient however is not been found evidence of the urinary tract infection with Klebsiella pneumoniae which is an ESBL Patient improved. On the medical floor. Colonoscopy confirmed the bleeding from the left-sided diverticulosis. No further transfusions. Tolerating the Invanz well for the ESBL E. coli. Objective - Vital Signs Vital signs: Vital Signs Temp 97.0 F L 10/15/16 23:00 Pulse 89 10/15/16 23:00 Resp 16 10/15/16 23:00 BP 132/72 10/15/16 23:00 Pulse Ox 94 L 10/15/16 23:00 Intake & Output 10/15/16 10/15/16 10/16/16 06:59 18:59 06:59 Intake Total 0 Output Total 2 Balance -2 Weight 66 kg Intake: Intake, IV Titration 0 Amount Ertapenem 1 gm In Sodium 0 Chloride 0.9% 50 ml @ 100 mls/hr IVPB Q24H [facility] Rx# :[id number] Output: Stool 2 Other: Voiding Method Incontinent Incontinent # Voids 3 2 1 - Exam 76-year-old woman who is in no loly distress. She is currently afebrile and is not hypotensive. HEENT: Anicteric conjunctiva are pink and moist nasal mucosa grossly intact without significant lesions, there is no thrush. Denture. Neck: The neck is supple without significant lymphadenopathy or thyromegaly. Lungs: Symmetrical air entry is noted. Few basilar crackles. No loly bronchial sounds are heard Heart: Irregular audible S1-S2, no S3 no S4. There is no significant murmur click or rub, PMI was nondisplaced. Abdomen: The abdomen is slightly tympanic. There is no evidence of any tenderness at this time. bowel sounds are heard. No palpable hepatosplenomegaly or mass. There is only minimal discomfort in the left lower quadrant no guarding or rebound. Extremities: The upper extremities have excellent pulses they are symmetric, no significant petechiae or telangiectasia. No splinter hemorrhages were noted. Lower extremities evidence of some chronic stasis edema and chronic skin change to the left leg initially spent for many years and does not know what from. Neuro: Awake alert oriented to person place and time. There are no acute new gross focal sensory motor deficits. - Labs CBC & Chem 7: 10/15/16 11:42 10/15/16 11:42 Labs: Abnormal Lab Results - Last 24 Hours (Table) 10/15/16 10/15/16 Range/Units 11:42 11:42 RBC 2.82 L (3.80-5.40) m/uL Hgb 8.9 L (11.4-16.0) gm/dL Hct 27.6 L (34.0-46.0) % RDW 17.0 H (11.5-15.5) % Plt Count 145 L (150-450) k/uL Chloride 114 H (98-107) mmol/L Carbon Dioxide 18 L (22-30) mmol/L Creatinine 1.20 H (0.52-1.04) mg/dL Glucose 115 H (74-99) mg/dL Calcium 8.3 L (8.4-10.2) mg/dL Laboratory Results WBC 5.8 k/uL (3.8-10.6) 10/15/16 11:42 RBC 2.82 m/uL (3.80-5.40) L 10/15/16 11:42 Hgb 8.9 gm/dL (11.4-16.0) L 10/15/16 11:42 Hct 27.6 % (34.0-46.0) L 10/15/16 11:42 MCV 98.2 fL (80.0-100.0) 10/15/16 11:42 MCH 31.6 pg (25.0-35.0) 10/15/16 11:42 MCHC 32.2 g/dL (31.0-37.0) 10/15/16 11:42 RDW 17.0 % (11.5-15.5) H 10/15/16 11:42 Plt Count 145 k/uL (150-450) L 10/15/16 11:42 Neutrophils % 67 % 10/13/16 09:05 Lymphocytes % 20 % 10/13/16 09:05 Monocytes % 8 % 10/13/16 09:05 Eosinophils % 4 % 10/13/16 09:05 Basophils % 0 % 10/13/16 09:05 Neutrophils # 2.8 k/uL (1.3-7.7) 10/13/16 09:05 Lymphocytes # 0.9 k/uL (1.0-4.8) L 10/13/16 09:05 Monocytes # 0.3 k/uL (0-1.0) 10/13/16 09:05 Eosinophils # 0.2 k/uL (0-0.7) 10/13/16 09:05 Basophils # 0.0 k/uL (0-0.2) 10/13/16 09:05 Hypochromasia Slight 10/15/16 11:42 Poikilocytosis Slight 10/14/16 09:20 Poikilocytosis (manual Present 10/12/16 10:35 Anisocytosis Slight 10/15/16 11:42 Macrocytosis Slight 10/15/16 11:42 PT 14.2 sec (9.0-12.0) H 10/09/16 04:44 INR 1.5 (<1.1) 10/09/16 04:44 APTT 24.5 sec (22.0-30.0) 10/09/16 04:44 Sodium 141 mmol/L (137-145) 10/15/16 11:42 Potassium 4.2 mmol/L (3.5-5.1) 10/15/16 11:42 Chloride 114 mmol/L (98-107) H 10/15/16 11:42 Carbon Dioxide 18 mmol/L (22-30) L 10/15/16 11:42 Anion Gap 9 mmol/L 10/15/16 11:42 BUN 16 mg/dL (7-17) 10/15/16 11:42 Creatinine 1.20 mg/dL (0.52-1.04) H 10/15/16 11:42 Est GFR (MDRD) Af Amer 53 (>60 ml/min/1.73 sqM) 10/15/16 11:42 Est GFR (MDRD) Non-Af 44 (>60 ml/min/1.73 sqM) 10/15/16 11:42 Glucose 115 mg/dL (74-99) H 10/15/16 11:42 POC Glucose (mg/dL) 156 mg/dL (75-99) H 10/07/16 00:39 POC Glu Internal Audit Director Yumiko Moore 10/07/16 00:39 Calcium 8.3 mg/dL (8.4-10.2) L 10/15/16 11:42 Phosphorus 3.7 mg/dL (2.5-4.5) 10/12/16 10:35 Magnesium 1.8 mg/dL (1.6-2.3) 10/13/16 09:05 Total Bilirubin 1.7 mg/dL (0.2-1.3) H 10/14/16 09:20 AST 58 U/L (14-36) H 10/14/16 09:20 ALT 30 U/L (9-52) 10/14/16 09:20 Alkaline Phosphatase 1030 U/L (38-126) H 10/14/16 09:20 Total Creatine Kinase <20 U/L (30-135) L 10/06/16 20:07 CK-MB (CK-2) 0.5 ng/mL (0.0-2.4) 10/06/16 20:07 CK-MB (CK-2) Rel Index 0.0 10/06/16 20:07 Troponin I <0.012 ng/mL (0.000-0.034) 10/06/16 20:07 Total Protein 5.6 g/dL (6.3-8.2) L 10/14/16 09:20 Albumin 2.2 g/dL (3.5-5.0) L 10/14/16 09:20 Urine Color Yellow 10/07/16 05:40 Urine Appearance Turbid (Clear) H 10/07/16 05:40 Urine pH 6.0 (5.0-8.0) 10/07/16 05:40 Ur Specific [employer] 1.014 (1.001-1.035) 10/07/16 05:40 Urine Protein 1+ (Negative) H 10/07/16 05:40 Urine Glucose (UA) Negative (Negative) 10/07/16 05:40 Urine Ketones Negative (Negative) 10/07/16 05:40 Urine Blood Moderate (Negative) H 10/07/16 05:40 Urine Nitrite Negative (Negative) 10/07/16 05:40 Urine Bilirubin Negative (Negative) 10/07/16 05:40 Urine Urobilinogen <2.0 mg/dL (<2.0) 10/07/16 05:40 Ur Leukocyte Esterase Large (Negative) H 10/07/16 05:40 Urine RBC 40 /hpf (0-5) H 10/07/16 05:40 Urine WBC >182 /hpf (0-5) H 10/07/16 05:40 Ur Squamous Epith Cells 2 /hpf (0-4) 10/07/16 05:40 Urine Bacteria Few /hpf (None) H 10/07/16 05:40 Urine Mucus Rare /hpf (None) H 10/07/16 05:40 Stool Occult Blood Positive (Negative) H 10/06/16 20:16 C. difficile (EIA) Intrp Negative (Negative) 10/07/16 11:15 Blood Type A Positive 10/13/16 11:38 Blood Type Confirm A Positive 10/06/16 22:17 Blood Type Recheck No 10/13/16 11:38 Antibody Screen NEGATIVE 10/13/16 11:38 Crossmatch See Detail 10/13/16 11:38 Spec Expiration Date 10/16/2016 - 2171 10/13/16 11:38 Microbiology 10/07/16 05:40 Urine,Catheterized Urine Culture - Final Klebsiella pneumoniae Assessment and Plan (1) Infection due to ESBL-producing Klebsiella pneumoniae Narrative/Plan: 76-year-old female presents to Hospital severe weakness no evidence of an acute gastrointestinal bleed with bright red blood per rectum. We'll undergo colonoscopy tomorrow through gastroenterology. She had a distinct anemia at admission and has done well now status post 3 units of packed red cells. She is a known history of the prior cholangiocarcinoma in his bends quite stable. Of note she has evidence of urinary tract infection she has some mild symptoms in the urine culture is markedly abnormal with the Klebsiella ESBL. We'll alter antibiotic therapy to carbapenem which is the drug of choice for the Klebsiella infection in that occasionally the Zosyn susceptibility can be a bit unpredictable. We'll plan a 7 day course of therapy. Continue ongoing supportive care. . The GI workup is in process and reveals the bleeding from the left-sided diverticulitis. Is being monitored closely. Status: Acute (2) Acute blood loss anemia Status: Acute (3) Weakness Status: Acute
[2016-10-16] MEDS: ALPRAZolam 0.25 MG TAB PO PRN (03:37)
[2016-10-16] MEDS: BUDESONIDE 0.5 MG/2 ML NEBU INHALATION SCH ×2 (07:25→20:46)
[2016-10-16] MEDS: IPRATROPIUM-ALBUTEROL 3 ML NEB INHALATION SCH ×4 (07:25→20:46)
[2016-10-16] MEDS: CARBIDOPA-LEVODOPA 25-100 MG 1 EACH TAB PO SCH ×3 (08:07→22:47)
[2016-10-16] MEDS: PANTOPRAZOLE 40 MG TABLET PO SCH ×2 (08:07→18:02)
[2016-10-16] MEDS: FUROSEMIDE 10 MG/ML 2 ML VIAL IV SCH (08:07)
[2016-10-16 09:12] LABS: Anisocytosis Slight; CH 29.5; CHCM 28.6; HCT 29.2 % (34.0-46.0); HDW 3.01; HGB 8.8 gm/dL (11.4-16.0); Hypochromasia Marked; MCH 31.4 pg (25.0-35.0); MCHC 30.1 g/dL (31.0-37.0); Macrocytosis Moderate; Mean Platelet Volume 8.5; RDW 16.6 % (11.5-15.5); WBC 5.9 k/uL (3.8-10.6)
[2016-10-16 09:27] LABS: Calcium 8.2 mg/dL (8.4-10.2); Total Bilirubin 1.5 mg/dL (0.2-1.3); Total Protein 5.9 g/dL (6.3-8.2)
[2016-10-16 09:41] LABS: Potassium 4.3 mmol/L (3.5-5.1)
[2016-10-16 09:42] LABS: MCV 104.3 fL (80.0-100.0)
[2016-10-16 11:11] VITALS: BMI 24.2
[2016-10-16] MEDS: MULTIVITAMINS, THERA 1 EACH TAB PO SCH (12:51)
[2016-10-16] MEDS: FERROUS SULFATE 325 MG TAB PO SCH (12:51)
--- NOTE | 2016-10-16 14:39 | P.PN ---
Subjective 76-year-old female one of my patient with multiple medical problem known to have history of hypertension history of osteoarthritis history of cholangiocarcinoma post stent placement of the common duct has been seen oncology on regular basis also known to have history of Parkinson disease. Patient was hospitalized at [facility] between 428 till 09/30/2016 for significant change mental status and encephalopathy found to have UTI with urosepsis was treated with IV antibiotic initially and culture was completed patient was sent to alf on total of 10 days of doxycycline. As the aide was checked changing patient found to have some bright red blood in her brief, blood pressure was little bit low more rectal bleeding was found. Patient ended up being sent to the emergency department by EMS. Upon arrival to demurs department at [facility] found to have significantly low blood pressure. Found to have more rectal bleed with rectal exam and addition hemoglobin dropped significantly over 3 g and short period of time. Patient was started on blood transfusion will be admitted to the ICU will consult Dr. Lockhart for possible gastrointestinal scope in the next 24 hours or when patient is more stable. 10/08: Patient is followed by Dr. Fernandez for intensive care management. She is now status post 3 units packed RBCs. Repeat hemoglobin is 7.9. She has been seen by Dr. Dr. Reshma Lockhart with recommendations for colonoscopy which patient declined. She is undergoing a tagged RBC scan today. Repeat chest x-ray shows stable left lower lobe infiltrate and small effusion. 10/09: Patient underwent a tagged RBC scan and found there are no evidence of acute gastrointestinal bleeding during the initial one hour observation. Exam was negative. Her hemoglobin remaines stable at 7.7. She was advanced to a full liquid diet and is tolerating well. She is still declining a colonoscopy. Will continue to watch CBC closely and transfer to a medical floor today. 10/10: Patient is now decided that she will go forward with colonoscopy. GI has been notified and patient is scheduled for tomorrow morning with Dr. Isra Lockhart. Hemoglobin is 7.3. Urine culture is back with ESBL Klebsiella and antibiotics of doxycycline discontinued and started on Zosyn. Consult with Dr. Parry added. Patient is requesting anxiety medication and low dose Xanax added. 10/11: Patient appears to be quite shaky and weak today, and she is going to go for a colonoscopy for evaluation of lower GI bleed. 10/12: Patient appears more short of breath today, she denies any chest pain, she appears to be quite short of breath, she does appear to have significant swelling in both lower x-ray images specially the right lower extremity more than the left lower extremity, underwent colonoscopy yesterday showed left- sided diverticulosis. 10/13: Hemoglobin is 7.0 and one unit of packed RBCs to be transfused today followed by Lasix 20 mg. Patient has increased edema to the bilateral lower extremities despite Lasix and tyson wrap will be applied bilaterally. She is having wheezing today with improvement after nebulizer treatment. Pulmicort also added. Potassium replaced. 10/14: Speech therapy consult added for possible aspiration. Chest x-ray shows large hiatal hernia, small left pleural effusion with adjacent atelectasis and/ or consolidation. Changes are minimally improved. Potassium will be replaced. Incentive spirometry added. Patient is on ertapenem with plan for [address] Parry which will be completed on . 10/15: Hemoglobin is stable today at 8.9. She states her breathing status and overall she feels better today from yesterday. Anticipate possible discharge back to [facility] by tomorrow. 10/16: Patient is feeling a bit better today she continues to be extremely weak, she is eating more than 50% of her food, we will plan to transfer her back to [facility] on the [place] tomorrow morning Objective - Vital Signs Vital signs: Vital Signs Temp 98.9 F 10/16/16 07:00 Pulse 96 10/16/16 11:01 Resp 16 10/16/16 07:00 BP 113/64 10/16/16 07:00 Pulse Ox 96 10/16/16 07:00 Intake & Output 10/15/16 10/16/16 10/16/16 18:59 06:59 18:59 Intake Total 0 Output Total 2 Balance -2 Weight 66 kg 66 kg Intake: Intake, IV Titration 0 Amount Ertapenem 1 gm In Sodium 0 Chloride 0.9% 50 ml @ 100 mls/hr IVPB Q24H [facility] Rx# :[id number] Output: Stool 2 Other: Voiding Method Incontinent Incontinent Incontinent # Voids 2 2 - Exam - Exam General appearance: no average body habitus, no cooperative, disheveled, no mild distress, no morbidly obese, no acute distress, no obese, no severe distress, no thin - EENT Eyes: no abnormal pupil, no anicteric sclerae, no disc margins sharp, no edentulous, no EOMI, no PERRLA, no fundus normal, no photophobia, no dentition normal, no poor dentition, no ptosis, no scleral icterus, normal appearance ENT: hard of hearing, no hearing grossly normal, no NA/AT, normal oropharynx, no other, no pharyngeal erythema, no thrush, no tonsillar exudates, no tonsillar swelling Ears: bilateral: normal - Neck Neck: no lymphadenopathy, normal ROM, no other, no rigidity, no stridor, no thyromegaly Carotids: bilateral: upstroke normal Thyroid: bilateral: normal size - Respiratory Respiratory: bilateral: diminished, dullness, rales - Cardiovascular Rhythm: regular Heart sounds: normal: S1, S2 Abnormal Heart Sounds: systolic murmur, S3 Gallop - Gastrointestinal General gastrointestinal: no absent bowel sounds, decreased bowel sounds, distended, no hepatomegaly, no hyperactive bowel sounds, normal bowel sounds, no organomegaly, no rigid, no scaphoid, soft, no splenomegaly, no tenderness, no umbilical hernia, no ventral hernia - Genitourinary Female genitourinary: prolapse - Integumentary Integumentary: no calor, no cellulitis, no cyanotic, no decreased turgor, no flushed, jaundiced, no normal, no normal turgor, pale, rash, no ulcer - Neurologic Neurologic: CNII-XII intact - Musculoskeletal Musculoskeletal: no gait normal, generalized weakness, no strength equal bilaterally, no right sided weakness, no left sided weakness - Psychiatric Psychiatric: A&O x's 3, no intact judgment & insight - Labs CBC & Chem 7: 10/16/16 08:16 10/16/16 08:16 Labs: Abnormal Lab Results - Last 24 Hours (Table) 10/13/16 10/16/16 10/16/16 Range/Units 11:38 08:16 08:16 RBC 2.80 L (3.80-5.40) m/uL Hgb 8.8 L (11.4-16.0) gm/dL Hct 29.2 L (34.0-46.0) % MCV 104.3 H D (80.0-100.0) fL MCHC 30.1 L (31.0-37.0) g/dL RDW 16.6 H (11.5-15.5) % Chloride 115 H (98-107) mmol/L Carbon Dioxide 15 L (22-30) mmol/L Creatinine 1.10 H (0.52-1.04) mg/dL Glucose 100 H (74-99) mg/dL Calcium 8.2 L (8.4-10.2) mg/dL Total Bilirubin 1.5 H (0.2-1.3) mg/dL AST 54 H (14-36) U/L Alkaline Phosphatase 1066 H (38-126) U/L Total Protein 5.9 L (6.3-8.2) g/dL Albumin 2.2 L (3.5-5.0) g/dL Crossmatch See Detail Assessment and Plan Plan: Assessment and Plan Plan: 1 acute gastrointestinal bleed: With significant bright red blood per rectum this is most likely lower GI bleed from diverticulosis, colonoscopy was done yesterday and that showed left-sided diverticulosis as the source of the bleeding. 2 acute blood loss anemia: Secondary to gastrointestinal bleed, status post transfusion of 3 units of packed RBCs. Continue to monitor hemoglobin closely. 3 recent UTI mostly found to be E. coli as an ESBL: Repeat urine culture is ESBL Klebsiella pneumoniae. Antibiotics changed to ertapenem and course will be completed on . Consult with Dr. Sohan willis. 4 cholangiocarcinoma: Patient has been seen oncology on regular basis she had stent in the common duct. 5 dementia: Has been on mirtazapine and donepezil continue both medication. 6 Parkinson disease: Continue patient on carbidopa levodopa as before. 7 severe osteoarthritis: Patient has been using ibuprofen from the time she left the hospital last time which might not be a good choice at this point can be switched to meloxicam or Celebrex if needed but to stop anti-inflammatory agent completely. 8 rectal prolapse and recurrent chronic vaginal uterine prolapse: Patient is known to have it has been seen [facility] ([facility]) as an outpatient she is known to have pessary arrange as an outpatient. 9 medical debility: patient is able to participate in physical therapy when she is more stable we will resume physical therapy and prepare for sending her back to alf rehab. 10 acute kidney injury: Most likely prerenal azotemia and hypotension from bleeding . Has resolved. 11. Hyperchloremic non-anion gap metabolic acidosis with fluid overload. Discontinue IV fluid, start the patient on Lasix 40 mg IV push 1 now then 20 mg IV push daily, monitor the patient BMP magnesium the next 24 hours. Check chest x-ray. 12 GI prophylaxis: Patient will be on pantoprazole IV and continue oral Pepcid. 13 DVT prophylaxis: With her current bleed cannot anticoagulate at this point the patient will be on Venodyne boots and knee-high DOMENICO hose. 14.CODE STATUS: Full code. 15. [facility] tomorrow morning, we'll discontinue Lasix IV.
[2016-10-16] MEDS: ERTAPENEM 1 GM in SODIUM CHLORIDE 0.9% 50 ML IVPB SCH (18:02)
[2016-10-16] MEDS: DONEPEZIL 5 MG TAB PO SCH (22:47)
[2016-10-16] MEDS: MIRTAZAPINE 15 MG TAB PO SCH (22:47)
--- NOTE | 2016-10-16 23:15 | P.PN ---
Subjective Principal diagnosis: GI bleed 76-year-old female with multiple medical troubles that includes osteoarthritis, hypertension, cholangiocarcinoma status post placement of the stent in the common dialed out. She is a known history also of Parkinson's disease. She was hospitalized earlier this month where she was found evidence of a urinary tract infection. After treatment of this she had improvement of her status. She was treated with doxycycline at the [facility]. Was noticed that she started to have difficulties with feeling poorly. Bright red blood was found per rectum and her briefs. She had evidence of a drop of her hemoglobin and constantly was transferred to hospital in intensive care unit. The patient will have a colonoscopy tomorrow for further evaluation. Patient however is not been found evidence of the urinary tract infection with Klebsiella pneumoniae which is an ESBL Patient improved. On the medical floor. Colonoscopy confirmed the bleeding from the left-sided diverticulosis. No further transfusions. Tolerating the Invanz well for the ESBL E. coli. Objective - Vital Signs Vital signs: Vital Signs Temp 99.5 F 10/16/16 15:00 Pulse 92 10/16/16 15:42 Resp 16 10/16/16 15:00 BP 98/69 10/16/16 15:00 Pulse Ox 94 L 10/16/16 15:00 Intake & Output 10/16/16 10/16/16 10/17/16 06:59 18:59 06:59 Intake Total 100 Balance 100 Weight 66 kg 66 kg Intake: Intake, IV Titration 100 Amount Ertapenem 1 gm In Sodium 50 Chloride 0.9% 50 ml @ 100 mls/hr IVPB Q24H [facility] Rx# :[id number] IV Fluid Continuation 1, 50 000 ml As IV .[facility] Rx#:[id number] Other: Voiding Method Incontinent Incontinent # Voids 2 4 - Exam 76-year-old woman who is in no loly distress. She is currently afebrile and is not hypotensive. HEENT: Anicteric conjunctiva are pink and moist nasal mucosa grossly intact without significant lesions, there is no thrush. Denture. Neck: The neck is supple without significant lymphadenopathy or thyromegaly. Lungs: Symmetrical air entry is noted. Few basilar crackles. No loly bronchial sounds are heard Heart: Irregular audible S1-S2, no S3 no S4. There is no significant murmur click or rub, PMI was nondisplaced. Abdomen: The abdomen is slightly tympanic. There is no evidence of any tenderness at this time. bowel sounds are heard. No palpable hepatosplenomegaly or mass. There is only minimal discomfort in the left lower quadrant no guarding or rebound. Extremities: The upper extremities have excellent pulses they are symmetric, no significant petechiae or telangiectasia. No splinter hemorrhages were noted. Lower extremities evidence of some chronic stasis edema and chronic skin change to the left leg initially spent for many years and does not know what from. Neuro: Awake alert oriented to person place and time. There are no acute new gross focal sensory motor deficits. - Labs CBC & Chem 7: 10/16/16 08:16 10/16/16 08:16 Labs: Abnormal Lab Results - Last 24 Hours (Table) 10/13/16 10/16/16 10/16/16 Range/Units 11:38 08:16 08:16 RBC 2.80 L (3.80-5.40) m/uL Hgb 8.8 L (11.4-16.0) gm/dL Hct 29.2 L (34.0-46.0) % MCV 104.3 H D (80.0-100.0) fL MCHC 30.1 L (31.0-37.0) g/dL RDW 16.6 H (11.5-15.5) % Chloride 115 H (98-107) mmol/L Carbon Dioxide 15 L (22-30) mmol/L Creatinine 1.10 H (0.52-1.04) mg/dL Glucose 100 H (74-99) mg/dL Calcium 8.2 L (8.4-10.2) mg/dL Total Bilirubin 1.5 H (0.2-1.3) mg/dL AST 54 H (14-36) U/L Alkaline Phosphatase 1066 H (38-126) U/L Total Protein 5.9 L (6.3-8.2) g/dL Albumin 2.2 L (3.5-5.0) g/dL Crossmatch See Detail Laboratory Results WBC 5.9 k/uL (3.8-10.6) 10/16/16 08:16 RBC 2.80 m/uL (3.80-5.40) L 10/16/16 08:16 Hgb 8.8 gm/dL (11.4-16.0) L 10/16/16 08:16 Hct 29.2 % (34.0-46.0) L 10/16/16 08:16 MCV 104.3 fL (80.0-100.0) H D 10/16/16 08:16 MCH 31.4 pg (25.0-35.0) 10/16/16 08:16 MCHC 30.1 g/dL (31.0-37.0) L 10/16/16 08:16 RDW 16.6 % (11.5-15.5) H 10/16/16 08:16 Plt Count 158 k/uL (150-450) 10/16/16 08:16 Neutrophils % 67 % 10/13/16 09:05 Lymphocytes % 20 % 10/13/16 09:05 Monocytes % 8 % 10/13/16 09:05 Eosinophils % 4 % 10/13/16 09:05 Basophils % 0 % 10/13/16 09:05 Neutrophils # 2.8 k/uL (1.3-7.7) 10/13/16 09:05 Lymphocytes # 0.9 k/uL (1.0-4.8) L 10/13/16 09:05 Monocytes # 0.3 k/uL (0-1.0) 10/13/16 09:05 Eosinophils # 0.2 k/uL (0-0.7) 10/13/16 09:05 Basophils # 0.0 k/uL (0-0.2) 10/13/16 09:05 Hypochromasia Marked 10/16/16 08:16 Poikilocytosis Slight 10/14/16 09:20 Poikilocytosis (manual Present 10/12/16 10:35 Anisocytosis Slight 10/16/16 08:16 Macrocytosis Moderate 10/16/16 08:16 PT 14.2 sec (9.0-12.0) H 10/09/16 04:44 INR 1.5 (<1.1) 10/09/16 04:44 APTT 24.5 sec (22.0-30.0) 10/09/16 04:44 Sodium 140 mmol/L (137-145) 10/16/16 08:16 Potassium 4.3 mmol/L (3.5-5.1) 10/16/16 08:16 Chloride 115 mmol/L (98-107) H 10/16/16 08:16 Carbon Dioxide 15 mmol/L (22-30) L 10/16/16 08:16 Anion Gap 10 mmol/L 10/16/16 08:16 BUN 17 mg/dL (7-17) 10/16/16 08:16 Creatinine 1.10 mg/dL (0.52-1.04) H 10/16/16 08:16 Est GFR (MDRD) Af Amer 58 (>60 ml/min/1.73 sqM) 10/16/16 08:16 Est GFR (MDRD) Non-Af 48 (>60 ml/min/1.73 sqM) 10/16/16 08:16 Glucose 100 mg/dL (74-99) H 10/16/16 08:16 POC Glucose (mg/dL) 156 mg/dL (75-99) H 10/07/16 00:39 POC Glu [employer] DONNA ConnellMitaYumiko 10/07/16 00:39 Calcium 8.2 mg/dL (8.4-10.2) L 10/16/16 08:16 Phosphorus 3.7 mg/dL (2.5-4.5) 10/12/16 10:35 Magnesium 1.8 mg/dL (1.6-2.3) 10/13/16 09:05 Total Bilirubin 1.5 mg/dL (0.2-1.3) H 10/16/16 08:16 AST 54 U/L (14-36) H 10/16/16 08:16 ALT 35 U/L (9-52) 10/16/16 08:16 Alkaline Phosphatase 1066 U/L (38-126) H 10/16/16 08:16 Total Creatine Kinase <20 U/L (30-135) L 10/06/16 20:07 CK-MB (CK-2) 0.5 ng/mL (0.0-2.4) 10/06/16 20:07 CK-MB (CK-2) Rel Index 0.0 10/06/16 20:07 Troponin I <0.012 ng/mL (0.000-0.034) 10/06/16 20:07 Total Protein 5.9 g/dL (6.3-8.2) L 10/16/16 08:16 Albumin 2.2 g/dL (3.5-5.0) L 10/16/16 08:16 Urine Color Yellow 10/07/16 05:40 Urine Appearance Turbid (Clear) H 10/07/16 05:40 Urine pH 6.0 (5.0-8.0) 10/07/16 05:40 Ur Specific Benedict 1.014 (1.001-1.035) 10/07/16 05:40 Urine Protein 1+ (Negative) H 10/07/16 05:40 Urine Glucose (UA) Negative (Negative) 10/07/16 05:40 Urine Ketones Negative (Negative) 10/07/16 05:40 Urine Blood Moderate (Negative) H 10/07/16 05:40 Urine Nitrite Negative (Negative) 10/07/16 05:40 Urine Bilirubin Negative (Negative) 10/07/16 05:40 Urine Urobilinogen <2.0 mg/dL (<2.0) 10/07/16 05:40 Ur Leukocyte Esterase Large (Negative) H 10/07/16 05:40 Urine RBC 40 /hpf (0-5) H 10/07/16 05:40 Urine WBC >182 /hpf (0-5) H 10/07/16 05:40 Ur Squamous Epith Cells 2 /hpf (0-4) 10/07/16 05:40 Urine Bacteria Few /hpf (None) H 10/07/16 05:40 Urine Mucus Rare /hpf (None) H 10/07/16 05:40 Stool Occult Blood Positive (Negative) H 10/06/16 20:16 C. difficile (EIA) Intrp Negative (Negative) 10/07/16 11:15 Blood Type A Positive 10/13/16 11:38 Blood Type Confirm A Positive 10/06/16 22:17 Blood Type Recheck No 10/13/16 11:38 Antibody Screen NEGATIVE 10/13/16 11:38 Crossmatch See Detail 10/13/16 11:38 Spec Expiration Date 10/16/2016 - 9081 10/13/16 11:38 Microbiology 10/07/16 05:40 Urine,Catheterized Urine Culture - Final Klebsiella pneumoniae Assessment and Plan (1) Infection due to ESBL-producing Klebsiella pneumoniae Narrative/Plan: 76-year-old female presents to Hospital severe weakness no evidence of an acute gastrointestinal bleed with bright red blood per rectum. We'll undergo colonoscopy tomorrow through gastroenterology. She had a distinct anemia at admission and has done well now status post 3 units of packed red cells. She is a known history of the prior cholangiocarcinoma in his bends quite stable. Of note she has evidence of urinary tract infection she has some mild symptoms in the urine culture is markedly abnormal with the Klebsiella ESBL. We'll alter antibiotic therapy to carbapenem which is the drug of choice for the Klebsiella infection in that occasionally the Zosyn susceptibility can be a bit unpredictable. We'll plan a 7 day course of therapy. Continue ongoing supportive care. The GI workup is in process and reveals the bleeding from the left-sided diverticulitis. Is being monitored closely. Status: Acute (2) Acute blood loss anemia Status: Acute (3) Weakness Status: Acute
[2016-10-17 00:16] VITALS: RESP 20
[2016-10-17] MEDS: ALPRAZolam 0.25 MG TAB PO PRN (00:53)
[2016-10-17] MEDS: CARBIDOPA-LEVODOPA 25-100 MG 1 EACH TAB PO SCH ×2 (03:35→08:26)
[2016-10-17 07:24] VITALS: BP 99/58; TEMP 97.2
[2016-10-17] MEDS: BUDESONIDE 0.5 MG/2 ML NEBU INHALATION SCH (07:33)
[2016-10-17] MEDS: IPRATROPIUM-ALBUTEROL 3 ML NEB INHALATION SCH ×2 (07:33→11:10)
[2016-10-17 07:46] VITALS: PULSE 96
[2016-10-17] MEDS: PANTOPRAZOLE 40 MG TABLET PO SCH (08:26)
[2016-10-17 09:20] LABS: Anisocytosis Slight; CH 30.7; CHCM 30.7; HCT 24.7 % (34.0-46.0); HDW 3.11; HGB 7.8 gm/dL (11.4-16.0); Hypochromasia Moderate; MCH 31.9 pg (25.0-35.0); MCHC 31.6 g/dL (31.0-37.0); MCV 100.8 fL (80.0-100.0); Macrocytosis Slight; Mean Platelet Volume 7.9; RBC 2.45 m/uL (3.80-5.40); RDW 16.2 % (11.5-15.5); WBC 5.1 k/uL (3.8-10.6)
[2016-10-17 09:27] LABS: Calcium 8.2 mg/dL (8.4-10.2); Potassium 3.5 mmol/L (3.5-5.1); Total Bilirubin 1.2 mg/dL (0.2-1.3); Total Protein 5.6 g/dL (6.3-8.2)
[2016-10-17] MEDS: MULTIVITAMINS, THERA 1 EACH TAB PO SCH (12:25)
[2016-10-17] MEDS: FERROUS SULFATE 325 MG TAB PO SCH (12:25)
--- NOTE | 2016-10-17 12:56 | P.DS ---
Providers Date of admission: 10/06/16 23:19 Expected date of discharge: 10/17/16 Attending physician: Humberto Hernandez Consults: 10/06/16 23:13 Consult Physician Urgent Consulting Provider: David Fernandez Consult Reason/Comments: ICU care Do you want consulting provider notified?: Already Contacted 10/10/16 14:20 Consult Physician Routine Consulting Provider: Humberto Parry Consult Reason/Comments: ESBL Klebsiella UTI Do you want consulting provider notified?: Yes Primary care physician: Lia Ferreira Hospital Course: 76-year-old female one of my patient with multiple medical problem known to have history of hypertension history of osteoarthritis history of cholangiocarcinoma post stent placement of the common duct has been seen oncology on regular basis also known to have history of Parkinson disease. Patient was hospitalized at [facility] between 428 till 09/30/2016 for significant change mental status and encephalopathy found to have UTI with urosepsis was treated with IV antibiotic initially and culture was completed patient was sent to [facility] on total of 10 days of doxycycline. As the aide was checked changing patient found to have some bright red blood in her brief, blood pressure was little bit low more rectal bleeding was found. Patient ended up being sent to the emergency department by EMS. Upon arrival to demurs department at [facility] found to have significantly low blood pressure. Found to have more rectal bleed with rectal exam and addition hemoglobin dropped significantly over 3 g and short period of time. Patient was started on blood transfusion will be admitted to the ICU will consult Dr. Lockhart for possible gastrointestinal scope in the next 24 hours or when patient is more stable. 10/08: Patient is followed by Dr. Fernandez for intensive care management. She is now status post 3 units packed RBCs. Repeat hemoglobin is 7.9. She has been seen by Dr. Dr. Reshma Lockhart with recommendations for colonoscopy which patient declined. She is undergoing a tagged RBC scan today. Repeat chest x-ray shows stable left lower lobe infiltrate and small effusion. 10/09: Patient underwent a tagged RBC scan and found there are no evidence of acute gastrointestinal bleeding during the initial one hour observation. Exam was negative. Her hemoglobin remaines stable at 7.7. She was advanced to a full liquid diet and is tolerating well. She is still declining a colonoscopy. Will continue to watch CBC closely and transfer to a medical floor today. 10/10: Patient is now decided that she will go forward with colonoscopy. GI has been notified and patient is scheduled for tomorrow morning with Dr. Isra Lockhart. Hemoglobin is 7.3. Urine culture is back with ESBL Klebsiella and antibiotics of doxycycline discontinued and started on Zosyn. Consult with Dr. Parry added. Patient is requesting anxiety medication and low dose Xanax added. 10/11: Patient appears to be quite shaky and weak today, and she is going to go for a colonoscopy for evaluation of lower GI bleed. 10/12: Patient appears more short of breath today, she denies any chest pain, she appears to be quite short of breath, she does appear to have significant swelling in both lower x-ray images specially the right lower extremity more than the left lower extremity, underwent colonoscopy yesterday showed left- sided diverticulosis. 10/13: Hemoglobin is 7.0 and one unit of packed RBCs to be transfused today followed by Lasix 20 mg. Patient has increased edema to the bilateral lower extremities despite Lasix and tyson wrap will be applied bilaterally. She is having wheezing today with improvement after nebulizer treatment. Pulmicort also added. Potassium replaced. 10/14: Speech therapy consult added for possible aspiration. Chest x-ray shows large hiatal hernia, small left pleural effusion with adjacent atelectasis and/ or consolidation. Changes are minimally improved. Potassium will be replaced. Incentive spirometry added. Patient is on ertapenem with plan for [address] Parry which will be completed on . 10/15: Hemoglobin is stable today at 8.9. She states her breathing status and overall she feels better today from yesterday. Anticipate possible discharge back to [facility] by tomorrow. 10/16: Patient is feeling a bit better today she continues to be extremely weak, she is eating more than 50% of her food, we will plan to transfer her back to [facility] on the stout tomorrow morning 10/17: Repeat hemoglobin is 7.8. Patient states she did not have a bowel movement. She states in general she is feeling better and would like to go back to the [facility]. Lasix and potassium added to her home medication list. Patient will be discharged back to [facility] today in stable condition. Discharge Diagnoses: 1 acute gastrointestinal bleed, colonoscopy showed left-sided diverticulosis as the source of the bleeding. 2 acute blood loss anemia: Secondary to gastrointestinal bleed, status post transfusion of 4 units of packed RBCs. 3 UTI with ESBL Klebsiella pneumoniae, completed antibiotics 4 cholangiocarcinoma 5 dementia 6 Parkinson disease 7 severe osteoarthritis 8 rectal prolapse and recurrent chronic vaginal uterine prolapse 9 medical debility 10 acute kidney injury 11. Hyperchloremic non-anion gap metabolic acidosis with fluid overload. Discharge plan: [facility] Impression and plan of care have been directed as dictated by the signing physician. Noelle Judge nurse practitioner acting as scribe for signing physician. Patient Condition at Discharge: Good Plan - Discharge Summary New Discharge Prescriptions: ALPRAZolam [Xanax] 0.25 mg PO BID PRN #60 tab PRN Reason: Anxiety Furosemide [Lasix] 20 mg PO DAILY #30 tab Potassium Chloride ER [K-Dur 10] 10 meq PO DAILY #30 tab Discharge Medication List Carbidopa/Levodopa [Carbidopa-Levodopa 25-100 Tab] 1 tab PO Q6H 12/07/15 [ History] Donepezil HCl 5 mg PO HS 12/07/15 [History] Famotidine [Pepcid] 20 mg PO DAILY 12/07/15 [History] Ferrous Sulfate [Feosol] 325 mg PO DAILY@1200 12/07/15 [History] Multivitamins, Thera [Multivitamin (formulary)] 1 tab PO DAILY@1200 09/26/16 [ History] Mirtazapine [Remeron] 30 mg PO HS 10/06/16 [History] ALPRAZolam [Xanax] 0.25 mg PO BID PRN #60 tab 10/17/16 [Rx] Budesonide [Pulmicort] 0.5 mg INHALATION RT-BID neb 10/17/16 [Rx] Furosemide [Lasix] 20 mg PO DAILY #30 tab 10/17/16 [Rx] Ipratropium-Albuterol Nebulize [Duoneb 0.5 mg-3 mg/3 ml Soln] 3 ml INHALATION RT -QID neb 10/17/16 [Rx] Potassium Chloride ER [K-Dur 10] 10 meq PO DAILY #30 tab 10/17/16 [Rx] Follow up Appointment(s)/Referral(s): Lia Ferreira MD [Primary Care Provider] - 1 Week (at [facility]) [facility], [NON-STAFF] - 1 Week Patient Instructions/Handouts: Diverticulosis (DC), Diverticulitis Diet (DC) Activity/Diet/Wound Care/Special Instructions: Regular soft diet and Ensure Clear three times a day with meals. ESBL precautions completed antibiotics. Activity as tolerated. Fall precautions, change positions every 2 hours.
== END 2016-10-17 14:10 | DRG 378 ==
LOC: EC 20:06 → 6ICU 23:19 → 4MS4W 10-09 16:12
PROVIDERS: ADMIT Internal Medicine Geriatric Medicine; ATTEND Internal Medicine Geriatric Medicine
PROC: 30233N1 Transfusion of Nonautologous Red Blood Cells into Peripheral Vein, Percutaneous Approach (ICD-10-PCS; 2016-10-06)
PROC: 0DJD8ZZ Inspection of Lower Intestinal Tract, Via Natural or Artificial Opening Endoscopic (ICD-10-PCS; principal; 2016-10-11 10:00)
DX: K57.31 Diverticulosis of large intestine without perforation or abscess with bleeding (principal); C22.1 Intrahepatic bile duct carcinoma; N17.9 Acute kidney failure, unspecified; E87.2 Acidosis; D62 Acute posthemorrhagic anemia; J98.11 Atelectasis; N39.0 Urinary tract infection, site not specified; E87.70 Fluid overload, unspecified; G20 Parkinson's disease; B96.1 Klebsiella pneumoniae [K. pneumoniae] as the cause of diseases classified elsewhere; E87.8 Other disorders of electrolyte and fluid balance, not elsewhere classified; E78.5 Hyperlipidemia, unspecified; F01.50 Vascular dementia, unspecified severity, without behavioral disturbance, psychotic disturbance, mood disturbance, and anxiety; F41.9 Anxiety disorder, unspecified; I10 Essential (primary) hypertension; K21.9 Gastro-esophageal reflux disease without esophagitis; K44.9 Diaphragmatic hernia without obstruction or gangrene; K62.3 Rectal prolapse; M19.90 Unspecified osteoarthritis, unspecified site; N81.4 Uterovaginal prolapse, unspecified; E55.9 Vitamin D deficiency, unspecified; R26.9 Unspecified abnormalities of gait and mobility; G89.29 Other chronic pain; R32 Unspecified urinary incontinence; F32.9 Major depressive disorder, single episode, unspecified; R01.1 Cardiac murmur, unspecified; Z16.12 Extended spectrum beta lactamase (ESBL) resistance; Z79.899 Other long term (current) drug therapy; Z88.8 Allergy status to other drugs, medicaments and biological substances
CPT/HCPCS: 36415; 45378; 71010; 74000; 78278; 80048; 80053; 81001; 82272; 82550; 82553; 83735; 84100; 84484; 85025; 85027; 85610; 85730; 86850; 86900; 86901; 86920; 87077; 87086; 87186; 87324; 93005; 94640; 94760

== ENCOUNTER 2016-11-01 13:48 | Inpatient (IN) | payer MEDICARE ==
[2016-11-01] MEDS ORDERED: SODIUM CHLORIDE 0.9% 1,000 ML IV STA ×3 (14:04→16:21)
--- NOTE | 2016-11-01 14:08 | ED ---
General Adult HPI - General Stated complaint: altered Time Seen by Provider: 11/01/16 14:02 Source: RN notes reviewed, old records reviewed - History of Present Illness Initial comments: This is a 76-year-old female ER free volitional weakness syncope. Patient comes in for unresponsive episode. This happened earlier today. Patient's brought in by family. Patient is unable to give history secondary to clinical or mental state - Related Data Home Medications Medication Instructions Recorded Confirmed Carbidopa/Levodopa 1 tab PO Q6H 12/07/15 11/06/16 [Carbidopa-Levodopa 25-100 Tab] Donepezil HCl 5 mg PO HS 12/07/15 11/06/16 Famotidine [Pepcid] 20 mg PO DAILY 12/07/15 11/06/16 Ferrous Sulfate [Feosol] 325 mg PO BID 12/07/15 11/06/16 Multivitamins, Thera [Multivitamin 1 tab PO DAILY 09/26/16 11/06/16 (formulary)] Mirtazapine [Remeron] 30 mg PO HS 10/06/16 11/06/16 Dimethicone/Zinc Oxide [Inzo Zinc 1 applic TOPICAL BID 11/01/16 11/06/16 Oxide Barrier Cream] Furosemide [Lasix] 40 mg PO BID@0600,1400 11/01/16 11/06/16 Ipratropium-Albuterol Nebulize 3 ml INHALATION RT-TID 11/01/16 11/06/16 [Duoneb 0.5 mg-3 mg/3 ml Soln] Nitrofurantoin Monohyd/M-Cryst 100 mg PO BID 11/01/16 11/06/16 [Macrobid 100 mg Capsule] Potassium Chloride ER [K-Dur 20] 20 meq PO BID 11/01/16 11/06/16 Venelex Ointment 1 applic TOPICAL Q48H 11/01/16 11/06/16 Previous Rx's Medication Instructions Recorded ALPRAZolam [Xanax] 0.25 mg PO BID PRN #60 tab 10/17/16 Budesonide [Pulmicort] 0.5 mg INHALATION RT-BID neb 10/17/16 Allergies Allergy/AdvReac Type Severity Reaction Status Date / Time latex Allergy Unknown Verified 11/01/16 14:16 ELASTIC Allergy Itching Uncoded 10/06/16 20:33 RUBBER Allergy Unknown Uncoded 11/01/16 14:16 Review of Systems ROS Statement: Those systems with pertinent positive or pertinent negative responses have been documented in the HPI. ROS Other: All systems not noted in ROS Statement are negative. 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 History of Any Multi-Drug Resistant Organisms: ESBL Date of last positivie culture/infection: 10/07/16 ESBL MDRO Source:: Urine Past Surgical History: Bladder Surgery Additional Past Surgical History / Comment(s): 11/2015 ERCP/MRCP unsuccessful- sent to [facility] where she was diagnosed with bile duct cancer and had stent placed. Past Anesthesia/Blood Transfusion Reactions: No Reported Reaction Past Psychological History: No Psychological Hx Reported Additional Psychological History / Comment(s): Pt resides with her spouse. She uses a [employer] walker. 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 They are only alone at night. Smoking Status: Never smoker Past Alcohol Use History: None Reported Additional Past Alcohol Use History / Comment(s): Patient is a lifelong nonsmoker, no marijuana or drug use. No alcohol use. Patient lives at home with her . She is a walker for ambulation. She does not require oxygen or nebulizer. Past Drug Use History: None Reported - Past Family History Father Family Medical History: No Reported History Additional Family Medical History / Comment(s): Father at age 90 from old age and diabetes Mother Family Medical History: No Reported History Additional Family Medical History / Comment(s): Mother at age 90 from old age. Brother(s) History Unknown: Yes Additional Family Medical History / Comment(s): Patient has one brother and one sister unknown medical history. Patient does not have any daughters. Patient has one son that is healthy. General Exam General appearance: alert, lethargic, obtunded Head exam: Present: atraumatic, normocephalic, normal inspection Eye exam: Present: normal appearance, PERRL, EOMI. Absent: scleral icterus, conjunctival injection, periorbital swelling ENT exam: Present: normal exam, mucous membranes moist Neck exam: Present: normal inspection. Absent: tenderness, meningismus, lymphadenopathy Respiratory exam: Present: normal lung sounds bilaterally. Absent: respiratory distress, wheezes, rales, rhonchi, stridor Cardiovascular Exam: Present: regular rate, normal rhythm, normal heart sounds. Absent: systolic murmur, diastolic murmur, rubs, gallop, clicks GI/Abdominal exam: Present: soft, normal bowel sounds. Absent: distended, tenderness, guarding, rebound, rigid Extremities exam: Present: normal inspection, full ROM, normal capillary refill. Absent: tenderness, pedal edema, joint swelling, calf tenderness Back exam: Present: normal inspection Neurological exam: Present: alert, oriented X3, CN II-XII intact Psychiatric exam: Present: normal affect, normal mood Skin exam: Present: warm, dry, intact, normal color. Absent: rash Course Vital Signs 11/01/16 11/01/16 11/01/16 14:03 15:37 16:19 Temperature 96.7 F L Pulse Rate 71 67 61 Respiratory 18 18 18 Rate Blood Pressure 171/74 101/67 86/54 O2 Sat by Pulse 98 100 100 Oximetry 11/01/16 11/01/16 11/01/16 17:07 17:27 18:36 Temperature Pulse Rate 60 73 70 Respiratory 16 16 18 Rate Blood Pressure 87/50 126/74 97/60 O2 Sat by Pulse 99 100 100 Oximetry - Reevaluation(s) Reevaluation #1: 11/01/16 15:29 Spoke with family acting great length regarding patient's condition and prognosis, they understand that her prognosis is guarded and poor EKG Findings - EKG Comments: EKG Findings:: EKG shows normal sinus rhythm rate of 69, FL 170, QRS 78, QTC 441 Medical Decision Making - Medical Decision Making 76 female to the ER earlier for evaluation of altered mental status weakness. Patient and urinary tract infection. Patient be admitted for continued evaluation and treatment - Lab Data Result diagrams: 11/06/16 06:41 11/06/16 06:41 Lab Results 11/01/16 11/01/16 11/01/16 Range/Units 14:40 14:40 14:40 WBC 22.9 H (3.8-10.6) k/uL RBC 2.71 L (3.80-5.40) m/uL Hgb 8.4 L (11.4-16.0) gm/dL Hct 26.8 L (34.0-46.0) % MCV 98.7 (80.0-100.0) fL MCH 31.1 (25.0-35.0) pg MCHC 31.5 (31.0-37.0) g/dL RDW 15.3 (11.5-15.5) % Plt Count (150-450) k/uL Neutrophils % (Manual) 87.0 % Band Neutrophils % 6.0 % Lymphocytes % (Manual) 2.0 % Monocytes % (Manual) 5.0 % Neutrophils # (Manual) 21.3 H (1.3-7.7) k/uL Lymphocytes # (Manual) 0.5 L (1.0-4.8) k/uL Monocytes # (Manual) 1.1 H (0-1.0) k/uL Nucleated RBCs 0 (0-0) /100 WBC Manual Slide Review Performed Toxic Vacuolation Present Hypochromasia Moderate Macrocytosis Slight PT (9.0-12.0) sec INR (<1.1) APTT (22.0-30.0) sec Sodium 141 (137-145) mmol/L Potassium 4.3 (3.5-5.1) mmol/L Chloride 114 H (98-107) mmol/L Carbon Dioxide 21 L (22-30) mmol/L Anion Gap 6 mmol/L BUN 30 H (7-17) mg/dL Creatinine 2.39 H (0.52-1.04) mg/dL Est GFR (MDRD) Af Amer 24 (>60 ml/min/1.73 sqM) Est GFR (MDRD) Non-Af 20 (>60 ml/min/1.73 sqM) Glucose 77 (74-99) mg/dL Plasma Lactic Acid Deric (0.7-2.0) mmol/L Calcium 8.1 L (8.4-10.2) mg/dL Phosphorus 3.4 (2.5-4.5) mg/dL Magnesium 2.0 (1.6-2.3) mg/dL Total Bilirubin 1.1 (0.2-1.3) mg/dL AST 30 (14-36) U/L ALT 22 (9-52) U/L Alkaline Phosphatase 791 H (38-126) U/L Total Creatine Kinase 168 H (30-135) U/L CK-MB (CK-2) 5.4 H* (0.0-2.4) ng/mL CK-MB (CK-2) Rel Index 3.2 Troponin I <0.012 (0.000-0.034) ng/mL Total Protein 5.4 L (6.3-8.2) g/dL Albumin 2.0 L (3.5-5.0) g/dL Urine Color Urine Appearance (Clear) Urine pH (5.0-8.0) Ur Specific [place] (1.001-1.035) Urine Protein (Negative) Urine Glucose (UA) (Negative) Urine Ketones (Negative) Urine Blood (Negative) Urine Nitrite (Negative) Urine Bilirubin (Negative) Urine Urobilinogen (<2.0) mg/dL Ur Leukocyte Esterase (Negative) Urine RBC (0-5) /hpf Urine WBC (0-5) /hpf Urine Bacteria (None) /hpf 11/01/16 11/01/16 11/01/16 Range/Units 14:40 15:35 16:20 WBC (3.8-10.6) k/uL RBC (3.80-5.40) m/uL Hgb (11.4-16.0) gm/dL Hct (34.0-46.0) % MCV (80.0-100.0) fL MCH (25.0-35.0) pg MCHC (31.0-37.0) g/dL RDW (11.5-15.5) % Plt Count (150-450) k/uL Neutrophils % (Manual) % Band Neutrophils % % Lymphocytes % (Manual) % Monocytes % (Manual) % Neutrophils # (Manual) (1.3-7.7) k/uL Lymphocytes # (Manual) (1.0-4.8) k/uL Monocytes # (Manual) (0-1.0) k/uL Nucleated RBCs (0-0) /100 WBC Manual Slide Review Toxic Vacuolation Hypochromasia Macrocytosis PT 18.4 H (9.0-12.0) sec INR 1.9 (<1.1) APTT 38.5 H (22.0-30.0) sec Sodium (137-145) mmol/L Potassium (3.5-5.1) mmol/L Chloride (98-107) mmol/L Carbon Dioxide (22-30) mmol/L Anion Gap mmol/L BUN (7-17) mg/dL Creatinine (0.52-1.04) mg/dL Est GFR (MDRD) Af Amer (>60 ml/min/1.73 sqM) Est GFR (MDRD) Non-Af (>60 ml/min/1.73 sqM) Glucose (74-99) mg/dL Plasma Lactic Acid Deric 1.7 (0.7-2.0) mmol/L Calcium (8.4-10.2) mg/dL Phosphorus (2.5-4.5) mg/dL Magnesium (1.6-2.3) mg/dL Total Bilirubin (0.2-1.3) mg/dL AST (14-36) U/L ALT (9-52) U/L Alkaline Phosphatase (38-126) U/L Total Creatine Kinase (30-135) U/L CK-MB (CK-2) (0.0-2.4) ng/mL CK-MB (CK-2) Rel Index Troponin I (0.000-0.034) ng/mL Total Protein (6.3-8.2) g/dL Albumin (3.5-5.0) g/dL Urine Color Yellow Urine Appearance Turbid H (Clear) Urine pH 6.5 (5.0-8.0) Ur Specific [place] 1.014 (1.001-1.035) Urine Protein 1+ H (Negative) Urine Glucose (UA) Negative (Negative) Urine Ketones Negative (Negative) Urine Blood Moderate H (Negative) Urine Nitrite Negative (Negative) Urine Bilirubin Negative (Negative) Urine Urobilinogen <2.0 (<2.0) mg/dL Ur Leukocyte Esterase Large H (Negative) Urine RBC 97 H (0-5) /hpf Urine WBC >182 H (0-5) /hpf Urine Bacteria Many H (None) /hpf Disposition Clinical Impression: Vasovagal syncope, Hypotension, UTI (urinary tract infection), Uterine prolapse , ARF (acute renal failure), Dehydration Disposition: ADMITTED IP TO THIS [facility] Condition: Undetermined
[2016-11-01 15:09] LABS: Calcium 8.1 mg/dL (8.4-10.2); Phosphorous 3.4 mg/dL (2.5-4.5); Potassium 4.3 mmol/L (3.5-5.1); Total Bilirubin 1.1 mg/dL (0.2-1.3); Total Protein 5.4 g/dL (6.3-8.2)
[2016-11-01 15:14] LABS: CH 30.4; CHCM 31.1; HCT 26.8 % (34.0-46.0); HDW 3.02; HGB 8.4 gm/dL (11.4-16.0); Hypochromasia Moderate; Immature Gran Flag Moderate; MCH 31.1 pg (25.0-35.0); MCHC 31.5 g/dL (31.0-37.0); MCV 98.7 fL (80.0-100.0); Macrocytosis Slight; Mean Platelet Volume 10.4; RBC 2.71 m/uL (3.80-5.40); RDW 15.3 % (11.5-15.5); WBC 22.9 k/uL (3.8-10.6); WBC (Perox) 23.71
[2016-11-01 15:26] LABS: Creatine Kinase 168 U/L (30-135)
[2016-11-01 15:39] LABS: Add Differential Manual Differential; Troponin I <0.012 ng/mL (0.000-0.034)
[2016-11-01 15:41] LABS: Manual Review Performed; Nucleated Red Blood Cells 0 /100 WBC (0-0); Total Cells Counted 100
[2016-11-01 15:42] LABS: Creatine Kinase MB 5.4 ng/mL (0.0-2.4); Toxic Vacuolation Present
[2016-11-01 15:50] LABS: Appearance,Urine Turbid (Clear); Bacteria,Urine Many /hpf; Bilirubin,Urine Negative (Negative); Glucose,Urine (UA) Negative (Negative); Ketones,Urine Negative (Negative); Leukocyte Esterase,Urine Large (Negative); Nitrite,Urine Negative (Negative); PH, Urine 6.5 (5.0-8.0); Particle Count 176984; Protein,Urine 1+ (Negative); RBC,Urine 97 /hpf (0-5); Specific Gravity,Urine 1.014 (1.001-1.035); UA Billing (MACRO vs. MICRO) MICRO; Urobilinogen,Urine <2.0 mg/dL (<2.0); WBC,Urine >182 /hpf (0-5)
[2016-11-01] MEDS ORDERED: SODIUM CHLORIDE 0.9% 500 ML IV STA (16:21)
[2016-11-01] MEDS ORDERED: PIPERACILLIN-TAZOBACTAM 3.375 GM in DEXTROSE/WATER 1 50ML.BAG IVPB STA (16:22)
[2016-11-01 16:43] LABS: INR 1.9 (<1.1); Partial Thromboplastin Time 38.5 sec (22.0-30.0); Prothrombin Time 18.4 sec (9.0-12.0)
[2016-11-01] MEDS ORDERED: ALPRAZolam 0.25 MG TAB PO PRN (20:18)
[2016-11-01] MEDS ORDERED: NON-FORMULARY DRUG (Dimethicone/Zinc Oxide [Inzo Zinc Oxide Barrier Cream] 1 APPLIC) TOPICAL SCH (21:00)
[2016-11-01] MEDS: DAPTOmycin 500 MG in SODIUM CHLORIDE 0.9% 50 ML IV SCH (21:08)
[2016-11-01] MEDS: CARBIDOPA-LEVODOPA 25-100 MG 1 EACH TAB PO SCH (21:08)
[2016-11-01] MEDS: MIRTAZAPINE 15 MG TAB PO SCH (21:09)
[2016-11-01] MEDS: FERROUS SULFATE 325 MG TAB PO SCH (21:09)
[2016-11-01] MEDS: DONEPEZIL 5 MG TAB PO SCH (21:09)
[2016-11-02] MEDS ORDERED: PIPERACILLIN-TAZOBACTAM 3.375 GM in DEXTROSE/WATER 1 50ML.BAG IVPB SCH
[2016-11-02] MEDS: CARBIDOPA-LEVODOPA 25-100 MG 1 EACH TAB PO SCH ×5 (00:23→23:55)
[2016-11-02] MEDS: FERROUS SULFATE 325 MG TAB PO SCH ×2 (07:51→21:01)
[2016-11-02] MEDS: FAMOTIDINE 20 MG TAB PO SCH (07:51)
[2016-11-02] MEDS: ENOXAPARIN 30 MG/0.3 ML SYRINGE SQ SCH (07:51)
[2016-11-02] MEDS: SODIUM CHLORIDE 0.9% 1,000 ML IV SCH ×2 (07:52→21:01)
[2016-11-02] MEDS: IPRATROPIUM-ALBUTEROL 3 ML NEB INHALATION SCH ×3 (07:56→20:06)
[2016-11-02] MEDS: BUDESONIDE 0.5 MG/2 ML NEBU INHALATION SCH ×2 (07:56→20:06)
[2016-11-02] MEDS: HYDROCORTISONE SUCCINATE 100 MG/2 ML VIAL IV SCH ×3 (08:05→23:56)
[2016-11-02] MEDS ORDERED: ENOXAPARIN 40 MG/0.4 ML SYRINGE SQ SCH (09:00)
--- NOTE | 2016-11-02 10:13 | P.HPIM ---
History of Present Illness H&P Date: 11/02/16 76-year-old female patient of Dr. Laird with multiple medical problem known to have history of hypertension, osteoarthritis, cholangiocarcinoma post stent placement of the common duct has been seen oncology on regular basis also known to have history of Parkinson disease. Patient has had 2 recent hospitalization the first being on September 26 through September 30 which time she was treated for acute GI bleed with colonoscopy that showed left-sided diverticulosis as the probable source of bleeding. She was transfused 4 units packed RBCs. She was also treated for UTI with ESBL Klebsiella pneumoniae. She was then admitted on October 06 through October 17 for acute kidney injury with hyperchloremic non-ion gap metabolic acidosis and ESBL klebsiella pneumoniae urinary tract infection. She was discharged back to [facility] on doxycycline. At the time of her discharge her BUN was 21 and creatinine 1.17. At [facility], she had a recent urine culture that was positive for VRE. She will was started on Macrobid on October 24. Yesterday, patient was unresponsive for the staff and was having periods of apnea. Her blood pressure was 80/42 and respiration 6. Patient was transferred to [facility] emergency center for evaluation. Her white count was elevated at 22.9 and hemoglobin 8.4. BUN 13 creatinine 2.39. Urinalysis was turbid, blood moderate, nitrate negative, leukoesterase large, WBC greater than 182, urine bacteria many. Patient was given a dose of Zosyn and IV fluids and admitted to the selective care unit. Subsequently, antibiotics changed to daptomycin due to recent culture with VRE. Consult added for Dr. Parry. Urine culture obtained. Blood culture will be ordered. Patient is awake and denies any discomfort. She states she is feeling fine. Her blood pressure remains low. Regarding CODE STATUS, patient is a full code and this has been discussed on multiple visits by Dr. Ferreira with the patient's and son. Review of Systems All systems: negative Constitutional: Reports fatigue, Reports weakness, Denies chills, Denies fever Eyes: denies blurred vision, denies pain Ears, nose, mouth and throat: Denies headache, Denies sore throat Cardiovascular: Denies chest pain, Denies shortness of breath Respiratory: Denies cough Gastrointestinal: Denies abdominal pain, Denies diarrhea, Denies nausea, Denies vomiting Genitourinary: Denies dysuria, Denies hematuria Musculoskeletal: Denies myalgias Integumentary: Denies pruritus, Denies rash Neurological: Denies numbness, Denies weakness Psychiatric: Denies anxiety, Denies depression Endocrine: Denies fatigue, Denies weight change Past Medical History Past Medical History: Cancer, Dementia, GERD/Reflux, Hyperlipidemia, Hypertension, Neurologic Disorder, Osteoarthritis (OA) Additional Past Medical History / Comment(s): parkinson's, vitamin D deficiency , hypokalemia, 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 History of Any Multi-Drug Resistant Organisms: ESBL Date of last positivie culture/infection: 10/07/16 ESBL MDRO Source:: Urine Past Surgical History: Bladder Surgery Additional Past Surgical History / Comment(s): 11/2015 ERCP/MRCP unsuccessful- sent to [facility] where she was diagnosed with bile duct cancer and had stent placed. Past Anesthesia/Blood Transfusion Reactions: No Reported Reaction Past Psychological History: No Psychological Hx Reported Additional Psychological History / Comment(s): resides at [facility] Smoking Status: Never smoker Past Alcohol Use History: None Reported Additional Past Alcohol Use History / Comment(s): Patient is a lifelong nonsmoker, no marijuana or drug use. No alcohol use Past Drug Use History: None Reported - Past Family History Father Family Medical History: No Reported History Additional Family Medical History / Comment(s): Father at age 90 from old age and diabetes Mother Family Medical History: No Reported History Additional Family Medical History / Comment(s): Mother at age 90 from old age. Brother(s) History Unknown: Yes Additional Family Medical History / Comment(s): Patient has one brother and one sister unknown medical history. Patient does not have any daughters. Patient has one son that is healthy. Medications and Allergies Home Medications Medication Instructions Recorded Confirmed Type Carbidopa/Levodopa 1 tab PO Q6H 12/07/15 11/01/16 History [Carbidopa-Levodopa 25-100 Tab] Donepezil HCl 5 mg PO HS 12/07/15 11/01/16 History Famotidine [Pepcid] 20 mg PO DAILY 12/07/15 11/01/16 History Ferrous Sulfate [Feosol] 325 mg PO BID 12/07/15 11/01/16 History Multivitamins, Thera [Multivitamin 1 tab PO DAILY 09/26/16 11/01/16 History (formulary)] Mirtazapine [Remeron] 30 mg PO HS 10/06/16 11/01/16 History Dimethicone/Zinc Oxide [Inzo Zinc 1 applic TOPICAL BID 11/01/16 11/01/16 History Oxide Barrier Cream] Furosemide [Lasix] 40 mg PO BID@0600,1400 11/01/16 11/01/16 History Ipratropium-Albuterol Nebulize 3 ml INHALATION RT-TID 11/01/16 11/01/16 History [Duoneb 0.5 mg-3 mg/3 ml Soln] Nitrofurantoin Monohyd/M-Cryst 100 mg PO BID 11/01/16 11/01/16 History [Macrobid 100 mg Capsule] Potassium Chloride ER [K-Dur 20] 20 meq PO BID 11/01/16 11/01/16 History Venelex Ointment 1 applic TOPICAL Q48H 11/01/16 11/01/16 History Allergies Allergy/AdvReac Type Severity Reaction Status Date / Time latex Allergy Unknown Verified 11/01/16 14:16 ELASTIC Allergy Itching Uncoded 10/06/16 20:33 RUBBER Allergy Unknown Uncoded 11/01/16 14:16 Physical Exam Vitals: Vital Signs Temp Pulse Pulse Resp BP BP Pulse Ox 11/02/16 04:00 97.5 F L 68 18 95/53 100 11/02/16 00:00 66 18 89/67 97 11/01/16 20:00 97.5 F L 72 18 92/50 99 11/01/16 19:54 72 18 92/50 99 11/01/16 18:36 70 18 97/60 100 11/01/16 17:27 73 16 126/74 100 11/01/16 17:07 60 16 87/50 99 11/01/16 16:19 61 18 86/54 100 11/01/16 15:37 67 18 101/67 100 11/01/16 14:03 96.7 F L 71 18 171/74 98 Intake and Output 11/01/16 11/02/16 11/02/16 22:59 06:59 14:59 Intake Total 150 700 Balance 150 700 Intake: Intake, IV Titration 150 700 Amount DAPTOmycin 500 mg In 100 700 Sodium Chloride 0.9% 50 ml @ 100 mls/hr IV Q24H [facility] Rx#:[id number] Piperacillin-Tazobactam 3 50 .375 gm In Dextrose/Water 1 50ml.bag @ 12.5 mls/hr IVPB Q8HR [facility] Rx#: [id number] Other: Weight 74.5 kg 75 kg General appearance: no distress - EENT Eyes: anicteric sclerae, EOMI, PERRLA, no ptosis, no scleral icterus, normal appearance ENT: NA/AT, tongue is black, mucous membranes extremely dry, normal oropharynx, no thrush Ears: bilateral: normal - Neck Neck: no lymphadenopathy, normal ROM, no rigidity, no stridor, no thyromegaly Carotids: bilateral: upstroke delayed Thyroid: bilateral: normal size - Respiratory Respiratory: bilateral: diminished, negative: dullness, rales, rhonchi, wheezing , prolonged expiration - Cardiovascular Rhythm: regular Heart sounds: normal: S1, S2 Abnormal Heart Sounds: systolic murmur, no rub, no S3 Gallop, no S4 Gallop, no click - Gastrointestinal General gastrointestinal: normal bowel sounds, soft, no splenomegaly, no tenderness, no umbilical hernia, no ventral hernia - Integumentary Integumentary: normal, normal turgor - Neurologic Neurologic: CNII-XII intact - Musculoskeletal Musculoskeletal: generalized weakness - Psychiatric Psychiatric: A&O x's 2, but mildly confused Results CBC & Chem 7: 11/01/16 14:40 11/01/16 14:40 Labs: Abnormal Lab Results - Last 24 Hours (Table) 11/01/16 11/01/16 11/01/16 Range/Units 14:40 14:40 14:40 WBC 22.9 H (3.8-10.6) k/uL RBC 2.71 L (3.80-5.40) m/uL Hgb 8.4 L (11.4-16.0) gm/dL Hct 26.8 L (34.0-46.0) % Neutrophils # (Manual) 21.3 H (1.3-7.7) k/uL Lymphocytes # (Manual) 0.5 L (1.0-4.8) k/uL Monocytes # (Manual) 1.1 H (0-1.0) k/uL PT (9.0-12.0) sec APTT (22.0-30.0) sec Chloride 114 H (98-107) mmol/L Carbon Dioxide 21 L (22-30) mmol/L BUN 30 H (7-17) mg/dL Creatinine 2.39 H (0.52-1.04) mg/dL Calcium 8.1 L (8.4-10.2) mg/dL Alkaline Phosphatase 791 H (38-126) U/L Total Creatine Kinase 168 H (30-135) U/L CK-MB (CK-2) 5.4 H* (0.0-2.4) ng/mL Total Protein 5.4 L (6.3-8.2) g/dL Albumin 2.0 L (3.5-5.0) g/dL Urine Appearance (Clear) Urine Protein (Negative) Urine Blood (Negative) Ur Leukocyte Esterase (Negative) Urine RBC (0-5) /hpf Urine WBC (0-5) /hpf Urine Bacteria (None) /hpf 11/01/16 11/01/16 Range/Units 15:35 16:20 WBC (3.8-10.6) k/uL RBC (3.80-5.40) m/uL Hgb (11.4-16.0) gm/dL Hct (34.0-46.0) % Neutrophils # (Manual) (1.3-7.7) k/uL Lymphocytes # (Manual) (1.0-4.8) k/uL Monocytes # (Manual) (0-1.0) k/uL PT 18.4 H (9.0-12.0) sec APTT 38.5 H (22.0-30.0) sec Chloride (98-107) mmol/L Carbon Dioxide (22-30) mmol/L BUN (7-17) mg/dL Creatinine (0.52-1.04) mg/dL Calcium (8.4-10.2) mg/dL Alkaline Phosphatase (38-126) U/L Total Creatine Kinase (30-135) U/L CK-MB (CK-2) (0.0-2.4) ng/mL Total Protein (6.3-8.2) g/dL Albumin (3.5-5.0) g/dL Urine Appearance Turbid H (Clear) Urine Protein 1+ H (Negative) Urine Blood Moderate H (Negative) Ur Leukocyte Esterase Large H (Negative) Urine RBC 97 H (0-5) /hpf Urine WBC >182 H (0-5) /hpf Urine Bacteria Many H (None) /hpf Microbiology - Last 24 Hours (Table) 11/01/16 15:35 Urine Culture - Preliminary Urine,Voided Thrombosis Risk Factor Assmnt - DVT/VTE Prophylaxis DVT/VTE Prophylaxis: Pharmacologic Prophylaxis ordered - Choose All That Apply Each Factor Represents 1 point: Swollen legs (current) Each Risk Factor Represents 3 Points: Age 75 years or older Thrombosis Risk Factor Assessment Total Risk Factor Score: 4 Thrombosis Risk Factor Assessment Level: Moderate Risk Assessment and Plan Plan: 1. Sepsis with septic shock and metabolic encephalopathy secondary to VRE urinary tract infection failed outpatient treatment with Macrobid. Daptomycin 500 mg IV daily. Urine culture is in process and blood culture will be obtained. Consult with Dr. Parry. 2. Acute kidney injury with chronic kidney disease stage III. Continue IV fluids at 75 mL per hour. 3. Adrenal insufficiency. Patient started on hydrocortisone 50 mg IV every 8 hours. 4. Recent treatment for ESBL Klebsiella urinary tract infection. 5. Recent acute GI bleed with acute blood loss anemia requiring 4 units of packed RBCs. Hemoglobin is currently stable at 8.4. 6. Osteoarthritis. Continue current pain management. 7. 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 She is to follow-up with hematology oncology as an outpatient. 8. Vascular dementia. 9. Parkinson disease. Continue patient on Sinemet 25/100 one tablet orally every 6 hours. 10. Medical debility. Physical therapy evaluation will be requested once stable. Speech therapy evaluation for swallowing. 9. DVT prophylaxis. Continue Lovenox subcutaneously every 24 hours . 10. GI prophylaxis. Continue patient on Pepcid 20 mg orally once every day. 11. Admitted to inpatient. Estimate a length of stay 2 midnights. CODE STATUS: Full code Discharge plan: Return to [facility] Impression and plan of care have been directed as dictated by the signing physician. Noelle Judge nurse practitioner acting as scribe for signing physician.
[2016-11-02] MEDS: MULTIVITAMINS, THERA 1 EACH TAB PO SCH (10:26)
[2016-11-02] MEDS: ERTAPENEM 0.5 GM in SODIUM CHLORIDE 0.9% 50 ML IVPB SCH (15:45)
[2016-11-02] MEDS ORDERED: ERTAPENEM 1 GM in SODIUM CHLORIDE 0.9% 50 ML IVPB SCH (16:00)
[2016-11-02] MEDS: DAPTOmycin 500 MG in SODIUM CHLORIDE 0.9% 50 ML IV SCH (16:46)
--- NOTE | 2016-11-02 16:48 | P.CONS ---
History of Present Illness - Reason for Consult Consult date: 11/02/16 - Chief Complaint sepsis - History of Present Illness 76-year-old female presents to Hospital from the extended care facility with increasing weakness, hypotension and lethargy. The patient's son is present and helps with some of the history. She lost any history of hypertension and osteoarthritis and Parkinson's disease. 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 She was followed with oncology. She developed C. difficile colitis and chemotherapy was suspended. She's now had difficulties with anemia and a recent GI bleed due to left-sided diverticulosis. Also had a recent urinary tract infection with Klebsiella pneumoniae that was ESBL. 5. Culture was markedly abnormal with VRE and abnormal urinalysis. This was treated with Macrobid she became worse and was transferred to Hospital with the significant hypotension and weakness. She's now been fluid resuscitated and has initiated antibiotic therapy with daptomycin per discussion with the nurse practitioner. Is more awale now than earlier. Review of Systems ROS unobtainable: due to mental status Past Medical History Past Medical History: Cancer, Dementia, GERD/Reflux, Hyperlipidemia, Hypertension, Neurologic Disorder, Osteoarthritis (OA) Additional Past Medical History / Comment(s): parkinson's, vitamin D deficiency , hypokalemia, 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 History of Any Multi-Drug Resistant Organisms: ESBL Year Discovered:: 10/07/16 ESBL MDRO Source:: Urine Past Surgical History: Bladder Surgery Additional Past Surgical History / Comment(s): 11/2015 ERCP/MRCP unsuccessful- sent to [facility] where she was diagnosed with bile duct cancer and had stent placed. Past Anesthesia/Blood Transfusion Reactions: No Reported Reaction Past Psychological History: No Psychological Hx Reported Additional Psychological History / Comment(s): resides at [facility]. Adult son is very involved. has mobility issues and is also elderly. Smoking Status: Never smoker Past Alcohol Use History: None Reported Additional Past Alcohol Use History / Comment(s): Patient is a lifelong nonsmoker, no marijuana or drug use. No alcohol use Past Drug Use History: None Reported - Past Family History Father Family Medical History: No Reported History Additional Family Medical History / Comment(s): Father at age 90 from old age and diabetes Mother Family Medical History: No Reported History Additional Family Medical History / Comment(s): Mother at age 90 from old age. Brother(s) History Unknown: Yes Additional Family Medical History / Comment(s): Patient has one brother and one sister unknown medical history. Patient does not have any daughters. Patient has one son that is healthy. Medications and Allergies Home Medications and Allergies Comment(s): Current Medications Albuterol/Ipratropium (Duoneb 0.5 Mg-3 Mg/3 Ml Soln) 3 ml INHALATION RT-TID COUNT INCLUDES THE [facility] Last Admin: 11/02/16 12:51 Dose: 3 ml Alprazolam (Xanax) 0.25 mg PO BID PRN PRN Reason: Anxiety Budesonide (Pulmicort) 0.5 mg INHALATION RT-BID COUNT INCLUDES THE [facility] Last Admin: 11/02/16 07:56 Dose: 0.5 mg Carbidopa/Levodopa (Sinemet 25-100) 1 each PO Q6HR LEELEE Last Admin: 11/02/16 10:25 Dose: 1 each Donepezil HCl (Aricept) 5 mg PO HS COUNT INCLUDES THE [facility] Last Admin: 11/01/16 21:09 Dose: 5 mg Enoxaparin Sodium (Lovenox) 30 mg SQ DAILY LEELEE Last Admin: 11/02/16 07:51 Dose: 30 mg Famotidine (Pepcid) 20 mg PO DAILY COUNT INCLUDES THE [facility] Last Admin: 11/02/16 07:51 Dose: 20 mg Ferrous Sulfate (Feosol) 325 mg PO BID LEELEE Last Admin: 11/02/16 07:51 Dose: 325 mg Hydrocortisone Sodium Succinate (Solu-Cortef) 50 mg IV Q8HR COUNT INCLUDES THE [facility] Last Admin: 11/02/16 15:45 Dose: 50 mg Daptomycin 500 mg/ Sodium (Chloride) 50 mls @ 100 mls/hr IV Q24H LEELEE Last Admin: 11/01/16 21:08 Dose: 100 mls/hr Sodium Chloride (Saline 0.9%) 1,000 mls @ 75 mls/hr IV .[id number] LEELEE Last Admin: 11/02/16 07:52 Dose: 75 mls/hr Ertapenem 0.5 gm/ Sodium (Chloride) 50 mls @ 100 mls/hr IVPB Q24H COUNT INCLUDES THE [facility] Last Admin: 11/02/16 15:45 Dose: 100 mls/hr Mirtazapine (Remeron) 30 mg PO HS COUNT INCLUDES THE [facility] Last Admin: 11/01/16 21:09 Dose: 30 mg Multivitamins (Theragran) 1 each PO 1200 COUNT INCLUDES THE [facility] Last Admin: 11/02/16 10:26 Dose: 1 each Home Medications Medication Instructions Recorded Confirmed Type Carbidopa/Levodopa 1 tab PO Q6H 12/07/15 11/01/16 History [Carbidopa-Levodopa 25-100 Tab] Donepezil HCl 5 mg PO HS 12/07/15 11/01/16 History Famotidine [Pepcid] 20 mg PO DAILY 12/07/15 11/01/16 History Ferrous Sulfate [Feosol] 325 mg PO BID 12/07/15 11/01/16 History Multivitamins, Thera [Multivitamin 1 tab PO DAILY 09/26/16 11/01/16 History (formulary)] Mirtazapine [Remeron] 30 mg PO HS 10/06/16 11/01/16 History Dimethicone/Zinc Oxide [Inzo Zinc 1 applic TOPICAL BID 11/01/16 11/01/16 History Oxide Barrier Cream] Furosemide [Lasix] 40 mg PO BID@0600,1400 11/01/16 11/01/16 History Ipratropium-Albuterol Nebulize 3 ml INHALATION RT-TID 11/01/16 11/01/16 History [Duoneb 0.5 mg-3 mg/3 ml Soln] Nitrofurantoin Monohyd/M-Cryst 100 mg PO BID 11/01/16 11/01/16 History [Macrobid 100 mg Capsule] Potassium Chloride ER [K-Dur 20] 20 meq PO BID 11/01/16 11/01/16 History Venelex Ointment 1 applic TOPICAL Q48H 11/01/16 11/01/16 History Allergies Allergy/AdvReac Type Severity Reaction Status Date / Time latex Allergy Unknown Verified 11/01/16 14:16 ELASTIC Allergy Itching Uncoded 10/06/16 20:33 RUBBER Allergy Unknown Uncoded 11/01/16 14:16 Physical Exam Vitals: Vital Signs Temp Pulse Pulse Resp BP BP Pulse Ox 11/02/16 16:00 98.8 F 72 18 89/55 96 11/02/16 13:01 68 11/02/16 12:53 68 11/02/16 12:00 98.5 F 69 18 89/56 97 11/02/16 08:10 68 11/02/16 08:00 98.1 F 60 18 86/53 98 11/02/16 07:59 68 100 11/02/16 04:00 97.5 F L 68 18 95/53 100 11/02/16 00:00 66 18 89/67 97 11/01/16 20:00 97.5 F L 72 18 92/50 99 11/01/16 19:54 72 18 92/50 99 11/01/16 18:36 70 18 97/60 100 11/01/16 17:27 73 16 126/74 100 11/01/16 17:07 60 16 87/50 99 Intake and Output 11/02/16 11/02/16 11/02/16 06:59 14:59 22:59 Intake Total 700 125 Balance 700 125 Intake: Intake, IV Titration 700 Amount DAPTOmycin 500 mg In 700 Sodium Chloride 0.9% 50 ml @ 100 mls/hr IV Q24H COUNT INCLUDES THE [facility] Rx#:[id number] Oral 125 Other: # Voids 1 1 # Bowel Movements 1 Weight 75 kg 76-year-old woman who looks older than her stated age. Has had chills now feeling better. She is stimulated and opens eyes and does communicate a bit. Throughout the exam her mentation improves. HEENT: Anicteric conjunctiva are pink and moist nasal mucosa grossly intact without significant lesions, there is no thrush. Neck: The neck is supple without significant lymphadenopathy or thyromegaly. Lungs: Good bilateral air entry without significant crackles or wheezing. There is no significant bronchial sounds. There is no egophony or dullness. Heart: Regular rate and rhythm with an audible S1-S2, no S3 no S4. There is no significant murmur click or rub, PMI was nondisplaced. Abdomen: Positive bowel sounds soft and nontender without palpable masses or organomegaly. There was no guarding or rebound. Nondistended Extremities: The upper extremities have excellent pulses they are symmetric, no significant petechiae or telangiectasia. No splinter hemorrhages were noted. The lower extremities have 2+ edema. The peripheral pulses were 2+ and symmetric. Neuro: Awake alert oriented to person is able to name her son. Her mentation brightens throughout the exam. Shortly after completion she is set up and eats part of a sandwich, she is living out of her lunch prior. Results CBC & Chem 7: 11/01/16 14:40 11/01/16 14:40 Labs: Abnormal Lab Results - Last 24 Hours (Table) 11/01/16 Range/Units 16:20 PT 18.4 H (9.0-12.0) sec APTT 38.5 H (22.0-30.0) sec Microbiology - Last 24 Hours (Table) 11/01/16 15:35 Urine Culture - Preliminary Urine,Voided Laboratory Results WBC 22.9 k/uL (3.8-10.6) H 11/01/16 14:40 RBC 2.71 m/uL (3.80-5.40) L 11/01/16 14:40 Hgb 8.4 gm/dL (11.4-16.0) L 11/01/16 14:40 Hct 26.8 % (34.0-46.0) L 11/01/16 14:40 MCV 98.7 fL (80.0-100.0) 11/01/16 14:40 MCH 31.1 pg (25.0-35.0) 11/01/16 14:40 MCHC 31.5 g/dL (31.0-37.0) 11/01/16 14:40 RDW 15.3 % (11.5-15.5) 11/01/16 14:40 Plt Count k/uL (150-450) 11/01/16 14:40 Neutrophils % (Manual) 87.0 % 11/01/16 14:40 Band Neutrophils % 6.0 % 11/01/16 14:40 Lymphocytes % (Manual) 2.0 % 11/01/16 14:40 Monocytes % (Manual) 5.0 % 11/01/16 14:40 Neutrophils # (Manual) 21.3 k/uL (1.3-7.7) H 11/01/16 14:40 Lymphocytes # (Manual) 0.5 k/uL (1.0-4.8) L 11/01/16 14:40 Monocytes # (Manual) 1.1 k/uL (0-1.0) H 11/01/16 14:40 Nucleated RBCs 0 /100 WBC (0-0) 11/01/16 14:40 Manual Slide Review Performed 11/01/16 14:40 Toxic Vacuolation Present 11/01/16 14:40 Hypochromasia Moderate 11/01/16 14:40 Macrocytosis Slight 11/01/16 14:40 PT 18.4 sec (9.0-12.0) H 11/01/16 16:20 INR 1.9 (<1.1) 11/01/16 16:20 APTT 38.5 sec (22.0-30.0) H 11/01/16 16:20 Sodium 141 mmol/L (137-145) 11/01/16 14:40 Potassium 4.3 mmol/L (3.5-5.1) 11/01/16 14:40 Chloride 114 mmol/L (98-107) H 11/01/16 14:40 Carbon Dioxide 21 mmol/L (22-30) L 11/01/16 14:40 Anion Gap 6 mmol/L 11/01/16 14:40 BUN 30 mg/dL (7-17) H 11/01/16 14:40 Creatinine 2.39 mg/dL (0.52-1.04) H 11/01/16 14:40 Est GFR (MDRD) Af Amer 24 (>60 ml/min/1.73 sqM) 11/01/16 14:40 Est GFR (MDRD) Non-Af 20 (>60 ml/min/1.73 sqM) 11/01/16 14:40 Glucose 77 mg/dL (74-99) 11/01/16 14:40 Plasma Lactic Acid Deric 1.7 mmol/L (0.7-2.0) 11/01/16 14:40 Calcium 8.1 mg/dL (8.4-10.2) L 11/01/16 14:40 Phosphorus 3.4 mg/dL (2.5-4.5) 11/01/16 14:40 Magnesium 2.0 mg/dL (1.6-2.3) 11/01/16 14:40 Total Bilirubin 1.1 mg/dL (0.2-1.3) 11/01/16 14:40 AST 30 U/L (14-36) 11/01/16 14:40 ALT 22 U/L (9-52) 11/01/16 14:40 Alkaline Phosphatase 791 U/L (38-126) H 11/01/16 14:40 Total Creatine Kinase 168 U/L (30-135) H 11/01/16 14:40 CK-MB (CK-2) 5.4 ng/mL (0.0-2.4) H* 11/01/16 14:40 CK-MB (CK-2) Rel Index 3.2 11/01/16 14:40 Troponin I <0.012 ng/mL (0.000-0.034) 11/01/16 14:40 Total Protein 5.4 g/dL (6.3-8.2) L 11/01/16 14:40 Albumin 2.0 g/dL (3.5-5.0) L 11/01/16 14:40 Urine Color Yellow 11/01/16 15:35 Urine Appearance Turbid (Clear) H 11/01/16 15:35 Urine pH 6.5 (5.0-8.0) 11/01/16 15:35 Ur Specific [place] 1.014 (1.001-1.035) 11/01/16 15:35 Urine Protein 1+ (Negative) H 11/01/16 15:35 Urine Glucose (UA) Negative (Negative) 11/01/16 15:35 Urine Ketones Negative (Negative) 11/01/16 15:35 Urine Blood Moderate (Negative) H 11/01/16 15:35 Urine Nitrite Negative (Negative) 11/01/16 15:35 Urine Bilirubin Negative (Negative) 11/01/16 15:35 Urine Urobilinogen <2.0 mg/dL (<2.0) 11/01/16 15:35 Ur Leukocyte Esterase Large (Negative) H 11/01/16 15:35 Urine RBC 97 /hpf (0-5) H 11/01/16 15:35 Urine WBC >182 /hpf (0-5) H 11/01/16 15:35 Urine Bacteria Many /hpf (None) H 11/01/16 15:35 Laboratory Results WBC 22.9 k/uL (3.8-10.6) H 11/01/16 14:40 RBC 2.71 m/uL (3.80-5.40) L 11/01/16 14:40 Hgb 8.4 gm/dL (11.4-16.0) L 11/01/16 14:40 Hct 26.8 % (34.0-46.0) L 11/01/16 14:40 MCV 98.7 fL (80.0-100.0) 11/01/16 14:40 MCH 31.1 pg (25.0-35.0) 11/01/16 14:40 MCHC 31.5 g/dL (31.0-37.0) 11/01/16 14:40 RDW 15.3 % (11.5-15.5) 11/01/16 14:40 Plt Count k/uL (150-450) 11/01/16 14:40 Neutrophils % (Manual) 87.0 % 11/01/16 14:40 Band Neutrophils % 6.0 % 11/01/16 14:40 Lymphocytes % (Manual) 2.0 % 11/01/16 14:40 Monocytes % (Manual) 5.0 % 11/01/16 14:40 Neutrophils # (Manual) 21.3 k/uL (1.3-7.7) H 11/01/16 14:40 Lymphocytes # (Manual) 0.5 k/uL (1.0-4.8) L 11/01/16 14:40 Monocytes # (Manual) 1.1 k/uL (0-1.0) H 11/01/16 14:40 Nucleated RBCs 0 /100 WBC (0-0) 11/01/16 14:40 Manual Slide Review Performed 11/01/16 14:40 Toxic Vacuolation Present 11/01/16 14:40 Hypochromasia Moderate 11/01/16 14:40 Macrocytosis Slight 11/01/16 14:40 PT 18.4 sec (9.0-12.0) H 11/01/16 16:20 INR 1.9 (<1.1) 11/01/16 16:20 APTT 38.5 sec (22.0-30.0) H 11/01/16 16:20 Sodium 141 mmol/L (137-145) 11/01/16 14:40 Potassium 4.3 mmol/L (3.5-5.1) 11/01/16 14:40 Chloride 114 mmol/L (98-107) H 11/01/16 14:40 Carbon Dioxide 21 mmol/L (22-30) L 11/01/16 14:40 Anion Gap 6 mmol/L 11/01/16 14:40 BUN 30 mg/dL (7-17) H 11/01/16 14:40 Creatinine 2.39 mg/dL (0.52-1.04) H 11/01/16 14:40 Est GFR (MDRD) Af Amer 24 (>60 ml/min/1.73 sqM) 11/01/16 14:40 Est GFR (MDRD) Non-Af 20 (>60 ml/min/1.73 sqM) 11/01/16 14:40 Glucose 77 mg/dL (74-99) 11/01/16 14:40 Plasma Lactic Acid Deric 1.7 mmol/L (0.7-2.0) 11/01/16 14:40 Calcium 8.1 mg/dL (8.4-10.2) L 11/01/16 14:40 Phosphorus 3.4 mg/dL (2.5-4.5) 11/01/16 14:40 Magnesium 2.0 mg/dL (1.6-2.3) 11/01/16 14:40 Total Bilirubin 1.1 mg/dL (0.2-1.3) 11/01/16 14:40 AST 30 U/L (14-36) 11/01/16 14:40 ALT 22 U/L (9-52) 11/01/16 14:40 Alkaline Phosphatase 791 U/L (38-126) H 11/01/16 14:40 Total Creatine Kinase 168 U/L (30-135) H 11/01/16 14:40 CK-MB (CK-2) 5.4 ng/mL (0.0-2.4) H* 11/01/16 14:40 CK-MB (CK-2) Rel Index 3.2 11/01/16 14:40 Troponin I <0.012 ng/mL (0.000-0.034) 11/01/16 14:40 Total Protein 5.4 g/dL (6.3-8.2) L 11/01/16 14:40 Albumin 2.0 g/dL (3.5-5.0) L 11/01/16 14:40 Urine Color Yellow 11/01/16 15:35 Urine Appearance Turbid (Clear) H 11/01/16 15:35 Urine pH 6.5 (5.0-8.0) 11/01/16 15:35 Ur Specific [place] 1.014 (1.001-1.035) 11/01/16 15:35 Urine Protein 1+ (Negative) H 11/01/16 15:35 Urine Glucose (UA) Negative (Negative) 11/01/16 15:35 Urine Ketones Negative (Negative) 11/01/16 15:35 Urine Blood Moderate (Negative) H 11/01/16 15:35 Urine Nitrite Negative (Negative) 11/01/16 15:35 Urine Bilirubin Negative (Negative) 11/01/16 15:35 Urine Urobilinogen <2.0 mg/dL (<2.0) 11/01/16 15:35 Ur Leukocyte Esterase Large (Negative) H 11/01/16 15:35 Urine RBC 97 /hpf (0-5) H 11/01/16 15:35 Urine WBC >182 /hpf (0-5) H 11/01/16 15:35 Urine Bacteria Many /hpf (None) H 11/01/16 15:35 Microbiology 11/01/16 15:35 Urine,Voided Urine Culture - Preliminary Assessment and Plan (1) Sepsis Narrative/Plan: 76 year old woman with cholangiocarcinoma who has had recent bout of sepsis with ESBL UTI. Now has onset of new urinary tract infection. VRE was isolate it. Started with Macrobid but had no significant improvement. Actually worsened with hypotension and alteration of her mental status. Now with fluid resuscitation and first dose of antibiotic therapy as discussed with a CMP of daptomycin she showing some improvement. Actually ate a sandwich today and some soup. Final cultures are awaited. There is concerned that she has not just VRE infection. And with the recent ESBL Klebsiella ertapenem will also be given at this point in time until we have further data. Blood cultures are in process. She does not appear to have active gastrointestinal bleeding at this point in time. Treatment of her adrenal insufficiency also seems to be helping her status. Patient's overall prognosis is discussed with her son. He relates that longevity is normal for their family. Most family members have lived into their mid to late 90s. Seeing his mother ill at such an early age is very hard for him and the family. However is starting to understand that she is rapidly declining. Status: Acute (2) UTI (urinary tract infection) Status: Acute (3) Infection with ESBL Klebsiella oxytoca Status: Acute (4) Vancomycin resistant staph aureus infection, multi-drug resistance Status: Acute
[2016-11-02] MEDS: MIRTAZAPINE 15 MG TAB PO SCH (21:01)
[2016-11-02] MEDS: DONEPEZIL 5 MG TAB PO SCH (21:01)
[2016-11-03] MEDS: IPRATROPIUM-ALBUTEROL 3 ML NEB INHALATION SCH ×4 (03:37→20:33)
[2016-11-03] MEDS: CARBIDOPA-LEVODOPA 25-100 MG 1 EACH TAB PO SCH ×3 (07:04→17:20)
[2016-11-03 07:11] LABS: CH 29.7; CHCM 29.9; HCT 25.3 % (34.0-46.0); HDW 3.01; HGB 7.7 gm/dL (11.4-16.0); Hypochromasia Marked; MCH 30.6 pg (25.0-35.0); MCHC 30.5 g/dL (31.0-37.0); MCV 100.3 fL (80.0-100.0); Macrocytosis Slight; RBC 2.53 m/uL (3.80-5.40); RDW 15.3 % (11.5-15.5); WBC 8.6 k/uL (3.8-10.6)
[2016-11-03] MEDS: BUDESONIDE 0.5 MG/2 ML NEBU INHALATION SCH ×2 (07:53→20:33)
[2016-11-03] MEDS: HYDROCORTISONE SUCCINATE 100 MG/2 ML VIAL IV SCH ×2 (08:31→15:52)
[2016-11-03] MEDS: FERROUS SULFATE 325 MG TAB PO SCH ×2 (08:31→21:32)
[2016-11-03] MEDS: ENOXAPARIN 30 MG/0.3 ML SYRINGE SQ SCH (08:31)
[2016-11-03] MEDS: FAMOTIDINE 20 MG TAB PO SCH (08:31)
[2016-11-03] MEDS: SODIUM CHLORIDE 0.9% 1,000 ML IV SCH ×2 (08:32→22:31)
[2016-11-03 08:37] LABS: Calcium 7.7 mg/dL (8.4-10.2); Potassium 4.1 mmol/L (3.5-5.1)
[2016-11-03] MEDS: MULTIVITAMINS, THERA 1 EACH TAB PO SCH (11:28)
--- NOTE | 2016-11-03 13:46 | US ---
EXAMINATION TYPE: US venous doppler duplex LE BI DATE OF EXAM: 11/03/2016 1:33 PM COMPARISON: NONE CLINICAL HISTORY: edema. SIDE PERFORMED: Bilateral TECHNIQUE: The lower extremity deep venous system is examined utilizing real time linear array sonog rajan with graded compression, doppler sonography and color-flow sonography. VESSELS IMAGED: External Iliac Vein (EIV) Common Femoral Vein Deep Femoral Vein Greater Saphenous Vein * Femoral Vein Popliteal Vein Small Saphenous Vein * Proximal Calf Veins (* superficial vessels) Right Leg: Negative for DVT Left Leg: Negative for DVT, Clot seen proximal Deep Femoral Vein. Sub optimal visualization d/t large amounts of edema and patient unable to cooperate. Some structures difficult to completely compress. Moderate to severe subcutaneous edema in the inferior left leg is seen on last image saved. IMPRESSION: Suboptimal study without convincing evidence of acute DVT in either lower extremity.
[2016-11-03] MEDS ORDERED: DEXTROSE 5% IN WATER 1,000 ML with SODIUM BICARB (1 MEQ/ML) 100 ML IV ONE (15:00)
--- NOTE | 2016-11-03 15:19 | P.PN ---
Subjective 76-year-old female patient of Dr. Laird with multiple medical problem known to have history of hypertension, osteoarthritis, cholangiocarcinoma post stent placement of the common duct has been seen oncology on regular basis also known to have history of Parkinson disease. Patient has had 2 recent hospitalization the first being on September 26 through September 30 which time she was treated for acute GI bleed with colonoscopy that showed left-sided diverticulosis as the probable source of bleeding. She was transfused 4 units packed RBCs. She was also treated for UTI with ESBL Klebsiella pneumoniae. She was then admitted on October 06 through October 17 for acute kidney injury with hyperchloremic non-ion gap metabolic acidosis and ESBL klebsiella pneumoniae urinary tract infection. She was discharged back to [facility] on doxycycline. At the time of her discharge her BUN was 21 and creatinine 1.17. At [facility], she had a recent urine culture that was positive for VRE. She will was started on Macrobid on October 24. Yesterday, patient was unresponsive for the staff and was having periods of apnea. Her blood pressure was 80/42 and respiration 6. Patient was transferred to [facility] emergency center for evaluation. Her white count was elevated at 22.9 and hemoglobin 8.4. BUN 13 creatinine 2.39. Urinalysis was turbid, blood moderate, nitrate negative, leukoesterase large, WBC greater than 182, urine bacteria many. Patient was given a dose of Zosyn and IV fluids and admitted to the selective care unit. Subsequently, antibiotics changed to daptomycin due to recent culture with VRE. Consult added for Dr. Parry. Urine culture obtained. Blood culture will be ordered. Patient is awake and denies any discomfort. She states she is feeling fine. Her blood pressure remains low. Regarding CODE STATUS, patient is a full code and this has been discussed on multiple visits by Dr. Ferreira with the patient's and son. 11/03: Hemoglobin this morning has dropped to 7.7. There is been no signs of bleeding. She has been seen by Dr. Parry and ertapenem added in for recent ESBL Klebsiella UTI. Urine culture is currently showing gram-negative bacilli and blood cultures no growth after 24 hours. CO2 is dropped to 18 and patient started on D5W with 2 Amps of bicarb. Objective - Vital Signs Vital signs: Vital Signs Temp 96.6 F L 11/03/16 11:24 Pulse 90 11/03/16 11:24 Resp 16 11/03/16 11:24 BP 109/70 11/03/16 11:24 Pulse Ox 97 11/03/16 11:24 Intake & Output 11/02/16 11/03/16 11/03/16 18:59 06:59 18:59 Intake Total 175 780 Balance 175 780 Weight 77.5 kg Intake: Intake, IV Titration 300 Amount Sodium Chloride 0.9% 1, 300 000 ml @ 75 mls/hr IV . [id number] LEELEE Rx#:[id number] Oral 175 480 Other: # Voids 2 2 # Bowel Movements 1 - Exam - EENT Eyes: anicteric sclerae, EOMI, PERRLA, no ptosis, no scleral icterus, normal appearance ENT: NA/AT, tongue is black, mucous membranes extremely dry, normal oropharynx, no thrush Ears: bilateral: normal - Neck Neck: no lymphadenopathy, normal ROM, no rigidity, no stridor, no thyromegaly Carotids: bilateral: upstroke delayed Thyroid: bilateral: normal size - Respiratory Respiratory: bilateral: diminished, negative: dullness, rales, rhonchi, wheezing , prolonged expiration - Cardiovascular Rhythm: regular Heart sounds: normal: S1, S2 Abnormal Heart Sounds: systolic murmur, no rub, no S3 Gallop, no S4 Gallop, no click - Gastrointestinal General gastrointestinal: normal bowel sounds, soft, no splenomegaly, no tenderness, no umbilical hernia, no ventral hernia - Integumentary Integumentary: normal, normal turgor - Neurologic Neurologic: CNII-XII intact - Musculoskeletal Musculoskeletal: generalized weakness - Psychiatric Psychiatric: A&O x's 2, but mildly confused - Labs CBC & Chem 7: 11/03/16 06:44 11/03/16 06:44 Labs: Abnormal Lab Results - Last 24 Hours (Table) 11/03/16 11/03/16 Range/Units 06:44 06:44 RBC 2.53 L (3.80-5.40) m/uL Hgb 7.7 L (11.4-16.0) gm/dL Hct 25.3 L (34.0-46.0) % MCV 100.3 H (80.0-100.0) fL MCHC 30.5 L (31.0-37.0) g/dL Plt Count 61 L D (150-450) k/uL Chloride 118 H (98-107) mmol/L Carbon Dioxide 18 L (22-30) mmol/L BUN 29 H (7-17) mg/dL Creatinine 2.24 H (0.52-1.04) mg/dL Glucose 181 H (74-99) mg/dL Calcium 7.7 L (8.4-10.2) mg/dL Microbiology - Last 24 Hours (Table) 11/01/16 15:35 Urine Culture - Preliminary Urine,Voided Gram Neg Bacilli Assessment and Plan Plan: 1. Sepsis with septic shock and metabolic encephalopathy secondary to VRE urinary tract infection failed outpatient treatment with Macrobid. Daptomycin 500 mg IV daily and ertapenem 0.5 g every 24 hours. Urine culture is in process and blood culture will be obtained. Consult with Dr. Parry. 2. Acute kidney injury with chronic kidney disease stage III. Continue IV fluids. 3. Adrenal insufficiency. Patient started on hydrocortisone 50 mg IV every 8 hours. 4. Recent treatment for ESBL Klebsiella urinary tract infection. 5. Recent acute GI bleed with acute blood loss anemia requiring 4 units of packed RBCs. Hemoglobin is currently stable at 8.4. 6. Osteoarthritis. Continue current pain management. 7. 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 She is to follow-up with hematology oncology as an outpatient. 8. Vascular dementia. 9. Parkinson disease. Continue patient on Sinemet 25/100 one tablet orally every 6 hours. 10. Medical debility. Physical therapy evaluation will be requested once stable. Speech therapy evaluation for swallowing. 9. DVT prophylaxis. Continue Lovenox subcutaneously every 24 hours . 10. GI prophylaxis. Continue patient on Pepcid 20 mg orally once every day. 11. Metabolic acidosis. IV fluids changed to D5W with bicarb. CODE STATUS: Full code Discharge plan: Return to [facility] Impression and plan of care have been directed as dictated by the signing physician. Noelle Judge nurse practitioner acting as scribe for signing physician.
[2016-11-03] MEDS: ERTAPENEM 0.5 GM in SODIUM CHLORIDE 0.9% 50 ML IVPB SCH (17:15)
--- NOTE | 2016-11-03 20:36 | P.PN ---
Subjective Principal diagnosis: Sepsis 6-year-old female presents to Hospital from the [facility] care facility with increasing weakness, hypotension and lethargy. The patient's son is present and helps with some of the history. She lost any history of hypertension and osteoarthritis and Parkinson's disease. 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 She was followed with oncology. She developed C. difficile colitis and chemotherapy was suspended. She's now had difficulties with anemia and a recent GI bleed due to left-sided diverticulosis. Also had a recent urinary tract infection with Klebsiella pneumoniae that was ESBL. 5. Culture was markedly abnormal with VRE and abnormal urinalysis. This was treated with Macrobid she became worse and was transferred to Hospital with the significant hypotension and weakness. She's now been fluid resuscitated and has initiated antibiotic therapy with daptomycin per discussion with the nurse practitioner. Is more awale now than earlier. Was noted that the area was found at the [facility]. Urine culture he however has evidence of the greater than 100,000 gram-negative bacilli. Objective - Vital Signs Vital signs: Vital Signs Temp 96.6 F L 11/03/16 11:24 Pulse 86 11/03/16 16:29 Resp 16 11/03/16 16:29 BP 112/59 11/03/16 16:29 Pulse Ox 97 11/03/16 16:29 Intake & Output 11/03/16 11/03/16 11/04/16 06:59 18:59 06:59 Intake Total 780 170 360 Balance 780 170 360 Weight 77.5 kg Intake: Intake, IV Titration 300 50 Amount Ertapenem 0.5 gm In 50 Sodium Chloride 0.9% 50 ml @ 100 mls/hr IVPB Q24H [facility] Rx#:[id number] Sodium Chloride 0.9% 1, 300 000 ml @ 75 mls/hr IV . [id number] [facility] Rx#:[id number] Oral 480 120 360 Other: # Voids 2 2 1 # Bowel Movements 1 1 - Exam 76-year-old woman who looks older than her stated age. Has had chills now feeling better. She is stimulated and opens eyes and does communicate a bit. Throughout the exam her mentation improves. HEENT: Anicteric conjunctiva are pink and moist nasal mucosa grossly intact without significant lesions, there is no thrush. Neck: The neck is supple without significant lymphadenopathy or thyromegaly. Lungs: Good bilateral air entry without significant crackles or wheezing. There is no significant bronchial sounds. There is no egophony or dullness. Heart: Regular rate and rhythm with an audible S1-S2, no S3 no S4. There is no significant murmur click or rub, PMI was nondisplaced. Abdomen: Positive bowel sounds soft and nontender without palpable masses or organomegaly. There was no guarding or rebound. Nondistended Extremities: The upper extremities have excellent pulses they are symmetric, no significant petechiae or telangiectasia. No splinter hemorrhages were noted. The lower extremities have 2+ edema. The peripheral pulses were 2+ and symmetric. Neuro: Awake alert oriented to person is able to name her son. Her mentation brightens throughout the exam. - Labs CBC & Chem 7: 11/03/16 06:44 11/03/16 06:44 Labs: Abnormal Lab Results - Last 24 Hours (Table) 11/03/16 11/03/16 Range/Units 06:44 06:44 RBC 2.53 L (3.80-5.40) m/uL Hgb 7.7 L (11.4-16.0) gm/dL Hct 25.3 L (34.0-46.0) % MCV 100.3 H (80.0-100.0) fL MCHC 30.5 L (31.0-37.0) g/dL Plt Count 61 L D (150-450) k/uL Chloride 118 H (98-107) mmol/L Carbon Dioxide 18 L (22-30) mmol/L BUN 29 H (7-17) mg/dL Creatinine 2.24 H (0.52-1.04) mg/dL Glucose 181 H (74-99) mg/dL Calcium 7.7 L (8.4-10.2) mg/dL Microbiology - Last 24 Hours (Table) 11/02/16 10:13 Blood Culture - Preliminary Blood No Growth after 24 hours 11/01/16 15:35 Urine Culture - Preliminary Urine,Voided Gram Neg Bacilli Laboratory Results WBC 8.6 k/uL (3.8-10.6) 11/03/16 06:44 RBC 2.53 m/uL (3.80-5.40) L 11/03/16 06:44 Hgb 7.7 gm/dL (11.4-16.0) L 11/03/16 06:44 Hct 25.3 % (34.0-46.0) L 11/03/16 06:44 MCV 100.3 fL (80.0-100.0) H 11/03/16 06:44 MCH 30.6 pg (25.0-35.0) 11/03/16 06:44 MCHC 30.5 g/dL (31.0-37.0) L 11/03/16 06:44 RDW 15.3 % (11.5-15.5) 11/03/16 06:44 Plt Count 61 k/uL (150-450) L D 11/03/16 06:44 Neutrophils % (Manual) 87.0 % 11/01/16 14:40 Band Neutrophils % 6.0 % 11/01/16 14:40 Lymphocytes % (Manual) 2.0 % 11/01/16 14:40 Monocytes % (Manual) 5.0 % 11/01/16 14:40 Neutrophils # (Manual) 21.3 k/uL (1.3-7.7) H 11/01/16 14:40 Lymphocytes # (Manual) 0.5 k/uL (1.0-4.8) L 11/01/16 14:40 Monocytes # (Manual) 1.1 k/uL (0-1.0) H 11/01/16 14:40 Nucleated RBCs 0 /100 WBC (0-0) 11/01/16 14:40 Manual Slide Review Performed 11/01/16 14:40 Toxic Vacuolation Present 11/01/16 14:40 Hypochromasia Marked 11/03/16 06:44 Macrocytosis Slight 11/03/16 06:44 PT 18.4 sec (9.0-12.0) H 11/01/16 16:20 INR 1.9 (<1.1) 11/01/16 16:20 APTT 38.5 sec (22.0-30.0) H 11/01/16 16:20 Sodium 143 mmol/L (137-145) 11/03/16 06:44 Potassium 4.1 mmol/L (3.5-5.1) 11/03/16 06:44 Chloride 118 mmol/L (98-107) H 11/03/16 06:44 Carbon Dioxide 18 mmol/L (22-30) L 11/03/16 06:44 Anion Gap 7 mmol/L 11/03/16 06:44 BUN 29 mg/dL (7-17) H 11/03/16 06:44 Creatinine 2.24 mg/dL (0.52-1.04) H 11/03/16 06:44 Est GFR (MDRD) Af Amer 26 (>60 ml/min/1.73 sqM) 11/03/16 06:44 Est GFR (MDRD) Non-Af 21 (>60 ml/min/1.73 sqM) 11/03/16 06:44 Glucose 181 mg/dL (74-99) H 11/03/16 06:44 Plasma Lactic Acid Deric 1.7 mmol/L (0.7-2.0) 11/01/16 14:40 Calcium 7.7 mg/dL (8.4-10.2) L 11/03/16 06:44 Phosphorus 3.4 mg/dL (2.5-4.5) 11/01/16 14:40 Magnesium 2.0 mg/dL (1.6-2.3) 11/01/16 14:40 Total Bilirubin 1.1 mg/dL (0.2-1.3) 11/01/16 14:40 AST 30 U/L (14-36) 11/01/16 14:40 ALT 22 U/L (9-52) 11/01/16 14:40 Alkaline Phosphatase 791 U/L (38-126) H 11/01/16 14:40 Total Creatine Kinase 168 U/L (30-135) H 11/01/16 14:40 CK-MB (CK-2) 5.4 ng/mL (0.0-2.4) H* 11/01/16 14:40 CK-MB (CK-2) Rel Index 3.2 11/01/16 14:40 Troponin I <0.012 ng/mL (0.000-0.034) 11/01/16 14:40 Total Protein 5.4 g/dL (6.3-8.2) L 11/01/16 14:40 Albumin 2.0 g/dL (3.5-5.0) L 11/01/16 14:40 Urine Color Yellow 11/01/16 15:35 Urine Appearance Turbid (Clear) H 11/01/16 15:35 Urine pH 6.5 (5.0-8.0) 11/01/16 15:35 Ur Specific Harvey 1.014 (1.001-1.035) 11/01/16 15:35 Urine Protein 1+ (Negative) H 11/01/16 15:35 Urine Glucose (UA) Negative (Negative) 11/01/16 15:35 Urine Ketones Negative (Negative) 11/01/16 15:35 Urine Blood Moderate (Negative) H 11/01/16 15:35 Urine Nitrite Negative (Negative) 11/01/16 15:35 Urine Bilirubin Negative (Negative) 11/01/16 15:35 Urine Urobilinogen <2.0 mg/dL (<2.0) 11/01/16 15:35 Ur Leukocyte Esterase Large (Negative) H 11/01/16 15:35 Urine RBC 97 /hpf (0-5) H 11/01/16 15:35 Urine WBC >182 /hpf (0-5) H 11/01/16 15:35 Urine Bacteria Many /hpf (None) H 11/01/16 15:35 Microbiology 11/02/16 10:13 Blood Blood Culture - Preliminary No Growth after 24 hours 11/01/16 15:35 Urine,Voided Urine Culture - Preliminary Gram Neg Bacilli Assessment and Plan (1) Sepsis Narrative/Plan: 76 year old woman with cholangiocarcinoma who has had recent bout of sepsis with ESBL UTI. Now has onset of new urinary tract infection. VRE was isolate it. Started with Macrobid but had no significant improvement. Actually worsened with hypotension and alteration of her mental status. Now with fluid resuscitation and first dose of antibiotic therapy as discussed with a CMP of daptomycin she showing some improvement. Actually ate a sandwich today and some soup. Final cultures are awaited. There is concerned that she has not just VRE infection. And with the recent ESBL Klebsiella ertapenem will also be given at this point in time until we have further data. Blood cultures are in process and are negative so far. And as per the concern gram-negative bacilli have been isolated in the ertapenem continues. She does not appear to have active gastrointestinal bleeding at this point in time. Treatment of her adrenal insufficiency also seems to be helping her status. Patient's overall prognosis is discussed with her son. He relates that longevity is normal for their family. Most family members have lived into their mid to late 90s. Seeing his mother ill at such an early age is very hard for him and the family. However is starting to understand that she is rapidly declining. Status: Acute (2) UTI (urinary tract infection) Status: Acute (3) Infection with ESBL Klebsiella oxytoca Status: Acute (4) Vancomycin resistant staph aureus infection, multi-drug resistance Status: Acute
[2016-11-03] MEDS: MIRTAZAPINE 15 MG TAB PO SCH (21:31)
[2016-11-03] MEDS: DONEPEZIL 5 MG TAB PO SCH (21:32)
[2016-11-04] MEDS: CARBIDOPA-LEVODOPA 25-100 MG 1 EACH TAB PO SCH ×5 (00:42→23:35)
[2016-11-04] MEDS: HYDROCORTISONE SUCCINATE 100 MG/2 ML VIAL IV SCH ×3 (00:42→21:29)
[2016-11-04 07:02] LABS: CH 29.8; CHCM 29.3; HCT 26.1 % (34.0-46.0); HDW 2.87; HGB 7.7 gm/dL (11.4-16.0); Hypochromasia Marked; MCH 30.2 pg (25.0-35.0); MCHC 29.4 g/dL (31.0-37.0); MCV 102.7 fL (80.0-100.0); Macrocytosis Slight; Mean Platelet Volume 9.7; RBC 2.54 m/uL (3.80-5.40); RDW 15.5 % (11.5-15.5); WBC 10.4 k/uL (3.8-10.6)
[2016-11-04 07:11] LABS: Potassium 4.2 mmol/L (3.5-5.1)
[2016-11-04] MEDS: IPRATROPIUM-ALBUTEROL 3 ML NEB INHALATION SCH ×3 (08:15→19:39)
[2016-11-04] MEDS: BUDESONIDE 0.5 MG/2 ML NEBU INHALATION SCH ×2 (08:15→19:39)
[2016-11-04] MEDS: FAMOTIDINE 20 MG TAB PO SCH (09:46)
[2016-11-04] MEDS: FERROUS SULFATE 325 MG TAB PO SCH ×2 (09:46→21:29)
[2016-11-04] MEDS: ENOXAPARIN 30 MG/0.3 ML SYRINGE SQ SCH (09:46)
--- NOTE | 2016-11-04 10:50 | P.PN ---
Subjective 76-year-old female patient of Dr. Laird with multiple medical problem known to have history of hypertension, osteoarthritis, cholangiocarcinoma post stent placement of the common duct has been seen oncology on regular basis also known to have history of Parkinson disease. Patient has had 2 recent hospitalization the first being on September 26 through September 30 which time she was treated for acute GI bleed with colonoscopy that showed left-sided diverticulosis as the probable source of bleeding. She was transfused 4 units packed RBCs. She was also treated for UTI with ESBL Klebsiella pneumoniae. She was then admitted on October 06 through October 17 for acute kidney injury with hyperchloremic non-ion gap metabolic acidosis and ESBL klebsiella pneumoniae urinary tract infection. She was discharged back to [facility] on doxycycline. At the time of her discharge her BUN was 21 and creatinine 1.17. At [facility], she had a recent urine culture that was positive for VRE. She will was started on Macrobid on October 24. Yesterday, patient was unresponsive for the staff and was having periods of apnea. Her blood pressure was 80/42 and respiration 6. Patient was transferred to [facility] emergency center for evaluation. Her white count was elevated at 22.9 and hemoglobin 8.4. BUN 13 creatinine 2.39. Urinalysis was turbid, blood moderate, nitrate negative, leukoesterase large, WBC greater than 182, urine bacteria many. Patient was given a dose of Zosyn and IV fluids and admitted to the selective care unit. Subsequently, antibiotics changed to daptomycin due to recent culture with VRE. Consult added for Dr. Parry. Urine culture obtained. Blood culture will be ordered. Patient is awake and denies any discomfort. She states she is feeling fine. Her blood pressure remains low. Regarding CODE STATUS, patient is a full code and this has been discussed on multiple visits by Dr. Ferreira with the patient's and son. 11/03: Hemoglobin this morning has dropped to 7.7. There is been no signs of bleeding. She has been seen by Dr. Parry and ertapenem added in for recent ESBL Klebsiella UTI. Urine culture is currently showing gram-negative bacilli and blood cultures no growth after 24 hours. CO2 is dropped to 18 and patient started on D5W with 2 Amps of bicarb. 11/04: Patient is sitting up in bed she appears to be quite frail, she continues of increased swelling in both lower extremities mostly right lower extremity more than the left lower extremity, she is not eating much. I talked to her about possible to go to home with hospice care we will discuss this with her son Humberto. Objective - Vital Signs Vital signs: Vital Signs Temp 96.2 F L 11/04/16 08:00 Pulse 82 11/04/16 08:29 Resp 17 11/04/16 08:00 BP 113/62 11/04/16 08:00 Pulse Ox 100 11/04/16 08:19 Intake & Output 11/03/16 11/04/16 11/04/16 18:59 06:59 18:59 Intake Total 170 660 100 Balance 170 660 100 Weight 81 kg Intake: IV 300 Dextrose 5% in Water 1, 300 000 ml @ 50 mls/hr IV . Q22H [facility] with Sodium Bicarb (1 Meq/ml) 100 ml Rx#:[id number] Intake, IV Titration 50 Amount Ertapenem 0.5 gm In 50 Sodium Chloride 0.9% 50 ml @ 100 mls/hr IVPB Q24H [facility] Rx#:[id number] Oral 120 360 100 Other: Voiding Method Diaper Diaper # Voids 2 1 # Bowel Movements 1 1 - Exam - Exam - EENT Eyes: anicteric sclerae, EOMI, PERRLA, no ptosis, no scleral icterus, normal appearance ENT: NA/AT, tongue is black, mucous membranes extremely dry, normal oropharynx, no thrush Ears: bilateral: normal - Neck Neck: no lymphadenopathy, normal ROM, no rigidity, no stridor, no thyromegaly Carotids: bilateral: upstroke delayed Thyroid: bilateral: normal size - Respiratory Respiratory: bilateral: diminished, negative: dullness, rales, rhonchi, wheezing , prolonged expiration - Cardiovascular Rhythm: regular Heart sounds: normal: S1, S2 Abnormal Heart Sounds: systolic murmur, no rub, no S3 Gallop, no S4 Gallop, no click - Gastrointestinal General gastrointestinal: normal bowel sounds, soft, no splenomegaly, no tenderness, no umbilical hernia, no ventral hernia - Integumentary Integumentary: normal, normal turgor - Neurologic Neurologic: CNII-XII intact - Musculoskeletal Musculoskeletal: generalized weakness - Psychiatric Psychiatric: A&O x's 2, but mildly confused - Labs CBC & Chem 7: 11/04/16 06:37 11/04/16 06:31 Labs: Abnormal Lab Results - Last 24 Hours (Table) 11/04/16 11/04/16 Range/Units 06:31 06:37 RBC 2.54 L (3.80-5.40) m/uL Hgb 7.7 L (11.4-16.0) gm/dL Hct 26.1 L (34.0-46.0) % MCV 102.7 H (80.0-100.0) fL MCHC 29.4 L (31.0-37.0) g/dL Plt Count 72 L (150-450) k/uL Chloride 114 H (98-107) mmol/L Carbon Dioxide 19 L (22-30) mmol/L BUN 30 H (7-17) mg/dL Creatinine 2.40 H (0.52-1.04) mg/dL Glucose 155 H (74-99) mg/dL Calcium 8.0 L (8.4-10.2) mg/dL Microbiology - Last 24 Hours (Table) 11/02/16 10:13 Blood Culture - Preliminary Blood No Growth after 24 hours Assessment and Plan Plan: Assessment and Plan Plan: 1. Sepsis with septic shock and metabolic encephalopathy secondary to VRE urinary tract infection failed outpatient treatment with Macrobid. Daptomycin 500 mg IV daily and ertapenem 0.5 g every 24 hours. Urine culture is in process and blood culture will be obtained. Consult with Dr. Parry. 2. Acute kidney injury with chronic kidney disease stage III. Continue IV fluids. 3. Adrenal insufficiency. Patient started on hydrocortisone 50 mg IV every 8 hours. 4. Recent treatment for ESBL Klebsiella urinary tract infection. 5. Recent acute GI bleed with acute blood loss anemia requiring 4 units of packed RBCs. Hemoglobin is currently stable at 8.4. 6. Osteoarthritis. Continue current pain management. 7. 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 She is to follow-up with hematology oncology as an outpatient. 8. Vascular dementia. 9. Parkinson disease. Continue patient on Sinemet 25/100 one tablet orally every 6 hours. 10. Medical debility. Physical therapy evaluation will be requested once stable. Speech therapy evaluation for swallowing. 9. DVT prophylaxis. Continue Lovenox subcutaneously every 24 hours . 10. GI prophylaxis. Continue patient on Pepcid 20 mg orally once every day. 11. Metabolic acidosis. IV fluids changed to D5W with bicarb. 12. Bilateral lower extremity edema. This is a due to hypoproteinemia and IV fluid resuscitation along with worsening GFR. Discontinue IV fluid, start the patient on Lasix 40 mg IV push every 12 hours. Venous Doppler both lower extremities were negative for DVT. CODE STATUS: No code. Discharge plan: Return to [facility] versus home with hospice.
[2016-11-04 11:48] VITALS: BMI 29.7
--- NOTE | 2016-11-04 12:21 | US ---
EXAMINATION TYPE: US kidneys/renal and bladder DATE OF EXAM: 11/04/2016 COMPARISON: Previous exam ultrasound 12/07/2015, CT 06/25/2016 CLINICAL HISTORY: JAIME/CKD. Patient states no pain, poor historian EXAM MEASUREMENTS: Right Kidney: 8.7 x 4.3 x 4.5 cm Left Kidney: 9.5 x 5.9 x 5.4 cm Suboptimal visualization due to patient unable to move/patient position. Free fluid seen in RUQ and LUQ. Right Kidney: Moderate hydronephrosis may be present. Prominent pyramids vs multiple cystic lesions as noted on prior exam. Cortical thinning again seen. Left Kidney: Moderate hydronephrosis may be present. Prominent pyramids vs multiple cystic lesions a s on prior exam. Cortical thinning. Bladder: Suboptimal visualization due to overlying bowel gas Bilateral Jets not seen There is ascites. Cortical medullary differentiation is reduced. Similar findings within the right ki dney on prior exam. IMPRESSION: Exam is somewhat limited. There is cortical thinning bilaterally. There are likely cortical cysts, di fficult to exclude a component of hydronephrosis. There is ascites.
[2016-11-04] MEDS: MULTIVITAMINS, THERA 1 EACH TAB PO SCH (12:44)
[2016-11-04] MEDS: ERTAPENEM 0.5 GM in SODIUM CHLORIDE 0.9% 50 ML IVPB SCH (16:15)
[2016-11-04] MEDS ORDERED: DAPTOmycin 500 MG in SODIUM CHLORIDE 0.9% 50 ML IV SCH (17:00)
[2016-11-04] MEDS: MIRTAZAPINE 15 MG TAB PO SCH (21:29)
[2016-11-04] MEDS: DONEPEZIL 5 MG TAB PO SCH (21:30)
[2016-11-04] MEDS: FUROSEMIDE 10 MG/ML 4 ML VIAL IV SCH (21:35)
[2016-11-05] MEDS: CARBIDOPA-LEVODOPA 25-100 MG 1 EACH TAB PO SCH ×4 (06:09→23:14)
[2016-11-05 06:22] LABS: Basophils % (A) 0 %; CH 29.5; CHCM 28.1; Eosinophils % (A) 0 %; HCT 29.6 % (34.0-46.0); HDW 2.73; HGB 8.4 gm/dL (11.4-16.0); Hypochromasia Marked; Luc # (Auto) 0.05; Luc % (Auto) 1; Lymphocytes # (A) 0.5 k/uL (1.0-4.8); Lymphocytes % (A) 6 %; MCHC 28.4 g/dL (31.0-37.0); MCV 105.8 fL (80.0-100.0); Macrocytosis Moderate; Mean Platelet Volume 9.4; Monocytes # (A) 0.3 k/uL (0-1.0); Monocytes % (A) 3 %; Neutrophils % (A) 90 %; RBC 2.79 m/uL (3.80-5.40); RDW 15.4 % (11.5-15.5); WBC 8.9 k/uL (3.8-10.6); WBC (Perox) 8.39
[2016-11-05 06:28] LABS: Calcium 8.2 mg/dL (8.4-10.2); Total Bilirubin 0.8 mg/dL (0.2-1.3); Total Protein 5.5 g/dL (6.3-8.2)
[2016-11-05] MEDS: PANTOPRAZOLE 40 MG/10 ML VIAL IVP SCH (07:58)
[2016-11-05] MEDS: ENOXAPARIN 30 MG/0.3 ML SYRINGE SQ SCH (07:58)
[2016-11-05] MEDS: HYDROCORTISONE SUCCINATE 100 MG/2 ML VIAL IV SCH ×2 (07:58→20:55)
[2016-11-05] MEDS: FUROSEMIDE 10 MG/ML 4 ML VIAL IV SCH (07:58)
[2016-11-05] MEDS: FERROUS SULFATE 325 MG TAB PO SCH ×2 (07:59→20:55)
[2016-11-05] MEDS: IPRATROPIUM-ALBUTEROL 3 ML NEB INHALATION SCH ×3 (07:59→20:00)
[2016-11-05] MEDS: BUDESONIDE 0.5 MG/2 ML NEBU INHALATION SCH ×2 (07:59→19:59)
[2016-11-05] MEDS: MULTIVITAMINS, THERA 1 EACH TAB PO SCH (12:33)
--- NOTE | 2016-11-05 13:52 | P.PN ---
Subjective 76-year-old female patient of Dr. Laird with multiple medical problem known to have history of hypertension, osteoarthritis, cholangiocarcinoma post stent placement of the common duct has been seen oncology on regular basis also known to have history of Parkinson disease. Patient has had 2 recent hospitalization the first being on September 26 through September 30 which time she was treated for acute GI bleed with colonoscopy that showed left-sided diverticulosis as the probable source of bleeding. She was transfused 4 units packed RBCs. She was also treated for UTI with ESBL Klebsiella pneumoniae. She was then admitted on October 06 through October 17 for acute kidney injury with hyperchloremic non-ion gap metabolic acidosis and ESBL klebsiella pneumoniae urinary tract infection. She was discharged back to [facility] on doxycycline. At the time of her discharge her BUN was 21 and creatinine 1.17. At [facility], she had a recent urine culture that was positive for VRE. She will was started on Macrobid on October 24. Yesterday, patient was unresponsive for the staff and was having periods of apnea. Her blood pressure was 80/42 and respiration 6. Patient was transferred to [facility] emergency center for evaluation. Her white count was elevated at 22.9 and hemoglobin 8.4. BUN 13 creatinine 2.39. Urinalysis was turbid, blood moderate, nitrate negative, leukoesterase large, WBC greater than 182, urine bacteria many. Patient was given a dose of Zosyn and IV fluids and admitted to the selective care unit. Subsequently, antibiotics changed to daptomycin due to recent culture with VRE. Consult added for Dr. Parry. Urine culture obtained. Blood culture will be ordered. Patient is awake and denies any discomfort. She states she is feeling fine. Her blood pressure remains low. Regarding CODE STATUS, patient is a full code and this has been discussed on multiple visits by Dr. Ferreira with the patient's and son. 11/03: Hemoglobin this morning has dropped to 7.7. There is been no signs of bleeding. She has been seen by Dr. Parry and ertapenem added in for recent ESBL Klebsiella UTI. Urine culture is currently showing gram-negative bacilli and blood cultures no growth after 24 hours. CO2 is dropped to 18 and patient started on D5W with 2 Amps of bicarb. 11/04: Patient is sitting up in bed she appears to be quite frail, she continues of increased swelling in both lower extremities mostly right lower extremity more than the left lower extremity, she is not eating much. I talked to her about possible to go to home with hospice care we will discuss this with her son Humberto. 11/05: Renal ultrasound shows limited study, cortical thinning bilaterally. Likely cortical cyst. Difficult to exclude a component of hydronephrosis. There is ascites. Patient has been hemodynamically stable. We are increasing Lasix to 60 mg every 12 hours. She has had a loss of 1.5 kg from yesterday. Objective - Vital Signs Vital signs: Vital Signs Temp 97.1 F L 11/05/16 03:41 Pulse 84 11/05/16 08:16 Resp 18 11/05/16 03:41 BP 94/66 11/05/16 03:41 Pulse Ox 93 L 11/05/16 03:41 Intake & Output 11/04/16 11/05/16 11/05/16 18:59 06:59 18:59 Intake Total 690 320 100 Balance 690 320 100 Weight 81 kg 79.5 kg Intake: IV 350 20 0.9 flush 20 Dextrose 5% in Water 1, 350 000 ml @ 50 mls/hr IV . Q22H [facility] with Sodium Bicarb (1 Meq/ml) 100 ml Rx#:[id number] Intake, IV Titration 200 Amount DAPTOmycin 500 mg In 100 Sodium Chloride 0.9% 50 ml @ 100 mls/hr IV Q48H [facility] Rx#:[id number] Ertapenem 0.5 gm In 100 Sodium Chloride 0.9% 50 ml @ 100 mls/hr IVPB Q24H [facility] Rx#:[id number] Oral 340 100 100 Other: Voiding Method Diaper Diaper # Voids 1 1 # Bowel Movements 1 - Exam - EENT Eyes: anicteric sclerae, EOMI, PERRLA, no ptosis, no scleral icterus, normal appearance ENT: NA/AT, tongue is black, mucous membranes extremely dry, normal oropharynx, no thrush Ears: bilateral: normal - Neck Neck: no lymphadenopathy, normal ROM, no rigidity, no stridor, no thyromegaly Carotids: bilateral: upstroke delayed Thyroid: bilateral: normal size - Respiratory Respiratory: bilateral: diminished, negative: dullness, rales, rhonchi, wheezing , prolonged expiration - Cardiovascular Rhythm: regular Heart sounds: normal: S1, S2 Abnormal Heart Sounds: systolic murmur, no rub, no S3 Gallop, no S4 Gallop, no click - Gastrointestinal General gastrointestinal: normal bowel sounds, soft, no splenomegaly, no tenderness, no umbilical hernia, no ventral hernia - Integumentary Integumentary: normal, normal turgor - Neurologic Neurologic: CNII-XII intact - Musculoskeletal Musculoskeletal: generalized weakness - Psychiatric Psychiatric: A&O x's 2, but mildly confused - Labs CBC & Chem 7: 11/05/16 05:47 11/05/16 05:47 Labs: Abnormal Lab Results - Last 24 Hours (Table) 11/05/16 11/05/16 Range/Units 05:47 05:47 RBC 2.79 L (3.80-5.40) m/uL Hgb 8.4 L (11.4-16.0) gm/dL Hct 29.6 L (34.0-46.0) % MCV 105.8 H (80.0-100.0) fL MCHC 28.4 L (31.0-37.0) g/dL Plt Count 71 L (150-450) k/uL Neutrophils # 8.0 H (1.3-7.7) k/uL Lymphocytes # 0.5 L (1.0-4.8) k/uL Chloride 115 H (98-107) mmol/L Carbon Dioxide 17 L (22-30) mmol/L BUN 31 H (7-17) mg/dL Creatinine 2.35 H (0.52-1.04) mg/dL Glucose 123 H (74-99) mg/dL Calcium 8.2 L (8.4-10.2) mg/dL Alkaline Phosphatase 814 H (38-126) U/L Total Protein 5.5 L (6.3-8.2) g/dL Albumin 2.0 L (3.5-5.0) g/dL Microbiology - Last 24 Hours (Table) 11/01/16 15:35 Urine Culture - Final Urine,Voided Klebsiella pneumoniae 11/02/16 10:13 Blood Culture - Preliminary Blood No Growth after 48 hours Assessment and Plan Plan: 1. Sepsis with septic shock and metabolic encephalopathy secondary to VRE urinary tract infection failed outpatient treatment with Macrobid. Daptomycin 500 mg IV daily and ertapenem 0.5 g every 24 hours. Urine culture is in process and blood culture will be obtained. Consult with Dr. Parry. 2. Acute kidney injury with chronic kidney disease stage III. Renal ultrasound as above. 3. Adrenal insufficiency. Decrease to hydrocortisone 25 mg IV every 12 hours. 4. Recent treatment for ESBL Klebsiella urinary tract infection. 5. Recent acute GI bleed with acute blood loss anemia requiring 4 units of packed RBCs. Hemoglobin is currently stable at 8.4. 6. Osteoarthritis. Continue current pain management. 7. 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 She is to follow-up with hematology oncology as an outpatient. 8. Vascular dementia. 9. Parkinson disease. Continue patient on Sinemet 25/100 one tablet orally every 6 hours. 10. Medical debility. Physical therapy evaluation will be requested once stable. Speech therapy evaluation for swallowing. 9. DVT prophylaxis. Continue Lovenox subcutaneously every 24 hours . 10. GI prophylaxis. Continue patient on Pepcid 20 mg orally once every day. 11. Metabolic acidosis. Treated with IV fluids D5W with sodium bicarb. 12. Bilateral lower extremity edema. This is a due to hypoproteinemia and IV fluid resuscitation along with worsening GFR. Discontinue IV fluid, increase Lasix 60 mg IV push every 12 hours. Venous Doppler both lower extremities were negative for DVT. CODE STATUS: No code Discharge plan: Return to [facility] or home with hospice Impression and plan of care have been directed as dictated by the signing physician. Noelle Judge nurse practitioner acting as scribe for signing physician.
[2016-11-05] MEDS: ERTAPENEM 0.5 GM in SODIUM CHLORIDE 0.9% 50 ML IVPB SCH (14:48)
[2016-11-05] MEDS: FUROSEMIDE 10 MG/ML 10 ML VIAL IV SCH (17:20)
[2016-11-05] MEDS: MIRTAZAPINE 15 MG TAB PO SCH (20:55)
[2016-11-05] MEDS: DONEPEZIL 5 MG TAB PO SCH (20:55)
[2016-11-06] MEDS ORDERED: ONDANSETRON 4 MG/2 ML VIAL IVP PRN (04:30)
--- NOTE | 2016-11-06 05:04 | XR ---
EXAM: XR Chest, 1 View CLINICAL HISTORY: Reason: vomiting, possible aspiration TECHNIQUE: Frontal view of the chest. COMPARISON: October 13, 2016. FINDINGS: Low lung volumes again noted. There is likely large hiatal hernia with left lower lobe infiltrate/atelectasis and left effusion, similar in appearance to prior. Cardiac silhouette is within normal limits. Crowding of pulmonary vasculature is likely due to low lung volumes. Osseous structures are grossly unremarkable. IMPRESSION: Stable appearance of large hiatal hernia with left lower lobe infiltrate/atelectasis and left effusion. Low lung volumes.
[2016-11-06] MEDS: FUROSEMIDE 10 MG/ML 10 ML VIAL IV SCH (06:29)
[2016-11-06 07:02] LABS: Calcium 8.4 mg/dL (8.4-10.2); Potassium 3.9 mmol/L (3.5-5.1); Total Bilirubin 0.9 mg/dL (0.2-1.3); Total Protein 5.7 g/dL (6.3-8.2)
[2016-11-06 07:03] LABS: Basophils % (A) 0 %; CH 29.8; Eosinophils # (A) 0.1 k/uL (0-0.7); Eosinophils % (A) 1 %; HCT 30.7 % (34.0-46.0); HDW 2.76; HGB 8.9 gm/dL (11.4-16.0); Hypochromasia Marked; Luc # (Auto) 0.09; Luc % (Auto) 1; Lymphocytes # (A) 0.5 k/uL (1.0-4.8); Lymphocytes % (A) 4 %; MCH 29.9 pg (25.0-35.0); MCHC 28.9 g/dL (31.0-37.0); MCV 103.6 fL (80.0-100.0); Macrocytosis Moderate; Mean Platelet Volume 8.9; Monocytes # (A) 0.5 k/uL (0-1.0); Monocytes % (A) 4 %; Neutrophils # (A) 10.5 k/uL (1.3-7.7); Neutrophils % (A) 91 %; RBC 2.96 m/uL (3.80-5.40); RDW 15.6 % (11.5-15.5); WBC 11.6 k/uL (3.8-10.6); WBC (Perox) 12.04
[2016-11-06] MEDS: CARBIDOPA-LEVODOPA 25-100 MG 1 EACH TAB PO SCH ×2 (08:08→11:37)
[2016-11-06] MEDS: FERROUS SULFATE 325 MG TAB PO SCH (08:09)
[2016-11-06] MEDS: ENOXAPARIN 30 MG/0.3 ML SYRINGE SQ SCH (08:14)
[2016-11-06] MEDS: HYDROCORTISONE SUCCINATE 100 MG/2 ML VIAL IV SCH (08:14)
[2016-11-06] MEDS: PANTOPRAZOLE 40 MG/10 ML VIAL IVP SCH (08:15)
[2016-11-06 08:29] VITALS: RESP 24
[2016-11-06 11:27] VITALS: BP 66/46; TEMP 95.5
[2016-11-06] MEDS: MULTIVITAMINS, THERA 1 EACH TAB PO SCH (11:37)
[2016-11-06] MEDS: IPRATROPIUM-ALBUTEROL 3 ML NEB INHALATION SCH ×2 (11:37→13:31)
[2016-11-06] MEDS: BUDESONIDE 0.5 MG/2 ML NEBU INHALATION SCH (11:37)
[2016-11-06 11:46] LABS: Glucose,Whole Blood 94 mg/dL (75-99)
[2016-11-06 13:44] VITALS: PULSE 88
--- NOTE | 2016-11-06 14:48 | P.PN ---
Subjective 76-year-old female patient of Dr. Ferreira. 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 Patient has had 2 recent hospitalization the first being on September 26 through September 30 which time she was treated for acute GI bleed with colonoscopy that showed left-sided diverticulosis as the probable source of bleeding. She was transfused 4 units packed RBCs. She was also treated for UTI with ESBL Klebsiella pneumoniae. She was then admitted on October 06 through October 17 for acute kidney injury with hyperchloremic non-ion gap metabolic acidosis and ESBL klebsiella pneumoniae urinary tract infection. She was discharged back to [facility] on doxycycline. At the time of her discharge her BUN was 21 and creatinine 1.17. At [facility], she had a recent urine culture that was positive for VRE. She will was started on Macrobid on October 24. Yesterday, patient was unresponsive for the staff and was having periods of apnea. Her blood pressure was 80/42 and respiration 6. Patient was transferred to [facility] emergency center for evaluation. Her white count was elevated at 22.9 and hemoglobin 8.4. BUN 13 creatinine 2.39. Urinalysis was turbid, blood moderate, nitrate negative, leukoesterase large, WBC greater than 182, urine bacteria many. Patient was given a dose of Zosyn and IV fluids and admitted to the selective care unit. Subsequently, antibiotics changed to daptomycin due to recent culture with VRE. Consult added for Dr. Parry. Urine culture obtained. Blood culture will be ordered. Patient is awake and denies any discomfort. She states she is feeling fine. Her blood pressure remains low. Regarding CODE STATUS, patient is a full code and this has been discussed on multiple visits by Dr. Ferreira with the patient's and son. 11/03: Hemoglobin this morning has dropped to 7.7. There is been no signs of bleeding. She has been seen by Dr. Parry and ertapenem added in for recent ESBL Klebsiella UTI. Urine culture is currently showing gram-negative bacilli and blood cultures no growth after 24 hours. CO2 is dropped to 18 and patient started on D5W with 2 Amps of bicarb. 11/04: Patient is sitting up in bed she appears to be quite frail, she continues of increased swelling in both lower extremities mostly right lower extremity more than the left lower extremity, she is not eating much. I talked to her about possible to go to home with hospice care we will discuss this with her son Humberto. 11/05: Renal ultrasound shows limited study, cortical thinning bilaterally. Likely cortical cyst. Difficult to exclude a component of hydronephrosis. There is ascites. Patient has been hemodynamically stable. We are increasing Lasix to 60 mg every 12 hours. She has had a loss of 1.5 kg from yesterday. 11/06: Patient has had further decline in her condition with pulse ox 88-90% on 4 L nasal cannula, low temperature, increased respiratory rate. Speech therapy evaluated and made patient nothing by mouth. Discussed condition with patient' s son, Humberto, and he is agreeable for hospice meeting. Objective - Vital Signs Vital signs: Vital Signs Temp 95.5 F L 11/06/16 11:26 Pulse 88 11/06/16 11:29 Resp 24 11/06/16 11:29 BP 66/46 11/06/16 11:26 Pulse Ox 90 L 11/06/16 11:26 Intake & Output 11/05/16 11/06/16 11/06/16 18:59 06:59 18:59 Intake Total 465 50 Balance 465 50 Weight 79 kg Intake: Oral 465 50 Other: Voiding Method Diaper Diaper Diaper # Voids 1 1 # Bowel Movements 1 - Exam - EENT Eyes: anicteric sclerae, EOMI, PERRLA, no ptosis, no scleral icterus, normal appearance ENT: NA/AT, tongue is black, mucous membranes extremely dry, normal oropharynx, no thrush Ears: bilateral: normal - Neck Neck: no lymphadenopathy, normal ROM, no rigidity, no stridor, no thyromegaly Carotids: bilateral: upstroke delayed Thyroid: bilateral: normal size - Respiratory Respiratory: bilateral: diminished, negative: dullness, rales, rhonchi, wheezing , prolonged expiration - Cardiovascular Rhythm: regular Heart sounds: normal: S1, S2 Abnormal Heart Sounds: systolic murmur, no rub, no S3 Gallop, no S4 Gallop, no click - Gastrointestinal General gastrointestinal: normal bowel sounds, soft, no splenomegaly, no tenderness, no umbilical hernia, no ventral hernia - Integumentary Integumentary: normal, normal turgor - Neurologic Neurologic: CNII-XII intact - Musculoskeletal Musculoskeletal: generalized weakness - Psychiatric Psychiatric: A&O x's 2, but mildly confused - Labs CBC & Chem 7: 11/06/16 06:41 11/06/16 06:41 Labs: Abnormal Lab Results - Last 24 Hours (Table) 11/06/16 11/06/16 Range/Units 06:41 06:41 WBC 11.6 H (3.8-10.6) k/uL RBC 2.96 L (3.80-5.40) m/uL Hgb 8.9 L (11.4-16.0) gm/dL Hct 30.7 L (34.0-46.0) % MCV 103.6 H (80.0-100.0) fL MCHC 28.9 L (31.0-37.0) g/dL RDW 15.6 H (11.5-15.5) % Plt Count 75 L (150-450) k/uL Neutrophils # 10.5 H (1.3-7.7) k/uL Lymphocytes # 0.5 L (1.0-4.8) k/uL Chloride 114 H (98-107) mmol/L Carbon Dioxide 19 L (22-30) mmol/L BUN 34 H (7-17) mg/dL Creatinine 2.57 H (0.52-1.04) mg/dL Glucose 117 H (74-99) mg/dL AST 41 H (14-36) U/L Alkaline Phosphatase 908 H (38-126) U/L Total Protein 5.7 L (6.3-8.2) g/dL Albumin 2.1 L (3.5-5.0) g/dL Microbiology - Last 24 Hours (Table) 11/02/16 10:13 Blood Culture - Preliminary Blood No Growth after 72 hours Assessment and Plan Plan: 1. Sepsis with septic shock and metabolic encephalopathy secondary to VRE urinary tract infection failed outpatient treatment with Macrobid. Daptomycin 500 mg IV daily and ertapenem 0.5 g every 24 hours. Urine culture is in process and blood culture will be obtained. Consult with Dr. Parry. 2. Acute kidney injury with chronic kidney disease stage III. Renal ultrasound as above. 3. Adrenal insufficiency. Decrease to hydrocortisone 25 mg IV every 12 hours. 4. Recent treatment for ESBL Klebsiella urinary tract infection. 5. Recent acute GI bleed with acute blood loss anemia requiring 4 units of packed RBCs. Hemoglobin is currently stable at 8.4. 6. Osteoarthritis. Continue current pain management. 7. 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 She is to follow-up with hematology oncology as an outpatient. 8. Vascular dementia. 9. Parkinson disease. Continue patient on Sinemet 25/100 one tablet orally every 6 hours. 10. Medical debility. Physical therapy evaluation will be requested once stable. Speech therapy evaluation for swallowing. 9. DVT prophylaxis. Continue Lovenox subcutaneously every 24 hours . 10. GI prophylaxis. Continue patient on Pepcid 20 mg orally once every day. 11. Metabolic acidosis. Treated with IV fluids D5W with sodium bicarb. 12. Bilateral lower extremity edema. This is a due to hypoproteinemia and IV fluid resuscitation along with worsening GFR. Discontinue IV fluid, increase Lasix 60 mg IV push every 12 hours. Venous Doppler both lower extremities were negative for DVT. CODE STATUS: No code Discharge plan: Return to [facility] or home with hospice Impression and plan of care have been directed as dictated by the signing physician. Noelle Judge nurse practitioner acting as scribe for signing physician.
[2016-11-06] MEDS: ERTAPENEM 0.5 GM in SODIUM CHLORIDE 0.9% 50 ML IVPB SCH (15:18)
--- NOTE | 2016-11-07 09:39 | P.DS ---
Providers Date of admission: 11/01/16 16:21 Expected date of discharge: 11/06/16 Attending physician: Lia Ferreira Consults: 11/02/16 07:39 Consult Physician Routine Consulting Provider: Humberto Parry Consult Reason/Comments: VRE UTI Do you want consulting provider notified?: Yes Primary care physician: Lia Ferreira Hospital Course: 76-year-old female patient of Dr. Ferreira. 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 Patient has had 2 recent hospitalization the first being on September 26 through September 30 which time she was treated for acute GI bleed with colonoscopy that showed left-sided diverticulosis as the probable source of bleeding. She was transfused 4 units packed RBCs. She was also treated for UTI with ESBL Klebsiella pneumoniae. She was then admitted on October 06 through October 17 for acute kidney injury with hyperchloremic non-ion gap metabolic acidosis and ESBL klebsiella pneumoniae urinary tract infection. She was discharged back to [facility] on doxycycline. At the time of her discharge her BUN was 21 and creatinine 1.17. At [facility], she had a recent urine culture that was positive for VRE. She will was started on Macrobid on October 24. Yesterday, patient was unresponsive for the staff and was having periods of apnea. Her blood pressure was 80/42 and respiration 6. Patient was transferred to [facility] emergency center for evaluation. Her white count was elevated at 22.9 and hemoglobin 8.4. BUN 13 creatinine 2.39. Urinalysis was turbid, blood moderate, nitrate negative, leukoesterase large, WBC greater than 182, urine bacteria many. Patient was given a dose of Zosyn and IV fluids and admitted to the selective care unit. Subsequently, antibiotics changed to daptomycin due to recent culture with VRE. Consult added for Dr. Parry. Urine culture obtained. Blood culture will be ordered. Patient is awake and denies any discomfort. She states she is feeling fine. Her blood pressure remains low. Regarding CODE STATUS, patient is a full code and this has been discussed on multiple visits by Dr. Ferreira with the patient's and son. 6/5: Hemoglobin this morning has dropped to 7.7. There is been no signs of bleeding. She has been seen by Dr. Parry and ertapenem added in for recent ESBL Klebsiella UTI. Urine culture is currently showing gram-negative bacilli and blood cultures no growth after 24 hours. CO2 is dropped to 18 and patient started on D5W with 2 Amps of bicarb. 11/04: Patient is sitting up in bed she appears to be quite frail, she continues of increased swelling in both lower extremities mostly right lower extremity more than the left lower extremity, she is not eating much. I talked to her about possible to go to home with hospice care we will discuss this with her son Humberto. 11/05: Renal ultrasound shows limited study, cortical thinning bilaterally. Likely cortical cyst. Difficult to exclude a component of hydronephrosis. There is ascites. Patient has been hemodynamically stable. We are increasing Lasix to 60 mg every 12 hours. She has had a loss of 1.5 kg from yesterday. 11/06: Patient has had further decline in her condition with pulse ox 88-90% on 4 L nasal cannula, low temperature, increased respiratory rate. Speech therapy evaluated and made patient nothing by mouth. Discussed condition with patient' s son, Humberto, and he is agreeable for hospice meeting. Family met with [facility] and patient was switched over to [facility] under hospice care. Discharge diagnoses: 1. Sepsis with septic shock and metabolic encephalopathy secondary to VRE urinary tract infection failed outpatient treatment with Macrobid. 2. Acute kidney injury with chronic kidney disease stage III. 3. Adrenal insufficiency. 4. Recent treatment for ESBL Klebsiella urinary tract infection. 5. Recent acute GI bleed with acute blood loss anemia requiring 4 units of packed RBCs. 6. Osteoarthritis, generalized 7. 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 8. Vascular dementia. 9. Parkinson disease. 10. Medical debility. 11. Metabolic acidosis. 12. Bilateral lower extremity edema due to hypoproteinemia, IV fluid resuscitation with worsening GFR. Discharge plan: [facility] Hospice care Impression and plan of care have been directed as dictated by the signing physician. Noelle Judge nurse practitioner acting as scribe for signing physician. Patient Condition at Discharge: Undetermined Plan - Discharge Summary New Discharge Prescriptions: No Action Famotidine [Pepcid] 20 mg PO DAILY Donepezil HCl 5 mg PO HS Carbidopa/Levodopa [Carbidopa-Levodopa 25-100 Tab] 1 tab PO Q6H Ferrous Sulfate [Feosol] 325 mg PO BID Multivitamins, Thera [Multivitamin (formulary)] 1 tab PO DAILY Mirtazapine [Remeron] 30 mg PO HS ALPRAZolam [Xanax] 0.25 mg PO BID PRN #60 tab PRN Reason: Anxiety Budesonide [Pulmicort] 0.5 mg INHALATION RT-BID neb Ipratropium-Albuterol Nebulize [Duoneb 0.5 mg-3 mg/3 ml Soln] 3 ml INHALATION RT-TID Potassium Chloride ER [K-Dur 20] 20 meq PO BID Nitrofurantoin Monohyd/M-Cryst [Macrobid 100 mg Capsule] 100 mg PO BID Furosemide [Lasix] 40 mg PO BID@0600,1400 Venelex Ointment 1 applic TOPICAL Q48H Dimethicone/Zinc Oxide [Inzo Zinc Oxide Barrier Cream] 1 applic TOPICAL BID Discharge Medication List Carbidopa/Levodopa [Carbidopa-Levodopa 25-100 Tab] 1 tab PO Q6H 12/07/15 [ History] Donepezil HCl 5 mg PO HS 12/07/15 [History] Famotidine [Pepcid] 20 mg PO DAILY 12/07/15 [History] Ferrous Sulfate [Feosol] 325 mg PO BID 12/07/15 [History] Multivitamins, Thera [Multivitamin (formulary)] 1 tab PO DAILY 09/26/16 [History ] Mirtazapine [Remeron] 30 mg PO HS 10/06/16 [History] ALPRAZolam [Xanax] 0.25 mg PO BID PRN #60 tab 10/17/16 [Rx] Budesonide [Pulmicort] 0.5 mg INHALATION RT-BID neb 10/17/16 [Rx] Dimethicone/Zinc Oxide [Inzo Zinc Oxide Barrier Cream] 1 applic TOPICAL BID 08/15 [History] Furosemide [Lasix] 40 mg PO BID@0600,1400 11/01/16 [History] Ipratropium-Albuterol Nebulize [Duoneb 0.5 mg-3 mg/3 ml Soln] 3 ml INHALATION RT -TID 11/01/16 [History] Nitrofurantoin Monohyd/M-Cryst [Macrobid 100 mg Capsule] 100 mg PO BID 11/01/16 [History] Potassium Chloride ER [K-Dur 20] 20 meq PO BID 11/01/16 [History] Venelex Ointment 1 applic TOPICAL Q48H 11/01/16 [History] Follow up Appointment(s)/Referral(s): Lia Ferreira MD [Primary Care Provider] - 1-2 days Discharge Disposition: DC/TRNS IP HOSP W/PLND IP READ
== END 2016-11-06 15:17 | disposition hospice, inpatient (51) | DRG 871 ==
LOC: EC 13:48 → 4MS4W 16:21 → 6SEL 17:57
PROVIDERS: ADMIT Internal Medicine; ATTEND Internal Medicine
DX: A41.59 Other Gram-negative sepsis (principal); G93.41 Metabolic encephalopathy; R65.21 Severe sepsis with septic shock; N17.9 Acute kidney failure, unspecified; R18.8 Other ascites; E87.2 Acidosis; I95.9 Hypotension, unspecified; C22.1 Intrahepatic bile duct carcinoma; E27.40 Unspecified adrenocortical insufficiency; G20 Parkinson's disease; N39.0 Urinary tract infection, site not specified; Z66 Do not resuscitate; Z51.5 Encounter for palliative care; N18.3 Chronic kidney disease, stage 3 (moderate); F01.50 Vascular dementia, unspecified severity, without behavioral disturbance, psychotic disturbance, mood disturbance, and anxiety; I12.9 Hypertensive chronic kidney disease with stage 1 through stage 4 chronic kidney disease, or unspecified chronic kidney disease; K21.9 Gastro-esophageal reflux disease without esophagitis; E86.0 Dehydration; D64.9 Anemia, unspecified; B96.1 Klebsiella pneumoniae [K. pneumoniae] as the cause of diseases classified elsewhere; M19.90 Unspecified osteoarthritis, unspecified site; N81.4 Uterovaginal prolapse, unspecified; N28.1 Cyst of kidney, acquired; E55.9 Vitamin D deficiency, unspecified; E78.5 Hyperlipidemia, unspecified; E77.8 Other disorders of glycoprotein metabolism; R26.9 Unspecified abnormalities of gait and mobility; R53.1 Weakness; R29.6 Repeated falls; K57.30 Diverticulosis of large intestine without perforation or abscess without bleeding; R60.0 Localized edema; Z71.3 Dietary counseling and surveillance; Z83.3 Family history of diabetes mellitus; Z79.2 Long term (current) use of antibiotics; Z79.899 Other long term (current) drug therapy; Z16.12 Extended spectrum beta lactamase (ESBL) resistance; Z16.24 Resistance to multiple antibiotics; Z16.21 Resistance to vancomycin; Z87.19 Personal history of other diseases of the digestive system; Z87.440 Personal history of urinary (tract) infections; Z91.040 Latex allergy status; Z91.048 Other nonmedicinal substance allergy status; Z96.89 Presence of other specified functional implants; Z92.21 Personal history of antineoplastic chemotherapy; Z91.81 History of falling; Z86.19 Personal history of other infectious and parasitic diseases
CPT/HCPCS: 36415; 71010; 76770; 80048; 80053; 81001; 82550; 82553; 83605; 83735; 84100; 84484; 85025; 85027; 85610; 85730; 87040; 87077; 87086; 87186; 93005; 93970; 94640; 94760; 96361; 96365; 96366; 99285

== ENCOUNTER 2016-11-06 15:21 | Inpatient (IN) | payer MEDICAID ==
[2016-11-06] MEDS ORDERED: LORazepam 2 MG/ML SYRINGE IV PRN (15:58)
[2016-11-06] MEDS ORDERED: SCOPOLAMINE 1.5MG/72HR PATCH TRANSDERM SCH (16:00)
[2016-11-06] MEDS ORDERED: ATROPINE OPHTH SOLN 1% 5ML BTL SUBLINGUAL PRN (16:00)
[2016-11-06] MEDS ORDERED: ACETAMINOPHEN SUPPOSITORY 650 MG SUPP RECTAL PRN (16:00)
[2016-11-06] MEDS ORDERED: ONDANSETRON 4 MG/2 ML VIAL IVP PRN (16:01)
[2016-11-06] MEDS: MORPHINE SULFATE 2 MG/ML SYRINGE IVP PRN ×2 (16:32→18:51)
--- NOTE | 2016-11-07 08:55 | P.HPIM ---
History of Present Illness H&P Date: 11/07/16 Chief Complaint: Hospice care 76-year-old female patient of Dr. Ferreira. 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 Patient has had 2 recent hospitalization the first being on September 26 through September 30 which time she was treated for acute GI bleed with colonoscopy that showed left-sided diverticulosis as the probable source of bleeding. She was transfused 4 units packed RBCs. She was also treated for UTI with ESBL Klebsiella pneumoniae. She was then admitted on October 06 through October 17 for acute kidney injury with hyperchloremic non-ion gap metabolic acidosis and ESBL klebsiella pneumoniae urinary tract infection. She was discharged back to [facility] on doxycycline. At the time of her discharge her BUN was 21 and creatinine 1.17. At [facility], she had a recent urine culture that was positive for VRE. She will was started on Macrobid on October 24. Patient was found unresponsive by the staff and was having periods of apnea. Her blood pressure was 80/42 and respiration 6. Patient was transferred to [facility] emergency center for evaluation. She was treated for sepsis, septic shock and metabolic encephalopathy secondary to VRE urinary tract infection that failed outpatient treatment. She was seen by Dr. Parry and antibiotics were daptomycin and ertapenem. Patient continued to have decline in her condition and yesterday family decided to make her comfort care under [facility] hospice care. Review of Systems ROS unobtainable: due to mental status Past Medical History Past Medical History: Cancer, Dementia, GERD/Reflux, Hyperlipidemia, Hypertension, Neurologic Disorder, Osteoarthritis (OA) Additional Past Medical History / Comment(s): parkinson's, vitamin D deficiency , hypokalemia, 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 History of Any Multi-Drug Resistant Organisms: ESBL, VRE Date of last positivie culture/infection: 11/01/16-ESBL; 10/20/16 VRE (testing done by [facility]) MDRO Source:: Urine ESBL and VRE Past Surgical History: Bladder Surgery Additional Past Surgical History / Comment(s): 11/2015 ERCP/MRCP unsuccessful- sent to [facility] where she was diagnosed with bile duct cancer and had stent placed. Past Anesthesia/Blood Transfusion Reactions: No Reported Reaction Past Psychological History: No Psychological Hx Reported Additional Psychological History / Comment(s): resides at [facility]. Adult son is very involved. has mobility issues and is also elderly. Smoking Status: Never smoker Past Alcohol Use History: None Reported Additional Past Alcohol Use History / Comment(s): Patient is a lifelong nonsmoker, no marijuana or drug use. No alcohol use Past Drug Use History: None Reported - Past Family History Father Family Medical History: No Reported History Additional Family Medical History / Comment(s): Father at age 90 from old age and diabetes Mother Family Medical History: No Reported History Additional Family Medical History / Comment(s): Mother at age 90 from old age. Brother(s) History Unknown: Yes Additional Family Medical History / Comment(s): Patient has one brother and one sister unknown medical history. Patient does not have any daughters. Patient has one son that is healthy. Medications and Allergies Home Medications Medication Instructions Recorded Confirmed Type Carbidopa/Levodopa 1 tab PO Q6H 12/07/15 11/06/16 History [Carbidopa-Levodopa 25-100 Tab] Donepezil HCl 5 mg PO HS 12/07/15 11/06/16 History Famotidine [Pepcid] 20 mg PO DAILY 12/07/15 11/06/16 History Ferrous Sulfate [Feosol] 325 mg PO BID 12/07/15 11/06/16 History Multivitamins, Thera [Multivitamin 1 tab PO DAILY 09/26/16 11/06/16 History (formulary)] Mirtazapine [Remeron] 30 mg PO HS 10/06/16 11/06/16 History Dimethicone/Zinc Oxide [Inzo Zinc 1 applic TOPICAL BID 11/01/16 11/06/16 History Oxide Barrier Cream] Furosemide [Lasix] 40 mg PO BID@0600,1400 11/01/16 11/06/16 History Ipratropium-Albuterol Nebulize 3 ml INHALATION RT-TID 11/01/16 11/06/16 History [Duoneb 0.5 mg-3 mg/3 ml Soln] Nitrofurantoin Monohyd/M-Cryst 100 mg PO BID 11/01/16 11/06/16 History [Macrobid 100 mg Capsule] Potassium Chloride ER [K-Dur 20] 20 meq PO BID 11/01/16 11/06/16 History Venelex Ointment 1 applic TOPICAL Q48H 11/01/16 11/06/16 History Allergies Allergy/AdvReac Type Severity Reaction Status Date / Time latex Allergy Unknown Verified 11/01/16 14:16 ELASTIC Allergy Itching Uncoded 10/06/16 20:33 RUBBER Allergy Unknown Uncoded 11/01/16 14:16 Physical Exam Vitals: Vital Signs Pulse Resp 11/07/16 07:41 79 20 11/07/16 04:00 68 20 11/07/16 00:00 72 22 11/06/16 22:00 84 24 11/06/16 20:00 82 22 11/06/16 18:55 82 26 H 11/06/16 17:45 74 22 11/06/16 16:56 81 24 11/06/16 16:00 73 24 Intake and Output 11/06/16 11/07/16 11/07/16 22:59 06:59 14:59 Output Total 75 Balance -75 Output: Urine 75 Uretheral ([place]) 75 Other: Weight 79 kg Gen: This is a 76-year-old female. She is resting in bed and appears to be in no acute distress. HEENT: Head is atraumatic, normocephalic. Pupils equal, round. Sclerae is anicteric. NECK: Supple. No JVD. No lymphadenopathy. No thyromegaly. LUNGS: Scattered rhonchi. No intercostal retractions. HEART: Regular rate and rhythm. No murmur. ABDOMEN: Soft. Bowel sounds are present. No masses. No tenderness. Timmons catheter in place. EXTREMITIES: No pedal edema. No calf tenderness. NEUROLOGICAL: Patient is awake, alert and oriented x3. Cranial nerves 2 through 12 are grossly intact. Thrombosis Risk Factor Assmnt - DVT/VTE Prophylaxis DVT/VTE Prophylaxis: Contraindicated - See note (Hospice care) Assessment and Plan Plan: 1. Sepsis with septic shock and metabolic encephalopathy secondary to VRE urinary tract infection failed outpatient treatment with Macrobid. 2. Acute kidney injury with chronic kidney disease stage III. 3. Adrenal insufficiency. 4. Recent treatment for ESBL Klebsiella urinary tract infection. 5. Recent acute GI bleed with acute blood loss anemia requiring 4 units of packed RBCs. 6. Osteoarthritis, generalized. 7. 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 8. Vascular dementia. 9. Parkinson disease. 10. Medical debility. 11. Metabolic acidosis. 12. Bilateral lower extremity edema due to hypoproteinemia, IV fluid resuscitation with worsening GFR. CODE STATUS: No code Plan: Comfort care only. Continue atropine sublingual, Ativan IV and morphine IV. Patient is also on scopolamine patch Impression and plan of care have been directed as dictated by the signing physician. Noelle Judge nurse practitioner acting as scribe for signing physician.
[2016-11-07] MEDS: MORPHINE SULFATE 2 MG/ML SYRINGE IVP PRN (12:02)
[2016-11-07] MEDS: ATROPINE OPHTH SOLN 1% 5ML BTL SUBLINGUAL SCH ×6 (14:37→22:46)
[2016-11-08] MEDS: ATROPINE OPHTH SOLN 1% 5ML BTL SUBLINGUAL SCH ×12 (00:14→22:27)
[2016-11-08] MEDS ORDERED: SCOPOLAMINE 1.5MG/72HR PATCH TRANSDERM SCH (11:47)
[2016-11-08] MEDS: MORPHINE SULFATE 2 MG/ML SYRINGE IVP PRN ×2 (12:54→21:50)
--- NOTE | 2016-11-08 15:17 | P.PN ---
Subjective 76-year-old female patient of Dr. Ferreira. 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 Patient has had 2 recent hospitalization the first being on September 26 through September 30 which time she was treated for acute GI bleed with colonoscopy that showed left-sided diverticulosis as the probable source of bleeding. She was transfused 4 units packed RBCs. She was also treated for UTI with ESBL Klebsiella pneumoniae. She was then admitted on October 06 through October 17 for acute kidney injury with hyperchloremic non-ion gap metabolic acidosis and ESBL klebsiella pneumoniae urinary tract infection. She was discharged back to [facility] on doxycycline. At the time of her discharge her BUN was 21 and creatinine 1.17. At [facility], she had a recent urine culture that was positive for VRE. She will was started on Macrobid on October 24. Patient was found unresponsive by the staff and was having periods of apnea. Her blood pressure was 80/42 and respiration 6. Patient was transferred to [facility] emergency center for evaluation. She was treated for sepsis, septic shock and metabolic encephalopathy secondary to VRE urinary tract infection that failed outpatient treatment. She was seen by Dr. Parry and antibiotics were daptomycin and ertapenem. Patient continued to have decline in her condition and yesterday family decided to make her comfort care under [facility] hospice care. 11/08: Patient's family is at bedside, patient's comfortable, in terms would be managed for secretions and pain and terminal anxiety Objective - Vital Signs Vital signs: Vital Signs Temp Pulse 79 11/07/16 07:41 Resp 16 11/08/16 00:13 BP Pulse Ox 93 L 11/07/16 15:00 Intake & Output 11/07/16 11/08/16 11/08/16 18:59 06:59 18:59 Output Total 175 Balance -175 Output: Urine 175 Uretheral ([place]) 150 Other: # Bowel Movements 0 - Exam Patient is sedated with the IV morphine, patient is comatose - Respiratory Respiratory: bilateral: CTA, diminished, negative: dullness, rales, rhonchi - Gastrointestinal General gastrointestinal: Present: normal bowel sounds Assessment and Plan Plan: 1. Sepsis with septic shock and metabolic encephalopathy secondary to VRE urinary tract infection failed outpatient treatment with Macrobid. 2. Acute kidney injury with chronic kidney disease stage III. 3. Adrenal insufficiency. 4. Recent treatment for ESBL Klebsiella urinary tract infection. 5. Recent acute GI bleed with acute blood loss anemia requiring 4 units of packed RBCs. 6. Osteoarthritis, generalized. 7. 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 8. Vascular dementia. 9. Parkinson disease. 10. Medical debility. 11. Metabolic acidosis. 12. Bilateral lower extremity edema due to hypoproteinemia, IV fluid resuscitation with worsening GFR. CODE STATUS: No code Plan: Comfort care only. Continue atropine sublingual, Ativan IV and morphine IV. Patient is also on scopolamine patch
[2016-11-09] MEDS: ATROPINE OPHTH SOLN 1% 5ML BTL SUBLINGUAL SCH ×16 (02:26→23:03)
[2016-11-09] MEDS: MORPHINE SULFATE 2 MG/ML SYRINGE IVP PRN (10:59)
[2016-11-09] MEDS: MORPHINE SULFATE (100 MG/2 ML) 100 MG in SODIUM CHLORIDE 0.9% 100 ML IV SCH (13:39)
--- NOTE | 2016-11-09 15:59 | P.PN ---
Subjective 76-year-old female patient of Dr. Ferreira. 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 Patient has had 2 recent hospitalization the first being on September 26 through September 30 which time she was treated for acute GI bleed with colonoscopy that showed left-sided diverticulosis as the probable source of bleeding. She was transfused 4 units packed RBCs. She was also treated for UTI with ESBL Klebsiella pneumoniae. She was then admitted on October 06 through October 17 for acute kidney injury with hyperchloremic non-ion gap metabolic acidosis and ESBL klebsiella pneumoniae urinary tract infection. She was discharged back to [facility] on doxycycline. At the time of her discharge her BUN was 21 and creatinine 1.17. At [facility], she had a recent urine culture that was positive for VRE. She will was started on Macrobid on October 24. Patient was found unresponsive by the staff and was having periods of apnea. Her blood pressure was 80/42 and respiration 6. Patient was transferred to [facility] emergency center for evaluation. She was treated for sepsis, septic shock and metabolic encephalopathy secondary to VRE urinary tract infection that failed outpatient treatment. She was seen by Dr. Parry and antibiotics were daptomycin and ertapenem. Patient continued to have decline in her condition and yesterday family decided to make her comfort care under [facility] hospice care. 11/08: Patient's family is at bedside, patient's comfortable, in terms would be managed for secretions and pain and terminal anxiety 11/09: Morphine intravenously continuous started, patient tachypneic, scopolamine currently at 2 patches every 72 hours, will increase atropine drops to every 1 hour Objective - Vital Signs Vital signs: Vital Signs Temp Pulse 66 11/09/16 00:07 Resp 12 11/09/16 07:00 BP Pulse Ox 81 L 11/09/16 00:07 Intake & Output 11/08/16 11/09/16 11/09/16 18:59 06:59 18:59 Intake Total 0 Balance 0 Intake: Oral 0 Other: # Bowel Movements 0 - Exam Patient is sedated with the IV morphine, patient is comatose - Respiratory Respiratory: bilateral: diminished, rhonchi, prolonged expiration - Cardiovascular Rhythm: irregularly irregular Abnormal Heart Sounds: Absent: systolic murmur, diastolic murmur, rub, S3 Gallop , S4 Gallop, click, other - Gastrointestinal General gastrointestinal: Present: soft - Psychiatric Psychiatric Comment(s): Comatose Assessment and Plan Plan: 1. Sepsis with septic shock and metabolic encephalopathy secondary to VRE urinary tract infection failed outpatient treatment with Macrobid. 2. Acute kidney injury with chronic kidney disease stage III. 3. Adrenal insufficiency. 4. Recent treatment for ESBL Klebsiella urinary tract infection. 5. Recent acute GI bleed with acute blood loss anemia requiring 4 units of packed RBCs. 6. Osteoarthritis, generalized. 7. 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 8. Vascular dementia. 9. Parkinson disease. 10. Medical debility. 11. Metabolic acidosis. 12. Bilateral lower extremity edema due to hypoproteinemia, IV fluid resuscitation with worsening GFR. CODE STATUS: No code Plan: Comfort care only. Continue atropine sublingual, Ativan IV and morphine IV. Patient is also on scopolamine patch
[2016-11-10] MEDS: ATROPINE OPHTH SOLN 1% 5ML BTL SUBLINGUAL SCH ×14 (00:45→13:17)
--- NOTE | 2016-11-10 14:48 | P.PN ---
Subjective 76-year-old female patient of Dr. Ferreira. 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 Patient has had 2 recent hospitalization the first being on September 26 through September 30 which time she was treated for acute GI bleed with colonoscopy that showed left-sided diverticulosis as the probable source of bleeding. She was transfused 4 units packed RBCs. She was also treated for UTI with ESBL Klebsiella pneumoniae. She was then admitted on October 06 through October 17 for acute kidney injury with hyperchloremic non-ion gap metabolic acidosis and ESBL klebsiella pneumoniae urinary tract infection. She was discharged back to [facility] on doxycycline. At the time of her discharge her BUN was 21 and creatinine 1.17. At [facility], she had a recent urine culture that was positive for VRE. She will was started on Macrobid on October 24. Patient was found unresponsive by the staff and was having periods of apnea. Her blood pressure was 80/42 and respiration 6. Patient was transferred to [facility] emergency center for evaluation. She was treated for sepsis, septic shock and metabolic encephalopathy secondary to VRE urinary tract infection that failed outpatient treatment. She was seen by Dr. Parry and antibiotics were daptomycin and ertapenem. Patient continued to have decline in her condition and yesterday family decided to make her comfort care under [facility] hospice care. 11/08: Patient's family is at bedside, patient's comfortable, in terms would be managed for secretions and pain and terminal anxiety 11/09: Morphine intravenously continuous started, patient tachypneic, scopolamine currently at 2 patches every 72 hours, will increase atropine drops to every 1 hour 11/10: Patient is currently comatose. Robinul has been added versus atropine. Multiple family members at the bedside and counseled regarding patient's prognosis. Objective - Vital Signs Vital signs: Vital Signs Temp Pulse 60 11/10/16 07:00 Resp 9 L 11/10/16 07:00 BP Pulse Ox 81 L 11/09/16 00:07 Intake & Output 11/09/16 11/10/16 11/10/16 18:59 06:59 18:59 Intake Total 0 Output Total 10 Balance -10 0 Intake: Oral 0 Output: Urine 10 Other: # Voids 0 - Exam Patient is sedated with the IV morphine, patient is comatose - Respiratory Respiratory: bilateral: diminished, rhonchi, prolonged expiration - Cardiovascular Rhythm: irregularly irregular Abnormal Heart Sounds: Absent: systolic murmur, diastolic murmur, rub, S3 Gallop , S4 Gallop, click, other - Gastrointestinal General gastrointestinal: Present: soft - Psychiatric Psychiatric Comment(s): Comatose Assessment and Plan Plan: 1. Sepsis with septic shock and metabolic encephalopathy secondary to VRE urinary tract infection failed outpatient treatment with Macrobid. 2. Acute kidney injury with chronic kidney disease stage III. 3. Adrenal insufficiency. 4. Recent treatment for ESBL Klebsiella urinary tract infection. 5. Recent acute GI bleed with acute blood loss anemia requiring 4 units of packed RBCs. 6. Osteoarthritis, generalized. 7. 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 8. Vascular dementia. 9. Parkinson disease. 10. Medical debility. 11. Metabolic acidosis. 12. Bilateral lower extremity edema due to hypoproteinemia, IV fluid resuscitation with worsening GFR. CODE STATUS: No code Plan: Comfort care only. Continue Robin[place], Ativan IV and morphine IV. Patient is also on scopolamine patch Impression and plan of care have been directed as dictated by the signing physician. Noelle Judge nurse practitioner acting as scribe for signing physician.
[2016-11-10] MEDS: MORPHINE SULFATE (100 MG/2 ML) 100 MG in SODIUM CHLORIDE 0.9% 100 ML IV SCH (14:57)
[2016-11-10] MEDS: GLYCOPYRROLATE 0.2 MG/ML 2 ML VIAL IVP PRN ×2 (15:33→21:20)
[2016-11-10 15:39] VITALS: PULSE 72; RESP 8
== END 2016-11-10 23:16 | disposition expired | DRG 871 ==
LOC: 6SEL 15:21 → 5MS5E 11-07 09:31
PROVIDERS: ADMIT Internal Medicine; ATTEND Internal Medicine
DX: A41.89 Other specified sepsis (principal); G93.41 Metabolic encephalopathy; R65.21 Severe sepsis with septic shock; N17.9 Acute kidney failure, unspecified; E87.2 Acidosis; E27.40 Unspecified adrenocortical insufficiency; N39.0 Urinary tract infection, site not specified; G20 Parkinson's disease; F01.50 Vascular dementia, unspecified severity, without behavioral disturbance, psychotic disturbance, mood disturbance, and anxiety; B95.2 Enterococcus as the cause of diseases classified elsewhere; B96.1 Klebsiella pneumoniae [K. pneumoniae] as the cause of diseases classified elsewhere; E77.8 Other disorders of glycoprotein metabolism; E78.5 Hyperlipidemia, unspecified; I12.9 Hypertensive chronic kidney disease with stage 1 through stage 4 chronic kidney disease, or unspecified chronic kidney disease; K21.9 Gastro-esophageal reflux disease without esophagitis; M19.90 Unspecified osteoarthritis, unspecified site; N18.3 Chronic kidney disease, stage 3 (moderate); Z16.12 Extended spectrum beta lactamase (ESBL) resistance; Z16.21 Resistance to vancomycin; Z51.5 Encounter for palliative care; Z83.3 Family history of diabetes mellitus; Z85.05 Personal history of malignant neoplasm of liver; Z85.09 Personal history of malignant neoplasm of other digestive organs; Z91.040 Latex allergy status